=== PATIENT | female | born 1955 | race Caucasian/White ===

== ENCOUNTER 2016-11-26 16:40 | Inpatient (IN) ==
--- NOTE | 2016-11-26 17:47 | Emergency Department Note ---
Disposition Clinical Impression: Pancreatitis, Diabetes mellitus, History of peptic ulcer disease, Cirrhosis of liver, Obesity (BMI 30-39.9), Diarrhea Disposition: Admitted As Inpatient Referrals: NO,PCP [Non-Partnered Physician] - Forms: Work/School Release, ED Satisfaction Letter General Adult HPI - General Chief complaint: ED Abdominal Pain Stated complaint: "I believe i have pancreatitis" Time Seen by Provider: 11/26/16 17:46 Source: patient Limitations: no limitations - History of Present Illness HPI Narrative: 61-year-old female with a history of pancreatitis reports the emergency department complaining of right flank and right upper abdominal and midepigastric pain. There is no history of vomiting, she has had some nausea, some nonbloody diarrhea. The patient is a diabetic and reports a surgical history which includes hysterectomy appendectomy and cholecystectomy. No urinary symptoms. No back pain. The patient had no chest pain or shortness of breath. There is no history of fever cough and runny nose ear pain or sore throat. No trauma no rashes. There is no history of confusion. No trouble moving her arms or legs independently. There is no history of dysarthria or bloody stool. She does not consume alcohol on a regular basis. The patient reports that she has had 4 episodes of pancreatitis in the past. There is no history of previous GI bleed or gastritis. She is unsure what is caused her pancreatitis when asked, but a history of cirrhosis is noted. Pain Scale: 5 - Related Data Home Medications Medication Instructions Recorded Confirmed Amlodipine [Amlodipine Besylate] 10 mg PO QAM 11/17/15 10/13/16 Atorvastatin [Lipitor] 40 mg PO QPM 11/17/15 10/13/16 Duloxetine HCl [Cymbalta] 60 mg PO BID 11/17/15 10/13/16 Fluticasone Propionate Nasal 50 mcg NS DAILY PRN 11/17/15 10/13/16 [Flonase] LORazepam [Ativan] 0.5 tab PO BID PRN 11/17/15 10/13/16 Losartan/Hydrochlorothiazide 1 each PO QAM 11/17/15 10/13/16 [Hyzaar 100-12.5 Tablet] Metoprolol [Lopressor] 100 mg PO BID 11/17/15 10/13/16 Trazodone HCl 150 mg PO HS 11/17/15 10/13/16 Vitamin E (Dl,Tocopheryl Acet) 400 unit PO BID 11/17/15 10/13/16 [Vitamin E] Canagliflozin [Invokana] 300 mg PO DAILY 03/11/16 10/13/16 Cholecalciferol (D-3) [Vitamin D] 1,000 unit PO DAILY 04/11/16 10/13/16 Lansoprazole [Prevacid] 30 mg PO BID 04/11/16 10/13/16 Multivitamin [Multi-Day Vitamins] 1 each PO DAILY 04/11/16 10/13/16 Insulin NPH/REG 70/30 [HumuLIN 58 unit SQ BIDWM 06/27/16 10/13/16 70/30 VIAL] Albuterol Sulfate [Albuterol 1 puff IH PRN PRN 10/13/16 10/13/16 Inhaler] Beclomethasone Diprop 80mcg [Qvar 1 puff IH BID 10/13/16 10/13/16 80 mcg] Furosemide [Lasix] 20 mg PO DAILY 10/13/16 10/13/16 Previous Rx's Medication Instructions Recorded Promethazine [Phenergan] 25 mg PO Q8HR PRN #10 tablet 09/09/16 Allergies Allergy/AdvReac Type Severity Reaction Status Date / Time NSAIDS (Non-Steroidal AdvReac See Verified 06/04/16 12:52 Anti-Inflamma Comments All systems ED: reviewed and negative except as stated. 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 - Social History Smoking Status: Former smoker Smokeless Tobacco Status: No Alcohol use: Reports: none Drug use: Reports: none Physical Exam - General Limitations: no limitations General appearance: alert, in no apparent distress - Head Head exam: atraumatic, normocephalic, normal inspection - Eye Eye exam: Present: normal appearance, PERRL, EOMI - ENT ENT exam: normal exam, normal oropharynx, mucous membranes moist, TM's normal bilaterally, normal external ear exam - Neck Neck exam: Present: normal inspection, full ROM, trachea midline - Chest Chest inspection: Present: symmetric chest wall rise. Absent: tenderness - Respiratory Respiratory exam: Present: normal lung sounds bilaterally. Absent: respiratory distress - Cardiovascular Cardiovascular exam: Present: regular rate, normal rhythm, normal heart sounds - Abdominal Exam Abdominal exam: Present: soft, tenderness. Absent: distention, guarding, rebound, rigidity, trauma, pulsatile mass Abdominal tenderness: Present: epigastrium, moderate - Extremities Exam Extremities exam: Present: normal inspection, full ROM, normal capillary refill. Absent: tenderness, pedal edema, joint swelling, calf tenderness - Expanded Lower Extremity Exam Lower leg exam: Absent: Homans' sign Neurovascular/Tendon exam: Absent: motor deficit, sensory deficit, tendon deficit, extremity cold to touch, pallor - Back Exam Back exam: Present: normal inspection, full ROM. Absent: tenderness, CVA tenderness (R), CVA tenderness (L), vertebral tenderness - Neurological Exam Neurological exam: Present: alert, oriented X3, CN II-XII intact. Absent: motor sensory deficit - Psychiatric Psychiatric exam: Present: normal affect, normal mood - Skin Skin exam: Present: warm, dry, intact, normal color. Absent: rash, cyanosis, diaphoresis, erythema, pallor, mottled Course Vital Signs Temperature 97.7 F 11/26/16 16:46 Pulse Rate 69 11/26/16 16:46 Respiratory Rate 16 11/26/16 16:46 Blood Pressure 147/87 11/26/16 16:46 O2 Sat by Pulse Oximetry 95 11/26/16 16:46 Temperature 97.7 F 11/26/16 16:46 Pulse Rate 63 11/26/16 19:05 Respiratory Rate 16 11/26/16 19:05 Blood Pressure 118/65 11/26/16 19:05 O2 Sat by Pulse Oximetry 97 11/26/16 19:05 Oxygen Delivery Oxygen Delivery Nasal Cannula Medical Decision Making - [facility] Narrative Medical decision making narrative: The patient has low-grade elevations in her lipase and amylase. She states she has had pancreatitis multiple times. Her CT scan of the abdomen reveals no nino evidence of acute inflammatory pancreatitis. The patient's recent stress test and echocardiogram were negative. She is not describing chest pain or shortness of breath. The patient has had some diarrhea. She is diabetic but her blood sugar is not uncontrolled. The patient's pancreatic enzymes are slightly elevated compared to previous particularly, she has had several sets over the last few months. The patient does not feel well enough to go home she does have significant abdominal pain on examination. She also describes nonbloody diarrhea and is taking antibiotics this time. C. difficile could also be a possibility. I discussed the case with the hospitalist on-call who came by the ER to evaluate the patient. The patient is elderly, diabetic, and describes significant pain, I think it be appropriate to admit the patient for observation, hydrate her keep her nothing by mouth and evaluate further regarding potential C. difficile. - Lab Data Lab results reviewed: Yes I reviewed the patient's lab results. Result diagrams: 11/26/16 18:17 11/26/16 18:17 Lab Results 11/26/16 11/26/16 11/26/16 Range/Units 18:12 18:17 18:17 WBC 12.2 H (4.3-11.1) K/mcL RBC 5.12 H (3.82-4.97) M/mcL Hgb 15.2 (11.5-15.4) g/dL Hct 46.5 H (35.3-44.9) % MCV 90.8 (83.0-100.0) fL MCH 29.7 (28.0-33.3) pg MCHC 32.7 (31.6-35.5) g/dL RDW 13.2 (11.5-14.5) % Plt Count 360 (140-400) K/mcL MPV 9.7 (9.4-12.4) fL Immature Gran % 0.6 (0-4) % Seg Neutrophils % 50.8 % Lymphocytes % 34.5 % Monocytes % 8.4 % Eosinophils % 4.9 % Basophils % 0.8 % Neutrophils # 6.2 (1.6-8.9) K/mcL Lymphocytes # 4.2 (0.6-4.6) K/mcL Monocytes # 1.0 (0.0-1.3) K/mcL Eosinophils # 0.6 (0.0-0.6) K/mcL Basophils # 0.1 (0.0-0.2) K/mcL Immature Plt Fraction 4.0 (1.1-6.1) % PT (9.4-12.1) Seconds INR APTT (26.0-36.0) Seconds Sodium 140 (136-145) mEq/L Potassium 3.7 (3.5-4.5) mEq/L Chloride 103 (98-109) mEq/L Carbon Dioxide 26 (19-29) mEq/L BUN 18 (7-20) mg/dL Creatinine 0.87 (0.57-1.11) mg/dL Est GFR ( Amer) > 60 (> 60) Est GFR (Non-Af Amer) > 60 (> 60) BUN/Creatinine Ratio 21 (6-26) Glucose 96 (70-99) mg/dL Calculated Osmolality 292 (280-300) Lactic Acid (0.5-2.2) mmol/L Calcium 9.5 (8.6-10.8) mg/dL Total Bilirubin 0.5 (0.2-1.2) mg/dL Direct Bilirubin 0.2 (0.0-0.5) mg/dL Indirect Bilirubin 0.3 (0.0-1.2) mg/dL AST 60 H (5-34) Units/L ALT 34 (0-55) Units/L Alkaline Phosphatase 110 (38-126) Units/L C-Reactive Protein (Less than 5) mg/L Serum Total Protein 8.0 (6.0-8.3) g/dL Albumin 4.6 (3.5-5.0) g/dL Globulin 3.4 (2.4-3.5) g/dL Albumin/Globulin Ratio 1.4 (1.1-2.2) Amylase (25-125) Units/L Lipase (8-78) Units/L Urine Color Yellow (Yellow) Urine Clarity Clear (Clear) Urine pH 6.5 (5.0-8.0) pH Units Ur Specific [place] 1.023 (1.010-1.025) Urine Protein Negative (Neg-Trace) mg/dL Urine Glucose (UA) >=1000 H (Normal) mg/dL Urine Ketones Negative (Negative) mg/dL Urine Blood Negative (Negative) Urine Nitrite Negative (Negative) Urine Bilirubin Negative (Negative) Urine Urobilinogen Normal (Normal) mg/dL Ur Leukocyte Esterase Negative (Negative) 11/26/16 11/26/16 11/26/16 Range/Units 18:17 18: 18: WBC (4.3-11.1) K/mcL RBC (3.82-4.97) M/mcL Hgb (11.5-15.4) g/dL Hct (35.3-44.9) % MCV (83.0-100.0) fL MCH (28.0-33.3) pg MCHC (31.6-35.5) g/dL RDW (11.5-14.5) % Plt Count (140-400) K/mcL MPV (9.4-12.4) fL Immature Gran % (0-4) % Seg Neutrophils % % Lymphocytes % % Monocytes % % Eosinophils % % Basophils % % Neutrophils # (1.6-8.9) K/mcL Lymphocytes # (0.6-4.6) K/mcL Monocytes # (0.0-1.3) K/mcL Eosinophils # (0.0-0.6) K/mcL Basophils # (0.0-0.2) K/mcL Immature Plt Fraction (1.1-6.1) % PT (9.4-12.1) Seconds INR APTT (26.0-36.0) Seconds Sodium (136-145) mEq/L Potassium (3.5-4.5) mEq/L Chloride (98-109) mEq/L Carbon Dioxide (19-29) mEq/L BUN (7-20) mg/dL Creatinine (0.57-1.11) mg/dL Est GFR ( Amer) (> 60) Est GFR (Non-Af Amer) (> 60) BUN/Creatinine Ratio (6-26) Glucose (70-99) mg/dL Calculated Osmolality (280-300) Lactic Acid 0.9 (0.5-2.2) mmol/L Calcium (8.6-10.8) mg/dL Total Bilirubin (0.2-1.2) mg/dL Direct Bilirubin (0.0-0.5) mg/dL Indirect Bilirubin (0.0-1.2) mg/dL AST (5-34) Units/L ALT (0-55) Units/L Alkaline Phosphatase (38-126) Units/L C-Reactive Protein 3 (Less than 5) mg/L Serum Total Protein (6.0-8.3) g/dL Albumin (3.5-5.0) g/dL Globulin (2.4-3.5) g/dL Albumin/Globulin Ratio (1.1-2.2) Amylase 127 H (25-125) Units/L Lipase 223 H (8-78) Units/L Urine Color (Yellow) Urine Clarity (Clear) Urine pH (5.0-8.0) pH Units Ur Specific [place] (1.010-1.025) Urine Protein (Neg-Trace) mg/dL Urine Glucose (UA) (Normal) mg/dL Urine Ketones (Negative) mg/dL Urine Blood (Negative) Urine Nitrite (Negative) Urine Bilirubin (Negative) Urine Urobilinogen (Normal) mg/dL Ur Leukocyte Esterase (Negative) 11/26/16 Range/Units 18:17 WBC (4.3-11.1) K/mcL RBC (3.82-4.97) M/mcL Hgb (11.5-15.4) g/dL Hct (35.3-44.9) % MCV (83.0-100.0) fL MCH (28.0-33.3) pg MCHC (31.6-35.5) g/dL RDW (11.5-14.5) % Plt Count (140-400) K/mcL MPV (9.4-12.4) fL Immature Gran % (0-4) % Seg Neutrophils % % Lymphocytes % % Monocytes % % Eosinophils % % Basophils % % Neutrophils # (1.6-8.9) K/mcL Lymphocytes # (0.6-4.6) K/mcL Monocytes # (0.0-1.3) K/mcL Eosinophils # (0.0-0.6) K/mcL Basophils # (0.0-0.2) K/mcL Immature Plt Fraction (1.1-6.1) % PT 11.0 (9.4-12.1) Seconds INR 1.0 APTT 30.9 (26.0-36.0) Seconds Sodium (136-145) mEq/L Potassium (3.5-4.5) mEq/L Chloride (98-109) mEq/L Carbon Dioxide (19-29) mEq/L BUN (7-20) mg/dL Creatinine (0.57-1.11) mg/dL Est GFR ( Amer) (> 60) Est GFR (Non-Af Amer) (> 60) BUN/Creatinine Ratio (6-26) Glucose (70-99) mg/dL Calculated Osmolality (280-300) Lactic Acid (0.5-2.2) mmol/L Calcium (8.6-10.8) mg/dL Total Bilirubin (0.2-1.2) mg/dL Direct Bilirubin (0.0-0.5) mg/dL Indirect Bilirubin (0.0-1.2) mg/dL AST (5-34) Units/L ALT (0-55) Units/L Alkaline Phosphatase (38-126) Units/L C-Reactive Protein (Less than 5) mg/L Serum Total Protein (6.0-8.3) g/dL Albumin (3.5-5.0) g/dL Globulin (2.4-3.5) g/dL Albumin/Globulin Ratio (1.1-2.2) Amylase (25-125) Units/L Lipase (8-78) Units/L Urine Color (Yellow) Urine Clarity (Clear) Urine pH (5.0-8.0) pH Units Ur Specific [place] (1.010-1.025) Urine Protein (Neg-Trace) mg/dL Urine Glucose (UA) (Normal) mg/dL Urine Ketones (Negative) mg/dL Urine Blood (Negative) Urine Nitrite (Negative) Urine Bilirubin (Negative) Urine Urobilinogen (Normal) mg/dL Ur Leukocyte Esterase (Negative) - Radiology Data Radiology results reviewed: Yes I reviewed the patient's radiology results.
[2016-11-26 18:21] LABS: Bilirubin,Urine Negative (Negative); Blood,Urine Negative (Negative); Clarity,Urine Clear (Clear); Color,Urine Yellow (Yellow); Glucose,Urine (UA) >=1000 mg/dL (Normal); Ketones,Urine Negative (Negative); Leukocyte Esterase,Urine Negative (Negative); Nitrite,Urine Negative (Negative); PH,Urine 6.5 pH Units (5.0-8.0); Protein,Urine Negative (Neg-Trace); Specific Gravity,Urine 1.023 (1.010-1.025); Urobilinogen,Urine Normal (Normal)
[2016-11-26] MEDS ORDERED: Ondansetron 4 MG/2 ML VIAL IVP ONE (18:21)
[2016-11-26] MEDS ORDERED: *HR* HYDROmorphone (PF) 1 MG/ML SYRINGE IVP ONE (18:21)
[2016-11-26 18:32] LABS: Basophils # 0.1 K/mcL (0.0-0.2); Basophils % 0.8 %; Eosinophils # 0.6 K/mcL (0.0-0.6); Eosinophils % 4.9 %; Hematocrit 46.5 % (35.3-44.9); Hemoglobin 15.2 g/dL (11.5-15.4); Immature Granulocytes % 0.6 % (0-4); Lymphocytes # 4.2 K/mcL (0.6-4.6); Lymphocytes % 34.5 %; Mean Corpuscular HGB Conc 32.7 g/dL (31.6-35.5); Mean Corpuscular Hemoglobin 29.7 pg (28.0-33.3); Mean Corpuscular Volume 90.8 fL (83.0-100.0); Mean Platelet Volume 9.7 fL (9.4-12.4); Monocytes % 8.4 %; Neutrophils # 6.2 K/mcL (1.6-8.9); Platelet Count 360 K/mcL (140-400); Red Blood Count 5.12 M/mcL (3.82-4.97); Red Cell Distribution Width 13.2 % (11.5-14.5); Segmented Neutrophils % 50.8 %
[2016-11-26 18:46] LABS: Amylase 127 Units/L (25-125); Lipase 223 Units/L (8-78)
[2016-11-26 18:48] LABS: Alanine Aminotransferase 34 Units/L (0-55); Albumin 4.6 g/dL (3.5-5.0); Albumin/Globulin Ratio 1.4 (1.1-2.2); Alkaline Phosphatase 110 Units/L (38-126); Aspartate Amino Transferase 60 Units/L (5-34); BUN/Creatinine Ratio 21 (6-26); Bilirubin,Direct 0.2 mg/dL (0.0-0.5); Bilirubin,Indirect 0.3 mg/dL (0.0-1.2); Bilirubin,Total 0.5 mg/dL (0.2-1.2); Blood Urea Nitrogen 18 mg/dL (7-20); Calcium 9.5 mg/dL (8.6-10.8); Carbon Dioxide 26 mEq/L (19-29); Chloride 103 mEq/L (98-109); Globulin 3.4 g/dL (2.4-3.5); Glucose 96 mg/dL (70-99); Osmolality,Calculated 292 (280-300); Potassium 3.7 mEq/L (3.5-4.5); Sodium 140 mEq/L (136-145); eGFR For African Americans > 60 (> 60); eGFR For Non-African Americans > 60 (> 60)
[2016-11-26 19:55] LABS: Activated Partial Thrombo Time 30.9 Seconds (26.0-36.0)
[2016-11-26] MEDS ORDERED: Acetaminophen 325 MG TABLET PO PRN (22:36)
[2016-11-26] MEDS ORDERED: Naloxone 0.4 MG/ML INJ IVP PRN (22:36)
[2016-11-26] MEDS ORDERED: Dextrose Gel 15 GM PO PRN ×2 (22:42)
[2016-11-26] MEDS ORDERED: D5% in Water 1,000 ML IV PRN (22:42)
[2016-11-26] MEDS ORDERED: *HR* Dextrose 50 % in Water (Syg) 50 ML SYRINGE IVP PRN (22:42)
[2016-11-26] MEDS ORDERED: 0.9 % Sodium Chloride 1,000 ML IVC SCH (22:45)
--- NOTE | 2016-11-26 22:54 | Internal Med History&Physical ---
Date of Encounter: 11/26/16 Time of Encounter: 22:15 Assessment and Plan (1) Acute pancreatitis Current visit: Yes Status: Acute Lipase is elevated but CT abdomen did not show acute pancreatitis. Will treat with IV fluids and pain management. GI consult, as she follows with Dr Castillo and apparently is scheduled for a procedure later this month. Pt was previously evaluated for pancreatitis in December 2015. MRCP at that time showed "Mild common bile duct dilation without discrete filling defect or choledocholithiasis". She denies alcohol use. She denies starting any new medications recently. He is status post cholecystectomy 2013. She has mild hyper lipidemia with triglycerides in 200's in december 2015. Qualifiers: Pancreatitis type: unspecified pancreatitis type Acute pancreatitis complication: no infection or necrosis Qualified Code(s): K85.90 - Acute pancreatitis without necrosis or infection, unspecified (2) Cirrhosis of liver Current visit: Yes Status: Chronic Qualifiers: Hepatic cirrhosis type: unspecified hepatic cirrhosis Ascites presence: without ascites Qualified Code(s): K74.60 - Unspecified cirrhosis of liver (3) Diabetes mellitus Current visit: Yes Status: Chronic start sliding scale insulin Qualifiers: Diabetes mellitus type: type 2 Diabetes mellitus complication status: with unspecified complications Diabetes mellitus correction insulin use: with correction use Qualified Code(s): E11.8 - Type 2 diabetes mellitus with unspecified complications; 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 Lopez is a 61 year old female with a past medical history significant for pancreatitis, follows with Dr. Castillo and is expected to have a procedure done later this month. She also has history of cirrhosis of liver, diabetes mellitus , GERD, hyperlipidemia, hypertension, Lung cancer s/p left lung surgery, s/p appendectomy, cholecystectomy, hysterectomy. She presents to the emergency department history of epigastric/upper abdominal pain started last night. Pain was moderate in severity and was stopped on the same quality as her prior pancreatitis pain. Pain was radiating to the back. Pain is improved since presentation to the hospital. She had some nausea but no vomiting. Had a few loose bowel movements yesterday. Denies chest pain, shortness of breath, cough , expectoration, dysuria, hematuria, fever, chills. She was evaluated in the emergency department and was noted to have elevated lipase and amylase. CT scan of the abdomen was negative for acute pancreatitis. She is admitted to the hospitalist service for further workup and management. Pt was previously evaluated for pancreatitis in December 2015. MRCP at that time showed "Mild common bile duct dilation without discrete filling defect or choledocholithiasis". She denies alcohol use. She denies starting any new medications recently. He is status post cholecystectomy 2013. She has mild hyper lipidemia with triglycerides in 200's in december 2015. Past Med Surg Social Fam HX - Past Medical History Medical history: arthritis, cancer, cirrhosis, diabetes, GERD, hyperlipidemia, hypertension, liver disease, malignancy, osteoporosis, other Psychiatric history: anxiety, depression - Past Surgical History Surgical History: appendectomy, cholecystectomy, hysterectomy, orthopedic, other , LIZZETTE/BSO, other - Social History Smoking Status: Former smoker Smokeless Tobacco Status: No Alcohol use: none Drug use: none - Family History Mother Living Status: Hx Family Cardiac Disorders: Yes (abdominal aortic aneurysm) Hx Family Respiratory Disorders: Yes (emphysema) Hx Family Cancer: Yes (skin cancer) Hx Family GI Disorders: No Hx Family Endocrine Disorder: Yes (diabetes) Hx Family Neuromuscular Disorders: No Hx Family Neurologic Disorders: No Hx Family HEENT Disorders: No Hx Family Autoimmune Disorders: No Father Living Status: Hx Family Cardiac Disorders: Yes (unknown) Internal Medicine - H&P: Meds Amlodipine [Amlodipine Besylate] 10 mg PO QAM 11/17/15 [History] Atorvastatin [Lipitor] 40 mg PO QPM 11/17/15 [History] Duloxetine HCl [Cymbalta] 60 mg PO BID 11/17/15 [History] Fluticasone Propionate Nasal [Flonase] 50 mcg NS DAILY PRN 11/17/15 [History] LORazepam [Ativan] 0.5 tab PO BID PRN 11/17/15 [History] Losartan/Hydrochlorothiazide [Hyzaar 100-12.5 Tablet] 1 each PO QAM 11/17/15 [ History] Metoprolol [Lopressor] 100 mg PO BID 11/17/15 [History] Trazodone HCl 150 mg PO HS 11/17/15 [History] Vitamin E (Dl,Tocopheryl Acet) [Vitamin E] 400 unit PO BID 11/17/15 [History] Canagliflozin [Invokana] 300 mg PO DAILY 03/11/16 [History] Multivitamin [Multi-Day Vitamins] 1 each PO DAILY 04/11/16 [History] Insulin NPH/REG 70/30 [HumuLIN 70/30 VIAL] 58 unit SQ BIDWM 06/27/16 [History] Albuterol Sulfate [Albuterol Inhaler] 1 puff IH PRN PRN 10/13/16 [History] Beclomethasone Diprop 80mcg [Qvar 80 mcg] 1 puff IH BID 10/13/16 [History] Furosemide [Lasix] 20 mg PO DAILY 10/13/16 [History] Aripiprazole [Abilify] 2 mg PO HS 11/26/16 [History] Esomeprazole Magnesium [Nexium] 40 mg PO DAILY 11/26/16 [History] Allergies NSAIDS (Non-Steroidal Anti-Inflamma Adverse Reaction (Verified 06/04/16 12:52) See Comments bleeding ulcer All Systems PM: A 10-system review of systems was performed and is negative for pertinent findings except as documented above in the HPI. - Constitutional Vitals: Temp Pulse Resp BP Pulse Ox 97.6 F 57 16 103/61 94 L 11/26/16 22:10 11/26/16 22:10 11/26/16 22:10 11/26/16 22:10 11/26/16 22:10 Exam: General: Not in acute distress at the time of my evaluation HEENT: Oral mucosa is moist. No conjunctival palor or scleral icterus Neck: No obvious neck swellings Lungs: Clear to auscultation Cardiac: Regular rate and rhythm. Systolic murmur in the aortic area Abdomen: Epigastric/upper abdominal tenderness. Bowel sounds present Genitourinary: No reeves catheter Neurological: Alert and oriented. No gross localizing deficits Psych: Not aggressive or agitated Extremities: Trace leg edema Skin: No generalized rash Internal Med - H&P Results - Labs CBC & Chem 7: 11/26/16 18:17 11/26/16 18:17 - Impressions ITS Impressions Abdomen/Pelvis CT 11/26/16 18:22 IMPRESSION: 1. No acute process in the abdomen or pelvis. Specifically, there is no evidence of pancreatitis. 2. Small fat-containing ventral abdominal wall hernia. 3. Unchanged mild hepatomegaly. D/ / 11/26/2016 19:49:58 Vasiliy Chandler MD / alana Interpreting Provider: Vasiliy Chandler MD MRCP in 12/2015: IMPRESSION: 1. Mild common bile duct dilation without discrete filling defect or choledocholithiasis. 2. Slight hypertrophy of the left hepatic lobe with slightly lobular contour, which can be seen in setting of cirrhosis
[2016-11-26] MEDS: 0.9 % Sodium Chloride 1,000 ML IVC SCH (23:53)
[2016-11-26] MEDS: *HR* Morphine 2 MG/ML SYRINGE IVP PRN (23:53)
[2016-11-26] MEDS: Pantoprazole 40 MG VIAL IVP SCH (23:54)
[2016-11-27] MEDS ORDERED: *HR* LORazepam 1 MG TABLET PO PRN (01:07)
[2016-11-27] MEDS ORDERED: Fluticasone Propionate Nasal 50 MCG/SPRAY BOTTLE NS PRN (01:07)
[2016-11-27] MEDS: ARIPiprazole 2 MG TABLET PO SCH ×2 (01:56→20:16)
[2016-11-27] MEDS: *HR* Morphine 2 MG/ML SYRINGE IVP PRN ×4 (04:48→20:15)
[2016-11-27] MEDS: *HR* Enoxaparin 40 MG/0.4 ML SYRINGE SQ SCH (05:04)
[2016-11-27] MEDS: Ondansetron 4 MG/2 ML VIAL IVP PRN ×2 (05:04→18:26)
[2016-11-27] MEDS: 0.9 % Sodium Chloride 1,000 ML IVC SCH ×3 (06:30→20:18)
[2016-11-27 06:45] LABS: Hematocrit 42.3 % (35.3-44.9); Hemoglobin 13.8 g/dL (11.5-15.4); Mean Corpuscular HGB Conc 32.6 g/dL (31.6-35.5); Mean Corpuscular Hemoglobin 30.3 pg (28.0-33.3); Mean Corpuscular Volume 92.8 fL (83.0-100.0); Mean Platelet Volume 9.5 fL (9.4-12.4); Platelet Count 244 K/mcL (140-400); Red Blood Count 4.56 M/mcL (3.82-4.97); Red Cell Distribution Width 13.2 % (11.5-14.5)
[2016-11-27 07:01] LABS: Alanine Aminotransferase 24 Units/L (0-55); Albumin/Globulin Ratio 1.3 (1.1-2.2); Alkaline Phosphatase 93 Units/L (38-126); Aspartate Amino Transferase 48 Units/L (5-34); BUN/Creatinine Ratio 20 (6-26); Bilirubin,Total 0.4 mg/dL (0.2-1.2); Blood Urea Nitrogen 14 mg/dL (7-20); Calcium 8.9 mg/dL (8.6-10.8); Carbon Dioxide 25 mEq/L (19-29); Chloride 106 mEq/L (98-109); Chol/HDL Ratio 4.6 (0-4.9); Cholesterol 195 mg/dL (< 200); Globulin 2.7 g/dL (2.4-3.5); Glucose 87 mg/dL (70-99); HDL Cholesterol 42 mg/dL (40-59); LDL Cholesterol,Calculated 115 mg/dL (0-99); Osmolality,Calculated 290 (280-300); Potassium 3.7 mEq/L (3.5-4.5); Sodium 140 mEq/L (136-145); Triglycerides 192 mg/dL (< 150); eGFR For African Americans > 60 (> 60); eGFR For Non-African Americans > 60 (> 60)
[2016-11-27 07:19] LABS: Albumin 3.6 g/dL (3.5-5.0); Total Protein 6.3 g/dL (6.0-8.3)
[2016-11-27] MEDS: Pantoprazole 40 MG VIAL IVP SCH (09:00)
[2016-11-27] MEDS: Metoprolol 100 MG TABLET PO SCH ×2 (09:03→20:17)
[2016-11-27] MEDS: Multivit/Ca/Min/Fe/FA 1 TAB TABLET PO SCH (09:03)
[2016-11-27] MEDS: amLODIPine 5 MG TABLET PO SCH (09:03)
[2016-11-27] MEDS: Cholecalciferol (D-3) 1,000 UNIT TABLET PO SCH (09:03)
[2016-11-27] MEDS: Insulin LISPRO 300 UNITS/3 ML VIAL SQ SCH ×4 (09:07→20:17)
[2016-11-27] MEDS: Beclomethasone 80mcg MDI IH SCH ×2 (09:33→22:28)
--- NOTE | 2016-11-27 12:42 | Internal Med Progress Note ---
Date of Encounter: 11/27/16 Time of Encounter: 12:42 - Assessment and plan (1) Acute pancreatitis Current Visit: Yes Status: Acute Assessment and plan: Clinically improving Reports of having multiple episodes of pancreatitis in the past continue supportive care IV fluids Pain control Will advance to clear liquid diet Awaiting GI consultation Qualifiers: Pancreatitis type: unspecified pancreatitis type Acute pancreatitis complication: no infection or necrosis Qualified Code(s): K85.90 - Acute pancreatitis without necrosis or infection, unspecified (2) Cirrhosis of liver Current Visit: Yes Status: Chronic Qualifiers: Hepatic cirrhosis type: unspecified hepatic cirrhosis Ascites presence: without ascites Qualified Code(s): K74.60 - Unspecified cirrhosis of liver (3) Diabetes mellitus Current Visit: Yes Status: Chronic Assessment and plan: Continue to monitor fingerstick and blood glucose continue sliding scale insulin algorithm Qualifiers: Diabetes mellitus type: type 2 Diabetes mellitus complication status: with unspecified complications Diabetes mellitus halfway insulin use: with halfway use Qualified Code(s): E11.8 - Type 2 diabetes mellitus with unspecified complications; 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 Resting in bed and appears comfortable. States her nausea and abd pain are controlled with the current medication regimen. - Constitutional Vitals: Temp Pulse Resp BP Pulse Ox 98.3 F 64 18 123/82 98 11/27/16 10:00 11/27/16 10:00 11/27/16 10:00 11/27/16 10:00 11/27/16 10:00 General appearance: Present: A&O X 3, morbidly obese, no acute distress, answers questions appropriately - Head Head exam: Present: atraumatic, normocephalic - Eye Eye exam: Present: normal appearance, conjuntiva pink, sclera anicteric - Respiratory Respiratory exam: Present: CTAB. Absent: accessory muscle use, rales, rhonchi, wheezes - Cardiovascular Cardiovascular exam: Present: RRR, +S1, +S2. Absent: diastolic murmur, gallop, rubs, systolic murmur - GI/Abdominal GI/Abdominal exam: Present: normal bowel sounds, soft, tenderness (epigastric tenderness to deep palpation), no peritoneal signs. Absent: distended, rebound - Extremities Exam Extremities exam: Present: warm, radial pulses palpable and symetrical. Absent : calf tenderness, pedal edema - Neurological Exam Neurological exam: Present: alert, oriented X3 - Psychiatric Psychiatric exam: Present: normal affect, normal mood Internal Medicine: Result - Labs CBC & Chem 7: 11/27/16 06:39 11/27/16 06:39 Labs: Short CBC 11/27/16 Range/Units 06:39 WBC 8.6 (4.3-11.1) K/mcL Hgb 13.8 (11.5-15.4) g/dL Hct 42.3 (35.3-44.9) % Plt Count 244 (140-400) K/mcL BMP 11/27/16 06:39 Sodium 140 Potassium 3.7 Chloride 106 Carbon Dioxide 25 BUN 14 Creatinine 0.71 Glucose 87 Calcium 8.9 Liver Function 11/27/16 Range/Units 06:39 Total Bilirubin 0.4 (0.2-1.2) mg/dL AST 48 H (5-34) Units/L ALT 24 (0-55) Units/L Alkaline Phosphatase 93 (38-126) Units/L Albumin 3.6 D (3.5-5.0) g/dL - ABG Interpretation ABG results: PT/INR, D-dimer PT 11.0 Seconds (9.4-12.1) 11/26/16 18:17 Consult Discharge Plan - Plan Referrals: Ava Kimble, RESEARCH COORDINATOR [Primary Care Provider] -
[2016-11-27] MEDS ORDERED: D5% in Water 1,000 ML IV PRN (12:51)
[2016-11-27] MEDS ORDERED: Dextrose Gel 15 GM PO PRN ×2 (12:51)
[2016-11-27] MEDS ORDERED: *HR* Dextrose 50 % in Water (Syg) 50 ML SYRINGE IVP PRN (12:51)
[2016-11-27] MEDS: traZODone 50 MG TABLET PO SCH (20:17)
[2016-11-28] MEDS: *HR* Morphine 2 MG/ML SYRINGE IVP PRN ×7 (00:43→21:07)
[2016-11-28] MEDS: 0.9 % Sodium Chloride 1,000 ML IVC SCH ×3 (01:54→17:19)
[2016-11-28 05:11] LABS: Basophils # 0.1 K/mcL (0.0-0.2); Basophils % 0.8 %; Eosinophils # 0.5 K/mcL (0.0-0.6); Eosinophils % 5.6 %; Hematocrit 42.9 % (35.3-44.9); Hemoglobin 13.9 g/dL (11.5-15.4); Immature Granulocytes % 0.5 % (0-4); Lymphocytes # 2.5 K/mcL (0.6-4.6); Lymphocytes % 29.9 %; Mean Corpuscular HGB Conc 32.4 g/dL (31.6-35.5); Mean Corpuscular Hemoglobin 29.6 pg (28.0-33.3); Mean Corpuscular Volume 91.3 fL (83.0-100.0); Mean Platelet Volume 10.2 fL (9.4-12.4); Monocytes # 0.8 K/mcL (0.0-1.3); Neutrophils # 4.4 K/mcL (1.6-8.9); Platelet Count 262 K/mcL (140-400); Red Cell Distribution Width 13.2 % (11.5-14.5); Segmented Neutrophils % 53.2 %
[2016-11-28] MEDS: Ondansetron 4 MG/2 ML VIAL IVP PRN ×3 (05:30→21:07)
[2016-11-28] MEDS: *HR* Enoxaparin 40 MG/0.4 ML SYRINGE SQ SCH (05:32)
[2016-11-28] MEDS: Insulin LISPRO 300 UNITS/3 ML VIAL SQ SCH ×4 (07:43→20:58)
[2016-11-28] MEDS: Metoprolol 100 MG TABLET PO SCH ×2 (07:45→21:06)
[2016-11-28] MEDS: amLODIPine 5 MG TABLET PO SCH (07:45)
[2016-11-28] MEDS: Multivit/Ca/Min/Fe/FA 1 TAB TABLET PO SCH (07:46)
[2016-11-28] MEDS: Pantoprazole 40 MG VIAL IVP SCH (07:46)
[2016-11-28] MEDS: Cholecalciferol (D-3) 1,000 UNIT TABLET PO SCH (07:46)
[2016-11-28] MEDS: Beclomethasone 80mcg MDI IH SCH ×2 (08:31→20:43)
--- NOTE | 2016-11-28 09:30 | Gastroenterology Consult Note ---
<Claudia Gonzalez - Last Filed: 11/28/16 13:43> Date of Encounter: 11/28/16 Time of Encounter: 11:00 - Assessment and plan (1) Barretts esophagus Current Visit: Yes Status: Chronic Assessment and plan: Continue PPI daily, repeat EGD due 2018 Qualifiers: Ordoñez's esophagus type: without dysplasia Qualified Code(s): K22.70 - Ordoñez's esophagus without dysplasia (2) Pancreatitis Current Visit: Yes Status: Chronic Assessment and plan: Supportive care, w/u has been negative in the past for cause for continued episodes of pancreatitis. Fluids, bowel rest, anti-emetics, pain control. F/U in [facility] with Dr. Castillo 12/05/16 as previously scheduled. Qualifiers: Chronicity: chronic Pancreatitis type: unspecified pancreatitis type Qualified Code(s): K86.1 - Other chronic pancreatitis (3) Cirrhosis of liver Current Visit: Yes Status: Chronic Assessment and plan: Check afp. Recent imaging 11/2016 negative for lesions. No varices last EGD 2015. Qualifiers: Hepatic cirrhosis type: unspecified hepatic cirrhosis Ascites presence: without ascites Qualified Code(s): K74.60 - Unspecified cirrhosis of liver (4) H/O: lung cancer Current Visit: No Status: Chronic - Time Spent With Patient Total time spent is greater than 50% in coordination of care (as documented) at patient's floor/unit and/or counseling patient: less than 15 minutes GI History of Present Illness - Data of Consult Patient: known to practice within the last 3 years Consult date: 11/28/16 Requesting Physician: Malika Schmitz MD - Consult Narrative Reason for consult: chronic pancreatitis, cirrhosis History of present illness: Ms. Lopez is a 61 year old female with a PMH of chronic pancreatitis, cirrhosis, DM, GERD, HLD, HTN, lung cancer. She presented to the emergency department history of epigastric/upper abdominal pain started last night. Pain was moderate in severity and was stopped on the same quality as her prior pancreatitis pain. Pain was radiating to the back. Pain is improved since presentation to the hospital. She had some nausea but no vomiting. Had a few loose bowel movements yesterday. Patient is well-known to GI practice, last being seen in office visit with Dr. Castillo 07/2016 with a recall appoint in 6 months. Since that time, she has contacted the GI office with repeated episodes of pancreatitis and was placed on Dr. Castillo's schedule for office visit 12/05/16. Her last EGD with Dr. Castillo was 12/2015, + Barretts esophagus without dysplasia and reflux esophagitis. She also underwent EUS 12/2015 with a recommendation to repeat CT with pancreas protocol in 4-5 months. Prior liver biopsy in 2013, last Cscope [address] Castillo showed diverticulosis and internal hemorrhoids. Patient stated that symptoms began on Monday with diarrhea. Since that time, she has not had a BM. She reports abdominal pain, nausea. No significant improvement since she was admitted. Colonoscopy: 2013 - [facility] - diverticulosis/internal hemorrhoids EGD: 2015 - [facility] - Barretts, reflux esophagitis Past Med Surg Social Fam HX - Past Medical History Medical history: arthritis, cancer, cirrhosis, diabetes, GERD, hyperlipidemia, hypertension, liver disease, malignancy, osteoporosis, other Psychiatric history: anxiety, depression - Past Surgical History Surgical History: appendectomy, cholecystectomy, hysterectomy, orthopedic, other , LIZZETTE/BSO, other - Social History Smoking Status: Former smoker Smokeless Tobacco Status: No Alcohol use: none Drug use: none - Family History Mother Living Status: Hx Family Cardiac Disorders: Yes (abdominal aortic aneurysm) Hx Family Respiratory Disorders: Yes (emphysema) Hx Family Cancer: Yes (skin cancer) Hx Family GI Disorders: No Hx Family Endocrine Disorder: Yes (diabetes) Hx Family Neuromuscular Disorders: No Hx Family Neurologic Disorders: No Hx Family HEENT Disorders: No Hx Family Autoimmune Disorders: No Father Living Status: Hx Family Cardiac Disorders: Yes (unknown) - Gastrointestinal NSAID use: None noted Anticoagulation Use: None Number of BM Per Day: Daily Gastrointestinal: Present: abdominal pain, constipation, diarrhea, nausea - Constitutional Constitutional: as per HPI - EENT Eyes: as per HPI Ears: Present: as per HPI Nose, mouth and throat: Present: as per HPI - Cardiovascular Cardiovascular ROS: Present: as per HPI - Respiratory Respiratory IM: Present: as per HPI - Neurological ROS Neurological GI: Present: as per HPI - Hematologic/Lymphatic Hematologic/Lymphatic pediatric: Present: as per HPI - Musculoskeletal Musculoskeletal ROS GI: Present: as per HPI - Integumentary Integumentary GI: Present: as per HPI - Psychiatric ROS Psychiatric GI: Present: as per HPI - Endocrine Endocrine IM: Present: as per HPI - Constitutional Vitals: Temp Pulse Resp BP Pulse Ox 97.6 F 67 18 119/65 97 11/28/16 07:00 11/28/16 07:00 11/28/16 08:34 11/28/16 07:00 11/28/16 08:34 General appearance: Present: cooperative, A&O X 3, no acute distress, answers questions appropriately - Head Head exam: Present: atraumatic, normocephalic - Eye Eye exam: Present: normal appearance, sclera anicteric - ENT ENT exam: Present: mucous membranes moist - Neck Neck exam general surgery: Present: normal inspection, trachea midline - Respiratory Respiratory exam: Present: CTAB - Cardiovascular Cardiovascular exam: Present: RRR, +S1, +S2 - GI/Abdominal GI/Abdominal exam: Present: soft, tenderness, no peritoneal signs - Rectal Rectal exam: Present: deferred - Extremities Exam Extremities exam: Present: warm - Neurological Exam Neurological exam: Present: no focal deficits - Psychiatric Psychiatric exam: Present: normal affect, normal mood - Skin Skin exam: Present: dry, intact, normal color, warm Results - Labs CBC & Chem 7: 11/28/16 04:46 11/27/16 06:39 Labs: Last Result Calcium 8.9 mg/dL (8.6-10.8) 11/27/16 06:39 C-Reactive Protein 3 mg/L (Less than 5) 11/26/16 18:17 Triglycerides 192 mg/dL (< 150) H 11/27/16 06:39 Entire Visit Hgb 13.9 g/dL (11.5-15.4) 11/28/16 04:46 Hct 42.9 % (35.3-44.9) 11/28/16 04:46 PT 11.0 Seconds (9.4-12.1) 11/26/16 18:17 Total Bilirubin 0.4 mg/dL (0.2-1.2) 11/27/16 06:39 AST 48 Units/L (5-34) H 11/27/16 06:39 ALT 24 Units/L (0-55) 11/27/16 06:39 Amylase 127 Units/L (25-125) H 11/26/16 18:17 Lipase 223 Units/L (8-78) H 11/26/16 18:17 - ABG ABG results: PT/INR, D-dimer PT 11.0 Seconds (9.4-12.1) 11/26/16 18:17 Consult Discharge Plan - Plan Referrals: Ava Kimble, HACK DRIVER [Primary Care Provider] - <[email or web address] - Last Filed: 11/28/16 14:25> Date of Encounter: 11/28/16 Time of Encounter: 12:00 - Time Spent With Patient Total time spent is greater than 50% in coordination of care (as documented) at patient's floor/unit and/or counseling patient: GI History of Present Illness - Data of Consult Requesting Physician: Malika Schmitz MD - Consult Narrative History of present illness: Ms. Lopez is a 61 year old female - Constitutional Vitals: Temp Pulse Resp BP Pulse Ox 98.0 F 66 16 130/67 94 L 11/28/16 10:55 11/28/16 10:55 11/28/16 10:55 11/28/16 10:55 11/28/16 10:55 Results - Labs CBC & Chem 7: 11/28/16 04:46 11/27/16 06:39 Labs: Last Result Calcium 8.9 mg/dL (8.6-10.8) 11/27/16 06:39 C-Reactive Protein 3 mg/L (Less than 5) 11/26/16 18:17 Triglycerides 192 mg/dL (< 150) H 11/27/16 06:39 Entire Visit Hgb 13.9 g/dL (11.5-15.4) 11/28/16 04:46 Hct 42.9 % (35.3-44.9) 11/28/16 04:46 PT 11.0 Seconds (9.4-12.1) 11/26/16 18:17 Total Bilirubin 0.4 mg/dL (0.2-1.2) 11/27/16 06:39 AST 48 Units/L (5-34) H 11/27/16 06:39 ALT 24 Units/L (0-55) 11/27/16 06:39 Amylase 127 Units/L (25-125) H 11/26/16 18:17 Lipase 223 Units/L (8-78) H 11/26/16 18:17 - ABG ABG results: PT/INR, D-dimer PT 11.0 Seconds (9.4-12.1) 11/26/16 18:17 - Attending Attestation I examined this patient and my medical decision-making was reviewed with the AUTO PHONE INSTALLER/PA/Advanced Practice Nurse/Resident Physician. I agree with the documented findings, disposition and treatment plan as described except to the extent set forth below. Patient with recurrent pancreatitis unclear etiology gallbladder is already out and CBD is not dilated. No history of drinking. Recommendation: IV fluid pain control and patient will be referred to pancreatic Center at [facility] for further workup of her recurrent pancreatitis as an outpatient
--- NOTE | 2016-11-28 10:51 | Internal Med Progress Note ---
Date of Encounter: 11/28/16 Time of Encounter: 10:50 - Assessment and plan (1) Acute pancreatitis Current Visit: Yes Status: Acute Assessment and plan: Clinically improving Reports of having multiple episodes of pancreatitis in the past continue supportive care IV fluids Pain control continue clear liquid diet advance diet as tolerated GI eval appreciated-no acute intervention recommended, further work up as outpatien Qualifiers: Pancreatitis type: unspecified pancreatitis type Acute pancreatitis complication: no infection or necrosis Qualified Code(s): K85.90 - Acute pancreatitis without necrosis or infection, unspecified (2) Cirrhosis of liver Current Visit: Yes Status: Chronic Qualifiers: Hepatic cirrhosis type: unspecified hepatic cirrhosis Ascites presence: without ascites Qualified Code(s): K74.60 - Unspecified cirrhosis of liver (3) Diabetes mellitus Current Visit: Yes Status: Chronic Assessment and plan: Continue to monitor fingerstick and blood glucose continue sliding scale insulin algorithm Qualifiers: Diabetes mellitus type: type 2 Diabetes mellitus complication status: with unspecified complications Diabetes mellitus terminal gauger supervisor insulin use: with intermediate use Qualified Code(s): E11.8 - Type 2 diabetes mellitus with unspecified complications; Z79.4 - superintendent terminal (current) use of insulin (4) Hypertension Current Visit: Yes Status: Chronic Assessment and plan: BP within acceptable range continue home medications Qualifiers: Hypertension type: essential hypertension Qualified Code(s): I10 - Essential (primary) hypertension (5) Obesity (BMI 30-39.9) Current Visit: Yes Status: Chronic (6) DVT prophylaxis Current Visit: Yes Status: Acute Assessment and plan: Lovenox SQ - Subjective Interval history: Patient seen and examined at bedside. Resting in bed and appears comfortable. States her nausea and abd pain are controlled with the current medication regimen. States she was able to tolerate clear liquid diet but had mild pain after but does not want to be NPO. - Constitutional Vitals: Temp Pulse Resp BP Pulse Ox 97.6 F 67 18 119/65 97 11/28/16 07:00 11/28/16 07:00 11/28/16 08:34 11/28/16 07:00 11/28/16 08:34 General appearance: Present: A&O X 3, morbidly obese, no acute distress, answers questions appropriately - Head Head exam: Present: atraumatic, normocephalic - Eye Eye exam: Present: normal appearance, conjuntiva pink, sclera anicteric - Respiratory Respiratory exam: Present: CTAB. Absent: respiratory distress, wheezes - Cardiovascular Cardiovascular exam: Present: RRR, +S1, +S2. Absent: diastolic murmur, gallop, rubs, systolic murmur - GI/Abdominal GI/Abdominal exam: Present: distended (obese), normal bowel sounds, soft. Absent: guarding, rebound, tenderness - Extremities Exam Extremities exam: Present: warm, radial pulses palpable and symetrical. Absent : calf tenderness, pedal edema, tenderness - Neurological Exam Neurological exam: Present: alert, oriented X3 - Psychiatric Psychiatric exam: Present: normal affect, normal mood Internal Medicine: Result - Labs CBC & Chem 7: 11/28/16 04:46 11/27/16 06:39 Labs: Short CBC 11/28/16 Range/Units 04:46 WBC 8.3 (4.3-11.1) K/mcL Hgb 13.9 (11.5-15.4) g/dL Hct 42.9 (35.3-44.9) % Plt Count 262 (140-400) K/mcL Neutrophils # 4.4 (1.6-8.9) K/mcL - ABG Interpretation ABG results: PT/INR, D-dimer PT 11.0 Seconds (9.4-12.1) 11/26/16 18:17 Consult Discharge Plan - Plan Referrals: Ava Kimble, SALVATIONIST [Primary Care Provider] -
[2016-11-28] MEDS ORDERED: Lidocaine -MPF 1% 2 ML VIAL ID PRN (10:57)
[2016-11-28 20:51] LABS: BUN/Creatinine Ratio 16 (6-26); Blood Urea Nitrogen 10 mg/dL (7-20); Carbon Dioxide 15 mEq/L (19-29); Chloride 109 mEq/L (98-109); Glucose 142 mg/dL (70-99); Osmolality,Calculated 293 (280-300); Phosphorous 3.3 mg/dL (2.3-4.7); Potassium 4.3 mEq/L (3.5-4.5); Sodium 141 mEq/L (136-145); eGFR For African Americans > 60 (> 60); eGFR For Non-African Americans > 60 (> 60)
[2016-11-28] MEDS: ARIPiprazole 2 MG TABLET PO SCH (21:06)
[2016-11-28] MEDS: traZODone 50 MG TABLET PO SCH (21:07)
[2016-11-29] MEDS: 0.9 % Sodium Chloride 1,000 ML IVC SCH ×2 (00:05→07:00)
[2016-11-29] MEDS: *HR* Enoxaparin 40 MG/0.4 ML SYRINGE SQ SCH (05:39)
[2016-11-29 06:48] VITALS: BP 162/77
[2016-11-29] MEDS: Insulin LISPRO 300 UNITS/3 ML VIAL SQ SCH ×2 (07:49→11:57)
[2016-11-29] MEDS: Metoprolol 100 MG TABLET PO SCH (07:51)
[2016-11-29] MEDS: Pantoprazole 40 MG VIAL IVP SCH (07:52)
[2016-11-29] MEDS: Multivit/Ca/Min/Fe/FA 1 TAB TABLET PO SCH (07:52)
[2016-11-29] MEDS: amLODIPine 5 MG TABLET PO SCH (07:52)
[2016-11-29] MEDS: Cholecalciferol (D-3) 1,000 UNIT TABLET PO SCH (07:52)
[2016-11-29] MEDS: Ondansetron 4 MG/2 ML VIAL IVP PRN (08:14)
[2016-11-29] MEDS: Beclomethasone 80mcg MDI IH SCH (08:16)
--- NOTE | 2016-11-29 09:43 | Discharge Summary ---
Date of Encounter: 11/29/16 Time of Encounter: 09:38 - Discharge Diagnosis (1) Acute pancreatitis Priority: Primary Status: Acute Qualifiers: Pancreatitis type: unspecified pancreatitis type Acute pancreatitis complication: no infection or necrosis Qualified Code(s): K85.90 - Acute pancreatitis without necrosis or infection, unspecified (2) Barretts esophagus Priority: Secondary Status: Chronic Qualifiers: Ordoñez's esophagus type: without dysplasia Qualified Code(s): K22.70 - Ordoñez's esophagus without dysplasia (3) Cirrhosis of liver Priority: Secondary Status: Chronic Qualifiers: Hepatic cirrhosis type: unspecified hepatic cirrhosis Ascites presence: without ascites Qualified Code(s): K74.60 - Unspecified cirrhosis of liver (4) Diabetes mellitus Priority: Secondary Status: Chronic Qualifiers: Diabetes mellitus type: type 2 Diabetes mellitus complication status: with unspecified complications Diabetes mellitus penitentiary insulin use: with penitentiary use Qualified Code(s): E11.8 - Type 2 diabetes mellitus with unspecified complications; Z79.4 - long-term (current) use of insulin (5) Hypertension Priority: Secondary Status: Chronic Qualifiers: Hypertension type: essential hypertension Qualified Code(s): I10 - Essential (primary) hypertension (6) Obesity (BMI 30-39.9) Priority: Secondary Status: Chronic (7) Chronic pain syndrome Priority: Secondary Status: Chronic (8) H/O: lung cancer Priority: Secondary Status: Chronic - Discharge Medications Prescriptions: Ondansetron HCl [Zofran] 4 mg PO Q6H PRN #20 tablet PRN Reason: Nausea And Vomiting Sennosides/Docusate Sodium [Senna Plus] 1 each PO BID #20 tablet Home Medications: Amlodipine [Amlodipine Besylate] 10 mg PO QAM 11/17/15 [History] Atorvastatin [Lipitor] 40 mg PO QPM 11/17/15 [History] Duloxetine HCl [Cymbalta] 60 mg PO BID 11/17/15 [History] Fluticasone Propionate Nasal [Flonase] 50 mcg NS DAILY PRN 11/17/15 [History] LORazepam [Ativan] 0.5 tab PO BID PRN 11/17/15 [History] Losartan/Hydrochlorothiazide [Hyzaar 100-12.5 Tablet] 1 tab PO QAM 11/17/15 [ History] Metoprolol [Lopressor] 100 mg PO BID 11/17/15 [History] Trazodone HCl 150 mg PO HS 11/17/15 [History] Vitamin E (Dl,Tocopheryl Acet) [Vitamin E] 400 unit PO DAILY 11/17/15 [History] Canagliflozin [Invokana] 300 mg PO DAILY 03/11/16 [History] Multivitamin [Multi-Day Vitamins] 1 each PO DAILY 04/11/16 [History] Insulin NPH/REG 70/30 [HumuLIN 70/30 VIAL] 30 - 40 unit SQ BIDWM 06/27/16 [ History] Albuterol Sulfate [Albuterol Inhaler] 1 - 2 puff IH Q6HR PRN 10/13/16 [History] Beclomethasone Diprop 80mcg [QVAR 80 mcg] 1 puff IH BID 10/13/16 [History] Furosemide [Lasix] 20 mg PO DAILY 10/13/16 [History] Aripiprazole [Abilify] 2 mg PO HS 11/26/16 [History] Esomeprazole Magnesium [Nexium] 40 mg PO DAILY 11/26/16 [History] HYDROcodone/Acet 5/325 mg [[place] 5-325 mg] 1 tab PO Q6H PRN #10 11/29/16 [Rx] Ondansetron HCl [Zofran] 4 mg PO Q6H PRN #20 tablet 11/29/16 [Rx] Sennosides/Docusate Sodium [Senna Plus] 1 each PO BID #20 tablet 11/29/16 [Rx] Allergies/Adverse Reactions: Allergies NSAIDS (Non-Steroidal Anti-Inflamma Adverse Reaction (Verified 11/27/16 15:51) See Comments PATIENT HAS ULCERS- Date of admission: 11/26/16 22:36 Primary care physician: Ava Kimble CNP Consults: 11/26/16 23:05 Consult to Gastroenterology [CONS] Routine Consulting Provider: Gastroenterology Rosie Reason for Consult: Acute pancreatitis (Recurrent episode) Call Completed: No 11/28/16 10:57 Consult to Invasive Line Access Team [CONS] Routine Reason for Consult: Needs IV accesss Line Type: EPIV PICC line indications: Limited vascular access Time Notified: 08:00 Call Completed: Yes Discharging clinician: Sarah Ignacio Anticipated date of discharge: 02/14/17 - Patient Status Disposition: Home, Self-Care Condition: Good Functional capacity at discharge: independent ambulation Overall status at discharge: patient is progressing back to baseline - Discharge Instructions Follow Up With: Ava Kimble CNP [Primary Care Provider] - (Web Request entered and they will call patient at home with date and time. Thank you) Sravani Castillo MD [Partnered Physician] - (Called office and they will call patient at home with date and time. Thank you) Additional Instructions: F/up with as scheduled - Diet and Activity Activity: resume usual activities as tolerated Diet: diabetic diet, low fat, low cholesterol, low salt diet Hospital course: Ms. Lopez is a 61 year old female with above medical problems, admitted with acute abdominal pain. Patient is noted to have recurrent admissions with acute pancreatitis of uncertain etiology. CT abdomen/pelvis done in the emergency room showed no evidence of acute pancreatitis or focal abscess. Serum lipase was noted to be slightly elevated at 223. Lipid profile showed no significant elevation in triglycerides. She was kept nothing by mouth and started on IV hydration along with pain control and supportive care. GI was consulted and agreed with the current regimen. She was noted to have Ordoñez's esophagus on recent EGD along with known liver cirrhosis, and AFP was sent, which was noted to be within normal limits. Patient is able to tolerate oral diet at this time with improvement in symptoms including pain. She is medically stable for discharge with outpatient GI follow-up. - Time Spent with Patient Total time spent providing and/or coordinating discharge services: Greater than 30 minutes (45 min) - Constitutional Vitals: Temp Pulse Resp BP Pulse Ox 98.0 F 73 17 162/77 93 L 11/29/16 06:41 11/29/16 06:41 11/29/16 06:41 11/29/16 06:41 11/29/16 07:00 General appearance: Present: A&O X 3, obese, answers questions appropriately - Respiratory Respiratory exam: Present: CTAB. Absent: accessory muscle use, rales, rhonchi, wheezes - GI/Abdominal GI/Abdominal exam: Present: normal bowel sounds, soft (mild tenderness in epigastrium, LUQ, RUQ), no peritoneal signs. Absent: distended, tenderness
== END 2016-11-29 11:45 | disposition home or self-care (01) | DRG 282 ==
LOC: EMEROO 16:40 → 3ANU 16:40 → SUATTDRO 22:36
PROVIDERS: ADMIT Hospitalist; ATTEND Internal Medicine

== ENCOUNTER 2016-12-28 23:02 | Observation (INO) ==
[2016-12-28] MEDS ORDERED: *HR* HYDROmorphone (PF) 1 MG/ML SYRINGE IVP ONE (23:17)
[2016-12-28] MEDS ORDERED: Ondansetron 4 MG/2 ML VIAL IVP ONE (23:18)
[2016-12-29 00:07] LABS: Basophils % 0.2 %; Eosinophils % 0.1 %; Hematocrit 37.2 % (35.3-44.9); Hemoglobin 12.4 g/dL (11.5-15.4); Immature Granulocytes % 0.5 % (0-4); Lymphocytes # 0.9 K/mcL (0.6-4.6); Lymphocytes % 9.9 %; Mean Corpuscular HGB Conc 33.3 g/dL (31.6-35.5); Mean Corpuscular Volume 89.9 fL (83.0-100.0); Mean Platelet Volume 9.7 fL (9.4-12.4); Monocytes # 0.6 K/mcL (0.0-1.3); Monocytes % 6.7 %; Neutrophils # 7.8 K/mcL (1.6-8.9); Platelet Count 261 K/mcL (140-400); Red Blood Count 4.14 M/mcL (3.82-4.97); Red Cell Distribution Width 13.8 % (11.5-14.5); Segmented Neutrophils % 82.6 %
[2016-12-29] MEDS ORDERED: 0.9 % Sodium Chloride 1,000 ML IVC ONE (00:16)
--- NOTE | 2016-12-29 00:19 | Emergency Department Note ---
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 She presents today due to abdominal pain after an ERCP. ERCP was performed by Dr. Castillo and biliary duct stent was placed. He spoke with Dr. Barry on the phone, was concerned because patient was having significant epigastric and right upper quadrant pain after procedure. He recommended the patient be admitted for IV fluids and pain control. Patient states that she went home after her procedure has been having epigastric and right upper quadrant pain that was fairly significant, somewhat to previous pain that she has extends with pancreatitis. This concerned the patient could have developed after procedure today. Admits to nausea and vomiting. Denies any fevers, diarrhea, chest pain, shortness of breath. Does admit to worsening right upper quadrant pain with deep inspiration. She states that she has had multiple episodes of pancreatitis in the past. Pain Scale: 8 - Related Data Home Medications Medication Instructions Recorded Confirmed Amlodipine [Amlodipine Besylate] 10 mg PO QAM 11/17/15 11/27/16 Atorvastatin [Lipitor] 40 mg PO QPM 11/17/15 11/27/16 Duloxetine HCl [Cymbalta] 60 mg PO BID 11/17/15 11/27/16 Fluticasone Propionate Nasal 50 mcg NS DAILY PRN 11/17/15 11/27/16 [Flonase] LORazepam [Ativan] 0.5 tab PO BID PRN 11/17/15 11/27/16 Losartan/Hydrochlorothiazide 1 tab PO QAM 11/17/15 11/27/16 [Hyzaar 100-12.5 Tablet] Metoprolol [Lopressor] 100 mg PO BID 11/17/15 11/27/16 Trazodone HCl 150 mg PO HS 11/17/15 11/27/16 Vitamin E (Dl,Tocopheryl Acet) 400 unit PO DAILY 11/17/15 11/27/16 [Vitamin E] Canagliflozin [Invokana] 300 mg PO DAILY 03/11/16 11/27/16 Multivitamin [Multi-Day Vitamins] 1 each PO DAILY 04/11/16 11/27/16 Insulin NPH/REG 70/30 [HumuLIN 30 - 40 unit SQ BIDWM 06/27/16 11/27/16 70/30 VIAL] Albuterol Sulfate [Albuterol 1 - 2 puff IH Q6HR PRN 10/13/16 11/27/16 Inhaler] Beclomethasone Diprop 80mcg [QVAR 1 puff IH BID 10/13/16 11/27/16 80 mcg] Furosemide [Lasix] 20 mg PO DAILY 10/13/16 11/27/16 Aripiprazole [Abilify] 2 mg PO HS 11/26/16 11/27/16 Esomeprazole Magnesium [Nexium] 40 mg PO DAILY 11/26/16 11/27/16 Previous Rx's Medication Instructions Recorded HYDROcodone/Acet 5/325 mg [[place] 1 tab PO Q6H PRN #10 11/29/16 5-325 mg] Ondansetron HCl [Zofran] 4 mg PO Q6H PRN #20 tablet 11/29/16 Sennosides/Docusate Sodium [Senna 1 each PO BID #20 tablet 11/29/16 Plus] Allergies Allergy/AdvReac Type Severity Reaction Status Date / Time NSAIDS (Non-Steroidal AdvReac See Verified 12/28/16 23:04 Anti-Inflamma Comments Constitutional: Denies: fever, chills Eyes: Denies: eye pain, eye discharge ENT ED: Denies: ear pain Cardiovascular: Denies: chest pain, palpitations, dyspnea on exertion Respiratory: Denies: cough, dyspnea, wheezes Gastrointestinal: Reports: abdominal pain, nausea, vomiting. 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 Psychiatric history: Reports: anxiety, depression - Social History Smoking status: Former smoker Alcohol use: Reports: none Drug use: Reports: none Physical Exam - General Limitations: no limitations General appearance: alert - Head Head exam: atraumatic, normocephalic, normal inspection - Eye Eye exam: Present: normal appearance, PERRL, EOMI - ENT ENT exam: normal exam, normal oropharynx, mucous membranes moist - Neck Neck exam: Present: normal inspection, full ROM, trachea midline - Chest Chest inspection: Present: normal inspection, symmetric chest wall rise - Respiratory Respiratory exam: Present: normal lung sounds bilaterally - Cardiovascular Cardiovascular exam: Present: regular rate, normal rhythm, normal heart sounds - Abdominal Exam Abdominal exam: Present: soft, tenderness (Right upper quadrant and epigastric, moderate in intensity). Absent: Campos's sign, Rovsing's sign, tenderness at McBurney's Point - Extremities Exam Extremities exam: Present: normal inspection, full ROM. Absent: tenderness, pedal edema - Back Exam Back exam: Present: normal inspection, full ROM. Absent: tenderness - Neurological Exam Neurological exam: Present: alert, oriented X3 - Psychiatric Psychiatric exam: Present: normal affect, normal mood - Skin Skin exam: Present: warm, dry, intact, normal color Course Course Narrative: Patient hypertensive on presentation. Otherwise, the rest of vitals were within normal limits. Physical exam shows a right upper quadrant and epigastric tenderness. Patient is tearful on exam. We will give pain medication and fluids. We will draw basic abdominal pain labs and reassess. We will admit for IV hydration and pain control, per request Dr. Castillo. 01:[address] mckeon. Vital Signs Temperature 98.3 F 12/28/16 23:05 Pulse Rate 96 12/28/16 23:05 Respiratory Rate 18 12/28/16 23:05 Blood Pressure 167/92 12/28/16 23:05 O2 Sat by Pulse Oximetry 97 12/28/16 23:05 Temperature 98.3 F 12/28/16 23:05 Pulse Rate 88 12/29/16 00:23 Respiratory Rate 16 12/29/16 00:23 Blood Pressure 189/94 12/29/16 00:23 O2 Sat by Pulse Oximetry 94 L 12/29/16 00:23 Oxygen Delivery Oxygen Delivery Room Air Abdominal Pain - MDM Narrative Medical decision making narrative: Patient hypertensive on presentation. Otherwise, the rest of vitals were within normal limits. Physical exam shows a right upper quadrant and epigastric tenderness. Patient is tearful on exam. We will give pain medication and fluids. We will draw basic abdominal pain labs and reassess. We will admit for IV hydration and pain control, per request Dr. Castillo. 01:[address] mckeon. - Medical Records Medical records reviewed: Yes I reviewed the patient's medical records. - Lab Data Lab results reviewed: Yes I reviewed the patient's lab results. Result diagrams: 12/28/16 23:52 12/28/16 23:52 Lab Results 12/28/16 12/28/16 Range/Units 23:52 23:52 WBC 9.5 (4.3-11.1) K/mcL RBC 4.14 (3.82-4.97) M/mcL Hgb 12.4 (11.5-15.4) g/dL Hct 37.2 (35.3-44.9) % MCV 89.9 (83.0-100.0) fL MCH 30.0 (28.0-33.3) pg MCHC 33.3 (31.6-35.5) g/dL RDW 13.8 (11.5-14.5) % Plt Count 261 (140-400) K/mcL MPV 9.7 (9.4-12.4) fL Immature Gran % 0.5 (0-4) % Seg Neutrophils % 82.6 % Lymphocytes % 9.9 % Monocytes % 6.7 % Eosinophils % 0.1 % Basophils % 0.2 % Neutrophils # 7.8 (1.6-8.9) K/mcL Lymphocytes # 0.9 (0.6-4.6) K/mcL Monocytes # 0.6 (0.0-1.3) K/mcL Eosinophils # 0.0 (0.0-0.6) K/mcL Basophils # 0.0 (0.0-0.2) K/mcL Sodium 133 L (136-145) mEq/L Potassium 4.3 (3.5-4.5) mEq/L Chloride 98 (98-109) mEq/L Carbon Dioxide 25 (19-29) mEq/L BUN 15 (7-20) mg/dL Creatinine 0.91 (0.57-1.11) mg/dL Est GFR ( Amer) > 60 (> 60) Est GFR (Non-Af Amer) > 60 (> 60) BUN/Creatinine Ratio 16 (6-26) Glucose 462 H (70-99) mg/dL Calculated Osmolality 297 (280-300) Calcium 9.5 (8.6-10.8) mg/dL Total Bilirubin 0.6 (0.2-1.2) mg/dL Direct Bilirubin 0.2 (0.0-0.5) mg/dL Indirect Bilirubin 0.4 (0.0-1.2) mg/dL AST 84 H (5-34) Units/L ALT 59 H (0-55) Units/L Alkaline Phosphatase 116 (38-126) Units/L Serum Total Protein 7.0 (6.0-8.3) g/dL Albumin 3.8 (3.5-5.0) g/dL Globulin 3.2 (2.4-3.5) g/dL Albumin/Globulin Ratio 1.2 (1.1-2.2) Lipase 187 H (8-78) Units/L S.B.A.R. - S.B.A.R. Situation: Demographics, MOA Background: Presenting Complaint, Relevant PMH, Meds, & Allergies Assessment: Vital Signs, Course and respsone to treatment, Exam Concerns, Patient/Family Expectation, Pertinant Lab Results, Outstanding Labs Recommendation: Barrier(s) to disposition, Recommendation based on pending studies, treatments, or consults S.B.A.R. Report Given to: Dr. Mckeon S.B.A.RZeina Repor Time: 01:11 Attestation Statement - Attestation Attestation: I, Herminio Barry MD, personally performed a history and physical exam of the patient and discussed their management with the resident. I reviewed the resident's note and agree with the documented findings, medical decision making , and plan of care. 61-year-old female presents to the emergency department with increased upper abdominal pain after she had an ERCP performed earlier today here by Dr. Castillo. She called Dr. Castillo because of the increased pain and he advised her to come here to be admitted for IV fluids and pain medications. Dr. Castillo did call here directly and I talked with him personally and he requested patient be admitted to the medical service for IV fluids and pain control. On examination patient is a well-developed well-nourished female in no acute distress. She is alert and oriented 3. There is no cyanosis or diaphoresis. Breath sounds are clear and equal bilaterally. Heart regular rate and rhythm. Abdomen is mildly distended with moderate epigastric and right upper quadrant tenderness on direct palpation. Labs reviewed. Mild elevation of transaminases and elevated lipase. The hospitalist, Dr. Mckeon, was consulted and accepted admission of this patient.
[2016-12-29 00:25] LABS: Alanine Aminotransferase 59 Units/L (0-55); Albumin 3.8 g/dL (3.5-5.0); Albumin/Globulin Ratio 1.2 (1.1-2.2); Alkaline Phosphatase 116 Units/L (38-126); Aspartate Amino Transferase 84 Units/L (5-34); BUN/Creatinine Ratio 16 (6-26); Bilirubin,Direct 0.2 mg/dL (0.0-0.5); Bilirubin,Indirect 0.4 mg/dL (0.0-1.2); Bilirubin,Total 0.6 mg/dL (0.2-1.2); Blood Urea Nitrogen 15 mg/dL (7-20); Calcium 9.5 mg/dL (8.6-10.8); Carbon Dioxide 25 mEq/L (19-29); Chloride 98 mEq/L (98-109); Globulin 3.2 g/dL (2.4-3.5); Glucose 462 mg/dL (70-99); Lipase 187 Units/L (8-78); Osmolality,Calculated 297 (280-300); Potassium 4.3 mEq/L (3.5-4.5); Sodium 133 mEq/L (136-145); eGFR For African Americans > 60 (> 60); eGFR For Non-African Americans > 60 (> 60)
[2016-12-29] MEDS ORDERED: *HR* Promethazine 25 MG/ML VIAL IVP PRN (01:05)
[2016-12-29] MEDS ORDERED: Naloxone 0.4 MG/ML INJ IVP PRN (01:05)
[2016-12-29] MEDS ORDERED: *HR* LORazepam 1 MG TABLET PO PRN (01:09)
[2016-12-29] MEDS ORDERED: *HR* Dextrose 50 % in Water (Syg) 50 ML SYRINGE IVP PRN (01:11)
[2016-12-29] MEDS ORDERED: D5% in Water 1,000 ML IV PRN (01:11)
[2016-12-29] MEDS ORDERED: Dextrose Gel 15 GM PO PRN ×2 (01:11)
[2016-12-29] MEDS ORDERED: Ringers Solution, Lactated 1,000 ML IVC SCH (01:15)
[2016-12-29] MEDS ORDERED: Pantoprazole 40 MG VIAL IVP SCH (01:15)
--- NOTE | 2016-12-29 01:18 | Internal Med History&Physical ---
Date of Encounter: 12/29/16 Time of Encounter: 01:00 Assessment and Plan (1) Status post endoscopic retrograde cholangiopancreatography Status: Acute . (2) Intractable abdominal pain Status: Acute . (3) Intractable nausea and vomiting Status: Acute . Qualifiers: Vomiting type: unspecified Qualified Code(s): R11.2 - Nausea with vomiting , unspecified (4) Pancreatitis Status: Acute . Qualifiers: Chronicity: acute Pancreatitis type: unspecified pancreatitis type Acute pancreatitis complication: unspecified Qualified Code(s): K85.90 - Acute pancreatitis without necrosis or infection, unspecified (5) Morbid obesity with BMI of 40.0-44.9, adult Status: Chronic . (6) Metastatic lung carcinoma Status: Chronic . Qualifiers: Laterality: unspecified laterality Qualified Code(s): C78.00 - Secondary malignant neoplasm of unspecified lung (7) Hypertension Status: Chronic . Qualifiers: Hypertension type: essential hypertension Qualified Code(s): I10 - Essential (primary) hypertension (8) Dyslipidemia Status: Chronic . (9) Acute abdominal pain syndrome Status: Acute . (10) History of peptic ulcer disease Status: Chronic . (11) Diabetes mellitus Status: Chronic . 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 (13) Degenerative joint disease involving multiple joints Status: Chronic . Qualifiers: Osteoarthritis type: unspecified Qualified Code(s): M15.9 - Polyosteoarthritis, unspecified (14) Chronic obstructive pulmonary disease Status: Chronic . Qualifiers: COPD type: unspecified COPD Qualified Code(s): J44.9 - Chronic obstructive pulmonary disease, unspecified (15) Cirrhosis of liver Status: Chronic . Qualifiers: Hepatic cirrhosis type: unspecified hepatic cirrhosis Ascites presence: without ascites Qualified Code(s): K74.60 - Unspecified cirrhosis of liver (16) Hepatic steatosis Status: Chronic . (17) Diverticular disease Status: Chronic . Qualifiers: Diverticulosis site: unspecified location Diverticulosis bleeding: diverticulosis without bleeding Qualified Code(s): K57.90 - Diverticulosis of intestine, part unspecified, without perforation or abscess without bleeding (18) Barretts esophagus Status: Chronic . Qualifiers: Ordoñez's esophagus type: without dysplasia Qualified Code(s): K22.70 - Ordoñez's esophagus without dysplasia (19) Chronic pain associated with significant psychosocial dysfunction Status: Chronic . (20) Chronic recurrent pancreatitis Status: Acute . Internal Medicine - H&P: HPI Chief complaint: Intractable nausea and vomiting and abdominal pain s/p ERCP Admitted From: Emergency Dept Plans for Post Hospital Care: Home History of present illness: Ms. Lopez is a 61 year old female patient is admitted with complaints of intractable nausea and vomiting and RUQ abdominal/flank pain. She is status post ERCP performed biliary stent placement and pancreatic ductal sphincterotomy in the morning prior to this presentation. Certainly was raised regarding increasing epigastric and right upper quadrant pain after her procedure and requirements for intravenous fluid resuscitation and pain management. Surgery for possible postprocedure pancreatitis raised. Initial screening laboratory studies were benign except for moderate hyperglycemia and hyponatremia. Hepatic function showed transaminitis. Lipase showed elevation at 187. Patient will be admitted this time and further evaluation and disposition. Past Med Surg Social Fam HX - Past Medical History Source: old records reviewed Medical history: arthritis, asthma, cancer (Non-small cell lung carcinoma, left s/p resection.), cirrhosis, COPD, diabetes, GERD (Ordoñez's esophagus. Esophagitis-gastritis.), GI bleed (Diverticulosis. 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 ), malignancy, osteoporosis (Vit D deficiency.), other (H/O pancreatitis) Psychiatric history: anxiety, depression, other - Past Surgical History Surgical History: appendectomy, cancer surgery, cholecystectomy, hysterectomy, orthopedic, other, LIZZETTE/BSO, other (EGD, COLONOSCOPY.) - Social History Smoking Status: Former smoker Packs per day: >30pk-yrs Smokeless Tobacco Status: No Alcohol use: none Drug use: none Occupational status: unemployed Current living situation: With Family Activity Level: Independent ambulation, Mostly sedentary Recent Out of Country Travel Within the Last 8 Weeks: No Exposure or Possible Exposure to Illness During Travel: No - Family History Mother Living Status: Hx Family Cardiac Disorders: Yes (abdominal aortic aneurysm) Hx Family Respiratory Disorders: Yes (emphysema) Hx Family Cancer: Yes (skin cancer) Hx Family GI Disorders: No Hx Family Endocrine Disorder: Yes (diabetes) Hx Family Neuromuscular Disorders: No Hx Family Neurologic Disorders: No Hx Family HEENT Disorders: No Hx Family Autoimmune Disorders: No Father Living Status: Hx Family Cardiac Disorders: Yes (unknown) Internal Medicine - H&P: Meds Amlodipine [Amlodipine Besylate] 10 mg PO QAM 11/17/15 [History] Atorvastatin [Lipitor] 40 mg PO QPM 11/17/15 [History] Duloxetine HCl [Cymbalta] 60 mg PO BID 11/17/15 [History] Fluticasone Propionate Nasal [Flonase] 50 mcg NS DAILY PRN 11/17/15 [History] LORazepam [Ativan] 0.5 tab PO BID PRN 11/17/15 [History] Losartan/Hydrochlorothiazide [Hyzaar 100-12.5 Tablet] 1 tab PO QAM 11/17/15 [ History] Metoprolol [Lopressor] 100 mg PO BID 11/17/15 [History] Trazodone HCl 150 mg PO HS 11/17/15 [History] Vitamin E (Dl,Tocopheryl Acet) [Vitamin E] 400 unit PO DAILY 11/17/15 [History] Multivitamin [Multi-Day Vitamins] 1 each PO DAILY 04/11/16 [History] Insulin NPH/REG 70/30 [HumuLIN 70/30 VIAL] 80 unit SQ BIDWM 06/27/16 [History] Albuterol Sulfate [Albuterol Inhaler] 1 - 2 puff IH Q6HR PRN 10/13/16 [History] Beclomethasone Diprop 80mcg [QVAR 80 mcg] 1 puff IH BID 10/13/16 [History] Furosemide [Lasix] 20 mg PO DAILY 10/13/16 [History] Aripiprazole [Abilify] 2 mg PO HS 11/26/16 [History] Esomeprazole Magnesium [Nexium] 40 mg PO DAILY 11/26/16 [History] HYDROcodone/Acet 5/325 mg [[place] 5-325 mg] 1 tab PO Q6H PRN #10 11/29/16 [Rx] Ondansetron HCl [Zofran] 4 mg PO Q6H PRN #20 tablet 11/29/16 [Rx] Sennosides/Docusate Sodium [Senna Plus] 1 each PO BID #20 tablet 11/29/16 [Rx] Insulin Regular Human [Humulin R] 0 units SQ TID PRN 12/29/16 [History] Allergies NSAIDS (Non-Steroidal Anti-Inflamma Adverse Reaction (Verified 12/29/16 09:34) See Comments PATIENT HAS ULCERS- All Systems PM: A 10-system review of systems was performed and is negative for pertinent findings except as documented above in the HPI. - Constitutional Constitutional: as per HPI, malaise, no chills, no fever(s), no night sweats - EENT Eyes: as per HPI, no change in vision, no discharge, no pain, no photophobia Ears: as per HPI, no ear discharge, no ear pain, no tinnitus Nose, mouth and throat: as per HPI, no dysphagia, no nasal discharge, no neck pain, no sore throat - Cardiovascular Cardiovascular ROS IM: as per HPI, no chest pain, no diaphoresis, no dyspnea, no lightheadedness, no palpitations, no syncope - Respiratory Respiratory: as per HPI, no cough, no dyspnea, no wheezing, no excessive phlegm production - Gastrointestinal Gastrointestinal: as per HPI, abdominal pain, bloating, nausea, vomiting, other , no diarrhea, no hematemesis, no hematochezia, no melena - Genitourinary Genitourinary: as per HPI, no change in urinary stream, no dysuria, no flank pain, no hematuria Menstruation: as per HPI, post hysterectomy - Musculoskeletal Musculoskeletal ROS IM: as per HPI, no numbness, no tingling - Integumentary Integumentary IM: as per HPI, no rash, no unusual bruising - Neurological Neurological ROS: as per HPI, no confusion, no convulsions, no focal weakness, no numbness, no tingling, no tremor(s) - Psychiatric Psychiatric: as per HPI - Endocrine Endocrine IM: as per HPI - Hematologic/Lymphatic Hematologic/Lymphatic: as per HPI, no easy bruising - Allergic/Immunologic Allergic/Immunologic: as per HPI - Constitutional Vitals: Temp Pulse Resp BP Pulse Ox 98.3 F 88 16 189/94 94 L 12/28/16 23:05 12/29/16 00:23 12/29/16 00:23 12/29/16 00:23 12/29/16 00:23 General appearance: Present: mild distress, A&O X 3, morbidly obese, answers questions appropriately - Head Head exam: Present: atraumatic, normocephalic - Eye Eye exam: Present: EOMI, PERRL, conjuntiva pink, sclera anicteric Pupils: Present: normal accommodation, PERRL - ENT ENT exam: Present: mucous membranes moist, normal oropharynx - Neck Neck exam general surgery: Present: supple, trachea midline. Absent: lymphadenopathy - Respiratory Respiratory exam: Present: decreased breath sounds, wheezes. Absent: accessory muscle use, rales, rhonchi - Cardiovascular Cardiovascular exam: Present: distant heart sounds, RRR, +S1, +S2. Absent: diastolic murmur, gallop, rubs, systolic murmur - GI/Abdominal GI/Abdominal exam: Present: distended, normal bowel sounds, soft, tenderness, no peritoneal signs - Extremities Exam Extremities exam: Present: full ROM, warm, radial pulses palpable and symetrical. Absent: calf tenderness, cyanotic, pedal edema - Neurological Exam Neurological exam: Present: alert, CN II-XII intact, oriented X3, no focal deficits. Absent: pronater drift, facial droop, speech deficit - Psychiatric Psychiatric exam: Present: normal affect, normal mood - Skin Skin exam: Present: dry, intact, warm Internal Med - H&P Results - Labs CBC & Chem 7: 12/29/16 09:02 12/29/16 06:01 Labs: Short CBC 12/28/16 Range/Units 23:52 WBC 9.5 (4.3-11.1) K/mcL Hgb 12.4 (11.5-15.4) g/dL Hct 37.2 (35.3-44.9) % Plt Count 261 (140-400) K/mcL Neutrophils # 7.8 (1.6-8.9) K/mcL BMP 12/28/16 23:52 Sodium 133 L Potassium 4.3 Chloride 98 Carbon Dioxide 25 BUN 15 Creatinine 0.91 Glucose 462 H Calcium 9.5 Liver Function 12/28/16 Range/Units 23:52 Total Bilirubin 0.6 (0.2-1.2) mg/dL Direct Bilirubin 0.2 (0.0-0.5) mg/dL AST 84 H (5-34) Units/L ALT 59 H (0-55) Units/L Alkaline Phosphatase 116 (38-126) Units/L Albumin 3.8 (3.5-5.0) g/dL Vital Signs Temp Pulse Resp BP Pulse Ox 12/29/16 00:23 88 16 189/94 94 L 12/28/16 23:05 98.3 F 96 18 167/92 97 Intake and Output 12/28/16 12/28/16 12/29/16 15:59 23:59 07:59 Other: Weight 104.326 kg - Impressions Abnormal lab results Sodium 133 mEq/L (136-145) L 12/28/16 23:52 Glucose 462 mg/dL (70-99) H 12/28/16 23:52 AST 84 Units/L (5-34) H 12/28/16 23:52 ALT 59 Units/L (0-55) H 12/28/16 23:52 Lipase 187 Units/L (8-78) H 12/28/16 23:52 Allergies Allergy/AdvReac Type Severity Reaction Status Date / Time NSAIDS (Non-Steroidal AdvReac See Verified 12/28/16 23:04 Anti-Inflamma Comments Laboratory Results WBC 9.5 K/mcL (4.3-11.1) 12/28/16 23:52 RBC 4.14 M/mcL (3.82-4.97) 12/28/16 23:52 Hgb 12.4 g/dL (11.5-15.4) 12/28/16 23:52 Hct 37.2 % (35.3-44.9) 12/28/16 23:52 MCV 89.9 fL (83.0-100.0) 12/28/16 23:52 MCH 30.0 pg (28.0-33.3) 12/28/16 23:52 MCHC 33.3 g/dL (31.6-35.5) 12/28/16 23:52 RDW 13.8 % (11.5-14.5) 12/28/16 23:52 Plt Count 261 K/mcL (140-400) 12/28/16 23:52 MPV 9.7 fL (9.4-12.4) 12/28/16 23:52 Immature Gran % 0.5 % (0-4) 12/28/16 23:52 Seg Neutrophils % 82.6 % 12/28/16 23:52 Lymphocytes % 9.9 % 12/28/16 23:52 Monocytes % 6.7 % 12/28/16 23:52 Eosinophils % 0.1 % 12/28/16 23:52 Basophils % 0.2 % 12/28/16 23:52 Neutrophils # 7.8 K/mcL (1.6-8.9) 12/28/16 23:52 Lymphocytes # 0.9 K/mcL (0.6-4.6) 12/28/16 23:52 Monocytes # 0.6 K/mcL (0.0-1.3) 12/28/16 23:52 Eosinophils # 0.0 K/mcL (0.0-0.6) 12/28/16 23:52 Basophils # 0.0 K/mcL (0.0-0.2) 12/28/16 23:52 Sodium 133 mEq/L (136-145) L 12/28/16 23:52 Potassium 4.3 mEq/L (3.5-4.5) 12/28/16 23:52 Chloride 98 mEq/L (98-109) 12/28/16 23:52 Carbon Dioxide 25 mEq/L (19-29) 12/28/16 23:52 BUN 15 mg/dL (7-20) 12/28/16 23:52 Creatinine 0.91 mg/dL (0.57-1.11) 12/28/16 23:52 Est GFR ( Amer) > 60 (> 60) 12/28/16 23:52 Est GFR (Non-Af Amer) > 60 (> 60) 12/28/16 23:52 BUN/Creatinine Ratio 16 (6-26) 12/28/16 23:52 Glucose 462 mg/dL (70-99) H 12/28/16 23:52 Calculated Osmolality 297 (280-300) 12/28/16 23:52 Calcium 9.5 mg/dL (8.6-10.8) 12/28/16 23:52 Total Bilirubin 0.6 mg/dL (0.2-1.2) 12/28/16 23:52 Direct Bilirubin 0.2 mg/dL (0.0-0.5) 12/28/16 23:52 Indirect Bilirubin 0.4 mg/dL (0.0-1.2) 12/28/16 23:52 AST 84 Units/L (5-34) H 12/28/16 23:52 ALT 59 Units/L (0-55) H 12/28/16 23:52 Alkaline Phosphatase 116 Units/L (38-126) 12/28/16 23:52 Serum Total Protein 7.0 g/dL (6.0-8.3) 12/28/16 23:52 Albumin 3.8 g/dL (3.5-5.0) 12/28/16 23:52 Globulin 3.2 g/dL (2.4-3.5) 12/28/16 23:52 Albumin/Globulin Ratio 1.2 (1.1-2.2) 12/28/16 23:52 Lipase 187 Units/L (8-78) H 12/28/16 23:52 - Attending Attestation My signature below is to certify that this patient is under my care and that I, or nurse practitioner, or a physician's bilingual legal assistant working with me, has a face-to -face encounter with this patient. Allergies NSAIDS (Non-Steroidal Anti-Inflamma Adverse Reaction (Verified 12/28/16 23:04) See Comments PATIENT HAS ULCERS- Home Medications Medication Instructions Recorded Confirmed Type Amlodipine [Amlodipine Besylate] 10 mg PO QAM 11/17/15 11/27/16 History Atorvastatin [Lipitor] 40 mg PO QPM 11/17/15 11/27/16 History Duloxetine HCl [Cymbalta] 60 mg PO BID 11/17/15 11/27/16 History Fluticasone Propionate Nasal 50 mcg NS DAILY PRN 11/17/15 11/27/16 History [Flonase] LORazepam [Ativan] 0.5 tab PO BID PRN 11/17/15 11/27/16 History Losartan/Hydrochlorothiazide 1 tab PO QAM 11/17/15 11/27/16 History [Hyzaar 100-12.5 Tablet] Metoprolol [Lopressor] 100 mg PO BID 11/17/15 11/27/16 History Trazodone HCl 150 mg PO HS 11/17/15 11/27/16 History Vitamin E (Dl,Tocopheryl Acet) 400 unit PO DAILY 11/17/15 11/27/16 History [Vitamin E] Canagliflozin [Invokana] 300 mg PO DAILY 03/11/16 11/27/16 History Multivitamin [Multi-Day Vitamins] 1 each PO DAILY 04/11/16 11/27/16 History Insulin NPH/REG 70/30 [HumuLIN 30 - 40 unit SQ BIDWM 06/27/16 11/27/16 History 70/30 VIAL] Albuterol Sulfate [Albuterol 1 - 2 puff IH Q6HR PRN 10/13/16 11/27/16 History Inhaler] Beclomethasone Diprop 80mcg [QVAR 1 puff IH BID 10/13/16 11/27/16 History 80 mcg] Furosemide [Lasix] 20 mg PO DAILY 10/13/16 11/27/16 History Aripiprazole [Abilify] 2 mg PO HS 11/26/16 11/27/16 History Esomeprazole Magnesium [Nexium] 40 mg PO DAILY 11/26/16 11/27/16 History I & O 12/26/16 12/27/16 12/28/16 12/29/16 23:59 23:59 23:59 23:59 Weight 104.326 kg Medications Aripiprazole (Abilify) 2 mg PO HS [facility] Stop: 06/30/17 01:16 Atorvastatin Calcium (Lipitor) 40 mg PO QPM [facility]DR[facility] Stop: 06/30/17 18:01 Dextrose/Water (Dextrose 50% (Syg)) 25 ml IVP AD PRN PRN Reason: Hypoglycemia Stop: 06/30/17 01:12 Docusate Sodium (Colace) 100 mg PO BID PRN PRN Reason: Constipation Stop: 06/30/17 01:06 Glucagon (Glucagen) 1 mg IM ONCE PRN PRN Reason: Hypoglycemia Stop: 06/30/17 01:12 Glucose (Gluctose) 15 gm PO ONCE PRN PRN Reason: Hypoglycemia Stop: 06/30/17 01:12 Glucose (Gluctose) 30 gm PO ONCE PRN PRN Reason: Hypoglycemia Stop: 06/30/17 01:12 Hydromorphone HCl (Dilaudid) 0.5 mg IVP Q2H PRN PRN Reason: Severe Pain (7-10) Stop: 06/30/17 01:06 Lactated Ringer's (Lactated Ringers) 1,000 mls @ 150 mls/hr IVC .Q6H40M ALEXANDRU Stop: 06/30/17 01:16 Dextrose (Dextrose 5%) 1,000 mls @ 100 mls/hr IV CONT PRN PRN Reason: HYPOGLYCEMIA Stop: 06/30/17 01:12 Insulin Human Lispro (Humalog) 0 units SQ Q4HR ALEXANDRU PRN Reason: Protocol Stop: 06/30/17 04:01 Lorazepam (Ativan) mg PO BID PRN PRN Reason: Anxiety Stop: 06/30/17 01:10 Metoprolol Tartrate (Lopressor) 100 mg PO BID [facility] Stop: 06/30/17 09:01 Naloxone HCl (Narcan) 0.4 mg IVP Q2MIN PRN PRN Reason: Opioid Reversal Stop: 06/30/17 01:06 Non-Formulary Medication (Duloxetine Hcl [Cymbalta]) 60 mg PO BID [facility] Stop: 06/30/17 09:01 Non-Formulary Medication (Trazodone Hcl [Trazodone Hcl]) 150 mg PO HS [facility] Stop: 06/30/17 01:16 Non-Formulary Medication (Losartan/Hydrochlorothiazide [Hyzaar 100-12.5 Tablet] ) 1 tab PO QAM [facility] Stop: 06/30/17 09:01 Pantoprazole Sodium (Protonix) 40 mg IVP Q12H [facility] Stop: 06/30/17 01:16 Promethazine HCl (Phenergan) 12.5 mg IVP Q6HR PRN PRN Reason: Nausea And Vomiting Stop: 06/30/17 01:06 Senna/Docusate Sodium (Senna Plus) 1 each PO BID ALEXANDRU PRN Reason: Protocol Stop: 06/30/17 09:01 Discontinued Medications Hydromorphone HCl (Dilaudid) 1 mg IVP ONCE ONE Stop: 12/28/16 23:18 Last Admin: 12/28/16 23:52 Dose: 1 mg Sodium Chloride (0.9 % Sodium Chloride) 1,000 mls @ 3,750 mls/hr IVC .Q16M ONE Stop: 12/29/16 00:31 Last Admin: 12/29/16 00:35 Dose: 3,750 mls/hr Ondansetron HCl (Zofran) 4 mg IVP ONCE ONE PRN Reason: Protocol Stop: 12/28/16 23:19 Last Admin: 12/28/16 23:51 Dose: 4 mg Orders 12/28/16 23:17 HYDROmorphone (PF) [Dilaudid] 1 mg IVP ONCE ONE 12/28/16 23:18 IV insertion - peripheral [RC] NOW Ondansetron [Zofran] 4 mg IVP ONCE ONE 12/28/16 23:52 Basic Metabolic Panel Stat Comment: Specimen: Send someone from the department to collect Complete Blood Count [HEME] Stat Comment: Specimen: Send someone from the department to collect Hepatic Panel Stat Comment: Specimen: Send someone from the department to collect Lipase Stat Comment: Specimen: Send someone from the department to collect 12/29/16 00:16 0.9 % Sodium Chloride 1,000 ml IVC 3,750 mls/hr 12/29/16 01:05 Vital Signs Assessment [RC] Q4H Docusate [Colace] 100 mg PO BID PRN HYDROmorphone (PF) [Dilaudid] 0.5 mg IVP Q2H PRN Naloxone [Narcan] 0.4 mg IVP Q2MIN PRN Promethazine [Phenergan] 12.5 mg IVP Q6HR PRN Resuscitation Status: Active [RES] Routine Resuscitation Status: Full Code Comment: 12/29/16 01:06 Peripheral IV [RC] CONT Placement to Observation Routine Physician Instructions: Reason for Visit: intractable abd pain Is VTE Prophylaxis Indicated?: Yes 12/29/16 01:07 Bed rest [RC] .CONT Physician Instructions: Bed rest w/bathroom privileges [RC] .PRN Continuous pulse oximetry [RC] CONT Comment: Measure intake and output [RC] QSHIFT Measure weight [RC] DAILY RT has an order or consult [RC] NOW NPO Diet Diet Modifications: ice chips. 12/29/16 01:09 LORazepam [Ativan] 0.5 tab PO BID PRN 12/29/16 01:11 Glucose, blood poc measurement [RC] .Q4 Hypoglycemia Treatment Orders [RC] .once Notify provider [RC] once Physician Instructions: Consult to Drupal Web Developer [CONS] Routine Comment: Hgb A1C Routine Specimen: Send someone from the department to collect Comment: @ 100 MLS/HR [prn Hypoglycemia] D5% in Water [Dextrose 5%] 1,000 ml IV CONT Dextrose 50 % in Water (Syg) [Dextrose 50% (Syg)] 25 ml IVP AD PRN Dextrose Gel [Gluctose] 15 gm PO ONCE PRN Dextrose Gel [Gluctose] 30 gm PO ONCE PRN Glucagon, Human Recombinant [GlucaGen] 1 mg IM ONCE PRN 12/29/16 01:15 Aripiprazole [Abilify] 2 mg PO HS Pantoprazole [Protonix] 40 mg IVP Q12H Ringers Solution, Lactated [Lactated Ringers] 1,000 ml IVC 150 mls/hr Trazodone HCl [Trazodone HCl] 150 mg PO HS How will this medication be supplied?: Pharmacy to Subsitute 12/29/16 04:00 Activated Partial Thrombo Time [COAG] AM 0400 Specimen: Send someone from the department to collect Comment: Complete Blood Count [HEME] AM 0400 Specimen: Send someone from the department to collect Comment: Comprehensive Metabolic Panel AM 0400 Specimen: Send someone from the department to collect Comment: Lipid Panel AM 0400 Specimen: Send someone from the department to collect Comment: Magnesium AM 0400 Specimen: Send someone from the department to collect Comment: Phosphorous AM 0400 Specimen: Send someone from the department to collect Comment: Prothrombin Time INR [COAG] AM 0400 Specimen: Send someone from the department to collect Comment: Troponin I AM 0400 Specimen: Send someone from the department to collect Comment: Urinalysis reflex Microscopic [URIN] AM 0400 Specimen: Pre-Collection Label Comment: Insulin LISPRO [HumaLOG] See Protocol SQ Q4HR 12/29/16 09:00 Duloxetine HCl [Cymbalta] 60 mg PO BID How will this medication be supplied?: Pharmacy to Subsitute Losartan/Hydrochlorothiazide [Hyzaar 100-12.5 Tablet] 1 tab PO QAM How will this medication be supplied?: Pharmacy to Subsitute Metoprolol [Lopressor] 100 mg PO BID Sennosides/Docusate Sodium [Senna Plus] 1 each PO BID 12/29/16 18:00 Atorvastatin [Lipitor] 40 mg PO QPM Patient Problems Intractable abdominal pain (Acute) Intractable nausea and vomiting (Acute) Pancreatitis (Acute) Vital Signs Temp Pulse Resp BP Pulse Ox 12/29/16 00:23 88 16 189/94 94 L 12/28/16 23:05 98.3 F 96 18 167/92 97 Laboratory Results 12/28/16 12/28/16 Range/Units 23:52 23:52 WBC 9.5 (4.3-11.1) K/mcL RBC 4.14 (3.82-4.97) M/mcL Hgb 12.4 (11.5-15.4) g/dL Hct 37.2 (35.3-44.9) % MCV 89.9 (83.0-100.0) fL MCH 30.0 (28.0-33.3) pg MCHC 33.3 (31.6-35.5) g/dL RDW 13.8 (11.5-14.5) % Plt Count 261 (140-400) K/mcL MPV 9.7 (9.4-12.4) fL Immature Gran % 0.5 (0-4) % Seg Neutrophils % 82.6 % Lymphocytes % 9.9 % Monocytes % 6.7 % Eosinophils % 0.1 % Basophils % 0.2 % Neutrophils # 7.8 (1.6-8.9) K/mcL Lymphocytes # 0.9 (0.6-4.6) K/mcL Monocytes # 0.6 (0.0-1.3) K/mcL Eosinophils # 0.0 (0.0-0.6) K/mcL Basophils # 0.0 (0.0-0.2) K/mcL Sodium 133 L (136-145) mEq/L Potassium 4.3 (3.5-4.5) mEq/L Chloride 98 (98-109) mEq/L Carbon Dioxide 25 (19-29) mEq/L BUN 15 (7-20) mg/dL Creatinine 0.91 (0.57-1.11) mg/dL Est GFR ( Amer) > 60 (> 60) Est GFR (Non-Af Amer) > 60 (> 60) BUN/Creatinine Ratio 16 (6-26) Glucose 462 H (70-99) mg/dL Calculated Osmolality 297 (280-300) Calcium 9.5 (8.6-10.8) mg/dL Total Bilirubin 0.6 (0.2-1.2) mg/dL Direct Bilirubin 0.2 (0.0-0.5) mg/dL Indirect Bilirubin 0.4 (0.0-1.2) mg/dL AST 84 H (5-34) Units/L ALT 59 H (0-55) Units/L Alkaline Phosphatase 116 (38-126) Units/L Serum Total Protein 7.0 (6.0-8.3) g/dL Albumin 3.8 (3.5-5.0) g/dL Globulin 3.2 (2.4-3.5) g/dL Albumin/Globulin Ratio 1.2 (1.1-2.2) Lipase 187 H (8-78) Units/L Assessments/Treatments Cardiac monitoring Start: 12/28/16 23: 03 Freq: Status: Complete Document 12/28/16 23:15 [facility] (Rec: 12/28/16 23:15 [facility] [id number]) Cardiac Monitoring Heart Rate 91 Monitoring Method Telemetry Rhythm Sinus Rhythm Monitor Number 6 ED Abdominal Pain Assessment Start: 12/28/16 23: 03 Freq: Status: Complete Document 12/28/16 23:10 [facility] (Rec: 12/28/16 23:15 [facility] [id number]) Abdominal Pain Symptoms/Complaint Abdominal Pain Context Recent Surgery/Procedure Improves With Nothing Worsens With Eating Associated Symptoms Diarrhea Nausea Treatment Prior to Arrival Prescription Analgesics Level Of Consciousness Awake Alert Appropriate Follows Commands Patient Orientation Person Place Time Name Age Date of Day of Month Day of Week Month Year Time of Day Skin Temperature Warm Skin Moisture Dry Skin Turgor Normal Capillary Refill < 3 Seconds Respiratory Depth Normal Respiratory Effort Spontaneous Non-Labored Respiratory Pattern Regular Abdomen Description Large Round Distended Tender Date of Last Bowel Movement 12/28/16 Nausea/Vomiting Presence Nauseated Bladder Distention Description None Voiding Method Toilet Last Void Date 12/28/16 ED Comment pt s/p ERCP/EGD today. pt had onset of RUQ pain around 2100 tonight that is sharp in nature - 8/10 pain. Saline lock insertion/management Start: 12/28/16 23: 03 Freq: Status: Complete Document 12/28/16 23:54 [facility] (Rec: 12/28/16 23:55 [facility] [id number]) IV Insertion/Site Assessment IV Attempt 2 Successful Successful Blood drawn and sent to Lab Yes Right Antecubital IV Established DATA CAPTURE CLERK No Date of Insertion 12/28/16 Time of Insertion 23:45 Reason for IV Insertion Provide Access for Emergency IV Catheter Type Peripheral IV Gauge (gauge) 18 Site Observation Patent Dressing Applied Window Dressing Dry/Intact Patient Tolerance Tolerated Well Triage Start: 12/28/16 23: 03 Freq: Status: Complete Document 12/28/16 23:05 [facility] (Rec: 12/28/16 23:10 [facility] [id number]) Triage Chief Complaint triage ED Abdominal Pain Patient Stated Complaint RUQ Pain TASHI 3 Onset (ago) hour(s) Description of Symptoms Pt had ERCP/EGD today, at 2100 pt started RUQ pain. Pain 8/ 10 General Appearance alert Work Related Injury? No Mode of arrival EMS Arrival via EMS [facility] EMS Source patient EMS Limitations no limitations Ebola Risk: Travel/Contact With Anyone No From Affected Area/s Temperature (97.6 F-99.6 F) 98.3 F Temperature Source Oral Pulse Rate (beats/min) 96 Respiratory Rate (breaths/min) 18 Blood Pressure (mm Hg) 167/92 O2 Sat by Pulse Oximetry (95-100 %) 97 Oxygen Delivery Room Air Height 1.63 m Weight 104.326 kg Weight Measurement Method Stated by Patient Pain Scale 8 Pain Scale Used Standard (1-10) Medical history arthritis cancer cirrhosis diabetes GERD hyperlipidemia hypertension liver disease malignancy osteoporosis other Female surgical history appendectomy cholecystectomy hysterectomy orthopedic, other Additional surgical history PMH partial removal of left lung and lymphnodes Psychiatric history anxiety depression Smoking Status Former smoker Smokeless Tobacco Status No Alcohol Use none Drug Use none Patient resides with/at Alone Safety Concerns Feels Safe At This Time Do you currently feel hopless, have No thoughts of self harm, or thoughts of harming others History of fall in last 14 days? No DEMOGRAPHER history no DEMOGRAPHER history Influenza vaccine up to date Yes Pneumonia vaccine up to date Yes Tetanus UTD unsure Coma Scale Eye Opening Spontaneous Coma Scale Motor Response Obeys Commands Coma Scale Verbal Response Oriented Coma Scale Total 15 Father Family Member Living Status Hx Family Cardiac Disorders Yes: unknown Mother Family Member Living Status Hx Family Cardiac Disorders Yes: abdominal aortic aneurysm Hx Family Respiratory Disorders Yes: emphysema Hx Family Cancer Yes: skin cancer Hx Family GI Disease No Hx Family Endocrine Disorder Yes: diabetes Hx Family Neuromuscular Dysfunction No Hx Family Neurologic Problems No Hx Family HEENT Problems No Hx Family Autoimmune Disease Problems No Vital Signs Assessment Start: 12/28/16 23: 03 Freq: Status: Active Document 12/29/16 00:23 Tere (Rec: 12/29/16 00:24 [facility] [id number]) ED Vital Signs Pain Reported Pain Reported Pain Scale 5 Pain Scale Used Standard (1-10) Blood Pressure (mm Hg) 189/94 Pulse Rate (beats/min) 88 Respiratory Rate (breaths/min) 16 Pulse Oximetry (95-100 %) 94 Oxygen Delivery Room Air Discharge Information ED Provider: Herminio Barry Status: Pending Admission Time Seen by Provider: 12/28/16 23:17 Condition: Triaged At: 12/28/16 23:05 Emergency Discharge Date/Time: Emergency Discharge Disposition: Admitted As Inpatient Clinical Impression Intractable abdominal pain Intractable nausea and vomiting Pancreatitis Emergency Discharge Comment: Admit Intervention Last Done ED Abdominal Pain Assessment 12/28/16 23:10 Query Result Abdominal Pain Symptoms/Comlaint Abdominal Pain Abdominal Pain Context Recent Surgery/Procedure Abdominal Pain Improves With Nothing Abdominal Pain Worsens With Eating Abdominal Pain Associated Symptoms Diarrhea Nausea Abdominal Pain Treatment Prior to Prescription Analgesics Arrival Level Of Consciousness Awake Alert Appropriate Follows Commands Patient Orientation Person Place Time Name Age Date of Day of Month Day of Week Month Year Time of Day Skin Temperature Warm Skin Moisture Dry Skin Turgor Normal Capillary Refill < 3 Seconds Respiratory Depth Normal Respiratory Effort Spontaneous Non-Labored Respiratory Pattern Regular Abdomen Description Large Round Distended Tender Date of Last Bowel Movement 12/28/16 Nausea/Vomiting Presence Nauseated Bladder Distention Description None Voiding Method Toilet Last Void Date 12/28/16 ED Comment pt s/p ERCP/EGD today. pt had onset of RUQ pain around 2100 tonight that is sharp in nature - 8/10 pain. ED Discharge Assessment Instructions: Stand-Alone Forms: ED Satisfaction Letter Work/School Release Prescriptions: Visit Report - Forms: - Referrals: Ava Kimble CNP (Primary Care Provider)
[2016-12-29] MEDS: traZODone 50 MG TABLET PO SCH ×2 (03:05→20:37)
[2016-12-29] MEDS: *HR* HYDROmorphone (PF) 1 MG/ML SYRINGE IVP PRN ×2 (03:25→04:10)
[2016-12-29] MEDS: Insulin LISPRO 300 UNITS/3 ML VIAL SQ SCH ×5 (04:30→20:37)
[2016-12-29] MEDS: ARIPiprazole 2 MG TABLET PO SCH ×2 (05:37→20:38)
[2016-12-29 06:30] LABS: INR 1.1; Prothrombin Time 11.9 Seconds (9.4-12.1)
[2016-12-29 06:33] LABS: Activated Partial Thrombo Time 25.1 Seconds (26.0-36.0)
[2016-12-29 06:39] LABS: Hemoglobin A1C 7.3 %
[2016-12-29 06:45] LABS: Amylase 113 Units/L (25-125); Lipase 286 Units/L (8-78)
[2016-12-29 06:46] LABS: Alanine Aminotransferase 168 Units/L (0-55); Albumin 3.3 g/dL (3.5-5.0); Albumin/Globulin Ratio 1.1 (1.1-2.2); Alkaline Phosphatase 126 Units/L (38-126); Aspartate Amino Transferase 263 Units/L (5-34); BUN/Creatinine Ratio 18 (6-26); Bilirubin,Total 0.8 mg/dL (0.2-1.2); Blood Urea Nitrogen 13 mg/dL (7-20); Calcium 8.6 mg/dL (8.6-10.8); Carbon Dioxide 26 mEq/L (19-29); Chloride 104 mEq/L (98-109); Chol/HDL Ratio 3.5 (0-4.9); Cholesterol 180 mg/dL (< 200); Globulin 2.9 g/dL (2.4-3.5); Glucose 206 mg/dL (70-99); HDL Cholesterol 52 mg/dL (40-59); LDL Cholesterol,Calculated 103 mg/dL (0-99); Magnesium 1.9 mg/dL (1.6-2.6); Osmolality,Calculated 290 (280-300); Phosphorous 3.4 mg/dL (2.3-4.7); Potassium 3.7 mEq/L (3.5-4.5); Sodium 137 mEq/L (136-145); Total Protein 6.2 g/dL (6.0-8.3); Triglycerides 127 mg/dL (< 150); eGFR For African Americans > 60 (> 60); eGFR For Non-African Americans > 60 (> 60)
[2016-12-29] MEDS ORDERED: *HR* HYDROmorphone 2 MG/ML SYRINGE IVP PRN (07:33)
[2016-12-29] MEDS ORDERED: *HR* HYDROmorphone (PF) 1 MG/ML SYRINGE IVP PRN (08:21)
[2016-12-29] MEDS: Metoprolol 100 MG TABLET PO SCH ×2 (08:45→20:38)
[2016-12-29] MEDS: hydroCHLOROthiazide 25 MG TABLET PO SCH (08:45)
[2016-12-29] MEDS: Sennosides/Docusate Sodium TABLET PO SCH ×2 (08:46→20:38)
--- NOTE | 2016-12-29 08:50 | Internal Med Progress Note ---
Date of Encounter: 12/29/16 Time of Encounter: 08:49 - Assessment and plan (1) Acute pancreatitis, unspecified Current Visit: Yes Status: Acute Assessment and plan: Acute on chronic s/p ERCP with biliary duct stent placement Slightly elevated lipase Clear liquid diet as tolerated GI eval pending Continue supportive care and pain control Qualifiers: Pancreatitis type: other Acute pancreatitis complication: no infection or necrosis Qualified Code(s): K85.80 - Other acute pancreatitis without necrosis or infection (2) Hypertension Current Visit: Yes Status: Chronic Assessment and plan: Controlled at this time Continue home meds Qualifiers: Hypertension type: essential hypertension Qualified Code(s): I10 - Essential (primary) hypertension (3) Dyslipidemia Current Visit: Yes Status: Chronic Assessment and plan: Chronic, stable, continue home meds (4) Chronic pain syndrome Current Visit: Yes Status: Chronic Assessment and plan: Continue current meds, switch to po as tolerated (5) Degenerative joint disease involving multiple joints Current Visit: Yes Status: Chronic Assessment and plan: chronic stable Qualifiers: Osteoarthritis type: unspecified Qualified Code(s): M15.9 - Polyosteoarthritis, unspecified (6) Chronic obstructive pulmonary disease Current Visit: Yes Status: Chronic Assessment and plan: Chronic stable Qualifiers: COPD type: unspecified COPD Qualified Code(s): J44.9 - Chronic obstructive pulmonary disease, unspecified (7) Cirrhosis of liver Current Visit: Yes Status: Chronic Qualifiers: Hepatic cirrhosis type: unspecified hepatic cirrhosis Ascites presence: without ascites Qualified Code(s): K74.60 - Unspecified cirrhosis of liver (8) Hepatic steatosis Current Visit: Yes Status: Chronic (9) Diverticular disease Current Visit: Yes Status: Chronic Qualifiers: Diverticulosis site: unspecified location Qualified Code(s): K57.90 - Diverticulosis of intestine, part unspecified, without perforation or abscess without bleeding (10) H/O: lung cancer Current Visit: Yes Status: Chronic Assessment and plan: Chronic, stable, follow up with Oncology out-patient (11) Obesity (BMI 30-39.9) Current Visit: No Status: Chronic - Subjective Interval history: 61 F with MH of recurrent pancreatitis, s/p ERCP yesterday presented with abdominal pain She has a PMH of arthritis, asthma, cancer (Non-small cell lung carcinoma, left s/p resection.), cirrhosis, COPD, diabetes, GERD (Ordoñez's esophagus. Esophagitis-gastritis.), GI bleed (Diverticulosis. 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 Absent: lymphadenopathy - Respiratory Respiratory exam: Present: CTAB. Absent: rales, rhonchi, wheezes - Cardiovascular Cardiovascular exam: Present: RRR, +S1, +S2, systolic murmur ( murmur) - GI/Abdominal GI/Abdominal exam: Present: normal bowel sounds, soft, tenderness (Mild epigastric tenderness), no peritoneal signs. Absent: distended - Extremities Exam Extremities exam: Present: warm, radial pulses palpable and symetrical. Absent : calf tenderness, cyanotic, pedal edema Additional comments: Left ankle scar with left foot edema - Neurological Exam Neurological exam: Present: alert, CN II-XII intact, normal gait, oriented X3, no focal deficits. Absent: pronater drift, facial droop, speech deficit - Skin Skin exam: Present: dry, intact Internal Medicine: Result - Labs CBC & Chem 7: 12/29/16 09:02 12/29/16 06:01 Labs: BMP 12/29/16 06:01 Sodium 137 Potassium 3.7 Chloride 104 Carbon Dioxide 26 BUN 13 Creatinine 0.73 Glucose 206 H Calcium 8.6 Cardiac Enzymes 12/29/16 Range/Units 06:01 Troponin I 0.00 (0-0.03) ng/mL Liver Function 12/29/16 Range/Units 06:01 Total Bilirubin 0.8 (0.2-1.2) mg/dL AST 263 H (5-34) Units/L ALT 168 H (0-55) Units/L Alkaline Phosphatase 126 (38-126) Units/L Albumin 3.3 L (3.5-5.0) g/dL - ABG Interpretation ABG results: PT/INR, D-dimer PT 11.9 Seconds (9.4-12.1) 12/29/16 06:01 Consult Discharge Plan - Plan Referrals: Ava Kimble, [employer] [Primary Care Provider] -
[2016-12-29 09:26] LABS: Basophils % 0.3 %; Eosinophils # 0.1 K/mcL (0.0-0.6); Eosinophils % 0.9 %; Hematocrit 34.7 % (35.3-44.9); Hemoglobin 11.8 g/dL (11.5-15.4); Immature Granulocytes % 0.5 % (0-4); Immature Platelets 4.1 % (1.1-6.1); Lymphocytes # 1.6 K/mcL (0.6-4.6); Lymphocytes % 14.2 %; Mean Corpuscular Hemoglobin 30.3 pg (28.0-33.3); Mean Platelet Volume 9.8 fL (9.4-12.4); Monocytes # 1.2 K/mcL (0.0-1.3); Monocytes % 11.1 %; Platelet Count 244 K/mcL (140-400); Red Cell Distribution Width 13.9 % (11.5-14.5)
--- NOTE | 2016-12-29 09:49 | Gastroenterology Consult Note ---
<Claudia Gonzalez - Last Filed: 12/29/16 11:11> Date of Encounter: 12/29/16 Time of Encounter: 10:15 - Assessment and plan (1) Acute pancreatitis, unspecified Current Visit: No Status: Acute Assessment and plan: Acute s/p ERCP with PD stent placement. Supportive care. BISAP 0 on current information. No imaging to date. Qualifiers: Pancreatitis type: other Acute pancreatitis complication: no infection or necrosis Qualified Code(s): K85.80 - Other acute pancreatitis without necrosis or infection - Time Spent With Patient Total time spent is greater than 50% in coordination of care (as documented) at patient's floor/unit and/or counseling patient: GI History of Present Illness - Data of Consult Patient: known to practice within the last 3 years Consult date: 12/29/16 Requesting Physician: Beny Jonas MD - Consult Narrative Reason for consult: acute pancreatitis s/p ERCP History of present illness: Ms. Lopez is a 61 year old female with a PMH of chronic pancreatitis, ELIAS cirrhosis, DM, GERD, HLD, HTN, lung cancer. Yesterday, 12/28/16, she underwent OTPT ERCP with sphincterotomy and PD stent placement with Dr. Castillo for her symptoms. She started having significant abdominal pain later yesterday evening and after calling and speaking with Dr. Castillo, she was referred to ER for evaluation. Dr. Castillo recommended the patient be admitted for IV fluids and pain control. Patient states that she went home after her procedure has been having epigastric and right upper quadrant pain that was fairly significant, similar to previous pain that she has experienced with pancreatitis. Admits to nausea and vomiting. Denies any fevers, diarrhea, chest pain, shortness of breath. Does admit to worsening right upper quadrant pain with deep inspiration. She states that she has had multiple episodes of pancreatitis in the past. Her liver enzymes and pancreatic enzymes were elevated upon presentation to the ER. Patient somewhat improved during my examination. Still with abd pain and nausea complaints. Colonoscopy: 2013 Gul, diverticulitis, int hemorrhoids EGD: 12/2016 Anna, path pending, no varices Past Med Surg Social Fam HX - Past Medical History Medical history: arthritis, asthma, cancer (Non-small cell lung carcinoma, left s/p resection.), cirrhosis, COPD, diabetes, GERD (Ordoñez's esophagus. Esophagitis-gastritis.), GI bleed (Diverticulosis. 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 ), malignancy, osteoporosis (Vit D deficiency.), other (H/O pancreatitis) Psychiatric history: anxiety, depression, other - Past Surgical History Surgical History: appendectomy, cancer surgery, cholecystectomy, hysterectomy, orthopedic, other, LIZZETTE/BSO, other (EGD, COLONOSCOPY.) - Social History Smoking Status: Former smoker Packs per day: >30pk-yrs Smokeless Tobacco Status: No Alcohol use: none Drug use: none - Family History Mother Living Status: Hx Family Cardiac Disorders: Yes (abdominal aortic aneurysm) Hx Family Respiratory Disorders: Yes (emphysema) Hx Family Cancer: Yes (skin cancer) Hx Family GI Disorders: No Hx Family Endocrine Disorder: Yes (diabetes) Hx Family Neuromuscular Disorders: No Hx Family Neurologic Disorders: No Hx Family HEENT Disorders: No Hx Family Autoimmune Disorders: No Father Living Status: Hx Family Cardiac Disorders: Yes (unknown) - Gastrointestinal NSAID use: None Anticoagulation Use: None Number of BM Per Day: daily Gastrointestinal: Present: abdominal pain, nausea - Constitutional Constitutional: as per HPI - EENT Eyes: as per HPI Ears: Present: as per HPI Nose, mouth and throat: Present: as per HPI - Cardiovascular Cardiovascular ROS: Present: as per HPI - Respiratory Respiratory IM: Present: as per HPI - Neurological ROS Neurological GI: Present: as per HPI - Hematologic/Lymphatic Hematologic/Lymphatic pediatric: Present: as per HPI - Musculoskeletal Musculoskeletal ROS GI: Present: as per HPI - Integumentary Integumentary GI: Present: as per HPI - Psychiatric ROS Psychiatric GI: Present: as per HPI - Endocrine Endocrine IM: Present: as per HPI - Constitutional Vitals: Temp Pulse Resp BP Pulse Ox 98.4 F 154 18 115/62 93 L 12/29/16 07:04 12/29/16 07:04 12/29/16 07:04 12/29/16 07:04 12/29/16 07:04 Results - Labs CBC & Chem 7: 12/29/16 09:02 12/29/16 06:01 Labs: Last Result Calcium 8.6 mg/dL (8.6-10.8) 12/29/16 06:01 Troponin I 0.00 ng/mL (0-0.03) 12/29/16 06:01 Triglycerides 127 mg/dL (< 150) 12/29/16 06:01 Entire Visit Hgb 11.8 g/dL (11.5-15.4) 12/29/16 09:02 Hct 34.7 % (35.3-44.9) L 12/29/16 09:02 PT 11.9 Seconds (9.4-12.1) 12/29/16 06:01 Total Bilirubin 0.8 mg/dL (0.2-1.2) 12/29/16 06:01 AST 263 Units/L (5-34) H 12/29/16 06:01 ALT 168 Units/L (0-55) H 12/29/16 06:01 Amylase 113 Units/L (25-125) 12/29/16 06:01 Lipase 286 Units/L (8-78) H 12/29/16 06:01 - ABG ABG results: PT/INR, D-dimer PT 11.9 Seconds (9.4-12.1) 12/29/16 06:01 Consult Discharge Plan - Plan Referrals: Ava Kimble, [employer]STRUCTOR [Primary Care Provider] - <Sravani Castillo - Last Filed: 12/29/16 13:45> Time of Encounter: 08:30 - Time Spent With Patient Total time spent is greater than 50% in coordination of care (as documented) at patient's floor/unit and/or counseling patient: GI History of Present Illness - Data of Consult Requesting Physician: Beny Jonas MD - Consult Narrative History of present illness: Ms. Lopez is a 61 year old female - Constitutional Vitals: Temp Pulse Resp BP Pulse Ox 98.6 F 68 16 111/68 95 12/29/16 10:58 12/29/16 10:58 12/29/16 10:58 12/29/16 10:58 12/29/16 10:58 Results - Labs CBC & Chem 7: 12/29/16 09:02 12/29/16 06:01 Labs: Last Result Calcium 8.6 mg/dL (8.6-10.8) 12/29/16 06:01 Troponin I 0.00 ng/mL (0-0.03) 12/29/16 06:01 Triglycerides 127 mg/dL (< 150) 12/29/16 06:01 Entire Visit Hgb 11.8 g/dL (11.5-15.4) 12/29/16 09:02 Hct 34.7 % (35.3-44.9) L 12/29/16 09:02 PT 11.9 Seconds (9.4-12.1) 12/29/16 06:01 Total Bilirubin 0.8 mg/dL (0.2-1.2) 12/29/16 06:01 AST 263 Units/L (5-34) H 12/29/16 06:01 ALT 168 Units/L (0-55) H 12/29/16 06:01 Amylase 113 Units/L (25-125) 12/29/16 06:01 Lipase 286 Units/L (8-78) H 12/29/16 06:01 - ABG ABG results: PT/INR, D-dimer PT 11.9 Seconds (9.4-12.1) 12/29/16 06:01 - Attending Attestation I examined this patient and my medical decision-making was reviewed with the BEAUT[employer] CULTURIST APPRENTICE/PA/Advanced Practice Nurse/Resident Physician. I agree with the documented findings, disposition and treatment plan as described except to the extent set forth below.
[2016-12-29] MEDS ORDERED: Fluticasone Propionate Nasal 50 MCG/SPRAY BOTTLE NS PRN (13:14)
[2016-12-29] MEDS ORDERED: Ondansetron ODT 4 MG TAB.RAPDIS PO PRN (13:14)
[2016-12-29] MEDS: *HR* HYDROcodone/Acet 5/325 mg TABLET PO PRN (13:34)
[2016-12-29] MEDS: Multivit/Ca/Min/Fe/FA 1 TAB TABLET PO SCH (15:59)
[2016-12-29] MEDS: Beclomethasone 80mcg MDI IH SCH (20:26)
[2016-12-30] MEDS: Insulin LISPRO 300 UNITS/3 ML VIAL SQ SCH ×5 (00:47→15:58)
[2016-12-30] MEDS: *HR* HYDROcodone/Acet 5/325 mg TABLET PO PRN ×2 (02:04→08:24)
[2016-12-30] MEDS: Beclomethasone 80mcg MDI IH SCH (07:39)
[2016-12-30 08:13] LABS: Albumin 3.3 g/dL (3.5-5.0); Albumin/Globulin Ratio 1.1 (1.1-2.2); Bilirubin,Direct 0.2 mg/dL (0.0-0.5); Bilirubin,Indirect 0.3 mg/dL (0.0-1.2); Bilirubin,Total 0.5 mg/dL (0.2-1.2); Total Protein 6.3 g/dL (6.0-8.3)
[2016-12-30] MEDS: Metoprolol 100 MG TABLET PO SCH (08:18)
[2016-12-30] MEDS: Sennosides/Docusate Sodium TABLET PO SCH (08:19)
[2016-12-30] MEDS: Multivit/Ca/Min/Fe/FA 1 TAB TABLET PO SCH (08:19)
[2016-12-30] MEDS: hydroCHLOROthiazide 25 MG TABLET PO SCH (08:19)
[2016-12-30] MEDS ORDERED: Furosemide 20 MG TABLET PO SCH (09:00)
[2016-12-30] MEDS ORDERED: amLODIPine 5 MG TABLET PO SCH (09:00)
[2016-12-30 11:58] VITALS: BP 137/72
--- NOTE | 2016-12-30 14:27 | Discharge Summary ---
Date of Encounter: 12/30/16 Time of Encounter: 14:25 - Discharge Diagnosis (1) Acute pancreatitis, unspecified Priority: Primary Status: Acute Qualifiers: Pancreatitis type: other Acute pancreatitis complication: no infection or necrosis Qualified Code(s): K85.80 - Other acute pancreatitis without necrosis or infection (2) Hypertension Priority: Secondary Status: Chronic Qualifiers: Hypertension type: essential hypertension Qualified Code(s): I10 - Essential (primary) hypertension (3) Dyslipidemia Priority: Secondary Status: Chronic (4) Chronic pain syndrome Priority: Secondary Status: Chronic (5) Degenerative joint disease involving multiple joints Priority: Secondary Status: Chronic Qualifiers: Osteoarthritis type: unspecified Qualified Code(s): M15.9 - Polyosteoarthritis, unspecified (6) Chronic obstructive pulmonary disease Priority: Secondary Status: Chronic Qualifiers: COPD type: unspecified COPD Qualified Code(s): J44.9 - Chronic obstructive pulmonary disease, unspecified (7) Cirrhosis of liver Priority: Secondary Status: Chronic Qualifiers: Hepatic cirrhosis type: unspecified hepatic cirrhosis Ascites presence: without ascites Qualified Code(s): K74.60 - Unspecified cirrhosis of liver (8) Hepatic steatosis Priority: Secondary Status: Chronic (9) Diverticular disease Priority: Secondary Status: Chronic Qualifiers: Diverticulosis site: unspecified location Qualified Code(s): K57.90 - Diverticulosis of intestine, part unspecified, without perforation or abscess without bleeding (10) H/O: lung cancer Priority: Secondary Status: Chronic (11) Obesity (BMI 30-39.9) Priority: Secondary Status: Chronic - Discharge Medications Home Medications: Amlodipine [Amlodipine Besylate] 10 mg PO QAM 11/17/15 [History] Atorvastatin [Lipitor] 40 mg PO QPM 11/17/15 [History] Duloxetine HCl [Cymbalta] 60 mg PO BID 11/17/15 [History] Fluticasone Propionate Nasal [Flonase] 50 mcg NS DAILY PRN 11/17/15 [History] LORazepam [Ativan] 0.5 tab PO BID PRN 11/17/15 [History] Losartan/Hydrochlorothiazide [Hyzaar 100-12.5 Tablet] 1 tab PO QAM 11/17/15 [ History] Metoprolol [Lopressor] 100 mg PO BID 11/17/15 [History] Trazodone HCl 150 mg PO 11/17/15 [History] Vitamin E (Dl,Tocopheryl Acet) [Vitamin E] 400 unit PO DAILY 11/17/15 [History] Multivitamin [Multi-Day Vitamins] 1 each PO DAILY 04/11/16 [History] Insulin NPH/REG 70/30 [HumuLIN 70/30 VIAL] 80 unit SQ BIDWM 06/27/16 [History] Albuterol Sulfate [Albuterol Inhaler] 1 - 2 puff IH Q6HR PRN 10/13/16 [History] Beclomethasone Diprop 80mcg [QVAR 80 mcg] 1 puff IH BID 10/13/16 [History] Furosemide [Lasix] 20 mg PO DAILY 10/13/16 [History] Aripiprazole [Abilify] 2 mg PO HS 11/26/16 [History] Esomeprazole Magnesium [Nexium] 40 mg PO DAILY 11/26/16 [History] HYDROcodone/Acet 5/325 mg [[place] 5-325 mg] 1 tab PO Q6H PRN #10 11/29/16 [Rx] Ondansetron HCl [Zofran] 4 mg PO Q6H PRN #20 tablet 11/29/16 [Rx] Sennosides/Docusate Sodium [Senna Plus] 1 each PO BID #20 tablet 11/29/16 [Rx] Insulin Regular Human [Humulin R] 0 units SQ TID PRN 12/29/16 [History] Allergies/Adverse Reactions: Allergies NSAIDS (Non-Steroidal Anti-Inflamma Adverse Reaction (Verified 12/29/16 09:34) See Comments PATIENT HAS ULCERS- Date of admission: 12/29/16 11:22 Primary care physician: Ava Kimble CNP Discharging clinician: Beny Jonas Anticipated date of discharge: 12/30/16 - Patient Status Disposition: Home, Self-Care Condition: Good Functional capacity at discharge: independent ambulation Overall status at discharge: patient is back to baseline - Discharge Instructions Follow Up With: Ava Kimble CNP [Primary Care Provider] - - Diet and Activity Activity: resume usual activities as tolerated Diet: low fat, low cholesterol, low salt diet Interval History: 61 F with MH of recurrent pancreatitis, s/p ERCP 12/28 with PD stent placement presented with abdominal pain 12/29 She has a PMH of arthritis, asthma, cancer (Non-small cell lung carcinoma, left s/p resection.), cirrhosis, COPD, diabetes, GERD (Ordoñez's esophagus. Esophagitis-gastritis.), GI bleed (Diverticulosis. 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), osteoporosis (Vit D deficiency.) Hospital course: Patient was admitted to the hospital for management of acute on chronic pancreatitis , intractable abdominal pain She was managed supportively with IVF and pain medications IV, then transitioned to oral She reported significant improvement and has been tolerating orally for the past 24 hours GI was consulted, recommended continued support care Patient's work up on admission significant for transaminiti and elevated lipase above baseline This improved during the hospital stay Her Chem, CBC were essentially normal BISAP score is 0, patient had an endoscopy done 12/28/16, pathology report showed chronic inactive gastritis, H.pylori negative, negative for evidence of lymphoma Her vitals have been stable, she is ambulatory and she is stable for discharge home on her oral home medications Follow up with GI and PCP as earlier scheduled - Time Spent with Patient Total time spent providing and/or coordinating discharge services: Less than 30 minutes - Constitutional Vitals: Temp Pulse Resp BP Pulse Ox 98.5 F 67 14 137/72 93 L 12/30/16 11:53 12/30/16 11:53 12/30/16 11:53 12/30/16 11:53 12/30/16 11:53 General appearance: Present: A&O X 3, morbidly obese, pleasant, no acute distress, answers questions appropriately - Head Head exam: Present: atraumatic, normocephalic - Eye Eye exam: Present: PERRL, conjuntiva pink, sclera anicteric Pupils: Present: PERRL - Neck Neck exam general surgery: Present: supple, trachea midline. Absent: lymphadenopathy - Respiratory Respiratory exam: Present: CTAB. Absent: accessory muscle use, rales, rhonchi, wheezes - Cardiovascular Cardiovascular exam: Present: RRR, +S1, +S2. Absent: diastolic murmur, gallop, rubs, systolic murmur - GI/Abdominal GI/Abdominal exam: Present: normal bowel sounds, soft, no peritoneal signs. Absent: distended, tenderness - Extremities Exam Extremities exam: Present: warm, radial pulses palpable and symetrical. Absent : calf tenderness, cyanotic, pedal edema - Neurological Exam Neurological exam: Present: alert, CN II-XII intact, oriented X3, no focal deficits. Absent: pronater drift, facial droop, speech deficit - Skin Skin exam: Present: dry, intact
== END 2016-12-30 18:00 | disposition home or self-care (01) | DRG 282 ==
LOC: EMEROO 23:02 → 3NENU 23:02 → SUATTDRO 12-29 01:23 → 3NENU 12-29 01:56
PROVIDERS: ADMIT Internal Medicine; ATTEND Internal Medicine

== ENCOUNTER 2017-01-13 17:46 | Inpatient (IN) ==
--- NOTE | 2017-01-13 17:50 | Emergency Department Note ---
Disposition Clinical Impression: Abdominal pain, Hyperglycemia Disposition: Still a Patient Condition: Good Referrals: NO,PCP [Non-Partnered Physician] - Forms: Work/School Release, ED Satisfaction Letter General Adult HPI - General Chief complaint: ED Abdominal Pain Stated complaint: abd pain Time Seen by Provider: 01/13/17 17:48 - Related Data Home Medications Medication Instructions Recorded Confirmed Amlodipine [Amlodipine Besylate] 10 mg PO QAM 11/17/15 12/29/16 Atorvastatin [Lipitor] 40 mg PO QPM 11/17/15 12/29/16 Duloxetine HCl [Cymbalta] 60 mg PO BID 11/17/15 12/29/16 Fluticasone Propionate Nasal 50 mcg NS DAILY PRN 11/17/15 12/29/16 [Flonase] LORazepam [Ativan] 0.5 tab PO BID PRN 11/17/15 12/29/16 Losartan/Hydrochlorothiazide 1 tab PO QAM 11/17/15 12/29/16 [Hyzaar 100-12.5 Tablet] Metoprolol [Lopressor] 100 mg PO BID 11/17/15 12/29/16 Trazodone HCl 150 mg PO HS 11/17/15 12/29/16 Vitamin E (Dl,Tocopheryl Acet) 400 unit PO DAILY 11/17/15 12/29/16 [Vitamin E] Multivitamin [Multi-Day Vitamins] 1 each PO DAILY 04/11/16 12/29/16 Insulin NPH/REG 70/30 [HumuLIN 80 unit SQ BIDWM 06/27/16 12/29/16 70/30 VIAL] Albuterol Sulfate [Albuterol 1 - 2 puff IH Q6HR PRN 10/13/16 12/29/16 Inhaler] Beclomethasone Diprop 80mcg [QVAR 1 puff IH BID 10/13/16 12/29/16 80 mcg] Furosemide [Lasix] 20 mg PO DAILY 10/13/16 12/29/16 Aripiprazole [Abilify] 2 mg PO HS 11/26/16 12/29/16 Esomeprazole Magnesium [Nexium] 40 mg PO DAILY 11/26/16 12/29/16 Insulin Regular Human [Humulin R] 0 units SQ TID PRN 12/29/16 12/29/16 Previous Rx's Medication Instructions Recorded HYDROcodone/Acet 5/325 mg [[place] 1 tab PO Q6H PRN #10 11/29/16 5-325 mg] Ondansetron HCl [Zofran] 4 mg PO Q6H PRN #20 tablet 11/29/16 Sennosides/Docusate Sodium [Senna 1 each PO BID #20 tablet 11/29/16 Plus] Allergies Allergy/AdvReac Type Severity Reaction Status Date / Time NSAIDS (Non-Steroidal AdvReac See Verified 01/13/17 17:48 Anti-Inflamma Comments Past Medical History - Past Medical History Medical history: Reports: arthritis, asthma, cancer (Non-small cell lung carcinoma, left s/p resection.), cirrhosis, COPD, diabetes, GERD (Ordoñez's esophagus. Esophagitis-gastritis.), GI bleed (Diverticulosis. 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), malignancy, osteoporosis (Vit D deficiency.), other (H/O pancreatitis) Surgical history: Reports: appendectomy, cancer surgery, cholecystectomy, hysterectomy, orthopedic, other, LIZZETTE/BSO, other (EGD, COLONOSCOPY.) Psychiatric history: Reports: anxiety, depression, other POWER SUPERINTENDENT history: Reports: no POWER SUPERINTENDENT history - Social History Smoking Status: Former smoker Smokeless Tobacco Status: No Alcohol use: Reports: none Drug use: Reports: none Course Vital Signs Temperature 98.1 F 01/13/17 17:57 Pulse Rate 84 01/13/17 17:57 Respiratory Rate 16 01/13/17 17:57 Blood Pressure 137/62 01/13/17 17:57 O2 Sat by Pulse Oximetry 94 01/13/17 17:57 Temperature 98.1 F 01/13/17 17:57 Pulse Rate 84 01/13/17 18:00 Respiratory Rate 16 01/13/17 18:00 Blood Pressure 137/62 01/13/17 18:00 O2 Sat by Pulse Oximetry 94 01/13/17 18:00 Oxygen Delivery Oxygen Delivery Room Air Medical Decision Making - Lab Data Lab Results 01/13/17 Range/Units 18:13 Urine Color Yellow (Yellow) Urine Clarity Clear (Clear) Urine pH 6.5 (5.0-8.0) pH Units Ur Specific [place] 1.009 L (1.010-1.025) Urine Protein Negative (Neg-Trace) mg/dL Urine Glucose (UA) 250 H (Normal) mg/dL Urine Ketones Negative (Negative) mg/dL Urine Blood Negative (Negative) Urine Nitrite Negative (Negative) Urine Bilirubin Negative (Negative) Urine Urobilinogen Normal (Normal) mg/dL Ur Leukocyte Esterase Trace H (Negative) Urine Microscopic RBC 3-5 H (0-3) per hpf Urine Microscopic WBC 0-3 (0-3) per hpf Ur Squamous Epith Cells Many H (None-Few) per lpf Urine Bacteria None Seen (None-Few) per hpf Hyaline Casts None Seen (None-Few) per lpf Ur Culture Indicated? YES A (NO) Attestation Statement - Attestation Attestation: I examined this patient and my medical decision-making was reviewed with the SURGEON CHIEF/PA/Advanced Practice Nurse/Resident Physician. I agree with the documented findings, disposition and treatment plan as described except to the extent set forth below. Face to face time provided Patient presents to the emergency department via EMS from home complaining of hyperglycemia today. She has a known history of type 1 diabetes. She has been compliant with her insulin. She complains of abdominal pain. 18:34: There to be endorsed to the oncoming physician Dr. Barry at 7 PM pending labs and reevaluation
[2017-01-13] MEDS ORDERED: *HR* Morphine 2 MG/ML SYRINGE IVP ONE (17:55)
[2017-01-13] MEDS ORDERED: Ondansetron ODT 4 MG TAB.RAPDIS SL ONE (17:55)
--- NOTE | 2017-01-13 17:59 | Emergency Department Note ---
Disposition Clinical Impression: Hyperglycemia Abdominal pain Qualifiers: Abdominal location: epigastric Qualified Code(s): R10.13 - Epigastric pain Disposition: Still a Patient Condition: Good Referrals: NO,PCP [Non-Partnered Physician] - Forms: ED Satisfaction Letter, Work/School Release Time of Disposition: 18:47 Abdominal Pain HPI - General Chief Complaint: ED Abdominal Pain Stated Complaint: abd pain Time Seen by Provider: 01/13/17 17:48 Source: patient, EMS Mode of arrival: EMS Limitations: no limitations Nursing Notes Reviewed: Yes Vital Signs Reviewed: Yes - History of Present Illness HPI Narrative: Patient is a 61-year-old female with past medical history of diabetes, early on insulin. She has not missed any doses. She also has a history of pancreatitis. She just recently had an ERCP and stent placement by Dr. Castillo about 1-2 weeks ago. She has had multiple episodes of pancreatitis in the past. I actually saw this patient after she had her MRCP. She is admitted that time for pancreatitis and intractable nausea, vomiting, abdominal pain. Today, she has concern for elevated blood sugars in the 400s at home. She also has epigastric pain that she says is very similar to all previous pancreatitis pain. Denies any current vomiting, does admit to nausea. Denies any fevers, chest pain, shortness of breath. She does have suprapubic pain as well. No dysuria or hematuria. - Related Data Home Medications Medication Instructions Recorded Confirmed Amlodipine [Amlodipine Besylate] 10 mg PO QAM 11/17/15 12/29/16 Atorvastatin [Lipitor] 40 mg PO QPM 11/17/15 12/29/16 Duloxetine HCl [Cymbalta] 60 mg PO BID 11/17/15 12/29/16 Fluticasone Propionate Nasal 50 mcg NS DAILY PRN 11/17/15 12/29/16 [Flonase] LORazepam [Ativan] 0.5 tab PO BID PRN 11/17/15 12/29/16 Losartan/Hydrochlorothiazide 1 tab PO QAM 11/17/15 12/29/16 [Hyzaar 100-12.5 Tablet] Metoprolol [Lopressor] 100 mg PO BID 11/17/15 12/29/16 Trazodone HCl 150 mg PO HS 11/17/15 12/29/16 Vitamin E (Dl,Tocopheryl Acet) 400 unit PO DAILY 11/17/15 12/29/16 [Vitamin E] Multivitamin [Multi-Day Vitamins] 1 each PO DAILY 04/11/16 12/29/16 Insulin NPH/REG 70/30 [HumuLIN 80 unit SQ BIDWM 06/27/16 12/29/16 70/30 VIAL] Albuterol Sulfate [Albuterol 1 - 2 puff IH Q6HR PRN 10/13/16 12/29/16 Inhaler] Beclomethasone Diprop 80mcg [QVAR 1 puff IH BID 10/13/16 12/29/16 80 mcg] Furosemide [Lasix] 20 mg PO DAILY 10/13/16 12/29/16 Aripiprazole [Abilify] 2 mg PO HS 11/26/16 12/29/16 Esomeprazole Magnesium [Nexium] 40 mg PO DAILY 11/26/16 12/29/16 Insulin Regular Human [Humulin R] 0 units SQ TID PRN 12/29/16 12/29/16 Previous Rx's Medication Instructions Recorded HYDROcodone/Acet 5/325 mg [[place] 1 tab PO Q6H PRN #10 11/29/16 5-325 mg] Ondansetron HCl [Zofran] 4 mg PO Q6H PRN #20 tablet 11/29/16 Sennosides/Docusate Sodium [Senna 1 each PO BID #20 tablet 11/29/16 Plus] Allergies Allergy/AdvReac Type Severity Reaction Status Date / Time NSAIDS (Non-Steroidal AdvReac See Verified 01/13/17 17:48 Anti-Inflamma Comments Constitutional: Denies: fever Cardiovascular: Denies: chest pain, palpitations, dyspnea on exertion Respiratory: Denies: cough, dyspnea, wheezes Gastrointestinal: Reports: abdominal pain, nausea. Denies: vomiting, diarrhea, constipation, hematemesis Genitourinary: Denies: urgency, dysuria, frequency, hematuria Musculoskeletal: Denies: back pain Integumentary: Denies: rash Abdominal Pain PMH - Past Medical History Medical history: Reports: arthritis, asthma, cancer (Non-small cell lung carcinoma, left s/p resection.), cirrhosis, COPD, diabetes, GERD (Ordoñez's esophagus. Esophagitis-gastritis.), GI bleed (Diverticulosis. 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), malignancy, osteoporosis (Vit D deficiency.), other (H/O pancreatitis) Female Surgical History: Reports: appendectomy, cholecystectomy, hysterectomy, orthopedic, other BOW STAPLER history: Reports: no BOW STAPLER history Psychiatric history: Reports: anxiety, depression, other - Social History Smoking status: Former smoker Alcohol use: Reports: none Drug use: Reports: none Physical Exam - General Limitations: no limitations General appearance: alert, in no apparent distress - Head Head exam: atraumatic, normocephalic, normal inspection - Eye Eye exam: Present: normal appearance, PERRL, EOMI - ENT ENT exam: normal exam, normal oropharynx, mucous membranes moist - Neck Neck exam: Present: normal inspection, full ROM, trachea midline - Chest Chest inspection: Present: normal inspection, symmetric chest wall rise - Respiratory Respiratory exam: Present: normal lung sounds bilaterally - Cardiovascular Cardiovascular exam: Present: regular rate, normal rhythm, normal heart sounds - Abdominal Exam Abdominal exam: Present: soft, tenderness (Epigastric, moderate in intensity). Absent: distention, guarding, rebound - Extremities Exam Extremities exam: Present: normal inspection, full ROM. Absent: tenderness, pedal edema - Neurological Exam Neurological exam: Present: alert, oriented X3 - Psychiatric Psychiatric exam: Present: normal affect, normal mood - Skin Skin exam: Present: warm, dry, intact, normal color Course Course Narrative: Vitals were within normal limits on my exam. His exam shows epigastric tenderness. We will give the patient Zofran for nausea, morphine for pain control. We will draw basic labs, abdominal labs, urinalysis, DKA labs. Patient will be signed out to night team Dr. Ortiz and Dr. Barry for further care. Vital Signs Temperature 98.1 F 01/13/17 17:57 Pulse Rate 84 01/13/17 17:57 Respiratory Rate 16 01/13/17 17:57 Blood Pressure 137/62 01/13/17 17:57 O2 Sat by Pulse Oximetry 94 01/13/17 17:57 Temperature 98.1 F 01/13/17 17:57 Pulse Rate 84 01/13/17 18:00 Respiratory Rate 16 01/13/17 18:00 Blood Pressure 137/62 01/13/17 18:00 O2 Sat by Pulse Oximetry 94 01/13/17 18:00 Oxygen Delivery Oxygen Delivery Room Air Abdominal Pain - MDM Narrative Medical decision making narrative: Vitals were within normal limits on my exam. His exam shows epigastric tenderness. We will give the patient Zofran for nausea, morphine for pain control. We will draw basic labs, abdominal labs, urinalysis, DKA labs. Patient will be signed out to night team Dr. Ortiz and Dr. Barry for further care. - Medical Records Medical records reviewed: Yes I reviewed the patient's medical records. - Lab Data Lab Results 01/13/17 Range/Units 18:13 Urine Color Yellow (Yellow) Urine Clarity Clear (Clear) Urine pH 6.5 (5.0-8.0) pH Units Ur Specific [place] 1.009 L (1.010-1.025) Urine Protein Negative (Neg-Trace) mg/dL Urine Glucose (UA) 250 H (Normal) mg/dL Urine Ketones Negative (Negative) mg/dL Urine Blood Negative (Negative) Urine Nitrite Negative (Negative) Urine Bilirubin Negative (Negative) Urine Urobilinogen Normal (Normal) mg/dL Ur Leukocyte Esterase Trace H (Negative) Urine Microscopic RBC 3-5 H (0-3) per hpf Urine Microscopic WBC 0-3 (0-3) per hpf Ur Squamous Epith Cells Many H (None-Few) per lpf Urine Bacteria None Seen (None-Few) per hpf Hyaline Casts None Seen (None-Few) per lpf Ur Culture Indicated? YES A (NO) S.B.A.R. - S.B.A.R. Situation: Demographics, MOA Background: Presenting Complaint, Relevant PMH, Meds, & Allergies Assessment: Vital Signs, Course and respsone to treatment, Exam Concerns, Patient/Family Expectation, Pertinant Lab Results, Outstanding Labs Recommendation: Barrier(s) to disposition, Recommendation based on pending studies, treatments, or consults S.B.A.R. Report Given to: Dr. Ortiz and Dr. Barry S.B.A.RZeina Repor Time: 18:46
[2017-01-13 18:26] LABS: Bilirubin,Urine Negative (Negative); Blood,Urine Negative (Negative); Clarity,Urine Clear (Clear); Color,Urine Yellow (Yellow); Glucose,Urine (UA) 250 mg/dL (Normal); Ketones,Urine Negative (Negative); Leukocyte Esterase,Urine Trace (Negative); Nitrite,Urine Negative (Negative); PH,Urine 6.5 pH Units (5.0-8.0); Protein,Urine Negative (Neg-Trace); Specific Gravity,Urine 1.009 (1.010-1.025); Urobilinogen,Urine Normal (Normal)
[2017-01-13 18:28] LABS: Bacteria,Urine None Seen per hpf (None-Few); Hyaline Casts,Urine None Seen per lpf (None-Few); Squamous Epithelial Cell,Urine Many per lpf (None-Few); WBC,Urine 0-3 per hpf (0-3)
[2017-01-13 19:05] LABS: Basophils % 0.3 %; Eosinophils % 0.1 %; Hematocrit 37.4 % (35.3-44.9); Hemoglobin 12.7 g/dL (11.5-15.4); Immature Granulocytes % 1.1 % (0-4); Lymphocytes # 1.6 K/mcL (0.6-4.6); Lymphocytes % 10.5 %; Mean Corpuscular Hemoglobin 29.9 pg (28.0-33.3); Mean Platelet Volume 9.6 fL (9.4-12.4); Monocytes # 1.2 K/mcL (0.0-1.3); Monocytes % 8.2 %; Neutrophils # 11.9 K/mcL (1.6-8.9); Platelet Count 313 K/mcL (140-400); Red Blood Count 4.25 M/mcL (3.82-4.97); Red Cell Distribution Width 13.9 % (11.5-14.5); Segmented Neutrophils % 79.8 %
[2017-01-13 19:10] LABS: VBG HCO3 28.2 mEq/L (21-27); VBG PH 7.49 pH Units (7.32-7.42)
[2017-01-13 19:17] LABS: Alanine Aminotransferase 48 Units/L (0-55); Albumin 4.2 g/dL (3.5-5.0); Albumin/Globulin Ratio 1.3 (1.1-2.2); Alkaline Phosphatase 146 Units/L (38-126); Aspartate Amino Transferase 61 Units/L (5-34); BUN/Creatinine Ratio 14 (6-26); Bilirubin,Direct 0.1 mg/dL (0.0-0.5); Bilirubin,Indirect 0.2 mg/dL (0.0-1.2); Bilirubin,Total 0.3 mg/dL (0.2-1.2); Blood Urea Nitrogen 12 mg/dL (7-20); Carbon Dioxide 27 mEq/L (19-29); Chloride 97 mEq/L (98-109); Globulin 3.3 g/dL (2.4-3.5); Glucose 320 mg/dL (70-99); Lipase 309 Units/L (8-78); Osmolality,Calculated 290 (280-300); Potassium 3.6 mEq/L (3.5-4.5); Sodium 134 mEq/L (136-145); Total Protein 7.5 g/dL (6.0-8.3); eGFR For African Americans > 60 (> 60); eGFR For Non-African Americans > 60 (> 60)
--- NOTE | 2017-01-13 19:25 | Emergency Department Note ---
Disposition Clinical Impression: Hyperglycemia Abdominal pain Qualifiers: Abdominal location: epigastric Qualified Code(s): R10.13 - Epigastric pain Pancreatitis Qualifiers: Chronicity: acute Pancreatitis type: unspecified pancreatitis type Acute pancreatitis complication: unspecified Qualified Code(s): K85.90 - Acute pancreatitis without necrosis or infection, unspecified Disposition: Admitted As Inpatient Condition: Fair Time of Disposition: 21:00 Abdominal Pain HPI - General Chief Complaint: ED Abdominal Pain Stated Complaint: abd pain Time Seen by Provider: 01/13/17 17:48 Source: patient, EMS Mode of arrival: EMS Nursing Notes Reviewed: Yes Vital Signs Reviewed: Yes - History of Present Illness Pain Scale: 5 - Related Data Home Medications Medication Instructions Recorded Confirmed Amlodipine [Amlodipine Besylate] 10 mg PO QAM 11/17/15 01/13/17 Duloxetine HCl [Cymbalta] 60 mg PO BID 11/17/15 01/13/17 Fluticasone Propionate Nasal 50 mcg NS DAILY PRN 11/17/15 01/13/17 [Flonase] LORazepam [Ativan] 0.5 tab PO BID PRN 11/17/15 01/13/17 Losartan/Hydrochlorothiazide 1 tab PO QAM 11/17/15 01/13/17 [Hyzaar 100-12.5 Tablet] Metoprolol [Lopressor] 100 mg PO BID 11/17/15 01/13/17 Trazodone HCl 150 mg PO HS 11/17/15 01/13/17 Vitamin E (Dl,Tocopheryl Acet) 400 unit PO DAILY 11/17/15 01/13/17 [Vitamin E] Multivitamin [Multi-Day Vitamins] 1 each PO DAILY 04/11/16 01/13/17 Insulin NPH/REG 70/30 [HumuLIN 100 unit SQ BIDWM 06/27/16 01/13/17 70/30 VIAL] Albuterol Sulfate [Albuterol 1 - 2 puff IH Q6HR PRN 10/13/16 01/13/17 Inhaler] Beclomethasone Diprop 80mcg [QVAR 1 puff IH BID 10/13/16 01/13/17 80 mcg] Furosemide [Lasix] 20 mg PO DAILY 10/13/16 01/13/17 Esomeprazole Magnesium [Nexium] 40 mg PO DAILY 11/26/16 01/13/17 Insulin Regular Human [Humulin R] 10 - 18 units SQ TID PRN 12/29/16 01/13/17 Metaxalone [Skelaxin] 800 mg PO TID 01/13/17 01/13/17 Previous Rx's Medication Instructions Recorded HYDROcodone/Acet 5/325 mg [[place] 1 tab PO Q6H PRN #10 11/29/16 5-325 mg] Ondansetron HCl [Zofran] 4 mg PO Q6H PRN #20 tablet 11/29/16 Allergies Allergy/AdvReac Type Severity Reaction Status Date / Time NSAIDS (Non-Steroidal AdvReac Gastrointestinal Verified 01/13/17 20:44 Anti-Inflamma Upset Constitutional: Denies: fever Cardiovascular: Denies: chest pain, palpitations, dyspnea on exertion Respiratory: Denies: cough, dyspnea, wheezes Gastrointestinal: Reports: abdominal pain, nausea. Denies: vomiting, diarrhea, constipation, hematemesis Genitourinary: Denies: urgency, dysuria, frequency, hematuria Musculoskeletal: Denies: back pain Integumentary: Denies: rash Abdominal Pain PMH - Past Medical History Medical history: Reports: arthritis, asthma, cancer (Non-small cell lung carcinoma, left s/p resection.), cirrhosis, COPD, diabetes, GERD (Ordoñez's esophagus. Esophagitis-gastritis.), GI bleed (Diverticulosis. 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 Patient with history of pancreatitis. Patient just had stent placed by Dr. Castillo a few weeks ago. Lipase elevated. I spoke with Dr. Castillo who recommends admission with fluids and pain control. I spoke with hospitalist Dr. Osullivan who has accepted patient for admission. Vital Signs Temperature 98.1 F 01/13/17 17:57 Pulse Rate 84 01/13/17 17:57 Respiratory Rate 16 01/13/17 17:57 Blood Pressure 137/62 01/13/17 17:57 O2 Sat by Pulse Oximetry 94 01/13/17 17:57 Temperature 98.2 F 01/14/17 07:24 Pulse Rate 78 01/14/17 07:24 Respiratory Rate 16 01/14/17 07:24 Blood Pressure 124/71 01/14/17 07:24 O2 Sat by Pulse Oximetry 91 01/14/17 07:24 Oxygen Delivery Oxygen Delivery Room Air Abdominal Pain - Lab Data Result diagrams: 01/14/17 04:05 01/14/17 04:05 Lab Results 01/13/17 01/13/17 01/13/17 Range/Units 18:13 18:55 18:55 WBC 14.9 H D (4.3-11.1) K/mcL RBC 4.25 (3.82-4.97) M/mcL Hgb 12.7 (11.5-15.4) g/dL Hct 37.4 (35.3-44.9) % MCV 88.0 (83.0-100.0) fL MCH 29.9 (28.0-33.3) pg MCHC 34.0 (31.6-35.5) g/dL RDW 13.9 (11.5-14.5) % Plt Count 313 (140-400) K/mcL MPV 9.6 (9.4-12.4) fL Immature Gran % 1.1 (0-4) % Seg Neutrophils % 79.8 % Lymphocytes % 10.5 % Monocytes % 8.2 % Eosinophils % 0.1 % Basophils % 0.3 % Neutrophils # 11.9 H (1.6-8.9) K/mcL Lymphocytes # 1.6 (0.6-4.6) K/mcL Monocytes # 1.2 (0.0-1.3) K/mcL Eosinophils # 0.0 (0.0-0.6) K/mcL Basophils # 0.0 (0.0-0.2) K/mcL VBG pH (7.32-7.42) pH Units VBG pCO2 (41-51) mmHg VBG pO2 (25-40) mmHg VBG HCO3 (21-27) mEq/L Sodium 134 L (136-145) mEq/L Potassium 3.6 (3.5-4.5) mEq/L Chloride 97 L (98-109) mEq/L Carbon Dioxide 27 (19-29) mEq/L BUN 12 (7-20) mg/dL Creatinine 0.87 (0.57-1.11) mg/dL Est GFR ( Amer) > 60 (> 60) Est GFR (Non-Af Amer) > 60 (> 60) BUN/Creatinine Ratio 14 (6-26) Glucose 320 H (70-99) mg/dL POC Glucose (58-89) Calculated Osmolality 290 (280-300) Calcium 10.0 (8.6-10.8) mg/dL Total Bilirubin 0.3 (0.2-1.2) mg/dL Direct Bilirubin 0.1 (0.0-0.5) mg/dL Indirect Bilirubin 0.2 (0.0-1.2) mg/dL AST 61 H (5-34) Units/L ALT 48 (0-55) Units/L Alkaline Phosphatase 146 H (38-126) Units/L Serum Total Protein 7.5 (6.0-8.3) g/dL Albumin 4.2 (3.5-5.0) g/dL Globulin 3.3 (2.4-3.5) g/dL Albumin/Globulin Ratio 1.3 (1.1-2.2) Lipase 309 H (8-78) Units/L Beta-Hydroxybutyric Acd (0.02-0.27) mmol/L Urine Color Yellow (Yellow) Urine Clarity Clear (Clear) Urine pH 6.5 (5.0-8.0) pH Units Ur Specific [place] 1.009 L (1.010-1.025) Urine Protein Negative (Neg-Trace) mg/dL Urine Glucose (UA) 250 H (Normal) mg/dL Urine Ketones Negative (Negative) mg/dL Urine Blood Negative (Negative) Urine Nitrite Negative (Negative) Urine Bilirubin Negative (Negative) Urine Urobilinogen Normal (Normal) mg/dL Ur Leukocyte Esterase Trace H (Negative) Urine Microscopic RBC 3-5 H (0-3) per hpf Urine Microscopic WBC 0-3 (0-3) per hpf Ur Squamous Epith Cells Many H (None-Few) per lpf Urine Bacteria None Seen (None-Few) per hpf Hyaline Casts None Seen (None-Few) per lpf Ur Culture Indicated? YES A (NO) 01/13/17 01/13/17 01/13/17 Range/Units 18:55 18:55 22:23 WBC (4.3-11.1) K/mcL RBC (3.82-4.97) M/mcL Hgb (11.5-15.4) g/dL Hct (35.3-44.9) % MCV (83.0-100.0) fL MCH (28.0-33.3) pg MCHC (31.6-35.5) g/dL RDW (11.5-14.5) % Plt Count (140-400) K/mcL MPV (9.4-12.4) fL Immature Gran % (0-4) % Seg Neutrophils % % Lymphocytes % % Monocytes % % Eosinophils % % Basophils % % Neutrophils # (1.6-8.9) K/mcL Lymphocytes # (0.6-4.6) K/mcL Monocytes # (0.0-1.3) K/mcL Eosinophils # (0.0-0.6) K/mcL Basophils # (0.0-0.2) K/mcL VBG pH 7.49 H (7.32-7.42) pH Units VBG pCO2 37 L (41-51) mmHg VBG pO2 71 H (25-40) mmHg VBG HCO3 28.2 H (21-27) mEq/L Sodium (136-145) mEq/L Potassium (3.5-4.5) mEq/L Chloride (98-109) mEq/L Carbon Dioxide (19-29) mEq/L BUN (7-20) mg/dL Creatinine (0.57-1.11) mg/dL Est GFR ( Amer) (> 60) Est GFR (Non-Af Amer) (> 60) BUN/Creatinine Ratio (6-26) Glucose (70-99) mg/dL POC Glucose 246 H (58-89) Calculated Osmolality (280-300) Calcium (8.6-10.8) mg/dL Total Bilirubin (0.2-1.2) mg/dL Direct Bilirubin (0.0-0.5) mg/dL Indirect Bilirubin (0.0-1.2) mg/dL AST (5-34) Units/L ALT (0-55) Units/L Alkaline Phosphatase (38-126) Units/L Serum Total Protein (6.0-8.3) g/dL Albumin (3.5-5.0) g/dL Globulin (2.4-3.5) g/dL Albumin/Globulin Ratio (1.1-2.2) Lipase (8-78) Units/L Beta-Hydroxybutyric Acd 0.32 H (0.02-0.27) mmol/L Urine Color (Yellow) Urine Clarity (Clear) Urine pH (5.0-8.0) pH Units Ur Specific [place] (1.010-1.025) Urine Protein (Neg-Trace) mg/dL Urine Glucose (UA) (Normal) mg/dL Urine Ketones (Negative) mg/dL Urine Blood (Negative) Urine Nitrite (Negative) Urine Bilirubin (Negative) Urine Urobilinogen (Normal) mg/dL Ur Leukocyte Esterase (Negative) Urine Microscopic RBC (0-3) per hpf Urine Microscopic WBC (0-3) per hpf Ur Squamous Epith Cells (None-Few) per lpf Urine Bacteria (None-Few) per hpf Hyaline Casts (None-Few) per lpf Ur Culture Indicated? (NO) Attestation Statement - Attestation Attestation: I, Herminio Barry MD, personally performed a history and physical exam of the patient and discussed their management with the resident. I reviewed the resident's note and agree with the documented findings, medical decision making , and plan of care. This patient was signed out at shift change from Dr. Griffiths and Dr. Montero. Please refer to their notes for complete details of history and physical examination. Patient is a 61-year-old female with history of chronic recurrent pancreatitis who presented with complaint of increasing abdominal pain for the past several days. Nausea but no vomiting. Patient states it feels the same as her usual flareups of pancreatitis. At shift change patient is just awaiting test results. On examination patient is a well-developed well-nourished female in no acute distress. She is alert and oriented 3. There is no cyanosis or diaphoresis. Breath sounds are clear and equal bilaterally. Heart regular rate and rhythm. Abdomen is soft with normal bowel sounds. There is moderate epigastric tenderness with no guarding or rebound tenderness. No CVA tenderness. Labs reviewed. Dr. Ortiz discussed the case with the patient's valve technician, Dr. Castillo, and he recommended hospital admission. The hospitalist, Dr. Osullivan, was consulted and accepted admission of the patient.
[2017-01-13] MEDS ORDERED: 0.9 % Sodium Chloride 1,000 ML IVC ONE (19:32)
[2017-01-14] MEDS ORDERED: Naloxone 0.4 MG/ML INJ IVP PRN (00:13)
[2017-01-14] MEDS ORDERED: *HR* Morphine 2 MG/ML SYRINGE IVP PRN (00:13)
[2017-01-14] MEDS ORDERED: *HR* Dextrose 50 % in Water (Syg) 50 ML SYRINGE IVP PRN (00:16)
[2017-01-14] MEDS ORDERED: D5% in Water 1,000 ML IVC PRN (00:16)
[2017-01-14] MEDS ORDERED: Dextrose Gel 15 GM PO PRN ×2 (00:16)
--- NOTE | 2017-01-14 00:41 | Internal Med History&Physical ---
<Palma Emmanuel - Last Filed: 01/14/17 00:37> Date of Encounter: 01/14/17 Time of Encounter: 00:37 Assessment and Plan (1) Chronic recurrent pancreatitis Current visit: No Status: Acute chronic pain post ercp NPO pain control IVF PPI supportive care GI consulted (2) Status post endoscopic retrograde cholangiopancreatography Current visit: No Status: Acute (3) Abdominal pain Current visit: No Status: Acute Qualifiers: Abdominal location: epigastric Qualified Code(s): R10.13 - Epigastric pain (4) Hypertension Current visit: No Status: Chronic 131/72 monitor Qualifiers: Hypertension type: essential hypertension Qualified Code(s): I10 - Essential (primary) hypertension (5) Dyslipidemia Current visit: No Status: Chronic (6) Acute abdominal pain syndrome Current visit: No Status: Acute (7) History of peptic ulcer disease Current visit: No Status: Chronic PPI (8) Degenerative joint disease involving multiple joints Current visit: No Status: Chronic Qualifiers: Osteoarthritis type: unspecified Qualified Code(s): M15.9 - Polyosteoarthritis, unspecified (9) Chronic obstructive pulmonary disease Current visit: No Status: Chronic bronchodilator therapy Qualifiers: COPD type: unspecified COPD Qualified Code(s): J44.9 - Chronic obstructive pulmonary disease, unspecified (10) Cirrhosis of liver Current visit: No Status: Chronic Qualifiers: Hepatic cirrhosis type: unspecified hepatic cirrhosis Ascites presence: without ascites Qualified Code(s): K74.60 - Unspecified cirrhosis of liver (11) Hepatic steatosis Current visit: No Status: Chronic (12) Diverticular disease Current visit: No Status: Chronic Qualifiers: Diverticulosis site: unspecified location Diverticulosis bleeding: diverticulosis without bleeding Qualified Code(s): K57.90 - Diverticulosis of intestine, part unspecified, without perforation or abscess without bleeding (13) Obesity (BMI 30-39.9) Current visit: No Status: Chronic (14) DVT prophylaxis Current visit: No Status: Acute SCDs SQ heparin (15) Barretts esophagus Current visit: No Status: Chronic Qualifiers: Ordoñez's esophagus type: without dysplasia Qualified Code(s): K22.70 - Ordoñez's esophagus without dysplasia (16) Diabetes mellitus Current visit: No Status: Chronic poorly controlled 300s-400s at home with goal of 120 fasting glucose 320 NPO sliding scale Qualifiers: Diabetes mellitus type: type 2 Diabetes mellitus complication status: with unspecified complications Diabetes mellitus jail insulin use: with jail use Qualified Code(s): E11.8 - Type 2 diabetes mellitus with unspecified complications; Z79.4 - assisted (current) use of insulin Internal Medicine - H&P: HPI Chief complaint: abdominal pain Admitted From: Home Plans for Post Hospital Care: Home History of present illness: Ms. Lopez is a 61 year old female c/o abdominal pain and nausea without vomiting. Pt recently had ERCP done 2 weeks ago by , was placed on a clear liquid diet. She states she was feeling well until monday when she ate a grilled cheese sandwhich. soon after eating cramping abdominla pain that radiated around her right side to her back started with nausea. Pt states this is the same symptoms she had with her pancreatitis prior to getting the ERCP. ain is relieved by nothing and has not resolved since its onset monday afternoon. She denies fever, chills, vomiting, change in BM or urinary symptoms. Denies CP, SOB, numbness/tingling. Past Med Surg Social Fam HX - Past Medical History Medical history: arthritis, cancer, cirrhosis, COPD, diabetes, GERD, GI bleed, hyperlipidemia, hypertension, liver disease, malignancy, osteoporosis, other Psychiatric history: anxiety, depression, other - Past Surgical History Surgical History: appendectomy, cancer surgery, cholecystectomy, hysterectomy, orthopedic, other, LIZZETTE/BSO, other - Social History Smoking Status: Former smoker Packs per day: 2 Smokeless Tobacco Status: No Alcohol use: none Drug use: none - Family History Mother Adopted: [place]: Karen Lopez Living Status: Age at : 72 Cause of : AAA Hx Family Cardiac Disorders: Yes (Quad Bipass) Hx Family Respiratory Disorders: Yes (Emphysema) Hx Family Cancer: Yes (Skin cancer, "Eye cancer") Hx Family GI Disorders: No Hx Family Genitourinary Disorders: No Hx Family Endocrine Disorder: Yes (DM) Hx Family Musculoskeletal Disorders: No Hx Family Neuromuscular Disorders: No Hx Family Neurologic Disorders: No Hx Family HEENT Disorders: No Hx Family Autoimmune Disorders: No Hx Family Reproductive Disorders: No Hx Family Psychosocial Disorders: No Father Living Status: Hx Family Cardiac Disorders: Yes (unknown) Internal Medicine - H&P: Meds Amlodipine [Amlodipine Besylate] 10 mg PO QAM 11/17/15 [History] Duloxetine HCl [Cymbalta] 60 mg PO BID 11/17/15 [History] Fluticasone Propionate Nasal [Flonase] 50 mcg NS DAILY PRN 11/17/15 [History] LORazepam [Ativan] 0.5 tab PO BID PRN 11/17/15 [History] Losartan/Hydrochlorothiazide [Hyzaar 100-12.5 Tablet] 1 tab PO QAM 11/17/15 [ History] Metoprolol [Lopressor] 100 mg PO BID 11/17/15 [History] Trazodone HCl 150 mg PO HS 11/17/15 [History] Vitamin E (Dl,Tocopheryl Acet) [Vitamin E] 400 unit PO DAILY 11/17/15 [History] Multivitamin [Multi-Day Vitamins] 1 each PO DAILY 04/11/16 [History] Insulin NPH/REG 70/30 [HumuLIN 70/30 VIAL] 100 unit SQ BIDWM 06/27/16 [History] Albuterol Sulfate [Albuterol Inhaler] 1 - 2 puff IH Q6HR PRN 10/13/16 [History] Beclomethasone Diprop 80mcg [QVAR 80 mcg] 1 puff IH BID 10/13/16 [History] Furosemide [Lasix] 20 mg PO DAILY 10/13/16 [History] Esomeprazole Magnesium [Nexium] 40 mg PO DAILY 11/26/16 [History] HYDROcodone/Acet 5/325 mg [[place] 5-325 mg] 1 tab PO Q6H PRN #10 11/29/16 [Rx] Ondansetron HCl [Zofran] 4 mg PO Q6H PRN #20 tablet 11/29/16 [Rx] Insulin Regular Human [Humulin R] 10 - 18 units SQ TID PRN 12/29/16 [History] Metaxalone [Skelaxin] 800 mg PO TID 01/13/17 [History] Allergies NSAIDS (Non-Steroidal Anti-Inflamma Adverse Reaction (Verified 01/13/17 20:44) Gastrointestinal Upset PATIENT HAS ULCERS- All Systems PM: A 10-system review of systems was performed and is negative for pertinent findings except as documented above in the HPI. - Constitutional Constitutional: no chills, no fever(s), no night sweats - EENT Eyes: no change in vision, no discharge, no pain, no photophobia Ears: no ear discharge, no ear pain, no tinnitus Nose, mouth and throat: no dysphagia, no nasal discharge, no neck pain, no sore throat - Gastrointestinal Gastrointestinal: belching, bloating, dyspepsia, excessive flatus, nausea, no change in bowel habits, no coffee ground emesis, no diarrhea, no hematemesis, no hematochezia, no vomiting - Genitourinary Genitourinary: no change in urinary stream, no dysuria, no flank pain, no hematuria - Musculoskeletal Musculoskeletal ROS IM: no numbness, no tingling - Integumentary Integumentary IM: no rash, no unusual bruising - Neurological Neurological ROS: no confusion, no convulsions, no focal weakness, no numbness, no tingling, no tremor(s) - Constitutional Vitals: Temp Pulse Resp BP Pulse Ox 97.5 F L 73 16 122/56 92 01/14/17 00:19 01/14/17 00:19 01/14/17 00:19 01/14/17 00:19 01/14/17 00:19 General appearance: Present: A&O X 3, morbidly obese, answers questions appropriately - Head Head exam: Present: atraumatic, normocephalic - Eye Eye exam: Present: PERRL, conjuntiva pink, sclera anicteric Pupils: Present: PERRL - Neck Neck exam general surgery: Present: supple, trachea midline. Absent: lymphadenopathy - Respiratory Respiratory exam: Present: CTAB. Absent: accessory muscle use, rales, rhonchi, wheezes - Cardiovascular Cardiovascular exam: Present: RRR, +S1, +S2. Absent: diastolic murmur, gallop, rubs, systolic murmur - GI/Abdominal GI/Abdominal exam: Present: normal bowel sounds, tenderness (generalized, greatest in epigastric region), no peritoneal signs. Absent: rebound, rigid Additional comments: protuberant - Expanded GI/Abdominal Exam GI/Abdominal exam expanded: Absent: heel tap sign, Campos's sign, tenderness at McBurney's Point - Extremities Exam Extremities exam: Present: pedal edema (trace), warm, radial pulses palpable and symetrical. Absent: calf tenderness, cyanotic - Back Exam Back exam: Present: CVA tenderness (L), CVA tenderness (R) - Neurological Exam Neurological exam: Present: CN II-XII intact, oriented X3, no focal deficits. Absent: pronater drift, facial droop, speech deficit Internal Med - H&P Results - Labs CBC & Chem 7: 01/13/17 18:55 01/13/17 18:55 <Rodolfo Brown - Last Filed: 01/14/17 02:06> Date of Encounter: 01/14/17 Internal Medicine - H&P: HPI History of present illness: Ms. Lopez is a 61 year old female All Systems PM: A 10-system review of systems was performed and is negative for pertinent findings except as documented above in the HPI. - Constitutional Vitals: Temp Pulse Resp BP Pulse Ox 97.5 F L 73 16 122/56 92 01/14/17 00:19 01/14/17 00:19 01/14/17 00:19 01/14/17 00:19 01/14/17 00:19 Internal Med - H&P Results - Labs CBC & Chem 7: 01/13/17 18:55 01/13/17 18:55 - Attending Attestation I examined this patient and my medical decision-making was reviewed with the SPRING TESTER/PA/Advanced Practice Nurse/Resident Physician. I agree with the documented findings, disposition and treatment plan as described except to the extent set forth below. I examined the patient independently. I agree with the physical examination findings, assessment and plan as documented by Dr. Emmanuel. Briefly, patient with recurrent events of pancreatitis has been admitted due to abdominal pain and elevated pancreatic enzymes. Continue with IV fluids, nothing by mouth. A consultation with gastroenterology has been requested.
[2017-01-14] MEDS: Pantoprazole 40 MG VIAL IVP SCH ×2 (00:44→09:25)
[2017-01-14] MEDS: 0.9 % Sodium Chloride 1,000 ML IVC SCH ×5 (00:44→23:52)
[2017-01-14] MEDS: *HR* Morphine 2 MG/ML SYRINGE IVP PRN ×6 (03:46→23:51)
[2017-01-14 04:28] LABS: Hematocrit 35.4 % (35.3-44.9); Hemoglobin 11.6 g/dL (11.5-15.4); Mean Corpuscular HGB Conc 32.8 g/dL (31.6-35.5); Mean Corpuscular Hemoglobin 29.5 pg (28.0-33.3); Mean Corpuscular Volume 90.1 fL (83.0-100.0); Mean Platelet Volume 9.7 fL (9.4-12.4); Platelet Count 263 K/mcL (140-400); Red Blood Count 3.93 M/mcL (3.82-4.97); Red Cell Distribution Width 13.9 % (11.5-14.5)
[2017-01-14 04:37] LABS: INR 1.1; Prothrombin Time 11.7 Seconds (9.4-12.1)
[2017-01-14 04:49] LABS: BUN/Creatinine Ratio 15 (6-26); Blood Urea Nitrogen 11 mg/dL (7-20); Carbon Dioxide 26 mEq/L (19-29); Chloride 103 mEq/L (98-109); Glucose 195 mg/dL (70-99); Osmolality,Calculated 293 (280-300); Potassium 3.6 mEq/L (3.5-4.5); Sodium 139 mEq/L (136-145); eGFR For African Americans > 60 (> 60); eGFR For Non-African Americans > 60 (> 60)
[2017-01-14] MEDS: Insulin LISPRO 300 UNITS/3 ML VIAL SQ SCH ×3 (06:47→17:44)
[2017-01-14] MEDS: *HR* Heparin 5,000 UNIT/ML VIAL SQ SCH ×3 (06:48→22:09)
--- NOTE | 2017-01-14 10:03 | Internal Med Progress Note ---
<Piotr Lemus - Last Filed: 01/14/17 10:00> Date of Encounter: 01/14/17 Time of Encounter: 10:01 - Assessment and plan (1) Acute on chronic pancreatitis Current Visit: Yes Status: Acute Assessment and plan: Patient with a history of chronic pancreatitis starting in December of last year. Cause of recurrence pancreatitis unknown. She has had an extensive workup and is well known to our gastroenterology team. she underwent OTPT ERCP with sphincterotomy and PD stent placement with Dr. Castillo 12/28/2016. Her current symptoms of abdominal pain and nausea with radiation to the back started on Monday. The pain was waxing and waning throughout the week with increase in intensity yesterday. -Continues to have abdominal pain and nausea -Distended abdomen which is tympanic -Sharp elevation in lipase to 4157 from 309 - Total bili 0.3, AST 56, ALT 37 - Triglycerides 186, cholesterol 239, LDL 154, VLDL 37 and HDL 48 - Vitals stable. Plan: - Switch NS to lactated Ringer's at 150 mls per hour - Continue NPO - Abdominal CT with increased abd distension and severe tenderness. (2) Hypertension Current Visit: No Status: Chronic Assessment and plan: Known history of hypertension, blood pressure is currently stable. Home antihypertensive medications include Hyzaar 100-12.5, amlodipine 10 mg by mouth every morning. Plan: - Continue to hold Hyzaar - Restart amlodipine 10 mg by mouth starting tomorrow morning. - Monitor blood pressure. Qualifiers: Hypertension type: essential hypertension Qualified Code(s): I10 - Essential (primary) hypertension (3) Dyslipidemia Current Visit: No Status: Chronic Assessment and plan: Triglycerides 186, cholesterol 239, LDL 154, VLDL 37 and HDL 48 Currently not on any statin, Lipid lowering medications - I do not suspect this is the main contributor to her acute pancreatitis. Plan: - Continue to monitor - We will hold off on starting any new medications currently with recurrent pancreatitis. (4) Chronic obstructive pulmonary disease Current Visit: No Status: Chronic Assessment and plan: Stable. Currently on room oxygen. Qualifiers: COPD type: unspecified COPD Qualified Code(s): J44.9 - Chronic obstructive pulmonary disease, unspecified (5) Cirrhosis of liver Current Visit: No Status: Chronic Assessment and plan: Known history of cirrhotic liver disease. Cosme. Patient states that she used to use a lot of Tylenol and that may be a contributor. Stable. Qualifiers: Hepatic cirrhosis type: unspecified hepatic cirrhosis Ascites presence: without ascites Qualified Code(s): K74.60 - Unspecified cirrhosis of liver (6) Diabetes mellitus Current Visit: No Status: Chronic Assessment and plan: Patient is a known type II diabetic with insulin-dependent and is on 70/30 with 3 times a day correction scale at home. Patient was hyperglycemic upon admission. Plan: - Patient is NPO for pancreatitis - Continue every 6 hours glucose checks with high-dose sliding scale correction. Adjust as needed. Qualifiers: Diabetes mellitus type: type 2 Diabetes mellitus complication status: with unspecified complications Diabetes mellitus watermelon inspector insulin use: with watermelon inspector use Qualified Code(s): E11.8 - Type 2 diabetes mellitus with unspecified complications; Z79.4 - [facility] (current) use of insulin (7) Morbid obesity with BMI of 40.0-44.9, adult Current Visit: No Status: Chronic Assessment and plan: Patient is morbidly obese with multiple comorbid medical factors. She will greatly benefit from weight loss and diet modifications and daily exercise post hospitalization. (8) DVT prophylaxis Current Visit: No Status: Acute Assessment and plan: Heparin 5000 unit units subcutaneous every 8 hours - Subjective Interval history: Ms. Lopez 61F has been seen and evaluated at patient's bedside this morning. She is awake and alert in no acute distress. She continues to complain of abdominal pain which has not improved compared to yesterday. She feels bloated more so than her normal. She has a distended abdomen which she said has been distended and is not new but does have some increase in distention. She has nausea but denies vomiting. She last ate yesterday some potatoes. She denies anything by mouth this morning she denies any other symptoms or signs. She denies fevers, chills, chest pain, palpitations, shortness of breath. She has been constipated for the last 2 days and usually has a bowel movement once per day. She has no further concerns at this time. - Constitutional Vitals: Temp Pulse Resp BP Pulse Ox 98.2 F 78 16 124/71 91 01/14/17 07:24 01/14/17 07:24 01/14/17 07:24 01/14/17 07:24 01/14/17 07:24 General appearance: Present: A&O X 3, morbidly obese, answers questions appropriately - Other Additional findings: Gen. well-developed, well-nourished no acute distress. Awake alert and interactive. HEENT normocephalic, atraumatic, he will seek or reactive, oral mucosa moist neck supple, trachea midline. Chest: Symmetric bilateral correlating with respiratory effort Respiratory: Clear to auscultation all lung abad. Cardiac: Regular rate and rhythm, grade 2/6 systolic ejection murmur. Radial pulses 2+ bilateral. Abdomen: tender to light palpation, distended, tympanic, no signs of ecchymosis. Positive bowel sounds Extremities: Symmetric bilateral, patient moving all 4 extremities spontaneously , no signs of edema or erythema. Internal Medicine: Result - Labs CBC & Chem 7: 01/14/17 04:05 01/14/17 04:05 Labs: Short CBC 01/14/17 Range/Units 04:05 WBC 13.5 H (4.3-11.1) K/mcL Hgb 11.6 (11.5-15.4) g/dL Hct 35.4 (35.3-44.9) % Plt Count 263 (140-400) K/mcL BMP 01/14/17 04:05 Sodium 139 Potassium 3.6 Chloride 103 Carbon Dioxide 26 BUN 11 Creatinine 0.71 Glucose 195 H Calcium 9.0 - ABG Interpretation ABG results: PT/INR, D-dimer PT 11.7 Seconds (9.4-12.1) 01/14/17 04:05 Consult Discharge Plan - Plan Referrals: Ava Kimble, DENTIST/OWNER [Primary Care Provider] - <Ben Smith - Last Filed: 01/14/17 13:15> Date of Encounter: 01/14/17 - Constitutional Vitals: Temp Pulse Resp BP Pulse Ox 98.1 F 81 16 155/70 92 01/14/17 12:52 01/14/17 12:52 01/14/17 12:52 01/14/17 12:52 01/14/17 12:52 Internal Medicine: Result - Labs CBC & Chem 7: 01/14/17 04:05 01/14/17 04:05 Labs: Short CBC 01/14/17 Range/Units 04:05 WBC 13.5 H (4.3-11.1) K/mcL Hgb 11.6 (11.5-15.4) g/dL Hct 35.4 (35.3-44.9) % Plt Count 263 (140-400) K/mcL BMP 01/14/17 04:05 Sodium 139 Potassium 3.6 Chloride 103 Carbon Dioxide 26 BUN 11 Creatinine 0.71 Glucose 195 H Calcium 9.0 Liver Function 01/14/17 Range/Units 04:05 Total Bilirubin 0.3 (0.2-1.2) mg/dL AST 56 H (5-34) Units/L ALT 37 (0-55) Units/L Alkaline Phosphatase 100 (38-126) Units/L Albumin 3.5 (3.5-5.0) g/dL - ABG Interpretation ABG results: PT/INR, D-dimer PT 11.7 Seconds (9.4-12.1) 01/14/17 04:05 - Attending Attestation Acute on chronic pancreatitis, unclear etiology I agree with holding hydrochlorothiazide and consider holding PPI Increase IV fluids to normal saline 200 mL/h Monitor lipase, the patient is a patient of Dr. Castillo High risk due to recurrent pancreatitis I examined this patient and my medical decision-making was reviewed with the MECHANIC FOREMAN/PA/Advanced Practice Nurse/Resident Physician. I agree with the documented findings, disposition and treatment plan as described except to the extent set forth below.
[2017-01-14 10:07] LABS: Alanine Aminotransferase 37 Units/L (0-55); Albumin 3.5 g/dL (3.5-5.0); Albumin/Globulin Ratio 1.3 (1.1-2.2); Alkaline Phosphatase 100 Units/L (38-126); Aspartate Amino Transferase 56 Units/L (5-34); Bilirubin,Total 0.3 mg/dL (0.2-1.2); Cholesterol 239 mg/dL (< 200); Globulin 2.7 g/dL (2.4-3.5); HDL Cholesterol 48 mg/dL (40-59); LDL Cholesterol,Calculated 154 mg/dL (0-99); Total Protein 6.2 g/dL (6.0-8.3); Triglycerides 186 mg/dL (< 150)
[2017-01-14] MEDS: *HR* Promethazine 25 MG/ML VIAL IVP PRN (13:54)
[2017-01-15] MEDS: Insulin LISPRO 300 UNITS/3 ML VIAL SQ SCH ×4 (00:36→17:45)
[2017-01-15] MEDS: *HR* Promethazine 25 MG/ML VIAL IVP PRN ×3 (03:37→21:14)
[2017-01-15] MEDS: 0.9 % Sodium Chloride 1,000 ML IVC SCH ×3 (05:19→11:30)
[2017-01-15 05:31] LABS: Basophils % 0.6 %; Eosinophils # 0.1 K/mcL (0.0-0.6); Eosinophils % 1.9 %; Hematocrit 37.5 % (35.3-44.9); Hemoglobin 12.4 g/dL (11.5-15.4); Immature Granulocytes % 0.8 % (0-4); Lymphocytes % 31.8 %; Mean Corpuscular HGB Conc 33.1 g/dL (31.6-35.5); Mean Corpuscular Volume 90.8 fL (83.0-100.0); Mean Platelet Volume 9.6 fL (9.4-12.4); Monocytes # 0.5 K/mcL (0.0-1.3); Monocytes % 8.5 %; Neutrophils # 3.6 K/mcL (1.6-8.9); Platelet Count 253 K/mcL (140-400); Red Blood Count 4.13 M/mcL (3.82-4.97); Red Cell Distribution Width 14.1 % (11.5-14.5); Segmented Neutrophils % 56.4 %
[2017-01-15 05:37] LABS: Alanine Aminotransferase 32 Units/L (0-55); Albumin 3.5 g/dL (3.5-5.0); Albumin/Globulin Ratio 1.2 (1.1-2.2); Alkaline Phosphatase 93 Units/L (38-126); Aspartate Amino Transferase 51 Units/L (5-34); BUN/Creatinine Ratio 10 (6-26); Bilirubin,Direct 0.1 mg/dL (0.0-0.5); Bilirubin,Indirect 0.2 mg/dL (0.0-1.2); Bilirubin,Total 0.3 mg/dL (0.2-1.2); Blood Urea Nitrogen 6 mg/dL (7-20); Calcium 8.9 mg/dL (8.6-10.8); Carbon Dioxide 26 mEq/L (19-29); Chloride 102 mEq/L (98-109); Glucose 142 mg/dL (70-99); Lipase 392 Units/L (8-78); Osmolality,Calculated 288 (280-300); Potassium 3.2 mEq/L (3.5-4.5); Sodium 139 mEq/L (136-145); Total Protein 6.5 g/dL (6.0-8.3); eGFR For African Americans > 60 (> 60); eGFR For Non-African Americans > 60 (> 60)
[2017-01-15] MEDS: *HR* Heparin 5,000 UNIT/ML VIAL SQ SCH ×3 (05:55→21:07)
[2017-01-15] MEDS: Pantoprazole 40 MG VIAL IVP SCH (08:09)
[2017-01-15] MEDS: amLODIPine 5 MG TABLET PO SCH (09:54)
--- NOTE | 2017-01-15 10:09 | Internal Med Progress Note ---
<Piotr Lemus - Last Filed: 01/15/17 10:07> Date of Encounter: 01/15/17 Time of Encounter: 10:07 - Assessment and plan (1) Acute on chronic pancreatitis Current Visit: Yes Status: Acute Assessment and plan: Patient with a history of chronic pancreatitis starting in December of last year. Cause of recurrence pancreatitis unknown. She has had an extensive workup and is well known to our gastroenterology team. she underwent OTPT ERCP with sphincterotomy and PD stent placement with Dr. Castillo 12/28/2016. Her admitting symptoms of abdominal pain and nausea with radiation to the back started on Monday. The pain was waxing and waning throughout the week with increase in intensity just prior to admission. -Abdominal pain improving -Distended abdomen which is tympanic - Vitals stable. - Continue his lack of appetite Plan: - Continue IV rehydration - Continue NPO, plan to start clear liquid diet when patient's appetite improves. (2) Hypertension Current Visit: No Status: Chronic Assessment and plan: Known history of hypertension, Home antihypertensive medications include Hyzaar 100-12.5, amlodipine 10 mg by mouth every morning. Blood pressure is slightly elevated this morning Plan: - Continue to hold Hyzaar - Restart amlodipine 10 mg by mouth this a.m. - Hydralazine 10 mg IV push for systolic blood pressure greater than 160 - Monitor blood pressure. Qualifiers: Hypertension type: essential hypertension Qualified Code(s): I10 - Essential (primary) hypertension (3) Dyslipidemia Current Visit: No Status: Chronic Assessment and plan: Triglycerides 186, cholesterol 239, LDL 154, VLDL 37 and HDL 48 Currently not on any statin, Lipid lowering medications - I do not suspect this is the main contributor to her acute pancreatitis. Plan: - Continue to monitor - We will hold off on starting any new medications currently with recurrent pancreatitis. (4) Chronic obstructive pulmonary disease Current Visit: No Status: Chronic Assessment and plan: Stable. Currently on room oxygen. Qualifiers: COPD type: unspecified COPD Qualified Code(s): J44.9 - Chronic obstructive pulmonary disease, unspecified (5) Cirrhosis of liver Current Visit: No Status: Chronic Assessment and plan: Known history of cirrhotic liver disease. Cosme. Patient states that she used to use a lot of Tylenol and that may be a contributor. Stable. Qualifiers: Hepatic cirrhosis type: unspecified hepatic cirrhosis Ascites presence: without ascites Qualified Code(s): K74.60 - Unspecified cirrhosis of liver (6) Diabetes mellitus Current Visit: No Status: Chronic Assessment and plan: Patient is a known type II diabetic with insulin-dependent and is on 70/30 with 3 times a day correction scale at home. Patient was hyperglycemic upon admission. Glucose currently stable. Plan: - Patient is NPO for pancreatitis - Continue every 6 hours glucose checks with high-dose sliding scale correction. Adjust as needed. 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 She will greatly benefit from weight loss and diet modifications and daily exercise post hospitalization. (8) UTI (urinary tract infection) Current Visit: Yes Status: Acute Assessment and plan: Urinalysis is not significantly convincing for urinary tract infection but did have trace leukocyte esterase and many squamous epith cells. Given that it grew group B strep with patient having abdominal pain will treat with IV ampicillin in the setting of pancreatitis. If patient is to have improving symptoms may discontinue IV antibiotics next day or 2. Plan: - IV Ampicillin Q6hrs. Qualifiers: Qualified Code(s): N39.0 - Urinary tract infection, site not specified (9) Streptococcal infection group B Current Visit: Yes Status: Acute Assessment and plan: Group B streptococcal colonizing urine culture. (10) DVT prophylaxis Current Visit: No Status: Acute Assessment and plan: Heparin 5000 unit units subcutaneous every 8 hours - Subjective Interval history: Ms. Lopez 61F has been seen and evaluated at patient's bedside this morning. She is awake and alert in no acute distress. She feels her abdominal pain is improved but has not resolved. She continues to have lack of appetite but denies any vomiting with minimal nausea. She has not had a bowel movement. She denies chest pain, chest pressure, palpitations, shortness of breath. She has no further concerns or complaints at this time. She - Constitutional Vitals: Temp Pulse Resp BP Pulse Ox 97.8 F 79 16 173/76 94 01/15/17 07:05 01/15/17 07:05 01/15/17 07:05 01/15/17 07:05 01/15/17 07:05 General appearance: Present: A&O X 3, morbidly obese, answers questions appropriately - Head Head exam: Present: atraumatic, normocephalic - Eye Eye exam: Present: PERRL, conjuntiva pink, sclera anicteric Pupils: Present: PERRL - ENT ENT exam: Present: mucous membranes moist - Neck Neck exam general surgery: Present: supple, trachea midline. Absent: lymphadenopathy - Respiratory Respiratory exam: Present: CTAB. Absent: accessory muscle use, rales, rhonchi, wheezes - Cardiovascular Cardiovascular exam: Present: RRR, +S1, +S2. Absent: diastolic murmur, gallop, rubs, systolic murmur - GI/Abdominal GI/Abdominal exam: Present: distended, normal bowel sounds, no peritoneal signs. Absent: tenderness - Extremities Exam Extremities exam: Present: warm, radial pulses palpable and symetrical. Absent : calf tenderness, cyanotic, pedal edema - Neurological Exam Neurological exam: Present: alert, oriented X3, no focal deficits. Absent: pronater drift, facial droop, speech deficit - Psychiatric Psychiatric exam: Present: normal affect, normal mood Internal Medicine: Result - Labs CBC & Chem 7: 01/15/17 04:50 01/15/17 04:50 Labs: Short CBC 01/15/17 Range/Units 04:50 WBC 6.4 D (4.3-11.1) K/mcL Hgb 12.4 (11.5-15.4) g/dL Hct 37.5 (35.3-44.9) % Plt Count 253 (140-400) K/mcL Neutrophils # 3.6 (1.6-8.9) K/mcL BMP 01/15/17 04:50 Sodium 139 Potassium 3.2 L Chloride 102 Carbon Dioxide 26 BUN 6 L Creatinine 0.62 Glucose 142 H Calcium 8.9 Liver Function 01/14/17 01/15/17 Range/Units 04:05 04:50 Total Bilirubin 0.3 0.3 (0.2-1.2) mg/dL Direct Bilirubin 0.1 (0.0-0.5) mg/dL AST 56 H 51 H (5-34) Units/L ALT 37 32 (0-55) Units/L Alkaline Phosphatase 100 93 (38-126) Units/L Albumin 3.5 3.5 (3.5-5.0) g/dL - ABG Interpretation ABG results: PT/INR, D-dimer PT 11.7 Seconds (9.4-12.1) 01/14/17 04:05 Consult Discharge Plan - Plan Referrals: Aav Kimble, VASCULAR TECHNOLOGIST [Primary Care Provider] - <Ben Smith H - Last Filed: 01/15/17 11:31> Date of Encounter: 01/15/17 - Constitutional Vitals: Temp Pulse Resp BP Pulse Ox 97.8 F 79 16 173/76 94 01/15/17 07:05 01/15/17 07:05 01/15/17 07:05 01/15/17 07:05 01/15/17 08:10 Internal Medicine: Result - Labs CBC & Chem 7: 01/15/17 04:50 01/15/17 04:50 Labs: Short CBC 01/15/17 Range/Units 04:50 WBC 6.4 D (4.3-11.1) K/mcL Hgb 12.4 (11.5-15.4) g/dL Hct 37.5 (35.3-44.9) % Plt Count 253 (140-400) K/mcL Neutrophils # 3.6 (1.6-8.9) K/mcL BMP 01/15/17 04:50 Sodium 139 Potassium 3.2 L Chloride 102 Carbon Dioxide 26 BUN 6 L Creatinine 0.62 Glucose 142 H Calcium 8.9 Liver Function 01/15/17 Range/Units 04:50 Total Bilirubin 0.3 (0.2-1.2) mg/dL Direct Bilirubin 0.1 (0.0-0.5) mg/dL AST 51 H (5-34) Units/L ALT 32 (0-55) Units/L Alkaline Phosphatase 93 (38-126) Units/L Albumin 3.5 (3.5-5.0) g/dL - ABG Interpretation ABG results: PT/INR, D-dimer PT 11.7 Seconds (9.4-12.1) 01/14/17 04:05 - Attending Attestation lipase trending down ok to start ampicillin for Strep UTI I examined this patient and my medical decision-making was reviewed with the SEED YEAST OPERATOR/PA/Advanced Practice Nurse/Resident Physician. I agree with the documented findings, disposition and treatment plan as described except to the extent set forth below.
[2017-01-15] MEDS: Ampicillin 1,000 MG in 0.9 % Sodium Chloride Mini Bag 100 ML IVPB SCH ×3 (13:09→22:55)
[2017-01-15] MEDS: *HR* Morphine 2 MG/ML SYRINGE IVP PRN (21:07)
[2017-01-16] MEDS: Insulin LISPRO 300 UNITS/3 ML VIAL SQ SCH ×5 (00:04→21:51)
[2017-01-16] MEDS: 0.9 % Sodium Chloride 1,000 ML IVC SCH ×5 (03:16→22:36)
[2017-01-16] MEDS ORDERED: 0.9 % Sodium Chloride 1,000 ML IVC SCH ×2 (03:30→12:36)
[2017-01-16 04:53] LABS: Basophils # 0.1 K/mcL (0.0-0.2); Basophils % 0.7 %; Eosinophils # 0.2 K/mcL (0.0-0.6); Eosinophils % 3.4 %; Hematocrit 41.9 % (35.3-44.9); Immature Granulocytes % 0.7 % (0-4); Lymphocytes % 28.7 %; Mean Corpuscular HGB Conc 33.4 g/dL (31.6-35.5); Mean Corpuscular Hemoglobin 29.9 pg (28.0-33.3); Mean Corpuscular Volume 89.5 fL (83.0-100.0); Mean Platelet Volume 9.4 fL (9.4-12.4); Monocytes # 0.7 K/mcL (0.0-1.3); Monocytes % 10.7 %; Neutrophils # 3.8 K/mcL (1.6-8.9); Platelet Count 294 K/mcL (140-400); Red Blood Count 4.68 M/mcL (3.82-4.97); Segmented Neutrophils % 55.8 %
[2017-01-16 05:10] LABS: Alanine Aminotransferase 32 Units/L (0-55); Albumin 3.7 g/dL (3.5-5.0); Albumin/Globulin Ratio 1.1 (1.1-2.2); Alkaline Phosphatase 101 Units/L (38-126); Aspartate Amino Transferase 52 Units/L (5-34); BUN/Creatinine Ratio 12 (6-26); Bilirubin,Total 0.5 mg/dL (0.2-1.2); Blood Urea Nitrogen 8 mg/dL (7-20); Calcium 9.5 mg/dL (8.6-10.8); Carbon Dioxide 20 mEq/L (19-29); Chloride 104 mEq/L (98-109); Globulin 3.4 g/dL (2.4-3.5); Glucose 146 mg/dL (70-99); Osmolality,Calculated 289 (280-300); Potassium 3.4 mEq/L (3.5-4.5); Sodium 139 mEq/L (136-145); Total Protein 7.1 g/dL (6.0-8.3); eGFR For African Americans > 60 (> 60); eGFR For Non-African Americans > 60 (> 60)
[2017-01-16] MEDS: Ampicillin 1,000 MG in 0.9 % Sodium Chloride Mini Bag 100 ML IVPB SCH ×4 (05:53→23:26)
[2017-01-16] MEDS: *HR* Heparin 5,000 UNIT/ML VIAL SQ SCH ×3 (05:53→21:52)
[2017-01-16] MEDS: Pantoprazole 40 MG VIAL IVP SCH (07:44)
[2017-01-16] MEDS: amLODIPine 5 MG TABLET PO SCH (07:44)
[2017-01-16] MEDS: *HR* Morphine 2 MG/ML SYRINGE IVP PRN (07:49)
[2017-01-16] MEDS: *HR* Promethazine 25 MG/ML VIAL IVP PRN ×3 (08:02→17:10)
--- NOTE | 2017-01-16 11:54 | Internal Med Progress Note ---
<Piotr Lemus - Last Filed: 01/16/17 11:52> Date of Encounter: 01/16/17 Time of Encounter: 11:52 - Assessment and plan (1) Acute on chronic pancreatitis Current Visit: Yes Status: Acute Assessment and plan: Patient with a history of chronic pancreatitis starting in December of last year. Cause of recurrence pancreatitis unknown. She has had an extensive workup and is well known to our gastroenterology team. she underwent OTPT ERCP with sphincterotomy and PD stent placement with Dr. Castillo 12/28/2016. Her admitting symptoms of abdominal pain and nausea with radiation to the back started on Monday. The pain was waxing and waning throughout the week with increase in intensity just prior to admission. -Abdominal pain improving -Distended abdomen which is tympanic - Vitals stable. - Continue to have lack of appetite Plan: - Continue IV rehydration at 100ml/hr - Continue clear liquid diet when patient's appetite improves. (2) Hypertension Current Visit: No Status: Chronic Assessment and plan: Known history of hypertension, Home antihypertensive medications include Hyzaar 100-12.5, amlodipine 10 mg by mouth every morning. Blood pressure is slightly elevated this morning Plan: - Continue to hold Hyzaar - Continue amlodipine 10 mg by mouth this a.m. - Hydralazine 10 mg IV push for systolic blood pressure greater than 160 - Monitor blood pressure. Qualifiers: Hypertension type: essential hypertension Qualified Code(s): I10 - Essential (primary) hypertension (3) Dyslipidemia Current Visit: No Status: Chronic Assessment and plan: Triglycerides 186, cholesterol 239, LDL 154, VLDL 37 and HDL 48 Currently not on any statin, Lipid lowering medications - I do not suspect this is the main contributor to her acute pancreatitis. Plan: - Continue to monitor - We will hold off on starting any new medications currently with recurrent pancreatitis. (4) Chronic obstructive pulmonary disease Current Visit: No Status: Chronic Assessment and plan: Stable. Currently on room oxygen. Qualifiers: COPD type: unspecified COPD Qualified Code(s): J44.9 - Chronic obstructive pulmonary disease, unspecified (5) Cirrhosis of liver Current Visit: No Status: Chronic Assessment and plan: Known history of cirrhotic liver disease. Cosme. Patient states that she used to use a lot of Tylenol and that may be a contributor. Stable. Qualifiers: Hepatic cirrhosis type: unspecified hepatic cirrhosis Ascites presence: without ascites Qualified Code(s): K74.60 - Unspecified cirrhosis of liver (6) Diabetes mellitus Current Visit: No Status: Chronic Assessment and plan: Patient is a known type II diabetic with insulin-dependent and is on 70/30 with 3 times a day correction scale at home. Patient was hyperglycemic upon admission. Glucose currently stable. Plan: - Patient is NPO for pancreatitis - Continue every 6 hours glucose checks with high-dose sliding scale correction. Adjust as needed. Qualifiers: Diabetes mellitus type: type 2 Diabetes mellitus complication status: with unspecified complications Diabetes mellitus assisted insulin use: with assisted use Qualified Code(s): E11.8 - Type 2 diabetes mellitus with unspecified complications; Z79.4 - long term acute care registered nurse (current) use of insulin (7) Morbid obesity with BMI of 40.0-44.9, adult Current Visit: No Status: Chronic Assessment and plan: Patient is morbidly obese with multiple comorbid medical factors. She will greatly benefit from weight loss and diet modifications and daily exercise post hospitalization. (8) UTI (urinary tract infection) Current Visit: Yes Status: Acute Assessment and plan: Urinalysis is not significantly convincing for urinary tract infection but did have trace leukocyte esterase and many squamous epith cells. Given that it grew group B strep with patient having abdominal pain will treat with IV ampicillin in the setting of pancreatitis. If patient is to have improving symptoms may discontinue IV antibiotics next day or 2. Plan: - IV Ampicillin Q6hrs. Qualifiers: Qualified Code(s): N39.0 - Urinary tract infection, site not specified (9) Streptococcal infection group B Current Visit: Yes Status: Acute Assessment and plan: Group B streptococcal colonizing urine culture. (10) DVT prophylaxis Current Visit: No Status: Acute Assessment and plan: Heparin 5000 unit units subcutaneous every 8 hours - Subjective Interval history: Ms. Lopez 61F has been seen and evaluated at patient's bedside this morning. She is awake and alert in no acute distress. No improvement in abd pain since yesterday. Still no appetite. continuing to take ice chips and sips of water. No bowel movements yet. Denies fevers, chills, Vomiting, CP or chest pressure or SOB. - Constitutional Vitals: Temp Pulse Resp BP Pulse Ox 97.8 F 88 17 159/84 94 01/16/17 07:33 01/16/17 08:53 01/16/17 07:33 01/16/17 08:53 01/16/17 08:10 General appearance: Present: A&O X 3, morbidly obese, answers questions appropriately - Head Head exam: Present: atraumatic, normocephalic - Eye Eye exam: Present: PERRL, conjuntiva pink, sclera anicteric Pupils: Present: PERRL - ENT ENT exam: Present: mucous membranes moist - Neck Neck exam general surgery: Present: supple, trachea midline. Absent: lymphadenopathy - Respiratory Respiratory exam: Absent: accessory muscle use, rales, rhonchi, wheezes - Other Additional findings: Gen. well-developed, well-nourished no acute distress. Awake alert and interactive. HEENT normocephalic, atraumatic, he will seek or reactive, oral mucosa moist neck supple, trachea midline. Chest: Symmetric bilateral correlating with respiratory effort Respiratory: Clear to auscultation all lung abad. Cardiac: Regular rate and rhythm, grade 2/6 systolic ejection murmur. Radial pulses 2+ bilateral. Abdomen: tender to light palpation, distended, tympanic, no signs of ecchymosis. Positive bowel sounds Extremities: Symmetric bilateral, patient moving all 4 extremities spontaneously , no signs of edema or erythema. Internal Medicine: Result - Labs CBC & Chem 7: 01/16/17 04:27 01/16/17 04:27 Labs: Short CBC 01/16/17 Range/Units 04:27 WBC 6.8 (4.3-11.1) K/mcL Hgb 14.0 D (11.5-15.4) g/dL Hct 41.9 (35.3-44.9) % Plt Count 294 (140-400) K/mcL Neutrophils # 3.8 (1.6-8.9) K/mcL BMP 01/16/17 04:27 Sodium 139 Potassium 3.4 L Chloride 104 Carbon Dioxide 20 BUN 8 Creatinine 0.66 Glucose 146 H Calcium 9.5 Liver Function 01/16/17 Range/Units 04:27 Total Bilirubin 0.5 (0.2-1.2) mg/dL AST 52 H (5-34) Units/L ALT 32 (0-55) Units/L Alkaline Phosphatase 101 (38-126) Units/L Albumin 3.7 (3.5-5.0) g/dL - ABG Interpretation ABG results: PT/INR, D-dimer PT 11.7 Seconds (9.4-12.1) 01/14/17 04:05 - Impressions Impressions [facility] X-Ray 01/15/17 14:40 IMPRESSION: Pancreatic states seen overlying the right upper quadrant no acute intra-abdominal process D/ / Ashok Reyes MD / Ashok Reyes MD Interpreting Provider: Ashok Reyes MD Consult Discharge Plan - Plan Referrals: Rob Cat MD [Non-Partnered Physician] - 01/24/17 10:00 am <Ben Smith - Last Filed: 01/16/17 13:54> Date of Encounter: 01/16/17 - Constitutional Vitals: Temp Pulse Resp BP Pulse Ox 97.8 F 93 17 147/90 95 01/16/17 12:16 01/16/17 12:16 01/16/17 12:16 01/16/17 12:16 01/16/17 12:16 Internal Medicine: Result - Labs CBC & Chem 7: 01/16/17 04:27 01/16/17 04:27 Labs: Short CBC 01/16/17 Range/Units 04:27 WBC 6.8 (4.3-11.1) K/mcL Hgb 14.0 D (11.5-15.4) g/dL Hct 41.9 (35.3-44.9) % Plt Count 294 (140-400) K/mcL Neutrophils # 3.8 (1.6-8.9) K/mcL BMP 01/16/17 04:27 Sodium 139 Potassium 3.4 L Chloride 104 Carbon Dioxide 20 BUN 8 Creatinine 0.66 Glucose 146 H Calcium 9.5 Liver Function 01/16/17 Range/Units 04:27 Total Bilirubin 0.5 (0.2-1.2) mg/dL AST 52 H (5-34) Units/L ALT 32 (0-55) Units/L Alkaline Phosphatase 101 (38-126) Units/L Albumin 3.7 (3.5-5.0) g/dL - ABG Interpretation ABG results: PT/INR, D-dimer PT 11.7 Seconds (9.4-12.1) 01/14/17 04:05 - Impressions Impressions KUB X-Ray 01/15/17 14:40 IMPRESSION: Pancreatic states seen overlying the right upper quadrant no acute intra-abdominal process D/ / Ashok Reyes MD / Ashok Reyes MD Interpreting Provider: Ashok Reyes MD - Attending Attestation abdominal pain is improving 01/23, agrees to try clear liquids decrease NS down to 100 cc/h accelerated HTN : start standing dose of hydralazine IV 10 mg q6h plus prn, may conver to PO if tolerates PO intake I examined this patient and my medical decision-making was reviewed with the EPIC MANAGER/PA/Advanced Practice Nurse/Resident Physician. I agree with the documented findings, disposition and treatment plan as described except to the extent set forth below.
[2017-01-16] MEDS ORDERED: D5% in Water 1,000 ML IVC PRN (15:37)
--- NOTE | 2017-01-16 17:21 | Gastroenterology Consult Note ---
<MedinaJuan Manuel valero Alexia - Last Filed: 01/16/17 17:18> Date of Encounter: 01/16/17 Time of Encounter: 11:25 - Assessment and plan (1) Chronic recurrent pancreatitis Current Visit: No Status: Acute Assessment and plan: Lipase on admission 309, peaked at 4157, and yesterday lipase 392. 12/28/16 ERCP with sphincterotomy and PD stent placement. Increase IV fluids to 150 ml/hr. Continue pain control and anti-emetics. Her first episode of pancreatitis was December 2015 and she has had a total of 8 episodes of pancreatitis. Plan to refer patient to pancreas specialist at [facility]. (2) Cirrhosis of liver Current Visit: No Status: Chronic Assessment and plan: AFP 2 on 11/28/16. Imaging negative for lesions 11/2016. EGD 12/28/16 with no varices. Qualifiers: Hepatic cirrhosis type: unspecified hepatic cirrhosis Ascites presence: without ascites Qualified Code(s): K74.60 - Unspecified cirrhosis of liver (3) Barretts esophagus Current Visit: No Status: Chronic Assessment and plan: Continue PPI. Repeat EGD due 2018. Qualifiers: Ordoñez's esophagus type: without dysplasia Qualified Code(s): K22.70 - Ordoñez's esophagus without dysplasia - Time Spent With Patient Total time spent is greater than 50% in coordination of care (as documented) at patient's floor/unit and/or counseling patient: GI History of Present Illness - Data of Consult Patient: known to practice within the last 3 years Consult date: 01/16/17 Requesting Physician: Ben Smith - Consult Narrative Reason for consult: pancreatitis History of present illness: Ms. Lopez is a 61 year old female with PMHx of chronic pancreatitis, ELIAS cirrhosis, COPD, DM, GERD, GI Bleed, HLD, HTN, who had ERCP done [address] Castillo. She was feeling well until she ate a grilled cheese sandwich on Monday , and soon began having abdominal pain, cramping, and nausea that was similar to her pancreatitis prior to ERCP. She denies fever, chills, vomiting. melena, or hematochezia. Pt states her first pancreatitis attack was December 2015, and this is her 8th episode of pancreatitis. Procedures: 12/28/16 ERCP with sphincterotomy and PD stent placement. EGD 12/28/2016 chronic inactive gastritis, no varices. NSAIDs: None Anticoagulation: None Past Med Surg Social Fam HX - Past Medical History Medical history: arthritis, asthma, cancer (Non-small cell lung carcinoma, left s/p resection.), cirrhosis, COPD, diabetes, GERD (Ordoñez's esophagus. Esophagitis-gastritis.), GI bleed (Diverticulosis. 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 ), malignancy, osteoporosis (Vit D deficiency.), other (H/O pancreatitis) Psychiatric history: anxiety, depression, other - Past Surgical History Surgical History: appendectomy, cancer surgery, cholecystectomy, hysterectomy, orthopedic, other, LIZZETTE/BSO, other - Social History Smoking Status: Former smoker Packs per day: 2 Smokeless Tobacco Status: No Alcohol use: none Drug use: none - Family History Mother Adopted: [place]: Karen Lopez Living Status: Age at : 72 Cause of : AAA Hx Family Cardiac Disorders: Yes (Quad Bipass) Hx Family Respiratory Disorders: Yes (Emphysema) Hx Family Cancer: Yes (Skin cancer, "Eye cancer") Hx Family GI Disorders: No Hx Family Genitourinary Disorders: No Hx Family Endocrine Disorder: Yes (DM) Hx Family Musculoskeletal Disorders: No Hx Family Neuromuscular Disorders: No Hx Family Neurologic Disorders: No Hx Family HEENT Disorders: No Hx Family Autoimmune Disorders: No Hx Family Reproductive Disorders: No Hx Family Psychosocial Disorders: No Father Living Status: Hx Family Cardiac Disorders: Yes (unknown) - Gastrointestinal Gastrointestinal: Present: as per HPI - Constitutional Constitutional: as per HPI - EENT Eyes: as per HPI Ears: Present: as per HPI Nose, mouth and throat: Present: as per HPI - Cardiovascular Cardiovascular ROS: Present: as per HPI - Respiratory Respiratory IM: Present: as per HPI - Genitourinary Genitourinary: Absent: change in color, Urinary frequency - Neurological ROS Neurological GI: Present: as per HPI - Hematologic/Lymphatic Hematologic/Lymphatic pediatric: Present: as per HPI - Musculoskeletal Musculoskeletal ROS GI: Present: as per HPI - Integumentary Integumentary GI: Present: as per HPI - Psychiatric ROS Psychiatric GI: Present: as per HPI - Endocrine Endocrine IM: Present: as per HPI - Constitutional Vitals: Temp Pulse Resp BP Pulse Ox 98.2 F 106 17 151/91 97 04/03/17 16:19 01/16/17 16:19 01/16/17 16:19 01/16/17 16:19 01/16/17 16:19 General appearance: Present: cooperative, A&O X 3, no acute distress, answers questions appropriately - Head Head exam: Present: atraumatic, normocephalic - Eye Eye exam: Present: normal appearance, sclera anicteric - ENT ENT exam: Present: mucous membranes dry - Neck Neck exam general surgery: Present: normal inspection, trachea midline - Respiratory Respiratory exam: Present: CTAB. Absent: rales, rhonchi, wheezes - Cardiovascular Cardiovascular exam: Present: RRR, +S1, +S2 - GI/Abdominal GI/Abdominal exam: Present: guarding, soft, tenderness (diffuse tenderness to light palpation), no peritoneal signs. Absent: distended, firm - Rectal Rectal exam: Present: deferred - Extremities Exam Extremities exam: Present: warm - Neurological Exam Neurological exam: Present: no focal deficits - Psychiatric Psychiatric exam: Present: normal affect, normal mood - Skin Skin exam: Present: dry, intact, normal color, warm Results - Labs CBC & Chem 7: 01/16/17 04:27 01/16/17 04:27 Labs: Last Result Calcium 9.5 mg/dL (8.6-10.8) 01/16/17 04:27 Triglycerides 186 mg/dL (< 150) H 01/14/17 04:05 Entire Visit Hgb 14.0 g/dL (11.5-15.4) D 01/16/17 04:27 Hct 41.9 % (35.3-44.9) 01/16/17 04:27 PT 11.7 Seconds (9.4-12.1) 01/14/17 04:05 Total Bilirubin 0.5 mg/dL (0.2-1.2) 01/16/17 04:27 AST 52 Units/L (5-34) H 01/16/17 04:27 ALT 32 Units/L (0-55) 01/16/17 04:27 Lipase 392 Units/L (8-78) H 01/15/17 04:50 - ABG ABG results: PT/INR, D-dimer PT 11.7 Seconds (9.4-12.1) 01/14/17 04:05 Consult Discharge Plan - Plan Referrals: Rob Cat MD [Non-Partnered Physician] - 01/24/17 10:00 am <AnnaMisaelSravani - Last Filed: 01/16/17 18:41> Date of Encounter: 01/16/17 Time of Encounter: 18:00 - Time Spent With Patient Total time spent is greater than 50% in coordination of care (as documented) at patient's floor/unit and/or counseling patient: GI History of Present Illness - Data of Consult Requesting Physician: Ben Smith - Consult Narrative History of present illness: Ms. Lopez is a 61 year old female - Constitutional Vitals: Temp Pulse Resp BP Pulse Ox 98.2 F 106 17 151/91 97 01/16/17 16:19 01/16/17 16:19 01/16/17 16:19 01/16/17 16:19 01/16/17 16:19 Results - Labs CBC & Chem 7: 01/16/17 04:27 01/16/17 04:27 Labs: Last Result Calcium 9.5 mg/dL (8.6-10.8) 01/16/17 04:27 Triglycerides 186 mg/dL (< 150) H 01/14/17 04:05 Entire Visit Hgb 14.0 g/dL (11.5-15.4) D 01/16/17 04:27 Hct 41.9 % (35.3-44.9) 01/16/17 04:27 PT 11.7 Seconds (9.4-12.1) 01/14/17 04:05 Total Bilirubin 0.5 mg/dL (0.2-1.2) 01/16/17 04:27 AST 52 Units/L (5-34) H 01/16/17 04:27 ALT 32 Units/L (0-55) 01/16/17 04:27 Lipase 392 Units/L (8-78) H 01/15/17 04:50 - ABG ABG results: PT/INR, D-dimer PT 11.7 Seconds (9.4-12.1) 01/14/17 04:05 - Attending Attestation I examined this patient and my medical decision-making was reviewed with the QUALITY CONTROL CLERK/PA/Advanced Practice Nurse/Resident Physician. I agree with the documented findings, disposition and treatment plan as described except to the extent set forth below. Will be referred to pancreatic center at [facility] as an outpatient because of her recurrent pancreatitis
[2017-01-16] MEDS: *HR* LORazepam 2 MG/ML VIAL IVP PRN (18:44)
[2017-01-17 05:29] LABS: Basophils # 0.1 K/mcL (0.0-0.2); Basophils % 0.6 %; Eosinophils # 0.3 K/mcL (0.0-0.6); Eosinophils % 4.3 %; Hematocrit 42.1 % (35.3-44.9); Hemoglobin 14.3 g/dL (11.5-15.4); Immature Granulocytes % 0.5 % (0-4); Lymphocytes # 2.3 K/mcL (0.6-4.6); Lymphocytes % 28.9 %; Mean Corpuscular Hemoglobin 30.3 pg (28.0-33.3); Mean Corpuscular Volume 89.2 fL (83.0-100.0); Mean Platelet Volume 9.7 fL (9.4-12.4); Monocytes # 0.8 K/mcL (0.0-1.3); Monocytes % 9.5 %; Neutrophils # 4.4 K/mcL (1.6-8.9); Platelet Count 333 K/mcL (140-400); Red Blood Count 4.72 M/mcL (3.82-4.97); Red Cell Distribution Width 14.3 % (11.5-14.5); Segmented Neutrophils % 56.2 %
[2017-01-17 05:47] LABS: Alanine Aminotransferase 31 Units/L (0-55); Albumin 3.8 g/dL (3.5-5.0); Albumin/Globulin Ratio 1.1 (1.1-2.2); Alkaline Phosphatase 102 Units/L (38-126); Aspartate Amino Transferase 52 Units/L (5-34); BUN/Creatinine Ratio 10 (6-26); Bilirubin,Total 0.7 mg/dL (0.2-1.2); Blood Urea Nitrogen 7 mg/dL (7-20); Calcium 9.5 mg/dL (8.6-10.8); Carbon Dioxide 18 mEq/L (19-29); Chloride 105 mEq/L (98-109); Globulin 3.4 g/dL (2.4-3.5); Glucose 174 mg/dL (70-99); Osmolality,Calculated 292 (280-300); Potassium 3.1 mEq/L (3.5-4.5); Sodium 140 mEq/L (136-145); Total Protein 7.2 g/dL (6.0-8.3); eGFR For African Americans > 60 (> 60); eGFR For Non-African Americans > 60 (> 60)
[2017-01-17] MEDS ORDERED: Acetaminophen 325 MG TABLET PO PRN (06:09)
[2017-01-17] MEDS: 0.9 % Sodium Chloride 1,000 ML IVC SCH ×2 (06:21→17:41)
[2017-01-17] MEDS: *HR* Heparin 5,000 UNIT/ML VIAL SQ SCH ×3 (06:22→21:10)
[2017-01-17] MEDS: Ampicillin 1,000 MG in 0.9 % Sodium Chloride Mini Bag 100 ML IVPB SCH ×4 (06:29→23:22)
[2017-01-17] MEDS: *HR* LORazepam 2 MG/ML VIAL IVP PRN (06:51)
[2017-01-17] MEDS: Insulin LISPRO 300 UNITS/3 ML VIAL SQ SCH ×4 (09:02→21:17)
[2017-01-17] MEDS: amLODIPine 5 MG TABLET PO SCH ×2 (09:02→10:16)
[2017-01-17] MEDS ORDERED: *HR* HYDROcodone/Acet 5/325 mg TABLET PO PRN (09:15)
[2017-01-17] MEDS ORDERED: *HR* LORazepam 1 MG TABLET PO PRN (09:15)
[2017-01-17] MEDS ORDERED: Fluticasone Propionate Nasal 50 MCG/SPRAY BOTTLE NS PRN (09:15)
[2017-01-17] MEDS ORDERED: Losartan/HCTZ 50-12.5 TABLET PO SCH (09:15)
[2017-01-17] MEDS: Pantoprazole 40 MG VIAL IVP SCH (10:49)
[2017-01-17] MEDS: Metoprolol 100 MG TABLET PO SCH ×2 (10:49→21:10)
[2017-01-17] MEDS: Beclomethasone 80mcg MDI IH SCH ×2 (12:07→20:33)
--- NOTE | 2017-01-17 16:57 | Internal Med Progress Note ---
Date of Encounter: 01/17/17 Time of Encounter: 10:30 - Assessment and plan (1) Acute pancreatitis, unspecified Current Visit: No Status: Acute Assessment and plan: LFT stable, bili normal, lipase trending down. Tolerated a clear liquid diet well, advance to full liquid this morning. GI on board. We will continue to advance her diet as she tolerates. Qualifiers: Pancreatitis type: other Acute pancreatitis complication: no infection or necrosis Qualified Code(s): K85.80 - Other acute pancreatitis without necrosis or infection (2) UTI (urinary tract infection) Current Visit: Yes Status: Acute Assessment and plan: Urinalysis is not significantly convincing for urinary tract infection but did have trace leukocyte esterase and many squamous epith cells. Given that it grew group B strep with patient having abdominal pain will treat with IV ampicillin in the setting of pancreatitis. Continue ampicillin. Qualifiers: Qualified Code(s): N39.0 - Urinary tract infection, site not specified (3) Streptococcal infection group B Current Visit: Yes Status: Acute Assessment and plan: Group B streptococcal colonizing urine culture. (4) Status post endoscopic retrograde cholangiopancreatography Current Visit: No Status: Chronic Assessment and plan: GI on board (5) BRBPR (bright red blood per rectum) Current Visit: Yes Status: Acute Assessment and plan: According to her nurse, patient had an episode of bright red blood per rectum this afternoon. Witnessed per the nurse, patient had a diarrhea bowel movement and the bowl was full of bright red blood. We will trend to ensure hemodynamic stability. GI on board. (6) Hypertension Current Visit: No Status: Chronic Assessment and plan: Controlled. Her home medications of metoprolol 100 mg twice a day, Hyzaar 100- 12.5 mg daily, amlodipine 10 mg daily have been continued. We will continue to trend. Qualifiers: Hypertension type: essential hypertension Qualified Code(s): I10 - Essential (primary) hypertension (7) Dyslipidemia Current Visit: No Status: Chronic Assessment and plan: Triglycerides 186, cholesterol 239, LDL 154, VLDL 37 and HDL 48. This does not appear to be the main causative factor for acute pancreatitis. Will likely need to initiate statin in the near future, will be done outpatient once acute pancreatitis subsides. (8) History of peptic ulcer disease Current Visit: No Status: Chronic (9) Diabetes mellitus Current Visit: No Status: Chronic Assessment and plan: Ga to home with an A1c of 7.3%. Continue sliding scale while admitted. 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 No acute exacerbation, patient denies shortness of breath above her norm. Currently on room air. Qualifiers: COPD type: unspecified COPD Qualified Code(s): J44.9 - Chronic obstructive pulmonary disease, unspecified (13) Cirrhosis of liver Current Visit: No Status: Chronic Assessment and plan: Known history of cirrhotic liver disease. Cosme. Patient states that she used to use a lot of Tylenol and that may be a contributing factor; stable. GI on board. Qualifiers: Hepatic cirrhosis type: unspecified hepatic cirrhosis Ascites presence: without ascites Qualified Code(s): K74.60 - Unspecified cirrhosis of liver (14) Hepatic steatosis Current Visit: No Status: Chronic (15) Diverticular disease Current Visit: No Status: Chronic Assessment and plan: No Evidence of acute diverticulitis Qualifiers: Diverticulosis site: unspecified location Diverticulosis bleeding: diverticulosis without bleeding Qualified Code(s): K57.90 - Diverticulosis of intestine, part unspecified, without perforation or abscess without bleeding (16) DVT prophylaxis Current Visit: No Status: Acute Assessment and plan: Heparin 5000 unit units subcutaneous every 8 hours (17) Barretts esophagus Current Visit: No Status: Chronic Qualifiers: Ordoñez's esophagus type: without dysplasia Qualified Code(s): K22.70 - Ordoñez's esophagus without dysplasia (18) Morbid obesity with BMI of 40.0-44.9, adult Current Visit: No Status: Chronic Assessment and plan: Patient is morbidly obese with multiple comorbid medical factors. She will greatly benefit from weight loss and diet modifications and daily exercise post hospitalization. (19) Chronic pain associated with significant psychosocial dysfunction Current Visit: No Status: Chronic Assessment and plan: [facility] report checks out but with 7 different prescribers over the past year. All appear to be from [facility]. (20) Chronic recurrent pancreatitis Current Visit: No Status: Chronic Assessment and plan: Unknown causation, GI has recommended her following up outpatient with pancreatitis specialist at [facility]. (21) Hypokalemia Current Visit: Yes Status: Acute Assessment and plan: Will replete. We will also check magnesium levels. - Subjective Interval history: Patient seen and examined. On examination, patient sitting upright in bed. She states she is feeling better and asked for her diet to be advanced. She complains of mild pain across her middle abdomen. - Constitutional Vitals: Temp Pulse Resp BP Pulse Ox 97.8 F 77 17 133/74 96 01/17/17 15:05 01/17/17 15:05 01/17/17 15:05 01/17/17 15:05 01/17/17 15:05 General appearance: Present: A&O X 3, morbidly obese, pleasant, no acute distress, answers questions appropriately - Head Head exam: Present: atraumatic, normocephalic - Eye Eye exam: Present: PERRL, conjuntiva pink, sclera anicteric Pupils: Present: PERRL - Neck Neck exam general surgery: Present: supple, trachea midline. Absent: lymphadenopathy - Respiratory Respiratory exam: Present: decreased breath sounds. Absent: accessory muscle use, rales, respiratory distress, rhonchi, wheezes - Cardiovascular Cardiovascular exam: Present: RRR, +S1, +S2. Absent: diastolic murmur, gallop, rubs, systolic murmur - GI/Abdominal GI/Abdominal exam: Present: distended, hyperactive bowel sounds, soft, tenderness (diffuse), no peritoneal signs - Extremities Exam Extremities exam: Present: warm, radial pulses palpable and symetrical. Absent : calf tenderness, cyanotic, pedal edema - Neurological Exam Neurological exam: Present: alert, CN II-XII intact, oriented X3, no focal deficits, strengths equal and symetr throughout. Absent: pronater drift, facial droop, speech deficit - Skin Skin exam: Present: dry, intact, pallor, warm Internal Medicine: Result - Labs CBC & Chem 7: 01/17/17 04:37 01/17/17 04:37 Labs: Short CBC 01/17/17 Range/Units 04:37 WBC 7.9 (4.3-11.1) K/mcL Hgb 14.3 (11.5-15.4) g/dL Hct 42.1 (35.3-44.9) % Plt Count 333 (140-400) K/mcL Neutrophils # 4.4 (1.6-8.9) K/mcL BMP 01/17/17 04:37 Sodium 140 Potassium 3.1 L Chloride 105 Carbon Dioxide 18 L BUN 7 Creatinine 0.68 Glucose 174 H Calcium 9.5 Liver Function 01/17/17 Range/Units 04:37 Total Bilirubin 0.7 (0.2-1.2) mg/dL AST 52 H (5-34) Units/L ALT 31 (0-55) Units/L Alkaline Phosphatase 102 (38-126) Units/L Albumin 3.8 (3.5-5.0) g/dL - ABG Interpretation ABG results: PT/INR, D-dimer PT 11.7 Seconds (9.4-12.1) 01/14/17 04:05 Consult Discharge Plan - Plan Referrals: Rob Cat MD [Non-Partnered Physician] - 01/24/17 10:00 am
--- NOTE | 2017-01-17 17:17 | Electrocardiograph Report ---
[place] [id number] Test Date: 2017-01-16 Pat Name: Haider Lopez Department: 113 Room: 3B Gender: F Surgical Coder: : [id number] Requested By: Julienne Singletary Order Number: [id number] Reading MD: Tiana Henriquez Measurements Intervals [place] Rate: 101 P: 84 DC: 166 QRS: 97 QRSD: 105 T: 15 QT: 361 QTc: 419 Interpretive Statements SINUS TACHYCARDIA POSSIBLE LEFT ATRIAL ENLARGEMENT BORDERLINE RIGHT AXIS DEVIATION Electronically Signed On 01-17-2017 17:16:33 EDT by Tiana Henriquez
[2017-01-17] MEDS ORDERED: traZODone 50 MG TABLET PO SCH (21:00)
[2017-01-18] MEDS: 0.9 % Sodium Chloride 1,000 ML IVC SCH ×2 (03:54→05:59)
[2017-01-18] MEDS: Ampicillin 1,000 MG in 0.9 % Sodium Chloride Mini Bag 100 ML IVPB SCH (05:18)
[2017-01-18] MEDS: *HR* Heparin 5,000 UNIT/ML VIAL SQ SCH (05:19)
[2017-01-18 05:38] LABS: Basophils % 0.5 %; Eosinophils # 0.3 K/mcL (0.0-0.6); Eosinophils % 5.6 %; Hematocrit 37.2 % (35.3-44.9); Immature Granulocytes % 0.7 % (0-4); Lymphocytes # 1.9 K/mcL (0.6-4.6); Lymphocytes % 32.4 %; Mean Corpuscular HGB Conc 34.1 g/dL (31.6-35.5); Mean Corpuscular Hemoglobin 30.4 pg (28.0-33.3); Mean Platelet Volume 9.4 fL (9.4-12.4); Monocytes # 0.6 K/mcL (0.0-1.3); Monocytes % 10.1 %; Platelet Count 298 K/mcL (140-400); Red Blood Count 4.18 M/mcL (3.82-4.97); Red Cell Distribution Width 14.3 % (11.5-14.5); Segmented Neutrophils % 50.7 %
[2017-01-18 05:42] LABS: Hemoglobin 12.7 g/dL (11.5-15.4)
[2017-01-18 05:51] LABS: BUN/Creatinine Ratio 7 (6-26); Blood Urea Nitrogen 5 mg/dL (7-20); Calcium 8.9 mg/dL (8.6-10.8); Carbon Dioxide 23 mEq/L (19-29); Chloride 108 mEq/L (98-109); Glucose 189 mg/dL (70-99); Lipase 108 Units/L (8-78); Magnesium 1.7 mg/dL (1.6-2.6); Osmolality,Calculated 290 (280-300); Potassium 3.7 mEq/L (3.5-4.5); Sodium 139 mEq/L (136-145); eGFR For African Americans > 60 (> 60); eGFR For Non-African Americans > 60 (> 60)
[2017-01-18] MEDS: Beclomethasone 80mcg MDI IH SCH (08:20)
[2017-01-18] MEDS: Insulin LISPRO 300 UNITS/3 ML VIAL SQ SCH ×2 (08:21→11:44)
[2017-01-18] MEDS: Pantoprazole 40 MG VIAL IVP SCH (08:21)
[2017-01-18] MEDS: amLODIPine 5 MG TABLET PO SCH ×2 (08:22→08:23)
[2017-01-18] MEDS: Metoprolol 100 MG TABLET PO SCH (08:22)
[2017-01-18] MEDS ORDERED: 0.9 % Sodium Chloride 1,000 ML IVC SCH (08:42)
[2017-01-18] MEDS ORDERED: Losartan/HCTZ 50-12.5 TABLET PO SCH (09:00)
--- NOTE | 2017-01-18 10:38 | Discharge Summary ---
Date of Encounter: 01/18/17 Time of Encounter: 09:00 - Discharge Diagnosis (1) Acute pancreatitis, unspecified Priority: Primary Status: Acute Comments: LFT stable, bili normal, lipase trended down. Tolerated a regular diet prior to discharge. GI on board and she will follow up outpatient. Qualifiers: Pancreatitis type: other Acute pancreatitis complication: no infection or necrosis Qualified Code(s): K85.80 - Other acute pancreatitis without necrosis or infection (2) UTI (urinary tract infection) Priority: Primary Status: Acute Comments: Urinalysis is not significantly convincing for urinary tract infection but did have trace leukocyte esterase and many squamous epith cells. Given that it grew group B strep with patient was having abdominal pain will treat with IV ampicillin in the setting of pancreatitis. Recived 3 days of ampicillin while admitted; will send home on Augmentin to complete course Qualifiers: Qualified Code(s): N39.0 - Urinary tract infection, site not specified (3) Streptococcal infection group B Priority: Primary Status: Acute (4) Status post endoscopic retrograde cholangiopancreatography Priority: Secondary Status: Chronic (5) BRBPR (bright red blood per rectum) Priority: Primary Status: Resolved Comments: The patient had 1 bloody bowel movement while admitted and the following day, she had a normal one. Likely related to her chronic hemorrhoids. She remained hemodynamically stable. Follow-up outpatient. (6) Hypertension Priority: Secondary Status: Chronic Comments: Controlled. Her home medications of metoprolol 100 mg twice a day, Hyzaar 100- 12.5 mg daily, amlodipine 10 mg daily continued, follow-up outpatient Qualifiers: Hypertension type: essential hypertension Qualified Code(s): I10 - Essential (primary) hypertension (7) Dyslipidemia Priority: Secondary Status: Chronic Comments: Triglycerides 186, cholesterol 239, LDL 154, VLDL 37 and HDL 48. This does not appear to be the main causative factor for acute pancreatitis. Will likely need to initiate statin in the near future, will be done outpatient once acute pancreatitis subsides. (8) History of peptic ulcer disease Priority: Secondary Status: Chronic (9) Diabetes mellitus Priority: Secondary Status: Chronic Comments: Controlled at home with an A1c of 7.3%. Recommend continued follow-up outpatient. 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 No acute exacerbation, patient denies shortness of breath above her norm. Was on room air while admitted Qualifiers: COPD type: unspecified COPD Qualified Code(s): J44.9 - Chronic obstructive pulmonary disease, unspecified (13) Cirrhosis of liver Priority: Secondary Status: Chronic Comments: Known history of cirrhotic liver disease. Cosme. Patient states that she used to use a lot of Tylenol and that may be a contributing factor; stable. GI on board during this admission and she has been cleared for outpatient followup. Qualifiers: Hepatic cirrhosis type: unspecified hepatic cirrhosis Ascites presence: without ascites Qualified Code(s): K74.60 - Unspecified cirrhosis of liver (14) Hepatic steatosis Priority: Secondary Status: Chronic (15) Diverticular disease Priority: Secondary Status: Chronic Comments: No Evidence of acute diverticulitis Qualifiers: Diverticulosis site: unspecified location Diverticulosis bleeding: diverticulosis without bleeding Qualified Code(s): K57.90 - Diverticulosis of intestine, part unspecified, without perforation or abscess without bleeding (16) DVT prophylaxis Priority: Primary Status: Acute Comments: Heparin 5000 unit units subcutaneous every 8 hours while admitted (17) Barretts esophagus Priority: Secondary Status: Chronic Qualifiers: Ordoñez's esophagus type: without dysplasia Qualified Code(s): K22.70 - Ordoñez's esophagus without dysplasia (18) Morbid obesity with BMI of 40.0-44.9, adult Priority: Secondary Status: Chronic (19) Chronic pain associated with significant psychosocial dysfunction Priority: Secondary Status: Chronic (20) Chronic recurrent pancreatitis Priority: Secondary Status: Chronic Comments: Unknown causation, GI has recommended her following up outpatient with pancreatitis specialist at [facility]. (21) Hypokalemia Priority: Primary Status: Resolved - Discharge Medications Prescriptions: Promethazine [Phenergan] 12.5 mg PO Q6HR PRN #12 tablet PRN Reason: Nausea And Vomiting Amoxicillin/Clavulanate [Augmentin] 875 mg PO BIDWM #10 tablet HYDROcodone/Acet 5/325 mg [[place] 5-325 mg] 1 tab PO Q6H PRN #20 tablet PRN Reason: Pain Home Medications: Amlodipine [Amlodipine Besylate] 10 mg PO QAM 11/17/15 [History] Duloxetine HCl [Cymbalta] 60 mg PO BID 11/17/15 [History] Fluticasone Propionate Nasal [Flonase] 50 mcg NS DAILY PRN 11/17/15 [History] LORazepam [Ativan] 0.5 tab PO BID PRN 11/17/15 [History] Losartan/Hydrochlorothiazide [Hyzaar 100-12.5 Tablet] 1 tab PO QAM 11/17/15 [ History] Metoprolol [Lopressor] 100 mg PO BID 11/17/15 [History] Trazodone HCl 150 mg PO HS 11/17/15 [History] Vitamin E (Dl,Tocopheryl Acet) [Vitamin E] 400 unit PO DAILY 11/17/15 [History] Multivitamin [Multi-Day Vitamins] 1 each PO DAILY 04/11/16 [History] Insulin NPH/REG 70/30 [HumuLIN 70/30 VIAL] 100 unit SQ BIDWM 06/27/16 [History] Albuterol Sulfate [Albuterol Inhaler] 1 - 2 puff IH Q6HR PRN 10/13/16 [History] Beclomethasone Diprop 80mcg [QVAR 80 mcg] 1 puff IH BID 10/13/16 [History] Furosemide [Lasix] 20 mg PO DAILY 10/13/16 [History] Esomeprazole Magnesium [Nexium] 40 mg PO DAILY 11/26/16 [History] Ondansetron HCl [Zofran] 4 mg PO Q6H PRN #20 tablet 11/29/16 [Rx] Insulin Regular Human [Humulin R] 10 - 18 units SQ TID PRN 12/29/16 [History] Metaxalone [Skelaxin] 800 mg PO TID 01/13/17 [History] Amoxicillin/Clavulanate [Augmentin] 875 mg PO BIDWM #10 tablet 01/18/17 [Rx] HYDROcodone/Acet 5/325 mg [[place] 5-325 mg] 1 tab PO Q6H PRN #20 tablet 01/18/17 [Rx] Promethazine [Phenergan] 12.5 mg PO Q6HR PRN #12 tablet 01/18/17 [Rx] Allergies/Adverse Reactions: Allergies NSAIDS (Non-Steroidal Anti-Inflamma Adverse Reaction (Verified 01/13/17 20:44) Gastrointestinal Upset PATIENT HAS ULCERS- Procedures/tests Complete & Pending: Procedures Performed prior 72 hours Category Date Time Status ECG 12 lead ECG [ECG] Routine Y 01/16/17 15:02 Completed Date of admission: 01/14/17 02:06 Primary care physician: Ava Kimble CNP Consults: 01/17/17 10:11 Consult to Invasive Line Access Team [CONS] Routine Reason for Consult: limited access, left compromised extremity Line Type: EPIV Discharging clinician: Julienne Singletary Anticipated date of discharge: 01/18/17 - Patient Status Disposition: Home, Self-Care Condition: Fair Functional capacity at discharge: independent ambulation Overall status at discharge: patient is progressing back to baseline - Discharge Instructions Follow Up With: Rob Cat MD [Non-Partnered Physician] - 01/24/17 10:00 am Sravani Castillo MD [Partnered Physician] - [facility] [Other] Additional Instructions: Follow-up with primary care provider, GI, and [facility] as instructed - Diet and Activity Activity: increase activity as tolerated Diet: diabetic diet, low fat, low cholesterol, low salt diet Hospital course: Ms. Lopez is a 61 year old female with past medical history of cirrhosis, COPD, diabetes, GERD, GI bleed, hyperlipidemia, hypertension status post appendectomy, cholecystectomy, hysterectomy, former tobacco abuse, morbid obesity. Patient had an ERCP performed 2 weeks prior to presentation per Dr. Castillo and she was sent home on a clear liquid diet. She then attempted to eat a grilled cheese sandwich, and then soon thereafter, she developed abdominal cramping that radiated around her right side to her back and was associated with nausea and felt same as when she had her pancreatitis. Patient stating the pain was relieved by nothing prompting her presentation to the emergency department. Elevated lipase noted in the emergency department. Patient was admitted to the hospitalist service for further evaluation and management. Patient was admitted and observed over the course of 6 days. GI was brought on board during this admission. She was treated conservatively for acute pancreatitis. She was also noted to have a urinary tract infection with urine culture indicative of strep agalactiae and she was treated with ampicillin while admitted and sent home on Augmentin. She is also noted to have borderline hyperlipidemia, recommend consideration of initiation of a statin in the near future to be done on an outpatient basis per her primary care team once her acute pancreatitis subsides. Hypokalemia resolved during this admission. Patient had one episode of a bloody bowel movement consistent with her hemorrhoids. She had a regular bowel movement on the day of discharge. She remained hemodynamically stable. She was able to tolerate a regular diet prior to discharge. Per GI, patient is to follow-up with [facility] outpatient for her recurrent pancreatitis with their pancreatic center. She was discharged home in stable condition with close outpatient follow-up recommended. ITS Impressions KUB X-Ray 01/15/17 14:40 IMPRESSION: Pancreatic states seen overlying the right upper quadrant no acute intra-abdominal process D/ / Ashok Reyes MD / Ashok Reyes MD Interpreting Provider: Ashok Reyes MD - Time Spent with Patient Total time spent providing and/or coordinating discharge services: - Constitutional Vitals: Temp Pulse Resp BP Pulse Ox 97.9 F 80 16 149/75 96 01/18/17 07:47 01/18/17 07:47 01/18/17 08:20 01/18/17 07:47 01/18/17 08:20 General appearance: Present: A&O X 3, morbidly obese, pleasant, no acute distress, answers questions appropriately - Head Head exam: Present: atraumatic, normocephalic - Eye Eye exam: Present: PERRL, conjuntiva pink, sclera anicteric Pupils: Present: PERRL - Neck Neck exam general surgery: Present: supple, trachea midline. Absent: lymphadenopathy - Respiratory Respiratory exam: Present: CTAB. Absent: accessory muscle use, rales, respiratory distress, rhonchi, wheezes - Cardiovascular Cardiovascular exam: Present: RRR, +S1, +S2. Absent: diastolic murmur, gallop, rubs, systolic murmur - GI/Abdominal GI/Abdominal exam: Present: normal bowel sounds, soft, no peritoneal signs. Absent: distended, tenderness - Extremities Exam Extremities exam: Present: warm, radial pulses palpable and symetrical. Absent : calf tenderness, cyanotic, pedal edema - Neurological Exam Neurological exam: Present: alert, CN II-XII intact, normal gait, oriented X3, no focal deficits, strengths equal and symetr throughout. Absent: pronater drift, facial droop, speech deficit - Skin Skin exam: Present: dry, intact, pallor, warm
[2017-01-18 11:21] VITALS: BP 153/74
--- NOTE | 2017-01-18 15:28 | Gastroenterology Progress Note ---
Date of Encounter: 01/18/17 Time of Encounter: 10:55 - Assessment and plan (1) Chronic recurrent pancreatitis Status: Chronic Assessment and plan: Improved. Lipase improved to 108 today. 12/28/16 ERCP with sphincterotomy and PD stent placement. Her first episode of pancreatitis was December 2015 and she has had a total of 8 episodes of pancreatitis. Refer patient to [facility] due to recurrent pancreatitis. (2) Cirrhosis of liver Status: Chronic Assessment and plan: AFP 2 on 11/28/16. Imaging negative for lesions 11/2016. EGD 12/28/16 with no varices. Qualifiers: Hepatic cirrhosis type: unspecified hepatic cirrhosis Ascites presence: without ascites Qualified Code(s): K74.60 - Unspecified cirrhosis of liver (3) Barretts esophagus Status: Chronic Assessment and plan: Continue PPI. Repeat EGD due 2018. Qualifiers: Ordoñez's esophagus type: without dysplasia Qualified Code(s): K22.70 - Ordoñez's esophagus without dysplasia (4) BRBPR (bright red blood per rectum) Status: Resolved Assessment and plan: Likely secondary to internal hemorrhoids. Recommend daily fiber supplement. - Time Spent With Patient Total time spent is greater than 50% in coordination of care (as documented) at patient's floor/unit and/or counseling patient: - Subjective Interval history: The patient reports feeling well this AM, and is asking to go home. She reports one episode of BRBPR overnight. No further episodes noted. Pt states she had one BM with brown stool following the episode of BRBPR. - Constitutional Vitals: Temp Pulse Resp BP Pulse Ox 97.9 F 70 16 153/74 95 01/18/17 11:16 01/18/17 11:16 01/18/17 11:16 01/18/17 11:16 01/18/17 11:16 General appearance: Present: cooperative, A&O X 3, no acute distress, answers questions appropriately - Head Head exam: Present: atraumatic, normocephalic - Eye Eye exam: Present: normal appearance, sclera anicteric - ENT ENT exam: Present: mucous membranes moist - Neck Neck exam general surgery: Present: normal inspection, trachea midline - Respiratory Respiratory exam: Present: CTAB. Absent: rales, rhonchi - Cardiovascular Cardiovascular exam: Present: RRR, +S1, +S2 - GI/Abdominal GI/Abdominal exam: Present: soft, no peritoneal signs. Absent: distended, firm , guarding, tenderness - Rectal Rectal exam: Present: deferred - Extremities Exam Extremities exam: Present: warm - Neurological Exam Neurological exam: Present: no focal deficits - Psychiatric Psychiatric exam: Present: normal affect, normal mood - Skin Skin exam: Present: dry, intact, normal color, warm Results - Labs CBC & Chem 7: 01/18/17 05:20 01/18/17 05:20 Labs: Last Result Calcium 8.9 mg/dL (8.6-10.8) 01/18/17 05:20 Triglycerides 186 mg/dL (< 150) H 01/14/17 04:05 Entire Visit Hgb 12.7 g/dL (11.5-15.4) D 01/18/17 05:20 Hct 37.2 % (35.3-44.9) 01/18/17 05:20 PT 11.7 Seconds (9.4-12.1) 01/14/17 04:05 Total Bilirubin 0.7 mg/dL (0.2-1.2) 01/17/17 04:37 AST 52 Units/L (5-34) H 01/17/17 04:37 ALT 31 Units/L (0-55) 01/17/17 04:37 Lipase 108 Units/L (8-78) H 01/18/17 05:20 - ABG ABG results: PT/INR, D-dimer PT 11.7 Seconds (9.4-12.1) 01/14/17 04:05 Consult Discharge Plan - Plan Instructions: Hydrocodone/Acetaminophen (By mouth), Promethazine (By mouth), Amoxicillin/Clavulanate Potassium (By mouth), Hydrocortisone (Rectal) Additional Instructions: Follow-up with primary care provider, GI, and [facility] as instructed Referrals: [facility] [Other] Rob Cat MD [Non-Partnered Physician] - 01/24/17 10:00 am Sravani Castillo MD [Partnered Physician] - 02/14/17 3:40 pm Prescriptions: Promethazine [Phenergan] 12.5 mg PO Q6HR PRN #12 tablet PRN Reason: Nausea And Vomiting Amoxicillin/Clavulanate [Augmentin] 875 mg PO BIDWM #10 tablet HYDROcodone/Acet 5/325 mg [[address] 5-325 mg] 1 tab PO Q6H PRN #20 tablet PRN Reason: Pain Hydrocortisone Acetate [Anucort-HC] 25 mg RC BID #28 supp.rect
[2017-01-19 07:16] LABS: Immunoglobulin G Subclass 1 317 mg/dL (240-1118); Immunoglobulin G Subclass 2 226 mg/dL (124-549); Immunoglobulin G Subclass 3 21 mg/dL (21-134); Immunoglobulin G Subclass 4 11 mg/dL (1-123)
== END 2017-01-18 13:37 | disposition home or self-care (01) | DRG 282 ==
LOC: 3BNU 17:46 → EMEROO 17:46 → 3BNU 21:39 → SUATTDRO 01-14 02:06
PROVIDERS: ADMIT Internal Medicine; ATTEND Nurse Practitioner Family

== ENCOUNTER 2017-02-25 12:48 | Inpatient (IN) ==
--- NOTE | 2017-02-25 14:07 | Emergency Department Note ---
Disposition Clinical Impression: Suicidal ideation, Depression, Hyperglycemia, Medical clearance for psychiatric admission Disposition: Admitted As Inpatient Psych HPI - General Chief Complaint: ED Psychiatric Symptoms Stated Complaint: SI Time Seen by Provider: 02/25/17 12:51 Source: patient Mode of arrival: ambulatory Limitations: no limitations Nursing Notes Reviewed: Yes Vital Signs Reviewed: Yes - History of Present Illness HPI Narrative: 61-year-old female past medical history of depression and anxiety presents for chief complaint of suicidal ideations worsening over the last few days. She states that with Mother's Day coming up she misses her son and feels hopeless. One of her sons 7 years ago, and she is unable to see the other one due to him being too busy. She denies medication noncompliance other than forgetting to take her insulin this morning. She denies any recent illness or injury, but does note chronic pancreatitis and states that her pancreas is bothering her a little today. She denies any chest pain or shortness of breath, altered mental status, hallucinations. She states that she has thought about killing herself by cutting her wrist with a knife. She has never attempted suicide in the past , but has had suicidal thoughts that required a psychiatric admission 4 years ago. Pt complaint: suicidal ideation - Related Data Home Medications Medication Instructions Recorded Confirmed Amlodipine [Amlodipine Besylate] 10 mg PO QAM 11/17/15 02/25/17 Duloxetine HCl [Cymbalta] 60 mg PO BID 11/17/15 02/25/17 Fluticasone Propionate Nasal 50 mcg NS DAILY PRN 11/17/15 02/25/17 [Flonase] LORazepam [Ativan] 0.5 tab PO BID PRN 11/17/15 02/25/17 Losartan/Hydrochlorothiazide 1 tab PO QAM 11/17/15 02/25/17 [Hyzaar 100-12.5 Tablet] Metoprolol [Lopressor] 100 mg PO BID 11/17/15 02/25/17 Trazodone HCl 150 mg PO HS 11/17/15 02/25/17 Vitamin E (Dl,Tocopheryl Acet) 400 unit PO DAILY 11/17/15 02/25/17 [Vitamin E] Multivitamin [Multi-Day Vitamins] 1 each PO DAILY 04/11/16 02/25/17 Insulin NPH/REG 70/30 [HumuLIN 100 unit SQ BIDWM 06/27/16 02/25/17 70/30 VIAL] Albuterol Sulfate [Albuterol 1 - 2 puff IH Q6HR PRN 10/13/16 02/25/17 Inhaler] Beclomethasone Diprop 80mcg [QVAR 1 puff IH BID 10/13/16 02/25/17 80 mcg] Furosemide [Lasix] 20 mg PO DAILY 10/13/16 02/25/17 Esomeprazole Magnesium [Nexium] 40 mg PO DAILY 11/26/16 02/25/17 Insulin Regular Human [Humulin R] 10 - 18 units SQ TID PRN 12/29/16 02/25/17 Previous Rx's Medication Instructions Recorded HYDROcodone/Acet 5/325 mg [[place] 1 tab PO Q6H PRN #20 tablet 01/18/17 5-325 mg] Promethazine [Phenergan] 12.5 mg PO Q6HR PRN #12 tablet 01/18/17 Allergies Allergy/AdvReac Type Severity Reaction Status Date / Time NSAIDS (Non-Steroidal AdvReac Gastrointestinal Verified 02/10/17 14:48 Anti-Inflamma Upset All systems ED: reviewed and negative except as stated. Past Medical History - Past Medical History Attestation: Yes The following information was validated with the patient. Source: patient Medical history: Reports: arthritis, asthma, cancer, cirrhosis, COPD, diabetes, GERD, GI bleed, hyperlipidemia, hypertension, liver disease, malignancy, osteoporosis, other Surgical history: Reports: appendectomy, cancer surgery, cholecystectomy, hysterectomy, orthopedic, other, LIZZETTE/BSO, other Psychiatric history: Reports: anxiety, depression, previous psychiatric hospitalization, other SOCIAL SERVICES ANALYST history: Reports: no SOCIAL SERVICES ANALYST history - Social History Smoking Status: Former smoker Smokeless Tobacco Status: No Alcohol use: Reports: none Drug use: Reports: none Physical Exam - Head Head exam: atraumatic, normocephalic, normal inspection - Eye Eye exam: Present: normal appearance, PERRL, EOMI - ENT ENT exam: normal exam, normal oropharynx, mucous membranes moist - Neck Neck exam: Present: normal inspection, full ROM, trachea midline - Chest Chest inspection: Present: normal inspection, symmetric chest wall rise - Respiratory Respiratory exam: Clear to auscultation bilaterally without wheezes rales or rhonchi Cardiovascular Cardiovascular exam: Present: regular rate, normal rhythm, normal heart sounds - Abdominal Exam Abdominal exam: Present: soft, Non-Tender. Absent: tenderness, distention, guarding, rebound, rigidity - Extremities Exam Extremities exam: Present: normal inspection, full ROM - Expanded Lower Extremity Exam Hip/Pelvis exam: Present: normal inspection, full ROM - Back Exam Back exam: Present: normal inspection, full ROM. Absent: tenderness, CVA tenderness (R), CVA tenderness (L) - Neurological Exam Neurological exam: Present: alert, oriented X3, CN II-XII intact - Psychiatric Depressed, tearful - Skin Skin exam: Present: warm, dry, intact, normal color - General Limitations: no limitations General appearance: alert Course - Reevaluation(s) Reevaluation #1: Patient accepted by psychiatric team to 1A. Time: 19:12 Vital Signs Temperature 98.8 F 02/25/17 12:55 Pulse Rate 79 02/25/17 12:55 Respiratory Rate 18 02/25/17 12:55 Blood Pressure 170/105 02/25/17 12:55 O2 Sat by Pulse Oximetry 95 02/25/17 12:55 Temperature 98.8 F 02/25/17 12:55 Pulse Rate 71 02/25/17 15:45 Respiratory Rate 17 02/25/17 18:17 Blood Pressure 121/70 02/25/17 18:17 O2 Sat by Pulse Oximetry 95 02/25/17 15:45 Oxygen Delivery Oxygen Delivery Room Air Psych - Lab Data Result diagrams: 02/25/17 14:11 02/25/17 14:11 Lab Results 02/25/17 02/25/17 02/25/17 Range/Units 14:11 14:11 14:22 WBC 7.8 (4.3-11.1) K/mcL RBC 4.24 (3.82-4.97) M/mcL Hgb 13.1 (11.5-15.4) g/dL Hct 38.2 (35.3-44.9) % MCV 90.1 (83.0-100.0) fL MCH 30.9 (28.0-33.3) pg MCHC 34.3 (31.6-35.5) g/dL RDW 13.6 (11.5-14.5) % Plt Count 298 (140-400) K/mcL MPV 9.9 (9.4-12.4) fL Immature Gran % 0.8 (0-4) % Seg Neutrophils % 54.8 % Lymphocytes % 27.4 % Monocytes % 10.3 % Eosinophils % 5.8 % Basophils % 0.9 % Neutrophils # 4.3 (1.6-8.9) K/mcL Lymphocytes # 2.1 (0.6-4.6) K/mcL Monocytes # 0.8 (0.0-1.3) K/mcL Eosinophils # 0.5 (0.0-0.6) K/mcL Basophils # 0.1 (0.0-0.2) K/mcL Reactive Lymphocytes Present A (Not Present) Platelet Estimate Normal (Normal) Immature Plt Fraction 4.4 (1.1-6.1) % Sodium 137 (136-145) mEq/L Potassium 3.9 (3.5-4.5) mEq/L Chloride 103 (98-109) mEq/L Carbon Dioxide 22 (19-29) mEq/L BUN 9 (7-20) mg/dL Creatinine 0.76 (0.57-1.11) mg/dL Est GFR ( Amer) > 60 (> 60) Est GFR (Non-Af Amer) > 60 (> 60) BUN/Creatinine Ratio 12 (6-26) Glucose 307 H (70-99) mg/dL Calculated Osmolality 294 (280-300) Calcium 9.5 (8.6-10.8) mg/dL Lipase 84 H (8-78) Units/L Salicylates < 5.0 L (15-30) mg/dL Urine Opiates Screen Negative (Onjcra=140) ng/mL Acetaminophen < 1.0 L (10-30) mcg/mL Ur Barbiturates Screen Negative (Yfgmxv=654) ng/mL Ur Phencyclidine Scrn Negative (Cutoff=25) ng/mL Ur Amphetamines Screen Negative (Opqgys=6834) ng/mL U Benzodiazepines Scrn Negative (Xhgynn=872) ng/mL Urine Cocaine Screen Negative (Cutoff= 300) ng/mL U Marijuana (THC) Screen Negative (Cutoff = 50) ng/mL Ethyl Alcohol < 10 (0-10) mg/dL Psychiatric Medical Clearance - Medical Clearance Checklist Medical History: No Social History Section defined Current Vitals: Last Vital Signs Temp 98.8 F 05/13/17 12:55 Pulse 71 02/25/17 15:45 Resp 17 02/25/17 18:17 BP 121/70 02/25/17 18:17 Pulse Ox 95 02/25/17 15:45 Psychiatric Lab Panel: Drug Levels and Toxicity 02/25/17 02/25/17 14:11 14:22 Urine Opiates Screen Negative Acetaminophen < 1.0 L Ur Barbiturates Screen Negative Ur Phencyclidine Scrn Negative Ur Amphetamines Screen Negative U Benzodiazepines Scrn Negative Urine Cocaine Screen Negative U Marijuana (THC) Screen Negative Ethyl Alcohol < 10 Abnormal Labs: Abnormal lab results Reactive Lymphocytes Present (Not Present) A 02/25/17 14:11 Glucose 307 mg/dL (70-99) H 02/25/17 14:11 Lipase 84 Units/L (8-78) H 02/25/17 14:11 Salicylates < 5.0 mg/dL (15-30) L 02/25/17 14:11 Acetaminophen < 1.0 mcg/mL (10-30) L 02/25/17 14:11 Statement of Medical Clearance: I have evaluated the patient, reviewed diagnostic information, and certify that the patient's medical condition is sufficiently stable that transfer to the psychiatric unit does not pose a significant risk of deterioration. Attestation Statement - Attestation Attestation: I personally interviewed and examined this patient and my medical decision- making was reviewed with the ED Resident Physician, Dr. Napoles. I agree with the documented findings, disposition and treatment plan as described except to the extent set forth below. Patient is a 61-year-old white female with a history of depression with prior hospitalization approximately 3-4 years ago, who presents to the emergency department with reported suicidal ideation with plan. Patient states that she takes Cymbalta for depression, has been taking as directed but the closer it has become to Mother's Day she is getting more and more depressed. Patient expresses a lot of family stress in regards to her relationships with her children and grandchildren. Patient reports that she has been having thoughts of taking a knife to harm herself. Patient denies any overdose of medications at home. She does not see a counselor on an outpatient basis. Patient with no physical complaints at this time. Agree with physical exam as documented. Patient has been placed on suicidal precautions, labs will be obtained and if medically clear wall consult [facility] for psychiatric evaluation. Patient remains stable at this time.
[2017-02-25 14:18] LABS: Basophils # 0.1 K/mcL (0.0-0.2); Basophils % 0.9 %; Eosinophils # 0.5 K/mcL (0.0-0.6); Eosinophils % 5.8 %; Hematocrit 38.2 % (35.3-44.9); Hemoglobin 13.1 g/dL (11.5-15.4); Immature Granulocytes % 0.8 % (0-4); Immature Platelets 4.4 % (1.1-6.1); Lymphocytes # 2.1 K/mcL (0.6-4.6); Lymphocytes % 27.4 %; Mean Corpuscular HGB Conc 34.3 g/dL (31.6-35.5); Mean Corpuscular Hemoglobin 30.9 pg (28.0-33.3); Mean Corpuscular Volume 90.1 fL (83.0-100.0); Mean Platelet Volume 9.9 fL (9.4-12.4); Monocytes # 0.8 K/mcL (0.0-1.3); Monocytes % 10.3 %; Neutrophils # 4.3 K/mcL (1.6-8.9); Platelet Count 298 K/mcL (140-400); Red Blood Count 4.24 M/mcL (3.82-4.97); Red Cell Distribution Width 13.6 % (11.5-14.5); Segmented Neutrophils % 54.8 %
[2017-02-25 14:31] LABS: BUN/Creatinine Ratio 12 (6-26); Blood Urea Nitrogen 9 mg/dL (7-20); Calcium 9.5 mg/dL (8.6-10.8); Carbon Dioxide 22 mEq/L (19-29); Chloride 103 mEq/L (98-109); Glucose 307 mg/dL (70-99); Osmolality,Calculated 294 (280-300); Potassium 3.9 mEq/L (3.5-4.5); Sodium 137 mEq/L (136-145); eGFR For African Americans > 60 (> 60); eGFR For Non-African Americans > 60 (> 60)
[2017-02-25 14:32] LABS: Acetaminophen < 1.0 mcg/mL (10-30); Ethanol < 10 mg/dL (0-10); Salicylate < 5.0 mg/dL (15-30)
[2017-02-25 14:38] LABS: Amphetamine Screen,Urine Negative ng/mL (Cutoff=1000); Barbiturate Screen,Urine Negative ng/mL (Cutoff=200); Benzodiazepines Screen,Urine Negative ng/mL (Cutoff=200); Cannabinoid Screen,Urine Negative ng/mL (Cutoff = 50); Cocaine Screen,Urine Negative ng/mL (Cutoff= 300); Opiate Screen,Urine Negative ng/mL (Cutoff=300); Phencyclidine Screen,Urine Negative ng/mL (Cutoff=25)
[2017-02-25 14:39] LABS: Platelet Estimate Normal (Normal); Reactive Lymphocytes Present (Not Present)
[2017-02-25 14:48] LABS: Lipase 84 Units/L (8-78)
[2017-02-25] MEDS ORDERED: Insulin NPH/REG 70/30 100 UNIT/ML (x5UNIT) SQ ONE (16:16)
[2017-02-25] MEDS ORDERED: Fluticasone Propionate Nasal 50 MCG/SPRAY BOTTLE NS PRN (18:08)
[2017-02-25] MEDS ORDERED: *HR* LORazepam 1 MG TABLET PO PRN ×2 (18:08→18:10)
[2017-02-25] MEDS ORDERED: INSULIN REGULAR HUMAN SQ PRN (18:08)
[2017-02-25] MEDS ORDERED: *HR* HYDROcodone/Acet 5/325 mg TABLET PO PRN (18:08)
[2017-02-25] MEDS ORDERED: traZODone 50 MG TABLET PO PRN (18:10)
[2017-02-25] MEDS ORDERED: Mag Hydrox/Al Hydrox/Simeth 30 ML UDC PO PRN (18:10)
[2017-02-25] MEDS ORDERED: *HR* LORazepam 2 MG/ML VIAL IM PRN (18:10)
[2017-02-25] MEDS ORDERED: MOM Conc 10 ML UD.LIQ PO PRN (18:10)
[2017-02-25] MEDS ORDERED: Haloperidol Lactate 5 MG/ML VIAL IM PRN (18:10)
[2017-02-25] MEDS ORDERED: hydrOXYzine pamoate 25 MG CAPSULE PO PRN (18:10)
[2017-02-25] MEDS ORDERED: Acetaminophen 325 MG TABLET PO PRN (18:10)
[2017-02-25] MEDS ORDERED: Dextrose Gel 15 GM PO PRN ×2 (20:45)
[2017-02-25] MEDS ORDERED: *HR* Dextrose 50 % in Water (Syg) 50 ML SYRINGE IVP PRN (20:45)
[2017-02-25] MEDS ORDERED: D5% in Water 1,000 ML IVC PRN (20:45)
[2017-02-25] MEDS ORDERED: Metoprolol 100 MG TABLET PO SCH (21:00)
[2017-02-25] MEDS: traZODone 50 MG TABLET PO SCH (21:28)
[2017-02-25] MEDS: Beclomethasone 80mcg MDI IH SCH (21:58)
[2017-02-26] MEDS: Insulin LISPRO 300 UNITS/3 ML VIAL SQ SCH ×3 (08:37→17:11)
[2017-02-26] MEDS: Insulin NPH/REG 70/30 100 UNIT/ML (x5UNIT) SQ SCH ×2 (08:39→17:12)
[2017-02-26] MEDS: Losartan/HCTZ 50-12.5 TABLET PO SCH (08:40)
[2017-02-26] MEDS: Furosemide 20 MG TABLET PO SCH (08:41)
[2017-02-26] MEDS: Multivit/Ca/Min/Fe/FA 1 TAB TABLET PO SCH (08:41)
[2017-02-26] MEDS: amLODIPine 5 MG TABLET PO SCH (08:43)
--- NOTE | 2017-02-26 09:37 | Psychiatry History & Physical ---
Date of Encounter: 02/26/17 Time of Encounter: 09:27 History of Present Illness Patient Stated Chief Complaint: suicidal ideation Medicare Admission Attestation: For traditional Medicare patients the provided hospital inpatient services are reasonable and necessary and in the case of services not specified as inpatient -only under 42 CFR 419.22 (n), that they are appropriately provided as inpatient services in accordance 42 CFR 412.3. For Critical Access Hospital the patient may reasonably be expected to be discharged or transferred to a hospital within 96 hours after admission to the Critical Access Hospital. History of Present Illness: Ms. TRAN is a 61 year old female who was admitted with SI and a vague plan to stab herself. Pleasant but tearful. Multiple stressors. Son committed suicide seven years ago. Estranged from remaining two children and unable to see any of her grandkids. Multiple medical issues including Diabetes, HTN, History of Lung Cancer, GERD with history of bleeding ulcers, Recurrent Pancreatitis with unknown cause, Cirrhosis, and arthritis. Lives alone with limited to no supports. Polite here but isolating to room. Came out for fifteen minutes with encouragement but then returned to room. No current Psychiatrist. PCP manages meds. Has been tried on most antidepressants over last twenty years including Prozac, Paxil, Zoloft, Celexa, Wellbutrin, Effexor, Risperdal, Seroquel, and Abilify amongst others she could not remember. Has never been tried on [place]. Discussed how this might be a good choice as it targets suicidal thinking and it is metabolized by the kidneys so it should not impact an already poorly functioning liver. Discussed how this medication has the potential to become toxic and that blood levels will be required to ensure she is not overdosed in any way. Will start with 150mg BID. This is a low dose and will likely need titrated for clinical effect. Already prescribed Cymbalta. No substance abuse history. Previously tried counseling but stopped when therapist moved to another job and she did not mesh with her replacement. Past Med Surg Social Fam HX - Past Medical History Medical history: arthritis, asthma, cancer, cirrhosis, COPD, diabetes, GERD, GI bleed, hyperlipidemia, hypertension, liver disease, malignancy, osteoporosis, other - Past Psychiatric History Psychiatric history: Reports: depression, previous psychiatric hospitalization Past psychiatric history details: no history of suicide attempts - Past Surgical History Surgical History: appendectomy, cancer surgery, cholecystectomy, hysterectomy, orthopedic, other, LIZZETTE/BSO, other - Social History Smoking Status: Former smoker Smokeless Tobacco Status: No Alcohol use: none Drug use: none - Family History Mother Adopted: No Living Status: Hx Family Cardiac Disorders: Yes ([place]) Hx Family Respiratory Disorders: Yes (Emphysema) Hx Family Cancer: Yes (Skin cancer, "Eye cancer") Hx Family GI Disorders: No Hx Family Endocrine Disorder: Yes (DM) Hx Family Neuromuscular Disorders: No Hx Family Neurologic Disorders: No Hx Family HEENT Disorders: No Hx Family Autoimmune Disorders: No Father Living Status: Hx Family Cardiac Disorders: Yes (unknown) Medications & Allergies Amlodipine [Amlodipine Besylate] 10 mg PO QAM 11/17/15 [History] Duloxetine HCl [Cymbalta] 60 mg PO BID 11/17/15 [History] Fluticasone Propionate Nasal [Flonase] 50 mcg NS DAILY PRN 11/17/15 [History] LORazepam [Ativan] 0.5 tab PO BID PRN 11/17/15 [History] Losartan/Hydrochlorothiazide [Hyzaar 100-12.5 Tablet] 1 tab PO QAM 11/17/15 [ History] Metoprolol [Lopressor] 100 mg PO BID 11/17/15 [History] Trazodone HCl 150 mg PO HS 11/17/15 [History] Vitamin E (Dl,Tocopheryl Acet) [Vitamin E] 400 unit PO DAILY 11/17/15 [History] Multivitamin [Multi-Day Vitamins] 1 each PO DAILY 04/11/16 [History] Insulin NPH/REG 70/30 [HumuLIN 70/30 VIAL] 100 unit SQ BIDWM 06/27/16 [History] Albuterol Sulfate [Albuterol Inhaler] 1 - 2 puff IH Q6HR PRN 10/13/16 [History] Beclomethasone Diprop 80mcg [QVAR 80 mcg] 1 puff IH BID 10/13/16 [History] Furosemide [Lasix] 20 mg PO DAILY 10/13/16 [History] Esomeprazole Magnesium [Nexium] 40 mg PO DAILY 11/26/16 [History] Insulin Regular Human [Humulin R] 10 - 18 units SQ TID PRN 12/29/16 [History] HYDROcodone/Acet 5/325 mg [[place] 5-325 mg] 1 tab PO Q6H PRN #20 tablet 01/18/17 [Rx] Promethazine [Phenergan] 12.5 mg PO Q6HR PRN #12 tablet 01/18/17 [Rx] Allergies NSAIDS (Non-Steroidal Anti-Inflamma Adverse Reaction (Verified 02/10/17 14:48) Gastrointestinal Upset PATIENT HAS ULCERS- Review of Systems Constitutional: Denies: fever, chills, weakness, weight change Eyes: Denies: eye pain, vision change Ears, Nose, Throat: Denies: ear pain, throat pain, dental pain, hearing loss, congestion Cardiovascular: Denies: chest pain, palpitations, dyspnea on exertion Respiratory: Denies: cough, dyspnea, wheezes Gastrointestinal: Reports: abdominal pain, nausea. Denies: vomiting, diarrhea, constipation Genitourinary male: Denies: urgency, dysuria, frequency, genital lesions Genitourinary female: Denies: urgency, dysuria, frequency, abnormal menses, dyspareunia Musculoskeletal: Denies: joint swelling, joint pain Integumentary: Denies: rash, lesions, pruritus Neurological: Denies: headache, weakness, numbness, memory loss Endocrine: Reports: fatigue. Denies: heat or cold intolerance Hematologic/Lymphatic: Denies: easy bruising, lymphadenopathy Allergic/Immunologic: Denies: urticaria, itchy eyes Mental Status Exam Patient orientation: Yes Person, Yes Time, Yes Place Level of alertness: Alert Patient appearance: Appropriate Behavior: calm, cooperative Psychomotor activity: Normal Eye contact: Maintains Eye Contact Mood description: Depressed Affect description: tearful Speech pattern: Normal rate, Normal rhythm, Normal tone Speech volume: Normal Thought process: Linear Thought content: Yes Suicidal ideation, No Homicidal ideation, No Overt delusions Perceptual disturbances: No Auditory hallucinations, No Visual hallucinations Attention span: Capable of Focused Attention Memory description: Grossly Intact Patient reliability: Reliable Historian Intelligence estimate: Average Judgment: Fair Insight: Partial Exam - HEENT Head exam IM: Present: normal inspection Eye exam IM: Present: EOMI ENT exam IM: Present: mucous membranes moist - Neurological Neurological exam IM: Present: alert, oriented X3 - Respiratory Respiratory exam IM: Present: decreased breath sounds - GI/Abdominal GI/Abdominal exam IM: Present: normal bowel sounds - Extremities Extremities exam IM: Present: full ROM - Skin Skin exam IM: Present: normal color Results - Vital Signs Vital signs: Temp Pulse Resp BP Pulse Ox 97.4 F L 73 18 139/81 95 02/25/17 20:13 02/25/17 20:13 02/25/17 20:13 02/25/17 20:13 02/25/17 15:45 - Labs Labs: Laboratory Last Values WBC 7.8 K/mcL (4.3-11.1) 02/25/17 14:11 RBC 4.24 M/mcL (3.82-4.97) 02/25/17 14:11 Hgb 13.1 g/dL (11.5-15.4) 02/25/17 14:11 Hct 38.2 % (35.3-44.9) 02/25/17 14:11 MCV 90.1 fL (83.0-100.0) 02/25/17 14:11 MCH 30.9 pg (28.0-33.3) 02/25/17 14:11 MCHC 34.3 g/dL (31.6-35.5) 02/25/17 14:11 RDW 13.6 % (11.5-14.5) 02/25/17 14:11 Plt Count 298 K/mcL (140-400) 02/25/17 14:11 MPV 9.9 fL (9.4-12.4) 02/25/17 14:11 Immature Gran % 0.8 % (0-4) 02/25/17 14:11 Seg Neutrophils % 54.8 % 02/25/17 14:11 Lymphocytes % 27.4 % 02/25/17 14:11 Monocytes % 10.3 % 02/25/17 14:11 Eosinophils % 5.8 % 02/25/17 14:11 Basophils % 0.9 % 02/25/17 14:11 Neutrophils # 4.3 K/mcL (1.6-8.9) 02/25/17 14:11 Lymphocytes # 2.1 K/mcL (0.6-4.6) 02/25/17 14:11 Monocytes # 0.8 K/mcL (0.0-1.3) 02/25/17 14:11 Eosinophils # 0.5 K/mcL (0.0-0.6) 02/25/17 14:11 Basophils # 0.1 K/mcL (0.0-0.2) 02/25/17 14:11 Reactive Lymphocytes Present (Not Present) A 02/25/17 14:11 Platelet Estimate Normal (Normal) 02/25/17 14:11 Immature Plt Fraction 4.4 % (1.1-6.1) 02/25/17 14:11 Sodium 137 mEq/L (136-145) 02/25/17 14:11 Potassium 3.9 mEq/L (3.5-4.5) 02/25/17 14:11 Chloride 103 mEq/L (98-109) 02/25/17 14:11 Carbon Dioxide 22 mEq/L (19-29) 02/25/17 14:11 BUN 9 mg/dL (7-20) 02/25/17 14:11 Creatinine 0.76 mg/dL (0.57-1.11) 02/25/17 14:11 Est GFR ( Amer) > 60 (> 60) 02/25/17 14:11 Est GFR (Non-Af Amer) > 60 (> 60) 02/25/17 14:11 BUN/Creatinine Ratio 12 (6-26) 02/25/17 14:11 Glucose 307 mg/dL (70-99) H 02/25/17 14:11 POC Glucose 177 (58-89) H 02/26/17 08:19 Calculated Osmolality 294 (280-300) 02/25/17 14:11 Calcium 9.5 mg/dL (8.6-10.8) 02/25/17 14:11 Lipase 84 Units/L (8-78) H 02/25/17 14:11 Salicylates < 5.0 mg/dL (15-30) L 02/25/17 14:11 Urine Opiates Screen Negative ng/mL (Smuopz=469) 02/25/17 14:22 Acetaminophen < 1.0 mcg/mL (10-30) L 02/25/17 14:11 Ur Barbiturates Screen Negative ng/mL (Dibwxt=689) 02/25/17 14:22 Ur Phencyclidine Scrn Negative ng/mL (Cutoff=25) 02/25/17 14:22 Ur Amphetamines Screen Negative ng/mL (Saycha=7279) 02/25/17 14:22 U Benzodiazepines Scrn Negative ng/mL (Opajac=952) 02/25/17 14:22 Urine Cocaine Screen Negative ng/mL (Cutoff= 300) 02/25/17 14:22 U Marijuana (THC) Screen Negative ng/mL (Cutoff = 50) 02/25/17 14:22 Ethyl Alcohol < 10 mg/dL (0-10) 02/25/17 14:11 Assessment and Plan (1) Suicidal ideation Current visit: Yes Status: Acute Plan: Admit inpatient for safety and stabilization, Close observation, Suicide Precautions per unit protocol, Encourage participation in unit milieu, Group Therapy, Monitor sleep, Monitor appetite, Secure weapons Risks, benefits, side effects, alternatives discussed w/pt: Yes Patient agreeable to treatment : Yes Plans for Post Hospital Care: Home Estimated Length of Stay (Days): 4
[2017-02-26] MEDS: Beclomethasone 80mcg MDI IH SCH ×2 (10:46→21:36)
[2017-02-26] MEDS: Lithium Oral Soln 300 MG/5 ML UDC PO SCH ×2 (11:00→21:29)
[2017-02-26] MEDS: traZODone 50 MG TABLET PO SCH (21:30)
[2017-02-27] MEDS: Insulin NPH/REG 70/30 100 UNIT/ML (x5UNIT) SQ SCH ×2 (08:20→16:57)
[2017-02-27] MEDS: Insulin LISPRO 300 UNITS/3 ML VIAL SQ SCH ×3 (08:21→16:34)
[2017-02-27] MEDS: Losartan/HCTZ 50-12.5 TABLET PO SCH (08:51)
[2017-02-27] MEDS: Lithium Oral Soln 300 MG/5 ML UDC PO SCH ×2 (08:51→22:18)
[2017-02-27] MEDS: Furosemide 20 MG TABLET PO SCH (08:51)
[2017-02-27] MEDS: amLODIPine 5 MG TABLET PO SCH (08:53)
[2017-02-27] MEDS: Multivit/Ca/Min/Fe/FA 1 TAB TABLET PO SCH (08:54)
[2017-02-27] MEDS: Beclomethasone 80mcg MDI IH SCH ×2 (10:00→22:17)
--- NOTE | 2017-02-27 14:14 | Psychiatry Progress Note ---
Date of Encounter: 02/27/17 Time of Encounter: 14:00 Subjective Interval history: Patient seen for follow-up. Notes medication reviewed. Patient was started on lithium yesterday and she denies any side effects and tolerated the medication. She denies any problems with sleep. She denies suicidal ideation. She reports feeling isolated and lonely and interested in having individual therapy. This would be arranged in her discharge planning. Objective: Exam Patient orientation: Yes Person, Yes Time, Yes Place Level of alertness: Alert Patient appearance: Appropriate, Unkempt, Obese Behavior: calm, cooperative Psychomotor activity: Slowed Eye contact: Minimal Contact Mood description: Depressed Affect description: congruent with mood, constricted Speech pattern: Normal rate, Normal rhythm, Normal tone, Limited Speech volume: Normal Thought process: Linear, Goal Oriented Thought content: No Suicidal ideation, No Homicidal ideation, No Overt delusions Perceptual disturbances: No Auditory hallucinations, No Visual hallucinations Judgment: Fair Insight: Partial Results - Vital Signs Vital Signs: Temp Pulse Resp BP Pulse Ox 97.6 F 78 16 121/75 95 02/27/17 09:00 02/27/17 09:00 02/27/17 09:00 02/27/17 09:00 02/25/17 15:45 - Labs Labs: Laboratory Results - last 24 hr 02/26/17 02/26/17 02/27/17 16:15 20:17 08:10 POC Glucose 145 H 200 H 158 H 02/27/17 11:34 POC Glucose 253 H Assessment and Plan (1) Depression, major, recurrent Current visit: Yes Status: Acute Plan: Continue hospitalization, Close observation, Suicide Precautions per unit protocol, Encourage participation in unit milieu, Group Therapy, Monitor sleep, Monitor appetite Risks, benefits, side effects, alternatives discussed w/pt: Yes Patient agreeable to treatment: Yes Qualifiers: Qualified Code(s): F33.2 - Major depressive disorder, recurrent severe without psychotic features Consult Discharge Plan - Plan Referrals: NO,PCP [Primary Care Provider] -
[2017-02-27] MEDS: traZODone 50 MG TABLET PO SCH (22:18)
[2017-02-28] MEDS: amLODIPine 5 MG TABLET PO SCH (08:35)
[2017-02-28] MEDS: Losartan/HCTZ 50-12.5 TABLET PO SCH (08:36)
[2017-02-28] MEDS: Multivit/Ca/Min/Fe/FA 1 TAB TABLET PO SCH (08:36)
[2017-02-28] MEDS: Furosemide 20 MG TABLET PO SCH (08:36)
[2017-02-28] MEDS: Lithium Oral Soln 300 MG/5 ML UDC PO SCH ×2 (08:37→20:27)
[2017-02-28] MEDS: Insulin NPH/REG 70/30 100 UNIT/ML (x5UNIT) SQ SCH ×2 (08:38→17:22)
[2017-02-28] MEDS: Insulin LISPRO 300 UNITS/3 ML VIAL SQ SCH ×3 (08:39→16:56)
[2017-02-28] MEDS: Beclomethasone 80mcg MDI IH SCH ×2 (09:05→21:32)
--- NOTE | 2017-02-28 16:01 | Psychiatry Progress Note ---
Date of Encounter: 02/28/17 Time of Encounter: 15:30 Subjective Interval history: Patient seen in follow-up. Staff reports she is seclusive to her room most of time and sleeping. She is concerned about her living situation and considering going back to her home town. She will continue to be concerned about her relationship was her daughter and not being able to see her grandchildren. She denied any suicidal ideation. She is interested in having individual therapy and the social services designee is trying to help her plan. Objective: Exam Patient orientation: Yes Person, Yes Time, Yes Place Level of alertness: Alert Patient appearance: Appropriate, Well Groomed, Obese Behavior: calm, cooperative, withdrawn Psychomotor activity: Slowed Eye contact: Minimal Contact Mood description: Depressed, Anxious Affect description: congruent with mood, constricted, anxious Speech pattern: Normal rate, Normal rhythm, Normal tone Speech volume: Normal Thought process: Linear, Goal Oriented Thought content: No Suicidal ideation, No Homicidal ideation, No Overt delusions Perceptual disturbances: No Auditory hallucinations, No Visual hallucinations Judgment: Fair Insight: Partial Results - Vital Signs Vital Signs: Temp Pulse Resp BP Pulse Ox 97.8 F 76 18 151/85 95 02/28/17 09:00 02/28/17 09:00 02/28/17 09:00 02/28/17 09:00 02/25/17 15:45 - Labs Labs: Laboratory Results - last 24 hr 02/27/17 02/27/17 02/28/17 16:25 20:18 08:12 POC Glucose 202 H 214 H 154 H 02/28/17 11:30 POC Glucose 221 H Assessment and Plan (1) Depression, major, recurrent Current visit: Yes Status: Acute Plan: Continue hospitalization, Close observation, Suicide Precautions per unit protocol, Encourage participation in unit milieu, Group Therapy, Monitor sleep, Monitor appetite Risks, benefits, side effects, alternatives discussed w/pt: Yes Patient agreeable to treatment: Yes Qualifiers: Qualified Code(s): F33.2 - Major depressive disorder, recurrent severe without psychotic features Consult Discharge Plan - Plan Referrals: [facility] [Outside] - 03/15/17 1:00 pm (The above appointment is with Yady Hope for counseling.) Ava Kimble CNP [Partnered Physician] - 03/17/17 10:50 am (The abover appointment is with Gómez Kimble.)
[2017-02-28] MEDS: traZODone 50 MG TABLET PO SCH (20:28)
[2017-03-01] MEDS: Lithium Oral Soln 300 MG/5 ML UDC PO SCH (08:24)
[2017-03-01] MEDS: amLODIPine 5 MG TABLET PO SCH (08:25)
[2017-03-01] MEDS: Furosemide 20 MG TABLET PO SCH (08:25)
[2017-03-01] MEDS: Multivit/Ca/Min/Fe/FA 1 TAB TABLET PO SCH (08:25)
[2017-03-01] MEDS: Losartan/HCTZ 50-12.5 TABLET PO SCH (08:25)
[2017-03-01] MEDS: Insulin NPH/REG 70/30 100 UNIT/ML (x5UNIT) SQ SCH (08:27)
[2017-03-01] MEDS: Insulin LISPRO 300 UNITS/3 ML VIAL SQ SCH ×2 (08:27→11:44)
[2017-03-01 08:49] VITALS: BP 158/82
[2017-03-01] MEDS: Beclomethasone 80mcg MDI IH SCH (09:10)
--- NOTE | 2017-03-01 12:43 | Discharge Summary ---
Date of Encounter: 03/01/17 Time of Encounter: 12:30 Diagnosis - Discharge Diagnosis (1) Depression, major, recurrent Status: Acute Qualifiers: Qualified Code(s): F33.2 - Major depressive disorder, recurrent severe without psychotic features Medications - Discharge Medications Prescriptions: [place] Oral Soln [[place]] 150 mg PO BID #60 udc Amlodipine [Amlodipine Besylate] 10 mg PO QAM 11/17/15 [History] Duloxetine HCl [Cymbalta] 60 mg PO BID 11/17/15 [History] Fluticasone Propionate Nasal [Flonase] 50 mcg NS DAILY PRN 11/17/15 [History] LORazepam [Ativan] 0.5 tab PO BID PRN 11/17/15 [History] Losartan/Hydrochlorothiazide [Hyzaar 100-12.5 Tablet] 1 tab PO QAM 11/17/15 [ History] Metoprolol [Lopressor] 100 mg PO BID 11/17/15 [History] Trazodone HCl 150 mg PO HS 11/17/15 [History] Vitamin E (Dl,Tocopheryl Acet) [Vitamin E] 400 unit PO DAILY 11/17/15 [History] Multivitamin [Multi-Day Vitamins] 1 each PO DAILY 04/11/16 [History] Insulin NPH/REG 70/30 [HumuLIN 70/30 VIAL] 100 unit SQ BIDWM 06/27/16 [History] Albuterol Sulfate [Albuterol Inhaler] 1 - 2 puff IH Q6HR PRN 10/13/16 [History] Beclomethasone Diprop 80mcg [QVAR 80 mcg] 1 puff IH BID 10/13/16 [History] Furosemide [Lasix] 20 mg PO DAILY 10/13/16 [History] Esomeprazole Magnesium [Nexium] 40 mg PO DAILY 11/26/16 [History] Insulin Regular Human [Humulin R] 10 - 18 units SQ TID PRN 12/29/16 [History] HYDROcodone/Acet 5/325 mg [[place] 5-325 mg] 1 tab PO Q6H PRN #20 tablet 01/18/17 [Rx] Promethazine [Phenergan] 12.5 mg PO Q6HR PRN #12 tablet 01/18/17 [Rx] [place] Oral Soln [[place]] 150 mg PO BID #60 udc 03/01/17 [Rx] Allergies NSAIDS (Non-Steroidal Anti-Inflamma Adverse Reaction (Verified 02/10/17 14:48) Gastrointestinal Upset PATIENT HAS ULCERS- Provider Date of admission: 02/25/17 18:05 Primary care physician: PCP NO Discharging clinician: Shayne Kiser Assessment and Plan - Patient/Caregiver Discharge Instructions Activity: resume usual activities as tolerated Diet: regular diet Additional Instructions: Please check lithium level in 2 weeks. - Follow up Plan Follow up with: [facility] [Outside] - 03/15/17 1:00 pm (The above appointment is with Yady Hope for counseling.) Ava Kimble CNP [Partnered Physician] - 03/17/17 10:50 am (The abover appointment is with Gómez Kimble.) Functional capacity at discharge: independent ambulation Overall status at discharge: Stable Disposition: Home, Self-Care Hospital Course Hospital course: Ms. Lopez is a 61 year old female admitted for depression and suicidal ideation. For details of the admission please see H&P On the units patient medication were reviewed and added lithium. Patient tolerated medication changes and she was compliant with medication, she participated in activities. She reported improved sleep and felt less depressed and denied suicidal ideation. plate worker attempted to place the patient in crisis bed but no bed was available so patient has been discharged home. On discharge patient was medically stable, nonsuicidal and future oriented. She is interested in having individual therapy after discharge. - Time Spent with Patient Total time spent providing and/or coordinating discharge services: Less than 30 minutes Quality - Multiple Antipsychotics Patient discharged on 2 or more antipsychotic medications: No Procedures - Procedures Procedures: Medication Management, Crisis Stabilization, Supportive Therapy, Group Therapy, Psychoeducational Therapy Mental Status Exam - Mental Status Exam Patient orientation: Yes Person, Yes Time, Yes Place Level of alertness: Alert Patient appearance: Appropriate, Well Groomed, Obese Behavior: calm, cooperative Psychomotor activity: Normal Eye contact: Maintains Eye Contact Mood description: Euthymic/stable Affect description: congruent with mood, full range Speech pattern: Normal rate, Normal rhythm, Normal tone Speech Volume: Normal Thought process: Linear, Goal Oriented Thought Content: No Suicidal ideation, No Homicidal ideation, No Overt delusions Perceptual Disturbances: No Auditory hallucinations, No Visual hallucinations Judgment: Limited Insight: Partial
== END 2017-03-01 13:40 | disposition home or self-care (01) | DRG 751 ==
LOC: EMEROO 12:48 → SUATTDRO 18:05 → 1ANU 18:05
PROVIDERS: ADMIT Psychiatry & Neurology Psychiatry; ATTEND Psychiatry & Neurology Psychiatry

== ENCOUNTER 2017-03-06 13:35 | Observation (INO) ==
[2017-03-06] MEDS ORDERED: 0.9 % Sodium Chloride 1,000 ML IVC ONE (15:36)
[2017-03-06] MEDS ORDERED: Ondansetron 4 MG/2 ML VIAL IVP ONE ×2 (15:36→19:02)
--- NOTE | 2017-03-06 15:40 | Emergency Department Note ---
Disposition Clinical Impression: Intractable abdominal pain Pancreatitis Qualifiers: Chronicity: chronic Pancreatitis type: unspecified pancreatitis type Qualified Code(s): K86.1 - Other chronic pancreatitis Disposition: Admitted As Inpatient Condition: Good Referrals: Ava Kimble CNP [Primary Care Provider] - Forms: Work/School Release, ED Satisfaction Letter Time of Disposition: 18:12 General Adult HPI - General Chief complaint: ED Abdominal Pain Stated complaint: abd pain// nausea Time Seen by Provider: 03/06/17 15:07 Source: patient Limitations: no limitations Nursing Notes Reviewed: Yes Vital Signs Reviewed: Yes - History of Present Illness HPI Narrative: 61-year-old female presents ambulatory with 1 day of epigastric burning going through her back nausea chills and pain. History of recurrent pancreatitis. Patient has no insulin-dependent diabetic. Denies fever or shortness of breath or chest pain. No recent trauma medication changes L contacts exotic food or recent travel. An ice dysuria or diarrhea. H and states this pain is consistent with her prior flares of pancreatitis. Pain is 8 out of 10 cramping burning and sharp. Patient here for further evaluation. Pain Scale: 4 - Related Data Home Medications Medication Instructions Recorded Confirmed Amlodipine [Amlodipine Besylate] 10 mg PO QAM 11/17/15 02/25/17 Duloxetine HCl [Cymbalta] 60 mg PO BID 11/17/15 02/25/17 Fluticasone Propionate Nasal 50 mcg NS DAILY PRN 11/17/15 02/25/17 [Flonase] LORazepam [Ativan] 0.5 tab PO BID PRN 11/17/15 02/25/17 Losartan/Hydrochlorothiazide 1 tab PO QAM 11/17/15 02/25/17 [Hyzaar 100-12.5 Tablet] Metoprolol [Lopressor] 100 mg PO BID 11/17/15 02/25/17 Trazodone HCl 150 mg PO HS 11/17/15 02/25/17 Vitamin E (Dl,Tocopheryl Acet) 400 unit PO DAILY 11/17/15 02/25/17 [Vitamin E] Multivitamin [Multi-Day Vitamins] 1 each PO DAILY 04/11/16 02/25/17 Insulin NPH/REG 70/30 [HumuLIN 100 unit SQ BIDWM 06/27/16 02/25/17 70/30 VIAL] Albuterol Sulfate [Albuterol 1 - 2 puff IH Q6HR PRN 10/13/16 02/25/17 Inhaler] Beclomethasone Diprop 80mcg [QVAR 1 puff IH BID 10/13/16 02/25/17 80 mcg] Furosemide [Lasix] 20 mg PO DAILY 10/13/16 02/25/17 Esomeprazole Magnesium [Nexium] 40 mg PO DAILY 11/26/16 02/25/17 Insulin Regular Human [Humulin R] 10 - 18 units SQ TID PRN 12/29/16 02/25/17 Previous Rx's Medication Instructions Recorded HYDROcodone/Acet 5/325 mg [[place] 1 tab PO Q6H PRN #20 tablet 01/18/17 5-325 mg] Promethazine [Phenergan] 12.5 mg PO Q6HR PRN #12 tablet 01/18/17 [place] Oral Soln [[place]] 150 mg PO BID #60 udc 03/01/17 Allergies Allergy/AdvReac Type Severity Reaction Status Date / Time NSAIDS (Non-Steroidal AdvReac Gastrointestinal Verified 02/10/17 14:48 Anti-Inflamma Upset All systems ED: reviewed and negative except as stated. Constitutional: Reports: chills Gastrointestinal: Reports: abdominal pain, nausea. Denies: vomiting, diarrhea Past Medical History - Past Medical History Attestation: Yes The following information was validated with the patient. Source: patient Medical history: Reports: arthritis, asthma, cancer, cirrhosis, COPD, diabetes, GERD, GI bleed, hyperlipidemia, hypertension, liver disease, malignancy, osteoporosis, other Surgical history: Reports: appendectomy, cancer surgery, cholecystectomy, hysterectomy, orthopedic, other, LIZZETTE/BSO, other Psychiatric history: Reports: depression, previous psychiatric hospitalization CONTACT CENTER REPRESENTATIVE history: Reports: no CONTACT CENTER REPRESENTATIVE history - Social History Smoking Status: Former smoker Smokeless Tobacco Status: No Alcohol use: Reports: none Drug use: Reports: none Physical Exam - General Limitations: no limitations General appearance: alert, in distress - Head Head exam: atraumatic, normocephalic - Eye Eye exam: Present: normal appearance, PERRL - ENT ENT exam: normal exam, normal oropharynx - Neck Neck exam: Present: normal inspection, full ROM - Chest Chest inspection: Present: normal inspection, symmetric chest wall rise - Respiratory Respiratory exam: Present: normal lung sounds bilaterally - Cardiovascular Cardiovascular exam: Present: regular rate, normal rhythm - Abdominal Exam Abdominal exam: Present: tenderness, distention, guarding, diminished bowel sounds. Absent: rebound - Extremities Exam Extremities exam: Present: full ROM, pedal edema - Expanded Lower Extremity Exam Gait: observed and normal - Back Exam Back exam: Present: normal inspection, full ROM - Neurological Exam Neurological exam: Present: alert, oriented X3, CN II-XII intact - Psychiatric Psychiatric exam: Present: normal affect, normal mood - Skin Skin exam: Present: warm, dry, intact Course - Reevaluation(s) Reevaluation #1: ED workup is nearing completion abdominal pelvic CT is otherwise within normal limits. CBC and chemistry panel within normal limits aside from a lipase elevated at 159. Patient has elevations in 2-3 of 400 and into the thousands. Patient is getting IV Dilaudid since she secured arrived. We will reassess the patient. Disposition pending. Time: 17:34 Reevaluation #2: I reassessed the patient her pain is coming back patient does not feel comfortable going home because the pain will flare up and she will be able to keep any of her medicines down she tried oral narcotics at home. Hospitalist patient patient be admitted for acute exacerbation of pancreatitis and pain control Time: 18:10 Vital Signs Temperature 98.0 F 03/06/17 13:36 Pulse Rate 76 03/06/17 13:36 Respiratory Rate 14 03/06/17 13:36 Blood Pressure 173/78 03/06/17 13:36 O2 Sat by Pulse Oximetry 96 03/06/17 13:36 Temperature 98.0 F 03/06/17 13:36 Pulse Rate 76 03/06/17 13:36 Respiratory Rate 14 03/06/17 13:36 Blood Pressure 173/78 03/06/17 13:36 O2 Sat by Pulse Oximetry 96 03/06/17 13:36 Oxygen Delivery Oxygen Delivery Room Air Medical Decision Making - Lab Data Result diagrams: 03/06/17 15:39 03/06/17 15:39 Lab Results 03/06/17 03/06/17 03/06/17 Range/Units 15:39 15:39 16:00 WBC 8.9 (4.3-11.1) K/mcL RBC 4.36 (3.82-4.97) M/mcL Hgb 13.3 (11.5-15.4) g/dL Hct 39.3 (35.3-44.9) % MCV 90.1 (83.0-100.0) fL MCH 30.5 (28.0-33.3) pg MCHC 33.8 (31.6-35.5) g/dL RDW 13.5 (11.5-14.5) % Plt Count 281 (140-400) K/mcL MPV 9.6 (9.4-12.4) fL Immature Gran % 0.3 (0-4) % Seg Neutrophils % 51.1 % Lymphocytes % 29.1 % Monocytes % 12.2 % Eosinophils % 6.5 % Basophils % 0.8 % Neutrophils # 4.6 (1.6-8.9) K/mcL Lymphocytes # 2.6 (0.6-4.6) K/mcL Monocytes # 1.1 (0.0-1.3) K/mcL Eosinophils # 0.6 (0.0-0.6) K/mcL Basophils # 0.1 (0.0-0.2) K/mcL Sodium 137 (136-145) mEq/L Potassium 3.4 L (3.5-4.5) mEq/L Chloride 101 (98-109) mEq/L Carbon Dioxide 27 (19-29) mEq/L BUN 8 (7-20) mg/dL Creatinine 0.74 (0.57-1.11) mg/dL Est GFR ( Amer) > 60 (> 60) Est GFR (Non-Af Amer) > 60 (> 60) BUN/Creatinine Ratio 11 (6-26) Glucose 95 (70-99) mg/dL Calculated Osmolality 282 (280-300) Lactic Acid 1.5 (0.5-2.2) mmol/L Calcium 9.8 (8.6-10.8) mg/dL Total Bilirubin 0.4 (0.2-1.2) mg/dL Direct Bilirubin 0.1 (0.0-0.5) mg/dL Indirect Bilirubin 0.3 (0.0-1.2) mg/dL AST 86 H (5-34) Units/L ALT 62 H (0-55) Units/L Alkaline Phosphatase 118 (38-126) Units/L Serum Total Protein 7.4 (6.0-8.3) g/dL Albumin 4.1 (3.5-5.0) g/dL Globulin 3.3 (2.4-3.5) g/dL Albumin/Globulin Ratio 1.2 (1.1-2.2) Amylase 90 (25-125) Units/L Lipase 159 H (8-78) Units/L
[2017-03-06 15:48] LABS: Basophils # 0.1 K/mcL (0.0-0.2); Basophils % 0.8 %; Eosinophils # 0.6 K/mcL (0.0-0.6); Eosinophils % 6.5 %; Hematocrit 39.3 % (35.3-44.9); Hemoglobin 13.3 g/dL (11.5-15.4); Immature Granulocytes % 0.3 % (0-4); Lymphocytes # 2.6 K/mcL (0.6-4.6); Lymphocytes % 29.1 %; Mean Corpuscular HGB Conc 33.8 g/dL (31.6-35.5); Mean Corpuscular Hemoglobin 30.5 pg (28.0-33.3); Mean Corpuscular Volume 90.1 fL (83.0-100.0); Mean Platelet Volume 9.6 fL (9.4-12.4); Monocytes # 1.1 K/mcL (0.0-1.3); Monocytes % 12.2 %; Neutrophils # 4.6 K/mcL (1.6-8.9); Platelet Count 281 K/mcL (140-400); Red Blood Count 4.36 M/mcL (3.82-4.97); Red Cell Distribution Width 13.5 % (11.5-14.5); Segmented Neutrophils % 51.1 %
[2017-03-06 16:04] LABS: Alanine Aminotransferase 62 Units/L (0-55); Albumin 4.1 g/dL (3.5-5.0); Albumin/Globulin Ratio 1.2 (1.1-2.2); Alkaline Phosphatase 118 Units/L (38-126); Amylase 90 Units/L (25-125); Aspartate Amino Transferase 86 Units/L (5-34); BUN/Creatinine Ratio 11 (6-26); Bilirubin,Direct 0.1 mg/dL (0.0-0.5); Bilirubin,Indirect 0.3 mg/dL (0.0-1.2); Bilirubin,Total 0.4 mg/dL (0.2-1.2); Blood Urea Nitrogen 8 mg/dL (7-20); Calcium 9.8 mg/dL (8.6-10.8); Carbon Dioxide 27 mEq/L (19-29); Chloride 101 mEq/L (98-109); Globulin 3.3 g/dL (2.4-3.5); Glucose 95 mg/dL (70-99); Lipase 159 Units/L (8-78); Osmolality,Calculated 282 (280-300); Potassium 3.4 mEq/L (3.5-4.5); Sodium 137 mEq/L (136-145); Total Protein 7.4 g/dL (6.0-8.3); eGFR For African Americans > 60 (> 60); eGFR For Non-African Americans > 60 (> 60)
[2017-03-06] MEDS ORDERED: *HR* HYDROmorphone (PF) 1 MG/ML SYRINGE IVP ONE (17:02)
[2017-03-06] MEDS ORDERED: Ondansetron 4 MG/2 ML VIAL IVP PRN (20:49)
[2017-03-06] MEDS ORDERED: *HR* Morphine 2 MG/ML SYRINGE IVP PRN (20:49)
[2017-03-06] MEDS ORDERED: Naloxone 0.4 MG/ML INJ IVP PRN (20:49)
[2017-03-06] MEDS ORDERED: *HR* HYDROcodone/Acet 5/325 mg TABLET PO PRN (20:49)
[2017-03-06] MEDS ORDERED: *HR* LORazepam 0.5 MG TABLET PO PRN (20:51)
[2017-03-06] MEDS ORDERED: D5% in Water 1,000 ML IVC PRN (20:55)
[2017-03-06] MEDS ORDERED: *HR* Dextrose 50 % in Water (Syg) 50 ML SYRINGE IVP PRN (20:55)
[2017-03-06] MEDS ORDERED: Dextrose Gel 15 GM PO PRN ×2 (20:55)
[2017-03-06] MEDS ORDERED: Insulin LISPRO 300 UNITS/3 ML VIAL SQ SCH (21:00)
[2017-03-06] MEDS ORDERED: traZODone 50 MG TABLET PO SCH (21:00)
--- NOTE | 2017-03-06 21:17 | Internal Med History&Physical ---
<Leonora Morgan - Last Filed: 03/06/17 21:39> Date of Encounter: 03/06/17 Time of Encounter: 20:30 Assessment and Plan (1) Abdominal pain Current visit: No Status: Acute 1patient has been experiencing right upper quadrant pain with nausea since Monday. Patient does have a past history of pancreatitis however there is no acute process on the ABD CT, her lipase is slightly elevated . We will administer pain medications and antiemetics for now 2 clear liquid diet-is as tolerated 3 patient follow up with her GI specialist as outpatient Qualifiers: Abdominal location: right upper quadrant Qualified Code(s): R10.11 - Right upper quadrant pain (2) Depression Current visit: No Status: Chronic 1 she was recently discharged from [facility] due to suicidal ideation and depression. Her medications have been adjusted. Presently patient denies any suicide ideations she feels that her depression is stable at this time. We will continue with home medications patient will follow up with psychiatry as outpatient Qualifiers: Depression Type: other depression Qualified Code(s): F32.89 - Other specified depressive episodes (3) Chronic obstructive pulmonary disease Current visit: No Status: Chronic 1 we will continue with bronchodilators 2 oxygen as needed to maintain SPO2 92% Qualifiers: COPD type: unspecified COPD Qualified Code(s): J44.9 - Chronic obstructive pulmonary disease, unspecified (4) Hypertension Current visit: No Status: Chronic 1 we will continue with home medications and was maintained systolic less than 140 Qualifiers: Hypertension type: essential hypertension Qualified Code(s): I10 - Essential (primary) hypertension (5) Hypokalemia Current visit: No Status: Acute 1 potassium is 3.4 oral replacement recheck and replace as needed (6) DVT prophylaxis Current visit: No Status: Acute Internal Medicine - H&P: HPI Chief complaint: abd pain Admitted From: Emergency Dept Plans for Post Hospital Care: Home History of present illness: Ms. Lopez is a 61 year old female ast medical history of [place] versus COPD non -insulin-dependent diabetes GERD GI bleed hypertension lung cancer chronic pancreatitis. Patient underwent ERCP 12/28/16 with splenectomy and PD stent placement per Dr. Castillo. In January she she was admitted to this facility for acute pancreatitis lipase at that time was [id number] she was treated and discharged with [facility] . She was readmitted in February to [facility] for suicidal ideations,Her medications were readjusted and she was discharged home. According to the patient on Monday she began to experience some right upper quadrant sharp pain and burning nonradiating which would intensify after eating. There were no relieving factors today the pain continued. As well she has been experiencing some nausea she denies any vomiting fevers diarrhea. She presented to the ER the above complaints. In the ER a CT of abdomen was obtained which revealed no acute process patient's lipase was 159. She had no leukocytosis lactate was 1.5 rest of her lab work was unremarkable. She continued to experience right upper quadrant pain despite pain medication. She has been admitted for further workup and evaluation. Presently the patient is sitting on side of bed she does not appear to be in any distress. She is flat a fact she answers questions appropriately alert oriented 3. Lung sounds are clear throughout heart sounds S1 and S2 with no rubs, spelled murmurs noted. At this time patient is complaining of left upper quadrant pain upon inspection patient's abdomen is nondistended soft some tenderness to right upper quadrant. She is hemodynamically stable at this time I review this case with Dr. Levy who agrees with plan Past Med Surg Social Fam HX - Past Medical History Medical history: arthritis, asthma, cancer, cirrhosis, COPD, diabetes, GERD, GI bleed, hyperlipidemia, hypertension, liver disease, malignancy, osteoporosis, other Psychiatric history: depression, previous psychiatric hospitalization - Past Surgical History Surgical History: appendectomy, cancer surgery, cholecystectomy, hysterectomy, orthopedic, other, LIZZETTE/BSO, other - Social History Smoking Status: Former smoker Smokeless Tobacco Status: No Alcohol use: none Drug use: none - Family History Mother Adopted: No Living Status: Age at : 72 Cause of : aortic aneurysm Hx Family Cardiac Disorders: Yes (heart disease) Hx Family Respiratory Disorders: Yes (Emphysema) Hx Family Cancer: Yes (Skin cancer, "Eye cancer") Hx Family GI Disorders: No Hx Family Endocrine Disorder: Yes (DM) Hx Family Neuromuscular Disorders: No Hx Family Neurologic Disorders: No Hx Family HEENT Disorders: No Hx Family Autoimmune Disorders: No Father Living Status: Hx Family Cardiac Disorders: Yes (unknown) Internal Medicine - H&P: Meds Amlodipine [Amlodipine Besylate] 10 mg PO QAM 11/17/15 [History] Duloxetine HCl [Cymbalta] 60 mg PO BID 11/17/15 [History] Fluticasone Propionate Nasal [Flonase] 50 mcg NS DAILY PRN 11/17/15 [History] LORazepam [Ativan] 0.5 mg PO BID PRN 11/17/15 [History] Losartan/Hydrochlorothiazide [Hyzaar 100-12.5 Tablet] 1 tab PO QAM 11/17/15 [ History] Metoprolol [Lopressor] 100 mg PO BID 11/17/15 [History] Trazodone HCl 150 mg PO HS 11/17/15 [History] Vitamin E (Dl,Tocopheryl Acet) [Vitamin E] 400 unit PO DAILY 11/17/15 [History] Multivitamin [Multi-Day Vitamins] 1 tab PO DAILY 04/11/16 [History] Insulin NPH/REG 70/30 [HumuLIN 70/30 VIAL] 100 unit SQ BIDWM 06/27/16 [History] Albuterol Sulfate [Albuterol Inhaler] 1 - 2 puff IH Q6HR PRN 10/13/16 [History] Beclomethasone Diprop 80mcg [QVAR 80 mcg] 1 puff IH BID 10/13/16 [History] Furosemide [Lasix] 20 mg PO DAILY 10/13/16 [History] Esomeprazole Magnesium [Nexium] 40 mg PO DAILY 11/26/16 [History] Insulin Regular Human [Humulin R] 10 - 18 units SQ TID PRN 12/29/16 [History] HYDROcodone/Acet 5/325 mg [[place] 5-325 mg] 1 tab PO Q6H PRN #20 tablet 01/18/17 [Rx] Promethazine [Phenergan] 12.5 mg PO Q6HR PRN #12 tablet 01/18/17 [Rx] [place] Oral Soln [[place]] 150 mg PO BID #60 udc 03/01/17 [Rx] Allergies NSAIDS (Non-Steroidal Anti-Inflamma Adverse Reaction (Verified 02/10/17 14:48) Gastrointestinal Upset PATIENT HAS ULCERS- All Systems PM: A 10-system review of systems was performed and is negative for pertinent findings except as documented above in the HPI. - Constitutional Constitutional: no chills, no fever(s), no night sweats - EENT Eyes: no change in vision, no discharge, no pain, no photophobia - Cardiovascular Cardiovascular ROS IM: no chest pain, no diaphoresis, no dyspnea, no lightheadedness, no palpitations, no syncope - Respiratory Respiratory: no cough, no dyspnea, no wheezing, no excessive phlegm production - Gastrointestinal Gastrointestinal: abdominal pain, nausea - Genitourinary Genitourinary: no change in urinary stream, no dysuria, no flank pain, no hematuria - Musculoskeletal Musculoskeletal ROS IM: no numbness, no tingling - Integumentary Integumentary IM: no rash, no unusual bruising - Neurological Neurological ROS: no confusion, no convulsions, no focal weakness, no numbness, no tingling, no tremor(s) - Hematologic/Lymphatic Hematologic/Lymphatic: no easy bruising - Constitutional Vitals: Temp Pulse Resp BP Pulse Ox 97.7 F 62 16 133/83 98 03/06/17 20:25 03/06/17 20:25 03/06/17 20:25 03/06/17 20:25 03/06/17 20:25 General appearance: Present: A&O X 3, morbidly obese, answers questions appropriately - Head Head exam: Present: atraumatic, normocephalic - Eye Eye exam: Present: PERRL, conjuntiva pink, sclera anicteric Pupils: Present: PERRL - Neck Neck exam general surgery: Present: supple, trachea midline. Absent: lymphadenopathy - Respiratory Respiratory exam: Present: CTAB. Absent: accessory muscle use, rales, rhonchi, wheezes - Cardiovascular Cardiovascular exam: Present: RRR, +S1, +S2. Absent: diastolic murmur, gallop, rubs, systolic murmur - GI/Abdominal GI/Abdominal exam: Present: normal bowel sounds, soft, tenderness, no peritoneal signs. Absent: distended - Extremities Exam Extremities exam: Present: warm, radial pulses palpable and symetrical. Absent : calf tenderness, cyanotic, pedal edema - Neurological Exam Neurological exam: Present: CN II-XII intact, oriented X3, no focal deficits. Absent: pronater drift, facial droop, speech deficit - Psychiatric Psychiatric exam: Present: flat affect - Skin Skin exam: Present: dry, intact Internal Med - H&P Results - Labs CBC & Chem 7: 03/06/17 15:39 03/06/17 15:39 - Diagnostic Studies Other Images Additional comments: Abdomen/Pelvis CT 03/06/17 15:41 IMPRESSION: No acute process D/ / Sunil Coffman MD / Sunil Coffman MD Interpreting Provider: Sunil Coffman MD <Vasiliy Levy - Last Filed: 03/07/17 00:53> Date of Encounter: 03/06/17 Internal Medicine - H&P: HPI History of present illness: Ms. Lopez is a 61 year old female All Systems PM: A 10-system review of systems was performed and is negative for pertinent findings except as documented above in the HPI. - Constitutional Vitals: Temp Pulse Resp BP Pulse Ox 97.6 F 63 16 102/65 95 03/06/17 23:18 03/06/17 23:18 03/06/17 23:18 03/06/17 23:18 03/06/17 23:18 Internal Med - H&P Results - Labs CBC & Chem 7: 03/06/17 15:39 03/06/17 15:39 - Attending Attestation I personally interviewed and examined this patient and my medical decision- making was reviewed with the Advanced Practice Nurse. I agree with the documented findings, disposition and treatment plan as described. Pt initially admitted by the ER as acute pancreatitis but she does not meet criteria for this , she also has had cholecystectomy in the past, the etiology of her abdominal pain still remains unknown, other differential to consider is somatization. Supportive treatment for now, will reevaluate in AM.
[2017-03-06] MEDS: Beclomethasone 80mcg MDI IH SCH (21:37)
[2017-03-06] MEDS: Metoprolol 100 MG TABLET PO SCH (22:08)
[2017-03-07 06:33] LABS: BUN/Creatinine Ratio 11 (6-26); Blood Urea Nitrogen 8 mg/dL (7-20); Calcium 8.6 mg/dL (8.6-10.8); Carbon Dioxide 23 mEq/L (19-29); Chloride 106 mEq/L (98-109); Glucose 69 mg/dL (70-99); Osmolality,Calculated 285 (280-300); Sodium 139 mEq/L (136-145); eGFR For African Americans > 60 (> 60); eGFR For Non-African Americans > 60 (> 60)
[2017-03-07 06:37] LABS: Magnesium 2.5 mg/dL (1.6-2.6)
[2017-03-07 06:38] LABS: Potassium 4.2 mEq/L (3.5-4.5)
[2017-03-07] MEDS: Beclomethasone 80mcg MDI IH SCH (08:08)
[2017-03-07] MEDS: Insulin LISPRO 300 UNITS/3 ML VIAL SQ SCH ×3 (08:12→17:18)
[2017-03-07] MEDS: Metoprolol 100 MG TABLET PO SCH (08:13)
[2017-03-07] MEDS ORDERED: Losartan/HCTZ 50-12.5 TABLET PO SCH (09:00)
[2017-03-07] MEDS ORDERED: Furosemide 20 MG TABLET PO SCH (09:00)
[2017-03-07] MEDS ORDERED: amLODIPine 5 MG TABLET PO SCH (09:00)
[2017-03-07 11:09] LABS: Bilirubin,Urine Negative (Negative); Blood,Urine Negative (Negative); Clarity,Urine Clear (Clear); Color,Urine Yellow (Yellow); Glucose,Urine (UA) Normal (Normal); Ketones,Urine Negative (Negative); Leukocyte Esterase,Urine Large (Negative); Nitrite,Urine Negative (Negative); Protein,Urine Negative (Neg-Trace); Specific Gravity,Urine 1.009 (1.010-1.025); Urobilinogen,Urine Normal (Normal)
[2017-03-07 11:11] LABS: Bacteria,Urine None Seen per hpf (None-Few); Hyaline Casts,Urine None Seen per lpf (None-Few); RBC,Urine 0-3 per hpf (0-3); Squamous Epithelial Cell,Urine Many per lpf (None-Few); WBC,Urine 15-30 per hpf (0-3)
[2017-03-07] MEDS ORDERED: *HR* Heparin 5,000 UNIT/ML VIAL SQ SCH (14:00)
[2017-03-07 15:11] VITALS: BP 100/63
--- NOTE | 2017-03-07 17:21 | Discharge Summary ---
Date of Encounter: 03/07/17 Time of Encounter: 10:40 - Discharge Diagnosis (1) Abdominal pain Priority: Primary Status: Resolved Comments: Patient reports bilateral upper abdominal pain yesterday. She reports some nausea onset on Monday. She is not having any now. She has had no sick contacts at home. She has chronic pancreatitis last flare was in December. Nominal CT is negative for any acute process. Lipase is only slightly elevated at 158. It was 84 on February 25. Transaminases are chronically elevated. Pt tolerated full liquid diet at lunch without difficulty. Abd is soft and non-tender without masses or hernias noted. Bowel sounds present. She denies n/v/d now, denies abd pain. Qualifiers: Abdominal location: right upper quadrant Qualified Code(s): R10.11 - Right upper quadrant pain (2) Hypertension Priority: Secondary Status: Chronic Comments: Chronic. Continue home medications. Qualifiers: Hypertension type: essential hypertension Qualified Code(s): I10 - Essential (primary) hypertension (3) Diabetes mellitus Priority: Secondary Status: Chronic Comments: Patient has been hyperglycemic here. A1c was 7.3% December. Continue home medications and Accu-Cheks is normal. And follow up with primary care physician Qualifiers: Diabetes mellitus type: type 2 Diabetes mellitus complication status: with unspecified complications Diabetes mellitus fdc insulin use: with intermodal customer service use Qualified Code(s): E11.8 - Type 2 diabetes mellitus with unspecified complications; Z79.4 - FPC (current) use of insulin (4) Chronic obstructive pulmonary disease Priority: Secondary Status: Chronic Comments: No acute exacerbation. Continue home medications. Qualifiers: COPD type: unspecified COPD Qualified Code(s): J44.9 - Chronic obstructive pulmonary disease, unspecified (5) Obesity (BMI 30-39.9) Priority: Secondary Status: Chronic Comments: Chronic. Style changes. (6) DVT prophylaxis Priority: Secondary Status: Acute (7) Depression Priority: Secondary Status: Chronic Comments: Chronic. Continue home medications. Qualifiers: Depression Type: other depression Qualified Code(s): F32.89 - Other specified depressive episodes - Discharge Medications Home Medications: Amlodipine [Amlodipine Besylate] 10 mg PO QAM 11/17/15 [History] Duloxetine HCl [Cymbalta] 60 mg PO BID 11/17/15 [History] Fluticasone Propionate Nasal [Flonase] 50 mcg NS DAILY PRN 11/17/15 [History] LORazepam [Ativan] 0.5 mg PO BID PRN 11/17/15 [History] Losartan/Hydrochlorothiazide [Hyzaar 100-12.5 Tablet] 1 tab PO QAM 11/17/15 [ History] Metoprolol [Lopressor] 100 mg PO BID 11/17/15 [History] Trazodone HCl 150 mg PO HS 11/17/15 [History] Vitamin E (Dl,Tocopheryl Acet) [Vitamin E] 400 unit PO DAILY 11/17/15 [History] Multivitamin [Multi-Day Vitamins] 1 tab PO DAILY 04/11/16 [History] Insulin NPH/REG 70/30 [HumuLIN 70/30 VIAL] 100 unit SQ BIDWM 06/27/16 [History] Albuterol Sulfate [Albuterol Inhaler] 1 - 2 puff IH Q6HR PRN 10/13/16 [History] Beclomethasone Diprop 80mcg [QVAR 80 mcg] 1 puff IH BID 10/13/16 [History] Furosemide [Lasix] 20 mg PO DAILY 10/13/16 [History] Esomeprazole Magnesium [Nexium] 40 mg PO DAILY 11/26/16 [History] Insulin Regular Human [Humulin R] 10 - 18 units SQ TID PRN 12/29/16 [History] HYDROcodone/Acet 5/325 mg [[place] 5-325 mg] 1 tab PO Q6H PRN #20 tablet 01/18/17 [Rx] Promethazine [Phenergan] 12.5 mg PO Q6HR PRN #12 tablet 01/18/17 [Rx] [place] Oral Soln [[place]] 150 mg PO BID #60 udc 03/01/17 [Rx] Allergies/Adverse Reactions: Allergies NSAIDS (Non-Steroidal Anti-Inflamma Adverse Reaction (Verified 02/10/17 14:48) Gastrointestinal Upset PATIENT HAS ULCERS- Date of admission: 03/06/17 18:52 Primary care physician: Ava Kimble CNP Consults: 03/07/17 11:25 Consult to Rugby League Footballer [CONS] Routine Reason for SW Consult: Readmit Discharging clinician: Elo Randall Anticipated date of discharge: 03/07/17 - Patient Status Disposition: Home, Self-Care Functional capacity at discharge: independent ambulation Overall status at discharge: patient is back to baseline - Discharge Instructions Follow Up With: Ava Kimble CNP [Primary Care Provider] - 03/17/17 10:30 am Additional Instructions: Please follow up with your primary care provider within the next week or so for a follow up visit. Since you tolerated a full liquid diet today, advance your diet slowly until you are feeling better again. Return to the ER for any other problems or concerns, or for any worsening condition. Resume your normal home medications. - Diet and Activity Activity: increase activity as tolerated Diet: diabetic diet Interval History: Ms. Lopez is a 61-year-old female with a history of hypertension, diabetes, recurrent pancreatitis, COPD, depression, anxiety. She was admitted for upper abdominal pain with nausea for the last 3 days. She has an extensive history of pancreatitis about 9 or 10 times and has been referred by gastroenterology to [facility] gastroenterology. She will see them in May. Abdominal CT is negative for any acute process. Her lipase is only slightly elevated today. 159, it was 84 on February 25. Transaminases are chronically elevated. Amylase is within normal limits. Her abdomen is soft and nontender to palpation, bowel sounds are present. She denies dark tarry stools, hematemesis, nino bright red rectal bleeding, or any nausea or vomiting today. She reports no abdominal pain this morning. She states that she feels better at this time. Patient was also admitted with hypokalemia. After potassium supplementation potassium is 4.2 and discharge. Labs are within normal limits. I did discuss adhering to a bland clear liquid diet for the next few days. Patient did tolerate a full liquid diet at lunch today. I urged her to follow up with her primary care physician for a hospital follow-up visit. We discussed better glycemic control at home. Patient verbalized understanding and states she does not need to see the bottler helper. Patient is stable and appropriate for discharge at this time. Hospital course: Ms. Lopez is a 61 year old female - Time Spent with Patient Total time spent providing and/or coordinating discharge services: Less than 30 minutes - Constitutional Vitals: Temp Pulse Resp BP Pulse Ox 98.1 F 81 18 100/63 94 03/07/17 15:10 03/07/17 15:10 03/07/17 15:10 03/07/17 15:10 03/07/17 15:10 General appearance: Present: cooperative, A&O X 3, morbidly obese, pleasant, answers questions appropriately - Head Head exam: Present: normal inspection - Eye Eye exam: Present: normal appearance, conjuntiva pink - ENT ENT exam: Present: mucous membranes moist, normal exam - Neck Neck exam general surgery: Present: normal inspection. Absent: lymphadenopathy , tenderness - Respiratory Respiratory exam: Present: decreased breath sounds. Absent: rales, rhonchi, stridor, wheezes - GI/Abdominal GI/Abdominal exam: Present: distended, normal bowel sounds, soft. Absent: hepatomegaly, mass, tenderness - Neurological Exam Neurological exam: Present: alert, oriented X3, no focal deficits. Absent: facial droop, speech deficit
== END 2017-03-07 18:29 | disposition home or self-care (01) ==
LOC: 3BNU 13:35 → EMEROO 13:35 → 3BNU 20:19
PROVIDERS: ADMIT Nurse Practitioner Acute Care; ATTEND Nurse Practitioner Family

== ENCOUNTER 2017-09-19 17:06 | Inpatient (IN) ==
[2017-09-19 18:13] LABS: Basophils # 0.1 K/mcL (0.0-0.2); Basophils % 0.8 %; Eosinophils # 0.4 K/mcL (0.0-0.6); Hematocrit 39.4 % (35.3-44.9); Hemoglobin 13.2 g/dL (11.5-15.4); Immature Granulocytes % 0.3 % (0-4); Lymphocytes # 2.4 K/mcL (0.6-4.6); Mean Corpuscular HGB Conc 33.5 g/dL (31.6-35.5); Mean Corpuscular Hemoglobin 30.1 pg (28.0-33.3); Mean Platelet Volume 9.6 fL (9.4-12.4); Monocytes # 0.8 K/mcL (0.0-1.3); Monocytes % 10.1 %; Neutrophils # 3.9 K/mcL (1.6-8.9); Platelet Count 268 K/mcL (140-400); Red Blood Count 4.38 M/mcL (3.82-4.97); Red Cell Distribution Width 13.2 % (11.5-14.5); Segmented Neutrophils % 51.8 %
[2017-09-19 18:28] LABS: Alanine Aminotransferase 41 Units/L (0-55); Albumin/Globulin Ratio 1.2 (1.1-2.2); Alkaline Phosphatase 133 Units/L (38-126); Aspartate Amino Transferase 75 Units/L (5-34); BUN/Creatinine Ratio 13 (6-26); Bilirubin,Direct 0.1 mg/dL (0.0-0.5); Bilirubin,Indirect 0.2 mg/dL (0.0-1.2); Bilirubin,Total 0.3 mg/dL (0.2-1.2); Blood Urea Nitrogen 11 mg/dL (7-20); Calcium 9.7 mg/dL (8.6-10.8); Carbon Dioxide 23 mEq/L (19-29); Chloride 101 mEq/L (98-109); Globulin 3.4 g/dL (2.4-3.5); Glucose 268 mg/dL (70-99); Lipase 168 Units/L (8-78); Osmolality,Calculated 293 (280-300); Potassium 3.9 mEq/L (3.5-4.5); Sodium 137 mEq/L (136-145); Total Protein 7.4 g/dL (6.0-8.3); eGFR For African Americans > 60 (> 60); eGFR For Non-African Americans > 60 (> 60)
[2017-09-19] MEDS ORDERED: Ondansetron 4 MG/2 ML VIAL IVP ONE (18:34)
[2017-09-19] MEDS ORDERED: *HR* HYDROmorphone (PF) 1 MG/ML SYRINGE IVP ONE (18:34)
--- NOTE | 2017-09-19 18:46 | Emergency Department Note ---
Disposition Clinical Impression: Pancreatitis Qualifiers: Chronicity: chronic Pancreatitis type: unspecified pancreatitis type Qualified Code(s): K86.1 - Other chronic pancreatitis Disposition: Admitted As Inpatient Condition: Fair Referrals: Ava Kimble CNP [Primary Care Provider] - Forms: ED Satisfaction Letter, Work/School Release Time of Disposition: 20:11 Abdominal Pain HPI - General Chief Complaint: ED Abdominal Pain Stated Complaint: Pancreatitis Time Seen by Provider: 09/19/17 18:30 Source: patient Mode of arrival: ambulatory Limitations: no limitations Nursing Notes Reviewed: Yes Vital Signs Reviewed: Yes - History of Present Illness Pt Subjective Complaint: abdominal pain Onset (ago): day(s) Consistency: constant Location: periumbilical, epigastric Pain Severity: severe Pain Scale: 7 Quality: aching Radiation: back Improves with: nothing Worsens with: nothing Context: history of similar episodes Associated symptoms: Reports: nausea, other (Increased belching and flatulence) Treatments prior to arrival: none - Related Data Home Medications Medication Instructions Recorded Confirmed Amlodipine [Amlodipine Besylate] 10 mg PO QAM 11/17/15 03/06/17 Duloxetine HCl [Cymbalta] 60 mg PO BID 11/17/15 03/06/17 Fluticasone Propionate Nasal 50 mcg NS DAILY PRN 11/17/15 03/06/17 [Flonase] LORazepam [Ativan] 0.5 mg PO BID PRN 11/17/15 03/06/17 Losartan/Hydrochlorothiazide 1 tab PO QAM 11/17/15 03/06/17 [Hyzaar 100-12.5 Tablet] Metoprolol [Lopressor] 100 mg PO BID 11/17/15 03/06/17 Trazodone HCl 150 mg PO HS 11/17/15 03/06/17 Vitamin E (Dl,Tocopheryl Acet) 400 unit PO DAILY 11/17/15 03/06/17 [Vitamin E] Multivitamin [Multi-Day Vitamins] 1 tab PO DAILY 04/11/16 03/06/17 Insulin NPH/REG 70/30 [HumuLIN 100 unit SQ BIDWM 06/27/16 03/06/17 70/30 VIAL] Albuterol Sulfate [Albuterol 1 - 2 puff IH Q6HR PRN 10/13/16 03/06/17 Inhaler] Beclomethasone Diprop 80mcg [QVAR 1 puff IH BID 10/13/16 03/06/17 80 mcg] Furosemide [Lasix] 20 mg PO DAILY 10/13/16 03/06/17 Esomeprazole Magnesium [Nexium] 40 mg PO DAILY 11/26/16 03/06/17 Insulin Regular Human [Humulin R] 10 - 18 units SQ TID PRN 12/29/16 03/06/17 Previous Rx's Medication Instructions Recorded HYDROcodone/Acet 5/325 mg [[place] 1 tab PO Q6H PRN #20 tablet 01/18/17 5-325 mg] Promethazine [Phenergan] 12.5 mg PO Q6HR PRN #12 tablet 01/18/17 [place] Oral Soln [[place]] 150 mg PO BID #60 udc 03/01/17 HYDROcodone/Acet 5/325 mg [[place] 1 tab PO Q4H PRN #12 tab 05/25/17 5-325 mg] Allergies Allergy/AdvReac Type Severity Reaction Status Date / Time NSAIDS (Non-Steroidal AdvReac Gastrointestinal Verified 09/19/17 17:28 Anti-Inflamma Upset All systems ED: reviewed and negative except as stated. Constitutional: Reports: as per HPI Eyes: Reports: as per HPI ENT ED: Reports: as per HPI Cardiovascular: Reports: as per HPI Respiratory: Reports: as per HPI Gastrointestinal: Reports: abdominal pain, nausea Genitourinary: Reports: as per HPI Musculoskeletal: Reports: back pain Integumentary: Reports: as per HPI Neurological: Reports: as per HPI Psychiatric: Reports: as per HPI Endocrine: Reports: as per HPI Hematological/Lymphatic: Reports: as per HPI Allergic/Immunologic: Reports: as per HPI Abdominal Pain PMH - Past Medical History Medical history: Reports: arthritis, asthma, cancer, cirrhosis, COPD, diabetes, GERD, GI bleed, hyperlipidemia, hypertension, liver disease, malignancy, osteoporosis, other Female Surgical History: Reports: appendectomy, cholecystectomy, hysterectomy ASSOCIATE PROJECT MANAGER history: Reports: no ASSOCIATE PROJECT MANAGER history Psychiatric history: Reports: anxiety, depression, previous psychiatric hospitalization - Social History Smoking status: Never smoker Alcohol use: Reports: none Drug use: Reports: none Physical Exam - General Limitations: no limitations General appearance: alert, in no apparent distress - Head Head exam: atraumatic - Eye Eye exam: Present: normal appearance - ENT ENT exam: normal exam - Neck Neck exam: Present: normal inspection, full ROM - Respiratory Respiratory exam: Present: normal lung sounds bilaterally - Cardiovascular Cardiovascular exam: Present: regular rate, normal rhythm, normal heart sounds - Abdominal Exam Abdominal exam: Present: soft, normal bowel sounds, other (obese. non tender. no guarding or rebound). Absent: tenderness, guarding - Rectal Exam Rectal exam: Present: deferred - Extremities Exam Extremities exam: Present: normal inspection - Neurological Exam Neurological exam: Present: alert, oriented X3, CN II-XII intact - Psychiatric Psychiatric exam: Present: normal affect, normal mood - Skin Skin exam: Present: warm, dry, intact Course Course Narrative: Patient presents with abdominal pain. She states this is identical to her previous bouts of pancreatitis-the last episode of which was several months ago. She denies alcohol intake. States the etiology of her pancreatitis is idiopathic. Labs drawn at triage reviewed by me. Analgesics offered. I will reassess - Reevaluation(s) Reevaluation #1: Test results discussed with patient. She requests admission as she continues to have pain and difficulty tolerating oral intake Vital Signs Temperature 98.5 F 09/19/17 17:26 Pulse Rate 68 09/19/17 17:26 Respiratory Rate 16 09/19/17 17:26 Blood Pressure 163/73 09/19/17 17:26 O2 Sat by Pulse Oximetry 95 09/19/17 17:26 Temperature 98.5 F 09/19/17 17:26 Pulse Rate 64 09/19/17 19:48 Respiratory Rate 18 09/19/17 19:48 Blood Pressure 146/71 09/19/17 19:48 O2 Sat by Pulse Oximetry 95 09/19/17 19:48 Oxygen Delivery Oxygen Delivery Room Air Abdominal Pain - Medical Records Medical records reviewed: Yes I reviewed the patient's medical records. - Lab Data Lab results reviewed: Yes I reviewed the patient's lab results. Result diagrams: 09/19/17 18:04 09/19/17 18:04 Lab Results 09/19/17 09/19/17 09/19/17 Range/Units 18:04 18:04 18:04 WBC 7.5 (4.3-11.1) K/mcL RBC 4.38 (3.82-4.97) M/mcL Hgb 13.2 (11.5-15.4) g/dL Hct 39.4 (35.3-44.9) % MCV 90.0 (83.0-100.0) fL MCH 30.1 (28.0-33.3) pg MCHC 33.5 (31.6-35.5) g/dL RDW 13.2 (11.5-14.5) % Plt Count 268 (140-400) K/mcL MPV 9.6 (9.4-12.4) fL Immature Gran % 0.3 (0-4) % Seg Neutrophils % 51.8 % Lymphocytes % 32.0 % Monocytes % 10.1 % Eosinophils % 5.0 % Basophils % 0.8 % Neutrophils # 3.9 (1.6-8.9) K/mcL Lymphocytes # 2.4 (0.6-4.6) K/mcL Monocytes # 0.8 (0.0-1.3) K/mcL Eosinophils # 0.4 (0.0-0.6) K/mcL Basophils # 0.1 (0.0-0.2) K/mcL Sodium 137 (136-145) mEq/L Potassium 3.9 (3.5-4.5) mEq/L Chloride 101 (98-109) mEq/L Carbon Dioxide 23 (19-29) mEq/L BUN 11 (7-20) mg/dL Creatinine 0.83 (0.57-1.11) mg/dL Est GFR ( Amer) > 60 (> 60) Est GFR (Non-Af Amer) > 60 (> 60) BUN/Creatinine Ratio 13 (6-26) Glucose 268 H (70-99) mg/dL Calculated Osmolality 293 (280-300) Calcium 9.7 (8.6-10.8) mg/dL Total Bilirubin 0.3 (0.2-1.2) mg/dL Direct Bilirubin 0.1 (0.0-0.5) mg/dL Indirect Bilirubin 0.2 (0.0-1.2) mg/dL AST 75 H (5-34) Units/L ALT 41 (0-55) Units/L Alkaline Phosphatase 133 H (38-126) Units/L Troponin I 0.01 (0-0.03) ng/mL Serum Total Protein 7.4 (6.0-8.3) g/dL Albumin 4.0 (3.5-5.0) g/dL Globulin 3.4 (2.4-3.5) g/dL Albumin/Globulin Ratio 1.2 (1.1-2.2) Amylase 101 (25-125) Units/L Lipase 168 H (8-78) Units/L Urine Color (Yellow) Urine Clarity (Clear) Urine pH (5.0-8.0) pH Units Ur Specific [place] (1.010-1.025) Urine Protein (Neg-Trace) mg/dL Urine Glucose (UA) (Normal) mg/dL Urine Ketones (Negative) mg/dL Urine Blood (Negative) Urine Nitrite (Negative) Urine Bilirubin (Negative) Urine Urobilinogen (Normal) mg/dL Ur Leukocyte Esterase (Negative) Urine Microscopic RBC (0-3) per hpf Urine Microscopic WBC (0-3) per hpf Ur Squamous Epith Cells (None-Few) per lpf Urine Bacteria (None-Few) per hpf Hyaline Casts (None-Few) per lpf Ur Culture Indicated? (NO) 09/19/17 Range/Units 19:36 WBC (4.3-11.1) K/mcL RBC (3.82-4.97) M/mcL Hgb (11.5-15.4) g/dL Hct (35.3-44.9) % MCV (83.0-100.0) fL MCH (28.0-33.3) pg MCHC (31.6-35.5) g/dL RDW (11.5-14.5) % Plt Count (140-400) K/mcL MPV (9.4-12.4) fL Immature Gran % (0-4) % Seg Neutrophils % % Lymphocytes % % Monocytes % % Eosinophils % % Basophils % % Neutrophils # (1.6-8.9) K/mcL Lymphocytes # (0.6-4.6) K/mcL Monocytes # (0.0-1.3) K/mcL Eosinophils # (0.0-0.6) K/mcL Basophils # (0.0-0.2) K/mcL Sodium (136-145) mEq/L Potassium (3.5-4.5) mEq/L Chloride (98-109) mEq/L Carbon Dioxide (19-29) mEq/L BUN (7-20) mg/dL Creatinine (0.57-1.11) mg/dL Est GFR ( Amer) (> 60) Est GFR (Non-Af Amer) (> 60) BUN/Creatinine Ratio (6-26) Glucose (70-99) mg/dL Calculated Osmolality (280-300) Calcium (8.6-10.8) mg/dL Total Bilirubin (0.2-1.2) mg/dL Direct Bilirubin (0.0-0.5) mg/dL Indirect Bilirubin (0.0-1.2) mg/dL AST (5-34) Units/L ALT (0-55) Units/L Alkaline Phosphatase (38-126) Units/L Troponin I (0-0.03) ng/mL Serum Total Protein (6.0-8.3) g/dL Albumin (3.5-5.0) g/dL Globulin (2.4-3.5) g/dL Albumin/Globulin Ratio (1.1-2.2) Amylase (25-125) Units/L Lipase (8-78) Units/L Urine Color Yellow (Yellow) Urine Clarity Clear (Clear) Urine pH 7.0 (5.0-8.0) pH Units Ur Specific [place] 1.025 (1.010-1.025) Urine Protein Negative (Neg-Trace) mg/dL Urine Glucose (UA) 250 H (Normal) mg/dL Urine Ketones Negative (Negative) mg/dL Urine Blood Negative (Negative) Urine Nitrite Negative (Negative) Urine Bilirubin Negative (Negative) Urine Urobilinogen Normal (Normal) mg/dL Ur Leukocyte Esterase Moderate H (Negative) Urine Microscopic RBC 0-3 (0-3) per hpf Urine Microscopic WBC 15-30 H (0-3) per hpf Ur Squamous Epith Cells Many H (None-Few) per lpf Urine Bacteria None Seen (None-Few) per hpf Hyaline Casts None Seen (None-Few) per lpf Ur Culture Indicated? YES A (NO) - EKG Data EKG attestation: Yes I reviewed and interpreted this EKG. EKG results narrative: Normal sinus rhythm rate 64 ID 181 QRS 110 QT/QTC 419/428
[2017-09-19 18:56] LABS: Amylase 101 Units/L (25-125)
[2017-09-19 19:45] LABS: Bilirubin,Urine Negative (Negative); Blood,Urine Negative (Negative); Clarity,Urine Clear (Clear); Color,Urine Yellow (Yellow); Glucose,Urine (UA) 250 mg/dL (Normal); Ketones,Urine Negative (Negative); Leukocyte Esterase,Urine Moderate (Negative); Nitrite,Urine Negative (Negative); Protein,Urine Negative (Neg-Trace); Specific Gravity,Urine 1.025 (1.010-1.025); Urobilinogen,Urine Normal (Normal)
[2017-09-19 19:47] LABS: Bacteria,Urine None Seen per hpf (None-Few); Hyaline Casts,Urine None Seen per lpf (None-Few); RBC,Urine 0-3 per hpf (0-3); Squamous Epithelial Cell,Urine Many per lpf (None-Few); WBC,Urine 15-30 per hpf (0-3)
[2017-09-19] MEDS ORDERED: Fluticasone Propionate Nasal 50 MCG/SPRAY BOTTLE NS PRN (21:49)
[2017-09-19] MEDS ORDERED: *HR* LORazepam 0.5 MG TABLET PO PRN (21:49)
[2017-09-19] MEDS ORDERED: Albuterol 2.5 MG/3 ML NEBULIZER IH PRN (21:49)
[2017-09-19] MEDS ORDERED: *HR* Dextrose 50 % in Water (Syg) 50 ML SYRINGE IVP PRN (21:51)
[2017-09-19] MEDS ORDERED: Dextrose Gel 15 GM PO PRN ×2 (21:51)
[2017-09-19] MEDS ORDERED: D5% in Water 1,000 ML IVC PRN (21:51)
[2017-09-19] MEDS ORDERED: Naloxone 0.4 MG/ML INJ IVP PRN (21:52)
[2017-09-19] MEDS: cefTRIAXone 1,000 MG in Water for inj. (sterile) 10 ML IVP SCH (23:05)
[2017-09-19] MEDS: *HR* Heparin 5,000 UNIT/ML VIAL SQ SCH (23:05)
[2017-09-19] MEDS: 0.9 % Sodium Chloride 1,000 ML IVC SCH (23:06)
[2017-09-19] MEDS: *HR* Morphine 2 MG/ML SYRINGE IVP PRN (23:14)
[2017-09-19] MEDS: Pantoprazole 40 MG VIAL IVP SCH (23:20)
[2017-09-20] MEDS: Insulin LISPRO 300 UNITS/3 ML VIAL SQ SCH ×4 (00:23→17:03)
--- NOTE | 2017-09-20 00:26 | Internal Med History&Physical ---
Date of Encounter: 09/19/17 Time of Encounter: 23:45 Assessment and Plan (1) Acute pancreatitis Current visit: Yes Status: Acute Acute on chronic pancreatitis - unclear etiology NPO, IV Morphine PRN, IV Protonix, IV Zofran, IV fluids Lipase - 168 WBC - 7.5 UA - moderate leukocyte esterase Labs in a.m., monitor closely Qualifiers: Pancreatitis type: unspecified pancreatitis type Acute pancreatitis complication: no infection or necrosis Qualified Code(s): K85.90 - Acute pancreatitis without necrosis or infection, unspecified (2) UTI (urinary tract infection) Current visit: Yes Status: Acute Acute cystitis, UTI, present on admission, likely secondary to gram-negative bacilli Continue empiric IV Rocephin Cultures - pending Qualifiers: Urinary tract infection type: acute cystitis Hematuria presence: without hematuria Qualified Code(s): N30.00 - Acute cystitis without hematuria (3) Hypertension Current visit: Yes Status: Chronic Essential hypertension, controlled, monitor Continue home dose of Norvasc, Lopressor, Hyzaar, Lasix Qualifiers: Hypertension type: essential hypertension Qualified Code(s): I10 - Essential (primary) hypertension (4) Diabetes mellitus Current visit: Yes Status: Chronic Type 2 diabetes mellitus, insulin-dependent, hyperglycemia Continue insulin Sliding scale, glucose checks Qualifiers: Diabetes mellitus type: type 2 Diabetes mellitus complication status: with unspecified complications Diabetes mellitus senior care insulin use: with senior care use Qualified Code(s): E11.8 - Type 2 diabetes mellitus with unspecified complications; Z79.4 - skilled nursing (current) use of insulin (5) Morbid obesity with BMI of 40.0-44.9, adult Current visit: Yes Status: Chronic Morbid obesity with BMI 40.3 Advised lifestyle modification (6) H/O: lung cancer Current visit: Yes Status: Chronic History of lung cancer, status post left lobectomy and chemotherapy (7) DVT prophylaxis Current visit: Yes Status: Acute Heparin subcutaneous Internal Medicine - H&P: HPI Chief complaint: Abdominal pain Admitted From: Emergency Dept Plans for Post Hospital Care: Home History of present illness: Ms. Lopez is a 62 year old female with past medical history of chronic pancreatitis, arthritis, asthma, cirrhosis, COPD, diabetes, GERD, GI bleed, hyperlipidemia, hypertension, anxiety and depression. Patient presents to the ED with complaints of abdominal pain. Examined in the room. Patient is awake and alert. Not in any distress. Able to provide all history. No family members at bedside. Patient states she developed generalized abdominal pain about 2-3 days ago. Symptoms gradually worsened. She also complains of associated nausea. Denies diarrhea but does have constipation. No alleviating or aggravating factors. Patient has had similar episodes in the past, due to acute pancreatitis in the past. She describes the pain as cramping and aching and is almost constant. He rates it 7 /10. Does not radiate. Mainly seems to be in the periumbilical and epigastric region. No other associated symptoms. No other acute complaints. Initial workup in the ED is significant for slightly elevated lipase. Patient is being admitted for acute pancreatitis. She will be nothing by mouth and will be continued on IV fluids. IV morphine as needed for pain. Patient has been explained about her condition and plan of care in detail. Patient understood and agreed. No unanswered questions. CODE STATUS full code. Past Med Surg Social Fam HX - Past Medical History Medical history: arthritis, asthma, cancer, cirrhosis, COPD, diabetes, GERD, GI bleed, hyperlipidemia, hypertension, liver disease, malignancy, osteoporosis, other Psychiatric history: anxiety, depression, previous psychiatric hospitalization - Past Surgical History Surgical History: appendectomy, cancer surgery, cholecystectomy, hysterectomy, orthopedic, other, LIZZETTE/BSO, other - Social History Smoking Status: Never smoker Smokeless Tobacco Status: No Alcohol use: none Drug use: none - Family History Mother Adopted: No Living Status: Hx Family Cardiac Disorders: Yes (heart disease) Hx Family Respiratory Disorders: Yes (Emphysema) Hx Family Cancer: Yes (Skin cancer, "Eye cancer") Hx Family GI Disorders: No Hx Family Endocrine Disorder: Yes (DM) Hx Family Neuromuscular Disorders: No Hx Family Neurologic Disorders: No Hx Family HEENT Disorders: No Hx Family Autoimmune Disorders: No Father Living Status: Hx Family Cardiac Disorders: Yes (unknown) Internal Medicine - H&P: Meds Amlodipine [Amlodipine Besylate] 10 mg PO QAM 11/17/15 [History] Duloxetine HCl [Cymbalta] 60 mg PO BID 11/17/15 [History] Fluticasone Propionate Nasal [Flonase] 50 mcg NS DAILY PRN 11/17/15 [History] LORazepam [Ativan] 0.5 mg PO BID PRN 11/17/15 [History] Losartan/Hydrochlorothiazide [Hyzaar 100-12.5 Tablet] 1 tab PO QAM 11/17/15 [ History] Metoprolol [Lopressor] 100 mg PO BID 11/17/15 [History] Trazodone HCl 150 mg PO HS 11/17/15 [History] Vitamin E (Dl,Tocopheryl Acet) [Vitamin E] 400 unit PO BID 11/17/15 [History] Multivitamin [Multi-Day Vitamins] 1 tab PO DAILY 04/11/16 [History] Insulin NPH/REG 70/30 [HumuLIN 70/30 VIAL] 100 unit SQ BIDWM 06/27/16 [History] Albuterol Sulfate [Albuterol Inhaler] 1 - 2 puff IH Q6HR PRN 10/13/16 [History] Beclomethasone Diprop 80mcg [QVAR 80 mcg] 1 puff IH BID 10/13/16 [History] Furosemide [Lasix] 20 mg PO DAILY 10/13/16 [History] Esomeprazole Magnesium [Nexium] 40 mg PO DAILY 11/26/16 [History] Insulin Regular Human [Humulin R] 0 units SQ TID PRN 12/29/16 [History] Albuterol Neb [Proventil Neb] 2.5 mg IH TID PRN 09/19/17 [History] Atorvastatin [Lipitor] 40 mg PO HS 09/19/17 [History] Baclofen [Lioresal] 10 mg PO BID PRN 09/19/17 [History] Bupropion HCl [Wellbutrin Xl] 300 mg PO DAILY 09/19/17 [History] Diclofenac Sodium [Voltaren] 1 appl TP QID PRN 09/19/17 [History] Fenofibrate Nanocrystallized [Tricor] 145 mg PO DAILY 09/19/17 [History] HYDROcodone/Acet 5/325 mg [[place] 5-325 mg] 1 tab PO Q8H PRN 09/19/17 [History] Levothyroxine [Synthroid] 25 mcg PO 0630 09/19/17 [History] Polyethylene Glycol 3350 [MiraLAX] 17 gm PO DAILY PRN 09/19/17 [History] hydrOXYzine pamoate [HydrOXYzine Pamoate] 25 mg PO TID PRN 09/19/17 [History] lamoTRIgine [Lamictal] 25 mg PO HS 09/19/17 [History] 3 Allergy/AdvReac Type Severity Reaction Status Date / Time NSAIDS (Non-Steroidal AdvReac Gastrointestinal Verified 09/19/17 17:28 Anti-Inflamma Upset All Systems PM: A 10-system review of systems was performed and is negative for pertinent findings except as documented above in the HPI. - Constitutional Constitutional: fatigue, no fever(s), no weakness - EENT Eyes: no blurry vision - Cardiovascular Cardiovascular ROS IM: no chest pain, no diaphoresis, no dyspnea, no dyspnea on exertion, no lightheadedness, no orthopnea, no palpitations, no syncope - Respiratory Respiratory: no cough, no dyspnea, no dyspnea on exertion, no wheezing, no chest congestion - Gastrointestinal Gastrointestinal: abdominal pain, bloating, constipation, cramping, heartburn, nausea, no diarrhea, no hematemesis, no hematochezia, no loose stools, no melena , no vomiting - Genitourinary Genitourinary: no dysuria - Neurological Neurological ROS: no abnormal gait, no abnormal movements, no confusion, no dizziness, no focal weakness, no numbness, no tingling, no weakness - Constitutional Vitals: Temp Pulse Resp BP Pulse Ox 98.0 F 67 18 105/65 94 09/19/17 22:01 09/19/17 22:01 09/19/17 22:01 09/19/17 22:01 09/19/17 22:01 General appearance: Present: cooperative, A&O X 3, morbidly obese, pleasant, no acute distress, answers questions appropriately - Head Head exam: Present: atraumatic - Eye Eye exam: Present: EOMI - ENT ENT exam: Present: mucous membranes dry - Respiratory Respiratory exam: Present: CTAB. Absent: accessory muscle use, rales, respiratory distress, rhonchi, wheezes, tachypnea - Cardiovascular Cardiovascular exam: Present: RRR, +S1, +S2 - GI/Abdominal GI/Abdominal exam: Present: distended (Slightly distended), normal bowel sounds , soft, tenderness (Epigastric and periumbilical tenderness), no peritoneal signs. Absent: firm, guarding - Extremities Exam Extremities exam: Present: radial pulses palpable and symmetrical. Absent: calf tenderness, cyanotic, pedal edema - Neurological Exam Neurological exam: Present: alert, oriented X3, no focal deficits. Absent: facial droop, speech deficit Internal Med - H&P Results - Labs CBC & Chem 7: 09/19/17 18:04 09/19/17 18:04
[2017-09-20] MEDS: *HR* Morphine 2 MG/ML SYRINGE IVP PRN ×4 (04:10→21:00)
[2017-09-20] MEDS: Ondansetron 4 MG/2 ML VIAL IVP PRN (04:10)
[2017-09-20 04:47] LABS: Basophils % 0.7 %; Eosinophils # 0.3 K/mcL (0.0-0.6); Hematocrit 36.2 % (35.3-44.9); Hemoglobin 11.8 g/dL (11.5-15.4); Immature Granulocytes % 0.2 % (0-4); Lymphocytes % 33.8 %; Mean Corpuscular HGB Conc 32.6 g/dL (31.6-35.5); Mean Corpuscular Hemoglobin 29.8 pg (28.0-33.3); Mean Corpuscular Volume 91.4 fL (83.0-100.0); Monocytes # 0.7 K/mcL (0.0-1.3); Monocytes % 11.6 %; Neutrophils # 2.9 K/mcL (1.6-8.9); Platelet Count 226 K/mcL (140-400); Red Blood Count 3.96 M/mcL (3.82-4.97); Red Cell Distribution Width 13.2 % (11.5-14.5); Segmented Neutrophils % 48.7 %
[2017-09-20] MEDS: *HR* Heparin 5,000 UNIT/ML VIAL SQ SCH ×3 (04:59→23:58)
[2017-09-20] MEDS: Levothyroxine 25 MCG TABLET PO SCH (04:59)
[2017-09-20] MEDS: Pantoprazole 40 MG VIAL IVP SCH (04:59)
[2017-09-20 05:00] LABS: BUN/Creatinine Ratio 12 (6-26); Blood Urea Nitrogen 9 mg/dL (7-20); Carbon Dioxide 26 mEq/L (19-29); Chloride 104 mEq/L (98-109); Chol/HDL Ratio 3.2 (0-4.9); Cholesterol 162 mg/dL (< 200); Glucose 132 mg/dL (70-99); HDL Cholesterol 50 mg/dL (40-59); LDL Cholesterol,Calculated 89 mg/dL (0-99); Osmolality,Calculated 293 (280-300); Potassium 3.5 mEq/L (3.5-4.5); Sodium 141 mEq/L (136-145); Triglycerides 114 mg/dL (< 150); eGFR For African Americans > 60 (> 60); eGFR For Non-African Americans > 60 (> 60)
[2017-09-20] MEDS: Multivit/Ca/Min/Fe/FA 1 TAB TABLET PO SCH (07:36)
[2017-09-20] MEDS: Furosemide 20 MG TABLET PO SCH (07:36)
[2017-09-20] MEDS: Fenofibrate 54 MG TABLET PO SCH (07:36)
[2017-09-20] MEDS: Acetaminophen 325 MG TABLET PO PRN (07:36)
[2017-09-20] MEDS: Losartan/HCTZ 50-12.5 TABLET PO SCH (07:36)
[2017-09-20] MEDS: amLODIPine 5 MG TABLET PO SCH (07:36)
[2017-09-20] MEDS: Metoprolol 100 MG TABLET PO SCH ×2 (07:37→20:45)
[2017-09-20] MEDS: BuPROPion XL (24 HR) 150 MG TABLET PO SCH (07:37)
[2017-09-20] MEDS: Beclomethasone 80mcg MDI IH SCH ×2 (07:38→20:03)
[2017-09-20] MEDS: 0.9 % Sodium Chloride 1,000 ML IVC SCH (15:29)
--- NOTE | 2017-09-20 19:21 | Electrocardiograph Report ---
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
[2017-09-20] MEDS ORDERED: lamoTRIgine 25 MG TABLET PO SCH (21:00)
[2017-09-20] MEDS ORDERED: traZODone 50 MG TABLET PO SCH (21:00)
[2017-09-21] MEDS: cefTRIAXone 1,000 MG in Water for inj. (sterile) 10 ML IVP SCH
[2017-09-21] MEDS: Insulin LISPRO 300 UNITS/3 ML VIAL SQ SCH ×2 (00:05→06:08)
[2017-09-21] MEDS: Ondansetron 4 MG/2 ML VIAL IVP PRN ×2 (00:10→09:05)
[2017-09-21] MEDS: Acetaminophen 325 MG TABLET PO PRN (04:34)
[2017-09-21 04:36] LABS: Basophils # 0.1 K/mcL (0.0-0.2); Basophils % 0.9 %; Eosinophils # 0.4 K/mcL (0.0-0.6); Eosinophils % 6.7 %; Hematocrit 36.3 % (35.3-44.9); Hemoglobin 12.1 g/dL (11.5-15.4); Immature Granulocytes % 0.2 % (0-4); Lymphocytes # 1.9 K/mcL (0.6-4.6); Lymphocytes % 35.2 %; Mean Corpuscular HGB Conc 33.3 g/dL (31.6-35.5); Mean Corpuscular Hemoglobin 30.6 pg (28.0-33.3); Mean Corpuscular Volume 91.7 fL (83.0-100.0); Mean Platelet Volume 9.9 fL (9.4-12.4); Monocytes # 0.6 K/mcL (0.0-1.3); Monocytes % 11.4 %; Neutrophils # 2.5 K/mcL (1.6-8.9); Platelet Count 209 K/mcL (140-400); Red Blood Count 3.96 M/mcL (3.82-4.97); Red Cell Distribution Width 13.3 % (11.5-14.5); Segmented Neutrophils % 45.6 %
[2017-09-21 04:51] LABS: BUN/Creatinine Ratio 11 (6-26); Blood Urea Nitrogen 8 mg/dL (7-20); Calcium 8.8 mg/dL (8.6-10.8); Carbon Dioxide 26 mEq/L (19-29); Chloride 104 mEq/L (98-109); Glucose 127 mg/dL (70-99); Osmolality,Calculated 290 (280-300); Potassium 3.8 mEq/L (3.5-4.5); Sodium 140 mEq/L (136-145); eGFR For African Americans > 60 (> 60); eGFR For Non-African Americans > 60 (> 60)
[2017-09-21] MEDS: *HR* Heparin 5,000 UNIT/ML VIAL SQ SCH (06:05)
[2017-09-21] MEDS: Levothyroxine 25 MCG TABLET PO SCH (06:09)
[2017-09-21] MEDS: Pantoprazole 40 MG VIAL IVP SCH (06:10)
[2017-09-21 07:30] VITALS: BP 122/68
[2017-09-21] MEDS: Beclomethasone 80mcg MDI IH SCH (07:37)
[2017-09-21] MEDS: Metoprolol 100 MG TABLET PO SCH (08:59)
[2017-09-21] MEDS: Fenofibrate 54 MG TABLET PO SCH (09:00)
[2017-09-21] MEDS: BuPROPion XL (24 HR) 150 MG TABLET PO SCH (09:00)
[2017-09-21] MEDS: amLODIPine 5 MG TABLET PO SCH (09:00)
[2017-09-21] MEDS: Multivit/Ca/Min/Fe/FA 1 TAB TABLET PO SCH (09:00)
[2017-09-21] MEDS: Losartan/HCTZ 50-12.5 TABLET PO SCH (09:00)
[2017-09-21] MEDS: Furosemide 20 MG TABLET PO SCH (09:05)
--- NOTE | 2017-09-21 10:30 | Discharge Summary ---
Date of Encounter: 09/22/17 Time of Encounter: 10:20 - Discharge Diagnosis (1) Acute pancreatitis Priority: Primary Status: Acute Qualifiers: Pancreatitis type: unspecified pancreatitis type Acute pancreatitis complication: no infection or necrosis Qualified Code(s): K85.90 - Acute pancreatitis without necrosis or infection, unspecified (2) UTI (urinary tract infection) Priority: Primary Status: Acute Qualifiers: Urinary tract infection type: acute cystitis Hematuria presence: without hematuria Qualified Code(s): N30.00 - Acute cystitis without hematuria (3) Diabetes mellitus Priority: Secondary Status: Chronic Qualifiers: Diabetes mellitus type: type 2 Diabetes mellitus complication status: with unspecified complications Diabetes mellitus terminal system operator insulin use: with group home use Qualified Code(s): E11.8 - Type 2 diabetes mellitus with unspecified complications; Z79.4 - terminal system operator (current) use of insulin (4) Hypertension Priority: Secondary Status: Chronic Qualifiers: Hypertension type: essential hypertension Qualified Code(s): I10 - Essential (primary) hypertension (5) Morbid obesity with BMI of 40.0-44.9, adult Priority: Secondary Status: Chronic (6) Depression, major, recurrent Priority: Secondary Status: Acute Qualifiers: Active/Remission status: currently active Major depression episode severity : unspecified Qualified Code(s): F33.9 - Major depressive disorder, recurrent , unspecified - Discharge Medications Prescriptions: Amoxicillin/Clavulanate [Augmentin] 875 mg PO BIDWM #6 tablet Home Medications: Amlodipine [Amlodipine Besylate] 10 mg PO QAM 11/17/15 [History] Duloxetine HCl [Cymbalta] 60 mg PO BID 11/17/15 [History] Fluticasone Propionate Nasal [Flonase] 50 mcg NS DAILY PRN 11/17/15 [History] LORazepam [Ativan] 0.5 mg PO BID PRN 11/17/15 [History] Losartan/Hydrochlorothiazide [Hyzaar 100-12.5 Tablet] 1 tab PO QAM 11/17/15 [ History] Metoprolol [Lopressor] 100 mg PO BID 11/17/15 [History] Trazodone HCl 150 mg PO HS 11/17/15 [History] Vitamin E (Dl,Tocopheryl Acet) [Vitamin E] 400 unit PO BID 11/17/15 [History] Multivitamin [Multi-Day Vitamins] 1 tab PO DAILY 04/11/16 [History] Insulin NPH/REG 70/30 [HumuLIN 70/30 VIAL] 100 unit SQ BIDWM 06/27/16 [History] Albuterol Sulfate [Albuterol Inhaler] 1 - 2 puff IH Q6HR PRN 10/13/16 [History] Beclomethasone Diprop 80mcg [QVAR 80 mcg] 1 puff IH BID 10/13/16 [History] Furosemide [Lasix] 20 mg PO DAILY 10/13/16 [History] Esomeprazole Magnesium [Nexium] 40 mg PO DAILY 11/26/16 [History] Insulin Regular Human [Humulin R] 0 units SQ TID PRN 12/29/16 [History] Albuterol Neb [Proventil Neb] 2.5 mg IH TID PRN 09/19/17 [History] Atorvastatin [Lipitor] 40 mg PO HS 09/19/17 [History] Baclofen [Lioresal] 10 mg PO BID PRN 09/19/17 [History] Bupropion HCl [Wellbutrin Xl] 300 mg PO DAILY 09/19/17 [History] Diclofenac Sodium [Voltaren] 1 appl TP QID PRN 09/19/17 [History] Fenofibrate Nanocrystallized [Tricor] 145 mg PO DAILY 09/19/17 [History] HYDROcodone/Acet 5/325 mg [[place] 5-325 mg] 1 tab PO Q8H PRN 09/19/17 [History] Levothyroxine [Synthroid] 25 mcg PO 0630 09/19/17 [History] Polyethylene Glycol 3350 [MiraLAX] 17 gm PO DAILY PRN 09/19/17 [History] hydrOXYzine pamoate [HydrOXYzine Pamoate] 25 mg PO TID PRN 09/19/17 [History] lamoTRIgine [Lamictal] 25 mg PO HS 09/19/17 [History] Amoxicillin/Clavulanate [Augmentin] 875 mg PO BIDWM #6 tablet 09/21/17 [Rx] Allergies/Adverse Reactions: 3 Allergy/AdvReac Type Severity Reaction Status Date / Time NSAIDS (Non-Steroidal AdvReac Gastrointestinal Verified 09/19/17 17:28 Anti-Inflamma Upset Procedures/tests Complete & Pending: Procedures Performed prior 72 hours Category Date Time Status CT abdomen wo no iv no oral [CT] Stat Cat Scan 09/20/17 10:50 Completed Date of admission: 09/19/17 21:52 Primary care physician: Ava Kimble CNP - Patient Status Disposition: Home, Self-Care Overall status at discharge: patient is back to baseline - Discharge Instructions Instructions: Amoxicillin/Clavulanate Potassium (By mouth) Follow Up With: Ava Kimble CNP [Primary Care Provider] - 09/26/17 2:00 pm - Diet and Activity Activity: resume usual activities as tolerated Diet: diabetic diet Hospital course: Ms. Lopez is a 62 year old female with past medical history of chronic pancreatitis, arthritis, asthma, cirrhosis, COPD, diabetes, GERD, GI bleed, hyperlipidemia, hypertension, anxiety and depression. Patient presents to the ED with complaints of abdominal pain. Patient states she developed generalized abdominal pain about 2-3 days prior to the admission date. Symptoms gradually worsened. She also complains of associated nausea. Denies diarrhea but does have constipation. No alleviating or aggravating factors. Patient has had similar episodes in the past, due to acute pancreatitis in the past. Initial workup in the ED is significant for slightly elevated lipase. She was admitted for clinical pancreatitis. She was hydrated and made NPO. Diet was advanced as tolerated. She underwent a CT abdomen and pelvis ordered by me which did not show any acute findings. I had a discussion with the patient as she has had many admissions previously for recurrent pancreatitis with no clear etiology. I did tell her that is is worthwhile for her PCP to start eliminating some of her meds and see if this resolves the issue. She is on multiple meds that can cause this to a certain degree. She is on lasix, losartan, lamotrigin, and a statin. All of those have potential to cause pancreatitis, although any drug can cause it. She was stable for discharge on 09/21/2017. - Time Spent with Patient Total time spent providing and/or coordinating discharge services: - Constitutional Vitals: Temp Pulse Resp BP Pulse Ox 98.2 F 62 15 122/68 92 09/21/17 07:29 09/21/17 07:29 09/21/17 07:38 09/21/17 07:29 09/21/17 07:38 General appearance: Present: cooperative, A&O X 3, morbidly obese, pleasant, no acute distress, answers questions appropriately Exam: GEN: NAD CVS: RRR. S1, S2, No m/r/g RESP: CTAB ABD: Soft, NT, ND, +BS EXT: No edema. 2+ DP, No rashes NEURO: Nonfocal
== END 2017-09-21 15:25 | disposition home or self-care (01) | DRG 282 ==
LOC: EMEROO 17:06 → 3BNU 17:06
PROVIDERS: ADMIT Family Medicine; ATTEND Registered Nurse

== ENCOUNTER 2018-03-01 12:36 | Inpatient (IN) ==
--- NOTE | 2018-03-01 12:44 | History & Physical Report ---
Date of Encounter: 03/01/18 Time of Encounter: 12:44 24 Hour HP Update - Instructions Instructions: If the History and Physical is less than 30 days old and was completed prior to A.M. admission and or procedure and has NOT been updated on calendar day of procedure please complete this update prior to performing procedure. - Update Patient reports changes in Medical Condition: No Changes in examination, assessment, or condition: No Changes in Medication: No Preop tests/diagnostics Reviewed: Yes Surgery Remains Indicated: Yes Consent for Planned Operative Procedure(s) Verified: Yes - Pre-Operative Checklist Preoperative Checklist Indicated: No Prophylactic Antibiotic Ordered: Yes Is VTE Prophylaxis Indicated?: Yes
[2018-03-01] MEDS ORDERED: CeFAZolin Syr 2,000MG/20 ML 2,000 MG/20 ML SYRINGE IVPB ONE (12:50)
[2018-03-01] MEDS ORDERED: Albuterol 2.5 MG/3 ML NEBULIZER IH ONE (12:51)
[2018-03-01] MEDS ORDERED: Acetaminophen IV 1,000 MG/100 ML INFUS..BTL IVPB ONE (12:52)
[2018-03-01] MEDS ORDERED: Ethanol\\Acetic Acid\\Na Ace\\Ben 1,000 ML IRRIG.SOLN IR ONE (12:53)
[2018-03-01] MEDS ORDERED: Ringers Solution, Lactated 1,000 ML IVC SCH (13:00)
--- NOTE | 2018-03-01 13:00 | Anesthesia Evaluation PreOp ---
Date of Encounter: 03/01/18 Time of Encounter: 12:58 - Past History Planned Operation: L total shoulder, reverse ball and socket revision Cardiac History: HTN, Other (Impressions: Grossly normal LV systolic function. Not all LV wall segments were well visualized. Patient declined use of Definity. Mild left ventricular diastolic dysfunction. Normal right ventricular structure and function. No significant valvular dysfunction. 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: Other (anxiety, depression``1) Other Medical History: Diabetes Type II, Thyroid (hypo), GERD Anesthesia History: No Prior Anesthetic Complications, Past Anesthesia (L ankle , LIZZETTE, appy, lap amos, lung resection, L shoulder replacment) Alcohol Use: none Drug use: none Medications and Allergies Albuterol Sulfate [Ventolin Hfa] 2 puff IH Q4H PRN 03/01/18 [History] Amlodipine Besylate 10 mg PO DAILY 03/01/18 [History] Baclofen [Lioresal] 10 mg PO BID 03/01/18 [History] Bupropion HCl [Wellbutrin Xl] 300 mg PO DAILY 03/01/18 [History] Cetirizine HCl [All Day Allergy] 10 mg PO DAILY 03/01/18 [History] Duloxetine HCl [Cymbalta] 60 mg PO BID 03/01/18 [History] Esomeprazole Magnesium [Nexium] 40 mg PO DAILY 03/01/18 [History] Fenofibrate Nanocrystallized [Tricor] 145 mg PO DAILY 03/01/18 [History] Fluticasone/Vilanterol [Breo Ellipta 200-25 Mcg INH] 1 puff IH DAILY 03/01/18 [ History] Furosemide [Lasix] 20 mg PO BID 03/01/18 [History] HYDROcodone/Acet 5/325 mg [[place] 5-325 mg] 1 tab PO Q8H PRN 03/01/18 [History] Insulin NPH Hum/Reg Insulin Hm [Novolin 70-30 100 Unit/ml Vial] 80 unit SQ BID 03/01/18 [History] Insulin Regular Human [Humulin R] 1 - 11 unit SQ PRN PRN 03/01/18 [History] Levothyroxine Sodium [Levoxyl] 50 mcg PO DAILY 03/01/18 [History] Losartan Potassium [Cozaar] 100 mg PO DAILY 03/01/18 [History] Metoprolol Tartrate 100 mg PO BID 03/01/18 [History] lamoTRIgine [Lamictal] 25 mg PO DAILY 03/01/18 [History] traZODone [TraZODone] 150 mg PO HS 03/01/18 [History] 3 Allergy/AdvReac Type Severity Reaction Status Date / Time NSAIDS (Non-Steroidal AdvReac Gastrointestinal Verified 02/27/18 14:54 Anti-Inflamma Upset - Meds/Allergy Pre-op Review Medications Reviewed: Yes Allergies Reviewed: Yes Beta Blockers on Current Med List: Yes If Beta Blockers taken, Date/Time (Last Dose taken): 8am 03/01/18 Anesthesia Results - Labs Laboratory Tests 02/27/18 02/27/18 02/27/18 15:00 15:00 15:00 WBC 9.8 Hgb 13.7 Hct 40.3 Plt Count 294 PT 10.9 INR 1.0 APTT 27.2 Sodium 136 Potassium 3.7 Chloride 101 Carbon Dioxide 25 BUN 15 - Imaging EKG: report reviewed (SR) Anesthesia Exam O2 Sat Height 1.63 m Height 1.63 m Weight 109.316 kg Weight 109.316 kg O2 Sat by Pulse Oximetry 96 Vital Signs Temp Pulse Resp BP Pulse Ox 98.2 F 73 18 196/86 96 03/01/18 12:55 03/01/18 12:55 03/01/18 12:55 03/01/18 12:55 03/01/18 12:55 Height: 64" Weight: 241lbs NPO (# of Hours): >8 - HEENT Pupil (Motor): Pupils equal, EOMI Mallampati: III Teeth: Edentulous Oral Opening: Less than or equal to 3 - HANDBAG FRAMES INSPECTOR LOC: Oriented 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
[2018-03-01] MEDS ORDERED: Albuterol 2.5 MG/3 ML NEBULIZER ONE (13:01)
--- NOTE | 2018-03-01 13:27 | Discharge Summary ---
Orders not resulted at time of discharge: Pending orders 03/01/18 12:44 XR shoulder complete LT [XR] Routine 03/01/18 12:45 Hemoglobin and Hematocrit [HEME] Routine Date of Encounter: 03/02/18 Time of Encounter: 09:39 - Discharge Diagnosis (1) Hypothyroidism Priority: Secondary Status: Chronic Qualifiers: Hypothyroidism type: unspecified Qualified Code(s): E03.9 - Hypothyroidism , unspecified (2) Complete rotator cuff tear or rupture of left shoulder, not specified as traumatic Priority: Primary Status: Chronic (3) Metastatic lung carcinoma Priority: Secondary Status: Chronic Qualifiers: Laterality: unspecified laterality Qualified Code(s): C78.00 - Secondary malignant neoplasm of unspecified lung (4) Hypertension Priority: Secondary Status: Chronic Qualifiers: Hypertension type: essential hypertension Qualified Code(s): I10 - Essential (primary) hypertension (5) Dyslipidemia Priority: Secondary Status: Chronic (6) Chronic obstructive pulmonary disease Priority: Secondary Status: Chronic Qualifiers: COPD type: unspecified COPD Qualified Code(s): J44.9 - Chronic obstructive pulmonary disease, unspecified (7) Cirrhosis of liver Priority: Secondary Status: Chronic Qualifiers: Hepatic cirrhosis type: unspecified hepatic cirrhosis Ascites presence: unspecified Qualified Code(s): K74.60 - Unspecified cirrhosis of liver (8) Chronic recurrent pancreatitis Priority: Secondary Status: Chronic (9) Morbid obesity with BMI of 40.0-44.9, adult Priority: Secondary Status: Chronic (10) Hyperglycemia Priority: Secondary Status: Chronic (11) Status post total replacement of left shoulder Priority: Secondary Status: Chronic (12) Type 2 diabetes mellitus Priority: Secondary Status: Chronic Qualifiers: Diabetes mellitus terminal block assembler insulin use: unspecified retirement insulin use status Diabetes mellitus complication status: with unspecified complications Qualified Code(s): E11.8 - Type 2 diabetes mellitus with unspecified complications - Hospital Course Hospital course: Ms. Lopez is a 62 year old female Status post revision left total shoulder The patient had an uneventful postoperative course. They received antibiotics and physical therapy and were discharged in stable condition. There will follow -up in the office in 2 weeks. - Time Spent with Patient Total time spent providing and/or coordinating discharge services: - Discharge Medications Home Medications: Albuterol Sulfate [Ventolin Hfa] 2 puff IH Q4H PRN 03/01/18 [History] Amlodipine Besylate 10 mg PO DAILY 03/01/18 [History] Baclofen [Lioresal] 10 mg PO BID 03/01/18 [History] Bupropion HCl [Wellbutrin Xl] 300 mg PO DAILY 03/01/18 [History] Cetirizine HCl [All Day Allergy] 10 mg PO DAILY 03/01/18 [History] Duloxetine HCl [Cymbalta] 60 mg PO BID 03/01/18 [History] Esomeprazole Magnesium [Nexium] 40 mg PO DAILY 03/01/18 [History] Fenofibrate Nanocrystallized [Tricor] 145 mg PO DAILY 03/01/18 [History] Fluticasone/Vilanterol [Breo Ellipta 200-25 Mcg INH] 1 puff IH DAILY 03/01/18 [ History] Furosemide [Lasix] 20 mg PO BID 03/01/18 [History] HYDROcodone/Acet 5/325 mg [[place] 5-325 mg] 1 tab PO Q8H PRN 03/01/18 [History] Insulin NPH Hum/Reg Insulin Hm [Novolin 70-30 100 Unit/ml Vial] 80 unit SQ BID 03/01/18 [History] Insulin Regular Human [Humulin R] 1 - 11 unit SQ PRN PRN 03/01/18 [History] Levothyroxine Sodium [Levoxyl] 50 mcg PO DAILY 03/01/18 [History] Losartan Potassium [Cozaar] 100 mg PO DAILY 03/01/18 [History] Metoprolol Tartrate 100 mg PO BID 03/01/18 [History] OxyCODONE Immed Rel [Roxicodone 5 MG] 5 mg PO Q4HR PRN 5 Days #20 tablet [Rx] lamoTRIgine [Lamictal] 25 mg PO DAILY 03/01/18 [History] traZODone [TraZODone] 150 mg PO HS 03/01/18 [History] Allergies/Adverse Reactions: 3 Allergy/AdvReac Type Severity Reaction Status Date / Time NSAIDS (Non-Steroidal AdvReac Gastrointestinal Verified 02/27/18 14:54 Anti-Inflamma Upset Primary care physician: Ava Kimble CNP - Patient Status Disposition: Home, Self-Care Condition: Good Functional capacity at discharge: independent ambulation Overall status at discharge: patient is progressing back to baseline - Discharge Instructions Follow Up With: Ava Kimble, JANNETTE [Primary Care Provider] -
[2018-03-01] MEDS ORDERED: Ondansetron 4 MG/2 ML VIAL IVP ONE (13:52)
[2018-03-01] MEDS ORDERED: *HR* Promethazine 25 MG/ML VIAL IVP PRN (13:52)
[2018-03-01] MEDS ORDERED: Dexamethasone 4 MG/ML VIAL IVP ONE (13:52)
[2018-03-01] MEDS ORDERED: *HR* Morphine 2 MG/ML SYRINGE IVP PRN (13:52)
[2018-03-01] MEDS ORDERED: *HR* Labetalol 20 MG/4 ML SYRINGE IVP PRN (13:52)
[2018-03-01] MEDS ORDERED: *HR* PHENYLEPHRINE 1,000 MCG/10 ML SYRINGE IVP ONE (14:25)
[2018-03-01] MEDS ORDERED: *HR* Midazolam HCl 2 MG/2 ML VIAL ONE (14:25)
[2018-03-01] MEDS ORDERED: Lidocaine -MPF 4% 5 ML AMPUL ONE (14:25)
[2018-03-01] MEDS ORDERED: Lidocaine -MPF 2% 2 ML VIAL ONE (14:25)
[2018-03-01] MEDS ORDERED: Ondansetron 4 MG/2 ML VIAL ONE (14:25)
[2018-03-01] MEDS ORDERED: *HR* FentaNYL (PF) 100 MCG/2 ML VIAL ONE ×2 (14:25)
[2018-03-01] MEDS ORDERED: Dexamethasone 4 MG/ML VIAL ONE (14:25)
[2018-03-01] MEDS ORDERED: *HR* Propofol 200 MG/20 ML VIAL IVP ONE (14:25)
[2018-03-01] MEDS ORDERED: EPHEDrine 50 MG/ML VIAL ONE (14:26)
[2018-03-01] MEDS ORDERED: *HR* Phenylephrine 10 MG/ML VIAL ONE (14:40)
--- NOTE | 2018-03-01 14:47 | Anesthesia Procedures ---
Date of Encounter: 03/01/18 Time of Encounter: 13:50 Procedures: Anesthesia - Nerve Block Procedure Date: 03/01/18 Time: 13:50 Allergies/Adv Reactions: nsaids Surgical Procedure: left tsr revision Checklist: Correct Patient Identifier, Correct procedure, History checked Correct side: Left Blood Thinner: No Monitor Applied: EKG, BP, Pulse Oximetry Supplemental Oxygen via Nasal Cannula (L/min): 3 Sedation: Versed (mg): 2 Sedation: Fentanyl (mcg): 100 Indication: Post Op Analgesia (per dr. marroquin) Pre-op Neuro Deficits: No Block Type: Supraclavicular, Other (scp) Catheter placed: No Sterile Technique: Yes Ultrasound used: Yes Anatomy identified: Yes Visual spread of Local: Yes Neuro Stimulation: No Blood on Needle Aspiration: No Smooth Injection of Local: Yes Pain with Injection of Local: No Prep: Chlorhexadine Needle: 22 x 50 mm Stimuplex Local: 0.25% Bupivicaine w/Clonidine 20 mcg/cc (10cc with 4mg decadron for scp) , Ropivacaine (30cc with 10mg decadron for supraclavicular) Volume (cc): 30, 10 Number of Attempts: 1 Complications: None/effective block Vitals: Vital Signs/O2 Sat/Glucose, Most Recent Temp Pulse Resp BP Pulse Ox 98.2 F 64 16 152/92 92 03/01/18 12:55 03/01/18 13:55 03/01/18 13:55 03/01/18 13:55 03/01/18 13:55 Blood Glucose* 131 Comments: [facility]
[2018-03-01] MEDS ORDERED: *HR* Rocuronium Bromide 50 MG/5 ML VIAL ONE (15:17)
[2018-03-01] MEDS ORDERED: SUGAMMADEX SODIUM 500 MG/5 ML VIAL IV ONE (15:21)
--- NOTE | 2018-03-01 15:42 | Orthopedic Operative Note ---
Date of procedure: 03/01/18 Pre-op diagnosis: Rotator cuff tear subscap with left total shoulder Post-op diagnosis: same Procedure: Procedure: Left Revision Total Shoulder replacement reverse Estimated blood loss: 100 cc Hardware: Arthrex Revers Base plate: Small Glenosphere: 39 neutral 2 4.5 screws 1 6.5 screw Humeral stem: 10 Poly insert: 3 Metal insert Procedural Notes: Complete rupture of subscap with retraction Operative procedure: The patient was brought to the operating room and placed on the operating room table. The patient was placed in the modified beachchair position. All pressure points were padded appropriately. And the head was stabilized in the neutral position. The operative extremity was prepped and draped in the sterile surgical fashion. The patient received IV antibiotics prior to skin incision. A standard deltopectoral approach was made to the operative shoulder. Incision was made through the old incision, through the skin and subcutaneous tissue, hemo stasis was obtained with Bovie cautery. Using careful blunt dissection the cephalic vein was identified and mobilized medially. The deltopectoral interval was developed and the clavipectoral fascia was incised. Patient had no subscap identifiable. An extensive debridement was performed, and the shoulder was dislocated. Using an osteotome to clear out the soft tissue, the humeral component was gently removed. Anterior and posterior Bankart retractors were used to expose the glenoid, the glenoid component was removed without incident. The glenoid guide was seated the centering hole was made the glenoid was reamed with the appropriate reamer. The small glenoid baseplate was seated and secured and locked in place with 2, 4.5 screws one, 6.5 central screw-in. The baseplate was irrigated and dried and the 39 Central glenosphere was seated and secured. Attention was then turned to the humeral side. The humerus was reamed and broached up to its appropriate size 7 in 20 degrees of retroversion. Trial reduction found the shoulder to be relocatable. Trial components were removed, real implants were seated. Trial reduction found the shoulder to be stable with the appropriate 3 Benita. The trial implants were removed the real implant was seated and secured in the shoulder was reduced. The patient had excellent motion and excellent stability no shuck. The deep tissue was irrigated with pulse irrigation deltopectoral interval was closed with #2 PDS suture over Gelfoam soaked in vancomycin. Superficially the subcutaneous tissue was closed with 0 PDS suture, the skin was closed with skin ra. The patient placed sterile dressing, postoperative brace extubated and transferred to the recovery room in stable condition. Anesthesia: GETA Surgeon: John Hartmann Was there an staff assistant present: No Estimated blood loss (cc): 100 Condition: stable Disposition: PACU
[2018-03-01 16:23] LABS: Hematocrit 36.7 % (35.3-44.9); Hemoglobin 12.3 g/dL (11.5-15.4)
--- NOTE | 2018-03-01 16:23 | Anesthesia Evaluation Post Op ---
Date of Encounter: 03/01/18 Time of Encounter: 16:25 - Vital Signs Vital Signs: Vital Signs/O2 Sat/Glucose, Most Current Temp Pulse Resp BP Pulse Ox 03/01/18 16:07 79 20 117/70 91 03/01/18 15:57 79 18 122/69 94 03/01/18 15:47 97.1 F L 82 12 120/73 95 03/01/18 13:55 64 16 152/92 92 03/01/18 13:31 18 196/86 96 03/01/18 12:55 98.2 F 73 18 196/86 96 - Lungs Lungs: Clear Ascult./Percussion - Airway Airway: Non-obstructed - Cardiovascular Regular Rate - Mental Status Mental Status: Alert & Oriented, Answers Appropriately - Pain Pain Scale: 0 - Nausea Vomiting Nausea Vomiting: Not Present - Hydration Hydration: Ice chips - Discharge PostOp Status: Transfer Patient to floor
[2018-03-01] MEDS ORDERED: Sennosides 8.6 MG TABLET PO PRN (16:46)
[2018-03-01] MEDS ORDERED: Dextrose Gel 15 GM/37.5 ML TUBE PO PRN ×2 (16:46)
[2018-03-01] MEDS ORDERED: D5% in Water 1,000 ML IVC PRN (16:46)
[2018-03-01] MEDS ORDERED: Temazepam 15 MG CAPSULE PO PRN (16:46)
[2018-03-01] MEDS ORDERED: traMADol 50 MG TABLET PO PRN (16:46)
[2018-03-01] MEDS ORDERED: CeFAZolin Pre 2,000 MG/100 ML 2,000 MG/100 ML BAG IVPB SCH (16:46)
[2018-03-01] MEDS ORDERED: Naloxone 0.4 MG/ML INJ IVP PRN (16:46)
[2018-03-01] MEDS ORDERED: MOM Conc 10 ML UD.LIQ PO PRN (16:46)
[2018-03-01] MEDS ORDERED: *HR* Dextrose 50 % in Water (Syg) 50 ML SYRINGE IVP PRN (16:46)
[2018-03-01] MEDS ORDERED: *HR* Enoxaparin 30 MG/0.3 ML SYRINGE SQ SCH (18:00)
[2018-03-01] MEDS: Insulin LISPRO 300 UNITS/3 ML VIAL SQ SCH ×2 (19:19→21:04)
[2018-03-01] MEDS: traZODone 50 MG TABLET PO SCH (20:37)
[2018-03-01] MEDS: Furosemide 20 MG TABLET PO SCH (20:37)
[2018-03-01] MEDS: Baclofen 10 MG TABLET PO SCH (20:37)
[2018-03-01] MEDS: Metoprolol 100 MG TABLET PO SCH (20:37)
[2018-03-01] MEDS: Ringers Solution, Lactated 1,000 ML IVC SCH (20:41)
[2018-03-01] MEDS: *HR* Enoxaparin 30 MG/0.3 ML SYRINGE SQ SCH (20:42)
[2018-03-01] MEDS: CeFAZolin Pre 2,000 MG/100 ML 2,000 MG/100 ML BAG IVPB SCH (22:51)
[2018-03-02 01:46] LABS: Hematocrit 33.7 % (35.3-44.9); Hemoglobin 11.4 g/dL (11.5-15.4)
[2018-03-02] MEDS: *HR* Enoxaparin 30 MG/0.3 ML SYRINGE SQ SCH ×2 (05:51→18:35)
[2018-03-02] MEDS: CeFAZolin Pre 2,000 MG/100 ML 2,000 MG/100 ML BAG IVPB SCH (05:52)
[2018-03-02] MEDS: *HR* OxyCODONE/APAP 5/325 TABLET PO PRN ×2 (06:56→11:11)
[2018-03-02] MEDS: Insulin LISPRO 300 UNITS/3 ML VIAL SQ SCH ×4 (08:14→22:42)
[2018-03-02] MEDS: (Fluticasone/Vilanterol [Breo Ellipta 200-25 Mcg Inh] IH SCH (08:14)
[2018-03-02] MEDS: BuPROPion XL (24 HR) 150 MG TABLET PO SCH (08:23)
[2018-03-02] MEDS: Fenofibrate 54 MG TABLET PO SCH (08:23)
[2018-03-02] MEDS: Furosemide 20 MG TABLET PO SCH ×2 (08:24→17:37)
[2018-03-02] MEDS: Loratadine 10 MG TABLET PO SCH (08:24)
[2018-03-02] MEDS: Metoprolol 100 MG TABLET PO SCH ×2 (08:24→22:28)
[2018-03-02] MEDS: Baclofen 10 MG TABLET PO SCH (08:24)
[2018-03-02] MEDS: lamoTRIgine 25 MG TABLET PO SCH (08:24)
[2018-03-02] MEDS: amLODIPine 5 MG TABLET PO SCH (08:25)
[2018-03-02] MEDS: *HR* OxyCODONE Immed Rel 5 MG TABLET PO PRN ×3 (14:12→22:28)
--- NOTE | 2018-03-02 16:59 | Event Note ---
Date of Encounter: 03/02/18 Time of Encounter: 16:56 PCR- POD#1. Left total shoulder revision. 03/01/18 Shahbaz. PCR - Patient seen at bedside. Labwork and medications reviewed. Pain control: Patient c/o elevated pain despite 10 mg oxycodone and 5mg Percocet earlier. S/w pharmacy who reveals patient received 1 g Acetaminophen in PACU. Patient notifies us provider that she has a history of cirrhosis and was instructed by Dr. Castillo not to consume greater than 2000 mg of Tylenol in a 24 -hour period. Spoke with pharmacy and informed them of this concern. They put an internal alert on. We will change Percocet to plain Roxicodone to avoid over administration Tylenol and order by mouth Tylenol only as needed to help reduce risk of patient receiving too much acetaminophen. We will also added Valium to help with muscle relaxation as well as anxiety and pain. Participating in PT. All questions and concerns addressed. Educated on use of incentive spirometer, ambulation, and hydration. Patient educated on post-operative restrictions and care. Addressed: see above. D/C plan: Home with HH
--- NOTE | 2018-03-02 17:02 | Physician Discharge Referral ---
Home Health/Hosp Referral Info Transfer to: Home Health Attending Provider: Dr. John Hartmann - Diagnosis (1) Diabetes mellitus Priority: Secondary Status: Chronic (2) History of pancreatitis Priority: Secondary Status: Chronic (3) Obesity Priority: Secondary Status: Chronic (4) Chronic pain Priority: Secondary Status: Chronic (5) History of malignant neoplasm of lung in adulthood Priority: Secondary Status: Chronic (6) Hypertension Priority: Secondary Status: Chronic (7) Dyslipidemia Priority: Secondary Status: Chronic (8) Chronic obstructive pulmonary disease Priority: Secondary Status: Chronic (9) Left rotator cuff tear arthropathy Priority: Primary Status: Chronic (10) Status post total replacement of left shoulder Priority: Primary Status: Acute - Respiratory Orders Smoking Cessation: Smoking cessation has been advised. For more information, call the [employer] Tobacco Quit Line at 4-530-UPBX-NOW. - Dressing/Wound Care Site: Left shoulder Type of Dressing/Treatments w/Frequency: Opsite placed. Keep dressing intact until first follow up appointment. If greater than 50% saturated, notify office, remove dressing and place appropriate dressing back in place. Leave Zipline/ra intact. Opsite dressing is water resistant, not water-proof. OK to shower, but do not get dressing wet. - Diet/Nutrition Diet/Nutrition Orders: Regular - Activity Activity Orders: Up ad ayush, Ambulate, Chair Activity: List: PT/OT. NWB to affected upper extremity. Follow Shoulder Precautions x 6 weeks. Stay in brace during activity and at night. Remove brace during exercises. ICE and elevate extremity frequently throughout the day. - Services Needed Following services are medically necessary services: Nursing, Home Health Aide, Physical Therapy, Occupational Therapy - Transfer Medications Home Medications: Albuterol Sulfate [Ventolin Hfa] 2 puff IH Q4H PRN 03/01/18 [History] Amlodipine Besylate 10 mg PO DAILY 03/01/18 [History] Baclofen [Lioresal] 10 mg PO BID 03/01/18 [History] Bupropion HCl [Wellbutrin Xl] 300 mg PO DAILY 03/01/18 [History] Cetirizine HCl [All Day Allergy] 10 mg PO DAILY 03/01/18 [History] Duloxetine HCl [Cymbalta] 60 mg PO BID 03/01/18 [History] Esomeprazole Magnesium [Nexium] 40 mg PO DAILY 03/01/18 [History] Fenofibrate Nanocrystallized [Tricor] 145 mg PO DAILY 03/01/18 [History] Fluticasone/Vilanterol [Breo Ellipta 200-25 Mcg INH] 1 puff IH DAILY 03/01/18 [ History] Furosemide [Lasix] 20 mg PO BID 03/01/18 [History] HYDROcodone/Acet 5/325 mg [Datto 5-325 mg] 1 tab PO Q8H PRN 03/01/18 [History] Insulin NPH Hum/Reg Insulin Hm [Novolin 70-30 100 Unit/ml Vial] 80 unit SQ BID 03/01/18 [History] Insulin Regular Human [Humulin R] 1 - 11 unit SQ PRN PRN 03/01/18 [History] Levothyroxine Sodium [Levoxyl] 50 mcg PO DAILY 03/01/18 [History] Losartan Potassium [Cozaar] 100 mg PO DAILY 03/01/18 [History] Metoprolol Tartrate 100 mg PO BID 03/01/18 [History] OxyCODONE Immed Rel [Roxicodone 5 MG] 5 mg PO Q4HR PRN 5 Days #20 tablet [Rx] lamoTRIgine [Lamictal] 25 mg PO DAILY 03/01/18 [History] traZODone [TraZODone] 150 mg PO HS 03/01/18 [History] Allergies/Adverse Reactions: 3 Allergy/AdvReac Type Severity Reaction Status Date / Time NSAIDS (Non-Steroidal AdvReac Gastrointestinal Verified 02/27/18 14:54 Anti-Inflamma Upset Certification: Further, I certify that my clinical findings support that this patient is homebound (i.e. absences from home require considerable and taxing effort and are for medical reasons or alevism services or infrequently or short duration when for other reasons) because: Homebound Reason: Post-surgery restriction and or conditions limit ability to leave home Attestation: My signature below is to certify that this patient is under my care and that I, or nurse practitioner, or a physician technician assistant working with me, has a face-to- face encounter with this patient.
[2018-03-02] MEDS: Ondansetron 4 MG/2 ML VIAL IVP PRN (17:37)
[2018-03-02] MEDS ORDERED: Baclofen 10 MG TABLET PO PRN (17:58)
[2018-03-02] MEDS: diazePAM 2 MG TABLET PO PRN ×2 (18:35→23:06)
[2018-03-02] MEDS: *HR* HYDROcodone/Acet 5/325 mg TABLET PO PRN (21:01)
[2018-03-02] MEDS: traZODone 50 MG TABLET PO SCH (22:28)
[2018-03-03 01:05] LABS: Hemoglobin 10.4 g/dL (11.5-15.4)
[2018-03-03] MEDS: *HR* OxyCODONE Immed Rel 5 MG TABLET PO PRN ×5 (04:18→22:10)
[2018-03-03] MEDS: *HR* Enoxaparin 30 MG/0.3 ML SYRINGE SQ SCH ×2 (05:57→19:53)
[2018-03-03] MEDS: *HR* HYDROcodone/Acet 5/325 mg TABLET PO PRN (05:58)
[2018-03-03] MEDS: BuPROPion XL (24 HR) 150 MG TABLET PO SCH (08:31)
[2018-03-03] MEDS: Metoprolol 100 MG TABLET PO SCH ×2 (08:31→20:09)
[2018-03-03] MEDS: Fenofibrate 54 MG TABLET PO SCH (08:31)
[2018-03-03] MEDS: amLODIPine 5 MG TABLET PO SCH (08:31)
[2018-03-03] MEDS: Furosemide 20 MG TABLET PO SCH ×2 (08:31→15:50)
[2018-03-03] MEDS: lamoTRIgine 25 MG TABLET PO SCH (08:31)
[2018-03-03] MEDS: Loratadine 10 MG TABLET PO SCH (08:31)
[2018-03-03] MEDS: Insulin LISPRO 300 UNITS/3 ML VIAL SQ SCH ×4 (08:33→20:11)
[2018-03-03] MEDS: (Fluticasone/Vilanterol [Breo Ellipta 200-25 Mcg Inh] IH SCH (08:33)
[2018-03-03] MEDS: diazePAM 2 MG TABLET PO PRN ×2 (15:50→20:15)
[2018-03-03] MEDS: Ringers Solution, Lactated 1,000 ML IVC SCH ×3 (19:07→20:19)
[2018-03-03] MEDS: traZODone 50 MG TABLET PO SCH (20:09)
[2018-03-04] MEDS: *HR* OxyCODONE Immed Rel 5 MG TABLET PO PRN ×5 (02:10→20:19)
[2018-03-04] MEDS: *HR* HYDROcodone/Acet 5/325 mg TABLET PO PRN ×2 (03:58→23:00)
[2018-03-04] MEDS: *HR* Enoxaparin 30 MG/0.3 ML SYRINGE SQ SCH ×2 (06:05→18:05)
[2018-03-04] MEDS: BuPROPion XL (24 HR) 150 MG TABLET PO SCH (07:30)
[2018-03-04] MEDS: Furosemide 20 MG TABLET PO SCH ×2 (07:31→18:05)
[2018-03-04] MEDS: amLODIPine 5 MG TABLET PO SCH (07:31)
[2018-03-04] MEDS: Loratadine 10 MG TABLET PO SCH (07:31)
[2018-03-04] MEDS: Metoprolol 100 MG TABLET PO SCH ×2 (07:31→20:19)
[2018-03-04] MEDS: Fenofibrate 54 MG TABLET PO SCH (07:31)
[2018-03-04] MEDS: lamoTRIgine 25 MG TABLET PO SCH (07:31)
[2018-03-04] MEDS: (Fluticasone/Vilanterol [Breo Ellipta 200-25 Mcg Inh] IH SCH (07:32)
[2018-03-04] MEDS: Insulin LISPRO 300 UNITS/3 ML VIAL SQ SCH ×4 (07:32→20:23)
--- NOTE | 2018-03-04 15:36 | Orthopedics Progress Note ---
Date of Encounter: 03/03/18 Time of Encounter: 07:40 Subjective Principal diagnosis: Status post left shoulder revision surgery Interval history: The patient is without complaints. Afebrile vital signs are stable. Incision is clean dry and intact. Neurovascularly intact with regard to bilateral upper extremities. Fires all upper and lower extremity motor groups. Assessment : stable. Plan mobilize ,continue analgesics, discharge planning. Objective Vital signs: Vital Signs Temp Pulse Resp BP Pulse Ox 03/04/18 09:54 97.8 F 87 16 134/76 96 03/04/18 06:32 98 F 84 16 129/78 95 03/04/18 04:28 97.6 F 79 16 134/76 93 03/03/18 23:34 98.2 F 70 18 149/81 93 03/03/18 19:46 98 F 84 17 169/91 93 Intake and Output 03/03/18 03/04/18 03/04/18 23:59 07:59 15:59 Intake Total 470 / 470 480 / 480 Output Total 900 / 900 Balance 470 / 470 -420 / -420 Intake: Oral 470 / 470 480 / 480 Output: Urine 900 / 900 Other: Meal Lunch Percent of Meal Consumed 60% # Voids 1 1 Blood Glucose* 290 189 195 - Labs CBC & BMP: 03/03/18 00:52 Labs: Abnormal lab results Hgb 10.4 g/dL (11.5-15.4) L 03/03/18 00:52 Hct 32.0 % (35.3-44.9) L 03/03/18 00:52 POC Glucose 195 mg/dL (70-99) H 03/04/18 11:15 - VTE Documentation of Mechanical Device: Venous foot pump, device Consult Discharge Plan - Plan Additional Instructions: Discharge Instructions: Total Shoulder Please call [facility] ([phone]), your Primary Care Physician, or report to the Emergency Room if you have any of the following symptoms: Nausea, vomiting, fever greater that 101.5, swelling, chest pain, shortness of breath, increased pain/redness/drainage/odor for your incision site, numbness/ tingling, or any other concerning symptoms. ACTIVITY: Always keep your arm in the sling. Do not raise your arm away from your body. Do not use your arm to help with getting in or out of bed. No weight bearing permitted. Only perform those exercises given to you by your therapist. MEDICATIONS: Upon discharge resume your home medications. Take all the medications as prescribed. Take a stool softener if taking narcotic pain medications. Stool softeners are only effective if you drink enough fluids. Drink 6-8 glass of water or fluids a day, unless this is not allowed for another health problem. Despite using stool softeners, if you haven't had a bowel movement in 3 days, please switch to a gentle laxative. Gentle laxatives are sold over the counter. You should have a bowel movement within 24 hours, if not call the office. You will be discharged from the hospital with a prescription for pain medication. You are encouraged to decrease the use of narcotic pain medication as tolerated. Should you require a refill, please call the office. [facility] prescribes narcotic pain medication for only 4-6 weeks after surgery. If you require pain medication beyond this time period, you may be referred to your Primary Care Physician or to the Pain Clinic for further evaluation. Plan ahead for refills on pain medication as many narcotics either need to be picked up at the office or mailed. It is best to call 48-72 hours in advance of needing a prescription refill so you don't run out of medication. To help control the post-operative pain, you may take NSAIDs (Aleve,Advil, Motrin, Ibuprofen, Naprosyn) or Tylenol as prescribed on the bottle in addition to the pain medication. WOUND CARE: Leave the dressing on for 7-10 days. You may change the dressing if it becomes saturated greater than 50%. Do not get the dressing wet at anytime. Wash your hands with antibacterial soap, rinse and dry prior to any wound care. If you have ra the visiting nurse or rehab facility can remove the stapes 10-14 days after surgery and place steri-strips across the wound. Leave the steri-strips in place until they fall off on their own. You may let water from the shower run on top of the steri-strips. If you do not have a visiting nurse or rehab facility, you will need to return to the office at 10-14 days for the ra to be removed. If you have itching or redness around the dressing call the office. FOLLOW-UP: Please follow up with your surgeon in the orthopedic clinic, as scheduled Referrals: Olena Calderon, DEMETRIO [Physician Turbine Engineer] - Ava Kimble, JANNETTE [Primary Care Provider] -
--- NOTE | 2018-03-04 15:37 | Orthopedics Progress Note ---
Date of Encounter: 03/04/18 Time of Encounter: 15:36 Subjective Principal diagnosis: Status post left shoulder revision surgery Interval history: The patient is without complaints. The patient did not feel safe to go home so her visit has been extended and plan is for her to go to a rehabilitation facility. Afebrile vital signs are stable. Incision is clean dry and intact. Neurovascularly intact with regard to bilateral upper extremities. Fires all upper and lower extremity motor groups. Assessment :stable. Plan mobilize , continue analgesics, discharge planning. Objective Vital signs: Vital Signs Temp Pulse Resp BP Pulse Ox 03/04/18 09:54 97.8 F 87 16 134/76 96 03/04/18 06:32 98 F 84 16 129/78 95 03/04/18 04:28 97.6 F 79 16 134/76 93 03/03/18 23:34 98.2 F 70 18 149/81 93 03/03/18 19:46 98 F 84 17 169/91 93 Intake and Output 03/03/18 03/04/18 03/04/18 23:59 07:59 15:59 Intake Total 470 / 470 480 / 480 Output Total 900 / 900 Balance 470 / 470 -420 / -420 Intake: Oral 470 / 470 480 / 480 Output: Urine 900 / 900 Other: Meal Lunch Percent of Meal Consumed 60% # Voids 1 1 Blood Glucose* 290 189 195 - Labs CBC & BMP: 03/03/18 00:52 Labs: Abnormal lab results Hgb 10.4 g/dL (11.5-15.4) L 03/03/18 00:52 Hct 32.0 % (35.3-44.9) L 03/03/18 00:52 POC Glucose 195 mg/dL (70-99) H 03/04/18 11:15 - VTE Documentation of Mechanical Device: Venous foot pump, device Consult Discharge Plan - Plan Additional Instructions: Discharge Instructions: Total Shoulder Please call [facility] ([phone]), your Primary Care Physician, or report to the Emergency Room if you have any of the following symptoms: Nausea, vomiting, fever greater that 101.5, swelling, chest pain, shortness of breath, increased pain/redness/drainage/odor for your incision site, numbness/ tingling, or any other concerning symptoms. ACTIVITY: Always keep your arm in the sling. Do not raise your arm away from your body. Do not use your arm to help with getting in or out of bed. No weight bearing permitted. Only perform those exercises given to you by your therapist. MEDICATIONS: Upon discharge resume your home medications. Take all the medications as prescribed. Take a stool softener if taking narcotic pain medications. Stool softeners are only effective if you drink enough fluids. Drink 6-8 glass of water or fluids a day, unless this is not allowed for another health problem. Despite using stool softeners, if you haven't had a bowel movement in 3 days, please switch to a gentle laxative. Gentle laxatives are sold over the counter. You should have a bowel movement within 24 hours, if not call the office. You will be discharged from the hospital with a prescription for pain medication. You are encouraged to decrease the use of narcotic pain medication as tolerated. Should you require a refill, please call the office. [facility] prescribes narcotic pain medication for only 4-6 weeks after surgery. If you require pain medication beyond this time period, you may be referred to your Primary Care Physician or to the Pain Clinic for further evaluation. Plan ahead for refills on pain medication as many narcotics either need to be picked up at the office or mailed. It is best to call 48-72 hours in advance of needing a prescription refill so you don't run out of medication. To help control the post-operative pain, you may take NSAIDs (Aleve,Advil, Motrin, Ibuprofen, Naprosyn) or Tylenol as prescribed on the bottle in addition to the pain medication. WOUND CARE: Leave the dressing on for 7-10 days. You may change the dressing if it becomes saturated greater than 50%. Do not get the dressing wet at anytime. Wash your hands with antibacterial soap, rinse and dry prior to any wound care. If you have ra the visiting nurse or rehab facility can remove the stapes 10-14 days after surgery and place steri-strips across the wound. Leave the steri-strips in place until they fall off on their own. You may let water from the shower run on top of the steri-strips. If you do not have a visiting nurse or rehab facility, you will need to return to the office at 10-14 days for the ra to be removed. If you have itching or redness around the dressing call the office. FOLLOW-UP: Please follow up with your surgeon in the orthopedic clinic, as scheduled Referrals: Olena Calderon PAC [Physician Ux Engineer] - Ava Kimble CNP [Primary Care Provider] -
[2018-03-04] MEDS: Ringers Solution, Lactated 1,000 ML IVC SCH ×2 (19:15→21:05)
[2018-03-04] MEDS: traZODone 50 MG TABLET PO SCH (20:19)
[2018-03-05] MEDS: *HR* OxyCODONE Immed Rel 5 MG TABLET PO PRN ×5 (02:51→22:09)
[2018-03-05] MEDS: *HR* Enoxaparin 30 MG/0.3 ML SYRINGE SQ SCH ×2 (06:06→17:21)
--- NOTE | 2018-03-05 06:45 | Orthopedics Progress Note ---
Date of Encounter: 03/05/18 Time of Encounter: 06:45 - Assessment and Plan (1) Hypothyroidism Current Visit: Yes Status: Chronic Qualifiers: Hypothyroidism type: unspecified Qualified Code(s): E03.9 - Hypothyroidism , unspecified (2) Complete rotator cuff tear or rupture of left shoulder, not specified as traumatic Current Visit: Yes Status: Chronic (3) Metastatic lung carcinoma Current Visit: No Status: Chronic Qualifiers: Laterality: unspecified laterality Qualified Code(s): C78.00 - Secondary malignant neoplasm of unspecified lung (4) Hypertension Current Visit: No Status: Chronic Qualifiers: Hypertension type: essential hypertension Qualified Code(s): I10 - Essential (primary) hypertension (5) Dyslipidemia Current Visit: No Status: Chronic (6) Chronic obstructive pulmonary disease Current Visit: No Status: Chronic Qualifiers: COPD type: unspecified COPD Qualified Code(s): J44.9 - Chronic obstructive pulmonary disease, unspecified (7) Cirrhosis of liver Current Visit: No Status: Chronic Qualifiers: Hepatic cirrhosis type: unspecified hepatic cirrhosis Ascites presence: unspecified Qualified Code(s): K74.60 - Unspecified cirrhosis of liver (8) Chronic recurrent pancreatitis Current Visit: No Status: Chronic (9) Morbid obesity with BMI of 40.0-44.9, adult Current Visit: No Status: Chronic (10) Hyperglycemia Current Visit: No Status: Chronic (11) Status post total replacement of left shoulder Current Visit: Yes Status: Acute (12) Type 2 diabetes mellitus Current Visit: Yes Status: Chronic Qualifiers: Diabetes mellitus 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 Afebrile vital signs stable. Operative extremity: Neurovascularly intact Dressing clean dry and intact Calves nontender Assessment and plan: Continue with postoperative care Patient felt she was unsafe to go home would like [facility] facility. Discharge today Objective Vital signs: Vital Signs Temp Pulse Resp BP Pulse Ox 03/05/18 06:26 98.4 F 71 18 160/71 93 03/05/18 03:45 98.7 F 74 16 139/77 93 03/04/18 23:30 99.1 F 75 16 109/65 93 03/04/18 18:35 98.8 F 89 16 112/58 93 03/04/18 14:01 98.1 F 93 16 138/84 95 03/04/18 09:54 97.8 F 87 16 134/76 96 Intake and Output 03/04/18 03/04/18 03/05/18 15:59 23:59 07:59 Intake Total 480 / 480 50 / 50 Output Total 900 / 900 Balance -420 / -420 50 / 50 Intake: Oral 480 / 480 50 / 50 Output: Urine 900 / 900 Other: Meal Lunch Percent of Meal Consumed 60% # Voids 1 Weight 112.5 kg Blood Glucose* 195 298 Patient Weight 03/05/18 23:59 Weight 112.5 kg - Labs CBC & BMP: 03/03/18 00:52 Labs: Abnormal lab results Hgb 10.4 g/dL (11.5-15.4) L 03/03/18 00:52 Hct 32.0 % (35.3-44.9) L 03/03/18 00:52 POC Glucose 203 mg/dL (70-99) H 03/04/18 16:36 - VTE Documentation of Mechanical Device: Venous foot pump, device Consult Discharge Plan - Plan Additional Instructions: Discharge Instructions: Total Shoulder Please call [facility] ([phone]), your Primary Care Physician, or report to the Emergency Room if you have any of the following symptoms: Nausea, vomiting, fever greater that 101.5, swelling, chest pain, shortness of breath, increased pain/redness/drainage/odor for your incision site, numbness/ tingling, or any other concerning symptoms. ACTIVITY: Always keep your arm in the sling. Do not raise your arm away from your body. Do not use your arm to help with getting in or out of bed. No weight bearing permitted. Only perform those exercises given to you by your therapist. MEDICATIONS: Upon discharge resume your home medications. Take all the medications as prescribed. Take a stool softener if taking narcotic pain medications. Stool softeners are only effective if you drink enough fluids. Drink 6-8 glass of water or fluids a day, unless this is not allowed for another health problem. Despite using stool softeners, if you haven't had a bowel movement in 3 days, please switch to a gentle laxative. Gentle laxatives are sold over the counter. You should have a bowel movement within 24 hours, if not call the office. You will be discharged from the hospital with a prescription for pain medication. You are encouraged to decrease the use of narcotic pain medication as tolerated. Should you require a refill, please call the office. [facility] prescribes narcotic pain medication for only 4-6 weeks after surgery. If you require pain medication beyond this time period, you may be referred to your Primary Care Physician or to the Pain Clinic for further evaluation. Plan ahead for refills on pain medication as many narcotics either need to be picked up at the office or mailed. It is best to call 48-72 hours in advance of needing a prescription refill so you don't run out of medication. To help control the post-operative pain, you may take NSAIDs (Aleve,Advil, Motrin, Ibuprofen, Naprosyn) or Tylenol as prescribed on the bottle in addition to the pain medication. WOUND CARE: Leave the dressing on for 7-10 days. You may change the dressing if it becomes saturated greater than 50%. Do not get the dressing wet at anytime. Wash your hands with antibacterial soap, rinse and dry prior to any wound care. If you have ra the visiting nurse or rehab facility can remove the stapes 10-14 days after surgery and place steri-strips across the wound. Leave the steri-strips in place until they fall off on their own. You may let water from the shower run on top of the steri-strips. If you do not have a visiting nurse or rehab facility, you will need to return to the office at 10-14 days for the ra to be removed. If you have itching or redness around the dressing call the office. FOLLOW-UP: Please follow up with your surgeon in the orthopedic clinic, as scheduled Referrals: Olena Calderon PAC [Physician Professional Nursing Tutor] - Ava Kimble CNP [Primary Care Provider] -
[2018-03-05] MEDS: Metoprolol 100 MG TABLET PO SCH ×2 (07:57→20:23)
[2018-03-05] MEDS: Fenofibrate 54 MG TABLET PO SCH (07:57)
[2018-03-05] MEDS: lamoTRIgine 25 MG TABLET PO SCH (07:57)
[2018-03-05] MEDS: Furosemide 20 MG TABLET PO SCH ×2 (07:57→17:16)
[2018-03-05] MEDS: amLODIPine 5 MG TABLET PO SCH (07:58)
[2018-03-05] MEDS: BuPROPion XL (24 HR) 150 MG TABLET PO SCH (07:58)
[2018-03-05] MEDS: Insulin LISPRO 300 UNITS/3 ML VIAL SQ SCH ×4 (07:58→20:23)
[2018-03-05] MEDS: Loratadine 10 MG TABLET PO SCH (07:58)
[2018-03-05] MEDS: (Fluticasone/Vilanterol [Breo Ellipta 200-25 Mcg Inh] IH SCH (08:01)
[2018-03-05] MEDS: Ondansetron 4 MG/2 ML VIAL IVP PRN (13:09)
--- NOTE | 2018-03-05 15:16 | Physician Discharge Referral ---
ExtendedCare Referral Info Transfer To: [facility] Provider in Charge: Provider in Charge after Transfer: PCP Institutional Level of Care: Skilled - Diagnosis (1) Status post total replacement of left shoulder Priority: Primary Status: Acute (2) Complete rotator cuff tear or rupture of left shoulder, not specified as traumatic Priority: Primary Status: Chronic (3) Type 2 diabetes mellitus Status: Chronic (4) History of pancreatitis Status: Chronic (5) Obesity Status: Chronic (6) Chronic pain Status: Chronic (7) Diabetes mellitus Status: Chronic Expected Duration of Placement: < 30 days - Transfer Medications Home Medications: Albuterol Sulfate [Ventolin Hfa] 2 puff IH Q4H PRN 03/01/18 [History] Amlodipine Besylate 10 mg PO DAILY 03/01/18 [History] Baclofen [Lioresal] 10 mg PO BID 03/01/18 [History] Bupropion HCl [Wellbutrin Xl] 300 mg PO DAILY 03/01/18 [History] Cetirizine HCl [All Day Allergy] 10 mg PO DAILY 03/01/18 [History] Duloxetine HCl [Cymbalta] 60 mg PO BID 03/01/18 [History] Esomeprazole Magnesium [Nexium] 40 mg PO DAILY 03/01/18 [History] Fenofibrate Nanocrystallized [Tricor] 145 mg PO DAILY 03/01/18 [History] Fluticasone/Vilanterol [Breo Ellipta 200-25 Mcg INH] 1 puff IH DAILY 03/01/18 [ History] Furosemide [Lasix] 20 mg PO BID 03/01/18 [History] Insulin NPH Hum/Reg Insulin Hm [Novolin 70-30 100 Unit/ml Vial] 80 unit SQ BID 03/01/18 [History] Insulin Regular Human [Humulin R] 1 - 11 unit SQ PRN PRN 03/01/18 [History] Levothyroxine Sodium [Levoxyl] 50 mcg PO DAILY 03/01/18 [History] Losartan Potassium [Cozaar] 100 mg PO DAILY 03/01/18 [History] Metoprolol Tartrate 100 mg PO BID 03/01/18 [History] OxyCODONE Immed Rel [Roxicodone 5 MG] 5 mg PO Q4HR PRN 5 Days #20 tablet [Rx] lamoTRIgine [Lamictal] 25 mg PO DAILY 03/01/18 [History] traZODone [TraZODone] 150 mg PO HS 03/01/18 [History] Allergies/Adverse Reactions: 3 Allergy/AdvReac Type Severity Reaction Status Date / Time NSAIDS (Non-Steroidal AdvReac Gastrointestinal Verified 02/27/18 14:54 Anti-Inflamma Upset - Respiratory Orders None Smoking Cessation: Smoking cessation has been advised. For more information, call the [place] Tobacco Quit Line at 8-768-UCQM-NOW. - Mobility Orders Chair, Ambulate - Rehabiliation Orders Rehab Potential: Good Rehab Orders: ROM Exercises, Evaluation for Occupational Therapy Other: No Shoulder ROM. No lifting/pulling or pushing. Stay in brace. OK to remove brace to perform elbow ROM and patient accounting representative exercises. - Treatments List/Other: Opsite dressing, leave intact until first post-operative visit. If dressing becomes >50% saturated, contact office, remove dressing and place appropriate dressing in its place. Do not allow for dressing to get wet. Kiko intact. Apply cold therapy wrap 3-6x/day for 20 minutes at a time. Encourage ambulation throughout the day and incentive spirometer 10x/hour. Elevate affected extremity above heart as tolerated. Brace: Continue in Arm slingshot Follow Total Shoulder precautions x 6 weeks. No Shoulder ROM or PT. No lifting/pulling or pushing. - Diet Orders Regular CERTIFICATION: I certify that the transfer of the above named patient to an Extended Care Facility is necessary for the continuing treatment of the diagnosis listed. The above information is true and accurate reflection of patient's current condition. Confidential - Redisclosure prohibited without a patient's written consent.
[2018-03-05] MEDS ORDERED: Ondansetron ODT 4 MG TAB.RAPDIS SL PRN (17:32)
[2018-03-05] MEDS: traZODone 50 MG TABLET PO SCH (20:23)
[2018-03-06] MEDS: *HR* OxyCODONE Immed Rel 5 MG TABLET PO PRN ×4 (02:07→16:32)
[2018-03-06] MEDS: *HR* Enoxaparin 30 MG/0.3 ML SYRINGE SQ SCH ×2 (05:30→16:33)
--- NOTE | 2018-03-06 06:03 | Orthopedics Progress Note ---
Date of Encounter: 03/06/18 Time of Encounter: 06:00 - Assessment and Plan (1) Hypothyroidism Current Visit: Yes Status: Chronic Qualifiers: Hypothyroidism type: unspecified Qualified Code(s): E03.9 - Hypothyroidism , unspecified (2) Complete rotator cuff tear or rupture of left shoulder, not specified as traumatic Current Visit: Yes Status: Chronic (3) Metastatic lung carcinoma Current Visit: No Status: Chronic Qualifiers: Laterality: unspecified laterality Qualified Code(s): C78.00 - Secondary malignant neoplasm of unspecified lung (4) Hypertension Current Visit: No Status: Chronic Qualifiers: Hypertension type: essential hypertension Qualified Code(s): I10 - Essential (primary) hypertension (5) Dyslipidemia Current Visit: No Status: Chronic (6) Chronic obstructive pulmonary disease Current Visit: No Status: Chronic Qualifiers: COPD type: unspecified COPD Qualified Code(s): J44.9 - Chronic obstructive pulmonary disease, unspecified (7) Cirrhosis of liver Current Visit: No Status: Chronic Qualifiers: Hepatic cirrhosis type: unspecified hepatic cirrhosis Ascites presence: unspecified Qualified Code(s): K74.60 - Unspecified cirrhosis of liver (8) Chronic recurrent pancreatitis Current Visit: No Status: Chronic (9) Morbid obesity with BMI of 40.0-44.9, adult Current Visit: No Status: Chronic (10) Hyperglycemia Current Visit: No Status: Chronic (11) Status post total replacement of left shoulder Current Visit: Yes Status: Acute (12) Type 2 diabetes mellitus Current Visit: Yes Status: Chronic Qualifiers: 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 Afebrile vital signs stable. Operative extremity: Neurovascularly intact Dressing clean dry and intact Calves nontender Assessment and plan: Continue with postoperative care Patient seen by PT appears to be okay to go home with home health will discharge home her ECF today. Objective Vital signs: Vital Signs Temp Pulse Resp BP Pulse Ox 03/06/18 03:37 98.1 F 73 18 105/71 94 03/05/18 22:54 98.7 F 71 18 101/62 93 03/05/18 18:31 98.9 F 94 16 108/65 93 03/05/18 14:37 98.2 F 75 18 153/84 95 03/05/18 10:54 98.5 F 69 18 145/77 93 03/05/18 06:26 98.4 F 71 18 160/71 93 Intake and Output 03/05/18 03/05/18 03/06/18 15:59 23:59 07:59 Intake Total 300 / 300 100 / 100 Balance 300 / 300 100 / 100 Intake: Oral 300 / 300 100 / 100 Other: Meal Breakfast Dinner Percent of Meal Consumed 100% 50% # Voids 1 1 Blood Glucose* 277 211 - Labs CBC & BMP: 03/03/18 00:52 Labs: Abnormal lab results Hgb 10.4 g/dL (11.5-15.4) L 03/03/18 00:52 Hct 32.0 % (35.3-44.9) L 03/03/18 00:52 POC Glucose 211 mg/dL (70-99) H 03/05/18 19:38 - VTE Documentation of Mechanical Device: Venous foot pump, device Consult Discharge Plan - Plan Additional Instructions: Discharge Instructions: Total Shoulder Please call [facility] ([phone]), your Primary Care Physician, or report to the Emergency Room if you have any of the following symptoms: Nausea, vomiting, fever greater that 101.5, swelling, chest pain, shortness of breath, increased pain/redness/drainage/odor for your incision site, numbness/ tingling, or any other concerning symptoms. ACTIVITY: Always keep your arm in the sling. Do not raise your arm away from your body. Do not use your arm to help with getting in or out of bed. No weight bearing permitted. Only perform those exercises given to you by your therapist. MEDICATIONS: Upon discharge resume your home medications. Take all the medications as prescribed. Take a stool softener if taking narcotic pain medications. Stool softeners are only effective if you drink enough fluids. Drink 6-8 glass of water or fluids a day, unless this is not allowed for another health problem. Despite using stool softeners, if you haven't had a bowel movement in 3 days, please switch to a gentle laxative. Gentle laxatives are sold over the counter. You should have a bowel movement within 24 hours, if not call the office. You will be discharged from the hospital with a prescription for pain medication. You are encouraged to decrease the use of narcotic pain medication as tolerated. Should you require a refill, please call the office. [facility] prescribes narcotic pain medication for only 4-6 weeks after surgery. If you require pain medication beyond this time period, you may be referred to your Primary Care Physician or to the Pain Clinic for further evaluation. Plan ahead for refills on pain medication as many narcotics either need to be picked up at the office or mailed. It is best to call 48-72 hours in advance of needing a prescription refill so you don't run out of medication. To help control the post-operative pain, you may take NSAIDs (Aleve,Advil, Motrin, Ibuprofen, Naprosyn) or Tylenol as prescribed on the bottle in addition to the pain medication. WOUND CARE: Leave the dressing on for 7-10 days. You may change the dressing if it becomes saturated greater than 50%. Do not get the dressing wet at anytime. Wash your hands with antibacterial soap, rinse and dry prior to any wound care. If you have ra the visiting nurse or rehab facility can remove the stapes 10-14 days after surgery and [address] steri-strips across the wound. Leave the steri-strips in place until they fall off on their own. You may let water from the shower run on top of the steri-strips. If you do not have a visiting nurse or rehab facility, you will need to return to the office at 10-14 days for the ra to be removed. If you have itching or redness around the dressing call the office. FOLLOW-UP: Please follow up with your surgeon in the orthopedic clinic, as scheduled Referrals: Olena Calderon PAC [Physician Inventory Coordinator] - Ava Kimble JUTE BAG CUTTING MACHINE OPERATOR [Primary Care Provider] -
[2018-03-06] MEDS: Furosemide 20 MG TABLET PO SCH ×2 (09:21→16:33)
[2018-03-06] MEDS: lamoTRIgine 25 MG TABLET PO SCH (09:21)
[2018-03-06] MEDS: amLODIPine 5 MG TABLET PO SCH (09:21)
[2018-03-06] MEDS: BuPROPion XL (24 HR) 150 MG TABLET PO SCH (09:21)
[2018-03-06] MEDS: Loratadine 10 MG TABLET PO SCH (09:21)
[2018-03-06] MEDS: Metoprolol 100 MG TABLET PO SCH (09:21)
[2018-03-06] MEDS: (Fluticasone/Vilanterol [Breo Ellipta 200-25 Mcg Inh] IH SCH (09:22)
[2018-03-06] MEDS: Fenofibrate 54 MG TABLET PO SCH (09:22)
[2018-03-06] MEDS: Insulin LISPRO 300 UNITS/3 ML VIAL SQ SCH ×3 (09:23→16:33)
[2018-03-06 14:49] VITALS: BP 142/85
== END 2018-03-06 18:49 | disposition home or self-care (01) | DRG 315 ==
LOC: SAMDAY 12:36 → 3NENU 16:55
PROVIDERS: ADMIT Orthopaedic Surgery; ATTEND Orthopaedic Surgery